=== PATIENT | female | born 1985 | race Caucasian/White ===

== ENCOUNTER 2019-05-21 15:32 | Inpatient (IN) | payer SELFPAY | END 2019-05-27 12:09 | disposition home or self-care (01) | DRG 896 | PROVIDERS: Admitting Provider Internal Medicine; Emergency Provider Family Medicine; Family Provider Family Medicine; Visit Provider Family Medicine | DX: F10.229 Alcohol dependence with intoxication, unspecified (principal); K65.2 Spontaneous bacterial peritonitis; A04.72 Enterocolitis due to Clostridium difficile, not specified as recurrent; I85.00 Esophageal varices without bleeding; R45.851 Suicidal ideations; F10.239 Alcohol dependence with withdrawal, unspecified; K74.60 Unspecified cirrhosis of liver; D69.6 Thrombocytopenia, unspecified; F41.8 Other specified anxiety disorders; F17.210 Nicotine dependence, cigarettes, uncomplicated; E03.9 Hypothyroidism, unspecified; Y90.5 Blood alcohol level of 100-119 mg/100 ml ==

== ENCOUNTER 2019-07-04 19:24 | Emergency (ER) | payer MEDICAID, SELFPAY ==
[2019-07-04 19:31] VITALS: BP 114/92; PULSE 100; RESP 16; TEMP 36.4; O2SAT 96; BMI 21.7
--- NOTE | 2019-07-04 19:35 | ED_ITS ---
Entered by Leslye Euceda, acting as scribe for Milton Piedra MD HPI - Alcohol General: Chief Complaint: Alcohol Stated Complaint: Intoxicated Time Seen by Provider: 07/04/19 19:34 Source: patient and EMS Mode of arrival: EMS History of Present Illness: HPI narrative: 34 y/o female presents to the ED with complaint of ETOH intoxication. Pt was brought in by EMS. Pt states she only had 4 shots of alcohol at home. She is currently in liver failure. 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 Chronic alcohol use: Yes Associated symptoms: Deny abdominal pain, depression, nausea or vomiting Review of Systems Const: Denies: fever, chills, body aches or change in appetite Eyes: Denies: blurry vision or eye discomfort ENMT: Denies: throat pain or dental pain Card: Denies: chest pain Resp: Denies: shortness of breath GI: Denies: abdominal pain, nausea, vomiting or diarrhea : Denies: painful urination Musc: Denies: neck pain or back pain Skin/Breast: Denies: rash Neuro: Denies: headache Psych: Denies: depression Noel/Lymph: Denies: easy bruising All/Imm: Denies: hives PFSH ED PFSH: Statuses (acute, chronic, etc) shown below reflect problem list status as previously entered and may not be historically accurate Social History Smoking and tobacco status: unknown if ever smoked Physical Exam Const: EXAM LIMITATIONS: altered mental status (intoxicated) GENERAL APPEARANCE: disheveled, lethargic and odor of alcohol detected ORIENTATION/CONSCIOUSNESS: Yes lethargic HENMT: COMMON NORMALS: normocephalic and head/scalp atraumatic HEAD & SCALP: normocephalic and atraumatic Eye: COMMON NORMALS: PERRL and EOMs intact bilaterally PUPIL: Yes PERRL Neck/C-Spine: COMMON NORMALS: full ROM and supple Chest: COMMONS NORMALS: inspection of chest normal and palpation of chest normal Resp: COMMON NORMALS: normal respiratory effort, no retractions, no use of accessory muscles and clear to auscultation bilaterally AUSCULTATION: clear to auscultation bilaterally Cardio: COMMON NORMALS: regular rate, regular rhythm and no murmurs RATE: regular rate RHYTHM: regular rhythm GI: COMMON NORMALS: normal to inspection, nondistended, normoactive bowel sounds, soft to palpation, non-tender and no masses PALPATION: Yes soft Extremity: COMMON NORMALS: normal to inspection and full ROM Neuro: COMMON NORMALS: moves all extremities and no focal motor deficits SENSORIUM/ORIENTATION: Yes lethargic GAIT: Yes unable to assess gait Psych: APPEARANCE: Yes unkempt and Yes disheveled SPEECH: Yes slurred Skin: COMMON NORMALS: no rashes or lesions noted and no wounds GENERAL SKIN EXAM: no rashes or lesions noted Course Vital Signs: Vital signs: Vital Signs Temperature 97.5 F L 07/04/19 19:31 Pulse Rate 106 H 07/04/19 19:38 Respiratory Rate 16 07/04/19 19:38 Blood Pressure 114/92 07/04/19 19:38 Pulse Oximetry 94 07/04/19 19:38 MDM - Alcohol MDM Narrative: Medical decision making narrative: Patient presents here with alcohol intoxication. Patient is well-appearing here and has now able to ambulate without any problems. Patient is stable for discharge home. Lab Data: Labs: Lab Results 07/04/19 Range/Units 20:22 Ethyl Alcohol 414 H* (0-10) mg/dL Discharge Plan Discharge Patient Disposition: Home, Self-Care Clinical Impression: Alcoholic intoxication Qualifiers: Complication of substance-induced condition: uncomplicated Qualified Code(s): F10.920 - Alcohol use, unspecified with intoxication, uncomplicated Condition: Stable Discharge Orders: Discharge Order (Routine); Ordered 07/04/19 Ordered By: Milton Piedra Referrals: Rosalba Ashby MD [Family Provider] - Sameer Ziegler MD [Primary Care Provider] - Discharge Diet: Advance as tolerated Discharge Activity: Resume usual activity Patient Instructions: Abuse of Alcohol (ED) Coding Level of Care Code ED Offset Printing Operator for Chg Fwd The documentation recorded by the Ok peterson Ashley, accurately reflects the service I personally performed and the decisions made by Tadeo holliday Korby, MD Jul 04, 2019 19:24
[2019-07-04 19:38] VITALS: BP 114/92; PULSE 106; RESP 16; O2SAT 94
[2019-07-04] MEDS: sodium chloride 0.9% 1,000 ML 999 ML IV (19:45)
[2019-07-04] MEDS: ondansetron 2 mg/ML SDV 2 mL 4 MG IVP (20:03)
[2019-07-04 20:56] LABS: Alcohol Level 414 mg/dL (0-10)
--- NOTE | 2019-07-04 23:08 | PC.NURSE ---
Patient Rounding Patient unable to identify or notify a responsible adult to come get her for discharge and patient is too intoxicated to be discharged on her own.
[2019-07-05] VITALS: BP 134/71; PULSE 82; RESP 16; TEMP 36.7; O2SAT 97
== END 2019-07-05 01:00 | disposition home or self-care (01) ==
PROVIDERS: Emergency Provider Emergency Medicine; Family Provider Family Medicine; PCP General Practice
DX: F10.129 Alcohol abuse with intoxication, unspecified (principal); K72.90 Hepatic failure, unspecified without coma; Y90.8 Blood alcohol level of 240 mg/100 ml or more
CPT/HCPCS: 36415; 80307; 96360; 96361; 96374; 96375; 99282; 99283; J2405; J7030

== ENCOUNTER 2019-07-09 01:32 | Emergency (ER) | payer MEDICAID, SELFPAY ==
[2019-07-09] VITALS (7 sets, daily range): BP systolic 91–117; BP diastolic 68–77; PULSE 107–140; RESP 16–24; TEMP 36.7–36.9; O2SAT 99–100
--- NOTE | 2019-07-09 01:36 | ED_ITS ---
Entered by Adri Sutton, acting as scribe for Jul 09, 2019 01:32 HPI - GI Bleed General: Chief complaint: GI Bleed Stated complaint: GI bleed Time Seen by Provider: 07/09/19 01:36 Source: EMS Mode of arrival: EMS Limitations: no limitations History of Present Illness: HPI Narrative: 34 yo f came to the er by [facility] for Upper GI bleed. Onset was tonight. Severity: severe Relieving factors: none Exacerbating factors: none Context: history of GI bleed and liver disease Associated symptoms: Reports chills and vomiting (BLOOD); Denies fever(s) or headache(s) Review of Systems Const: Reports: chills; Denies: fever Eyes: Reports: blurry vision and yellow eyes ENMT: Denies: oral sores/lesions or nasal discharge Card: Reports: shortness of breath when lying down; Denies: chest pain or palpitations Resp: Reports: shortness of breath; Denies: wheezing GI: Reports: vomiting (BLOOD), vomiting blood and black tarry stool : Reports: difficulty urinating Musc: Reports: back pain Neuro: Reports: numbness in extremities, dizziness and confusion; Denies: headache PFSH ED 2 PFSH: Statuses (acute, chronic, etc) shown below reflect problem list status as previously entered and may not be historically accurate Social History Smoking and tobacco status: current every day smoker Physical Exam Const: GENERAL APPEARANCE: well developed ORIENTATION/CONSCIOUSNESS: Yes oriented to person and Yes oriented to place; not oriented to time HENMT: COMMON NORMALS: normocephalic, external ears normal and external nose normal HEAD & SCALP: normocephalic; no scalp tenderness FACE & SINUS: normal facial exam NOSE: external nose normal and no nasal discharge EXTERNAL EAR: Yes external ears normal MOUTH: tongue normal Eye: COMMON NORMALS: PERRL and EOMs intact bilaterally EYELID: eyelids normal SCLERA: sclera abnormal (icterus) Laterality of scleral abnormality: positive bilateral PUPIL: Yes PERRL Chest: COMMONS NORMALS: inspection of chest normal CHEST: No tenderness Resp: COMMON NORMALS: clear to auscultation bilaterally EFFORT & INSPECTION: Yes tachypneic, Yes respiratory distress, No retractions, No uses accessory muscles and No tracheal deviation AUSCULTATION: clear to auscul tation bilaterally, no rhonchi, no wheezes and lung sounds not diminished Cardio: COMMON NORMALS: regular rhythm; negative for regular rate RATE: abnormal rate RHYTHM: regular rhythm HEART SOUNDS: no murmurs PERIPHERAL PULSES: radial pulses present GI: INSPECTION: No abdominal distension AUSCULTATION: No hyperactive bowel sounds and No hypoactive bowel sounds PALPATION: Yes tender, Yes guarding and No rigid PERCUSSION: no dullness to percussion and no tympanic to percussion Neuro: SENSORIUM/ORIENTATION: Yes oriented to person, Yes oriented to place and No oriented to time Skin: COMMON NORMALS: no rashes or lesions noted GENERAL SKIN EXAM: no rashes or lesions noted Course Vital Signs: Vital signs: Vital Signs Temperature 98.1 F 07/09/19 03:31 Pulse Rate 107 H 07/09/19 03:31 Respiratory Rate 16 07/09/19 03:31 Blood Pressure 108/68 07/09/19 03:31 Pulse Oximetry 99 07/09/19 03:31 MDM - GI Bleed MDM Narrative: Medical decision making narrative: 34-year-old female with a history of chronic liver disease comes in with mental status changes, and vomiting blood. According to EMS, there was a large amount of bloody emesis present with clots. She continues to vomit blood in the ER on arrival. Her heart rates 1 35-1 40. She was hypotensive in the 70s systolic at her lowest, but increased quickly with a fluid bolus. She is received a liter of fluid, 1 unit of O- packed red cells, and is receiving a second unit currently. She is also on Protonix and octreotide. Blood pressure is increased to 117/77. Lab Data: Labs: Lab Results 07/09/19 07/09/19 07/09/19 Range/Units 01:45 01:45 01:45 WBC 13.9 H (4.0-10.0) 10^3/ uL RBC 2.22 L (4.1-5.3) 10^6/u L Hgb 7.6 L (11.5-15.3) g/dL Hct 22.3 L (37.0-47.0) % MCV 100.5 H (81-99) fL MCH 34.2 H (28.0-34.0) pg MCHC 34.1 (30.0-36.0) g/dL RDW 24.0 H (12.1-15.1) % Plt Count 136 (130-400) 10^3/c mm MPV 12.1 H (7.4-10.4) fL Neut % (Auto) 76.3 % Lymph % (Auto) 15.6 % [place] % (Auto) 7.3 % Eos % (Auto) 0.1 % Baso % (Auto) 0.2 % Neut # (Auto) 10.6 H (1.8-7.7) 10^3/u L Lymph # (Auto) 2.2 (0.8-4.8) 10^3/u L [place] # (Auto) 1.0 H (0.2-0.9) 10^3/u L Eos # (Auto) 0.0 (0.0-0.8) 10^3/u L Baso # (Auto) 0.0 (0.0-0.1) 10^3/u L Nucleated RBC % (a uto) 0 % Nucleated RBCs # 0.0 /100WBC PT 33.70 H (10.5-13.3) SECO NDS INR 3.17 H (0.8-1.2) APTT 42.2 H (23.9-36.7) SECO NDS Sodium (136-145) mmol/L Potassium (3.5-5.1) mmol/L Chloride (98-107) mmol/L Carbon Dioxide (22-29) mmol/L Anion Gap (5-19) BUN (6-20) mg/dL Creatinine (0.5-0.9) mg/dL GFR Calculation (90-130) mL/min Glucose (65-115) mg/dL Lactate (0.5-2.2) mmol/L Calcium (8.5-10.5) mg/dL Total Bilirubin (0.15-1.2) mg/dL AST (0-32) U/L ALT (0-33) U/L Alkaline Phosphata se (35-105) IU/L Total Protein (6.6-8.7) g/dL Albumin (3.5-5.2) g/dL Globulin (1.3-4.6) g/dL HCG, Qual (Negative) Acetaminophen (10-30) ug/mL Ethyl Alcohol (0-10) mg/dL Blood Type O Positive Antibody Screen Negative Crossmatch See Detail 07/09/19 07/09/19 07/09/19 Range/Units 01:45 01:45 01:45 WBC (4.0-10.0) 10^3/ uL RBC (4.1-5.3) 10^6/u L Hgb (11.5-15.3) g/dL Hct (37.0-47.0) % MCV (81-99) fL MCH (28.0-34.0) pg MCHC (30.0-36.0) g/dL RDW (12.1-15.1) % Plt Count (130-400) 10^3/c mm MPV (7.4-10.4) fL Neut % (Auto) % Lymph % (Auto) % [place] % (Auto) % Eos % (Auto) % Baso % (Auto) % Neut # (Auto) (1.8-7.7) 10^3/u L Lymph # (Auto) (0.8-4.8) 10^3/u L [place] # (Auto) (0.2-0.9) 10^3/u L Eos # (Auto) (0.0-0.8) 10^3/u L Baso # (Auto) (0.0-0.1) 10^3/u L Nucleated RBC % (a uto) % Nucleated RBCs # /100WBC PT (10.5-13.3) SECO NDS INR (0.8-1.2) APTT (23.9-36.7) SECO NDS Sodium 135 L (136-145) mmol/L Potassium 3.3 L (3.5-5.1) mmol/L Chloride 89 L (98-107) mmol/L Carbon Dioxide 23 (22-29) mmol/L Anion Gap 26.3 H (5-19) BUN 18 (6-20) mg/dL Creatinine 0.6 (0.5-0.9) mg/dL GFR Calculation 113.1 (90-130) mL/min Glucose 123 H (65-115) mg/dL Lactate 8.6 H* (0.5-2.2) mmol/L Calcium 8.4 L (8.5-10.5) mg/dL Total Bilirubin 7.3 H* (0.15-1.2) mg/dL AST 101 H (0-32) U/L ALT 19 (0-33) U/L Alkaline Phosphata se 176 H (35-105) IU/L Total Protein 5.3 L (6.6-8.7) g/dL Albumin 3.1 L (3.5-5.2) g/dL Globulin 2.2 (1.3-4.6) g/dL HCG, Qual Negative (Negative) Acetaminophen < 5.0 L (10-30) ug/mL Ethyl Alcohol < 10 (0-10) mg/dL Blood Type Antibody Screen Crossmatch Critical Care Time Critical Care Time: Critical Care Time: Yes Total Critical Care Time: 40 Attestation: This case had a high probability of a clinically significant, sudden, or life threatening deterioration of this patient's condition which required my full and direct attention, intervention and personal management. Discharge Plan Discharge Referrals: Rosalba Ashby MD [Family Provider] - Sameer Ziegler MD [Primary Care Provider] - Discharge Date/Time: 07/09/19 03:34 Coding Level of Care Code ED Folder Machine Adjuster for Chg Fwd The documentation recorded by the Herman peterson Stephanie Lyn, accurately reflects the service I personally performed and the decisions made by Enoc holliday Jeremy John, DO Jul 09, 2019 01:32
--- NOTE | 2019-07-09 01:43 | XR_ITS ---
WS: [id number] ONE VIEW CHEST HISTORY: 34 years old Female with gi bleed AP upright chest comparison 05/10/2019 FINDINGS: No pneumothorax, pleural effusion, consolidation/atelectasis. Right upper lobe calcified pulmonary no dule. Heart size and pulmonary vascular markings unremarkable. No subdiaphragmatic free air. Slight r ight diaphragm elevation. No fracture seen. XR/XR chest 1V portable [id number] IMPRESSION: No acute cardiopulmonary findings.
--- NOTE | 2019-07-09 01:46 | ECG_ITS ---
Measurements Intervals [place] Rate: 130 P: 3 NJ: 123 QRS: 49 QRSD: 85 T: 48 QT: 363 QTc: 535 SINUS TACHYCARDIA NONSPECIFIC T-WAVE ABNORMALITY ABNORMAL RHYTHM ECG Compared to ECG 05/10/2019 10:24:54 T-wave abnormality now present Sinus rhythm no longer present Electronically Signed On 07-09-2019 22:22:31 SUPERVISOR TRAIN OPERATIONS by Willi Day M.D. [email or web address]
[2019-07-09] MEDS: ondansetron 2 mg/ML SDV 2 mL 4 MG IVP (01:53)
[2019-07-09] MEDS: pantoprazole 40 mg SDV 80 MG IVP (01:54)
[2019-07-09 02:02] LABS: Basophils % 0.2 %; Eosinophils % 0.1 %; Hematocrit 22.3 % (37.0-47.0); Hemoglobin 7.6 g/dL (11.5-15.3); Lymphocytes # 2.2 10^3/uL (0.8-4.8); Lymphocytes % 15.6 %; Mean Corpuscular HGB Conc 34.1 g/dL (30.0-36.0); Mean Corpuscular Hemoglobin 34.2 pg (28.0-34.0); Mean Corpuscular Volume 100.5 fL (81-99); Mean Platelet Volume 12.1 fL (7.4-10.4); Monocytes % 7.3 %; Neutrophils # 10.6 10^3/uL (1.8-7.7); Neutrophils % 76.3 %; Nucleated Red Blood Cells % 0 %; Platelet Count 136 10^3/cmm (130-400); Red Blood Count 2.22 10^6/uL (4.1-5.3); White Blood Count 13.9 10^3/uL (4.0-10.0)
[2019-07-09 02:10] LABS: INR 3.17 (0.8-1.2)
[2019-07-09 02:11] LABS: Partial Thromboplastin Time 42.2 SECONDS (23.9-36.7)
[2019-07-09 02:13] LABS: HCG, Serum Qual Negative (Negative)
[2019-07-09] MEDS: sodium chloride 0.9% 1,000 ML 999 ML IV (02:15)
[2019-07-09] MEDS: octreotide 100 mcg/mL SDV 50 MCG IVP (02:15)
[2019-07-09 02:16] LABS: Alanine Aminotransferase 19 U/L (0-33); Albumin Level 3.1 g/dL (3.5-5.2); Alkaline Phosphatase 176 IU/L (35-105); Anion Gap 26.3 (5-19); Aspartate Amino Transferase 101 U/L (0-32); Blood Urea Nitrogen 18 mg/dL (6-20); Calcium 8.4 mg/dL (8.5-10.5); Carbon Dioxide 23 mmol/L (22-29); Chloride 89 mmol/L (98-107); Creatinine Clr Calc Pharmacy 118.8448; Globulin 2.2 g/dL (1.3-4.6); Glomerular Filtration Rate 113.1 mL/min (90-130); Glucose 123 mg/dL (65-115); Potassium 3.3 mmol/L (3.5-5.1); Sodium 135 mmol/L (136-145); Total Protein 5.3 g/dL (6.6-8.7)
[2019-07-09 02:18] LABS: Acetaminophen < 5.0 ug/mL (10-30); Alcohol Level < 10 mg/dL (0-10); Lactate (Lactic Acid level) 8.6 mmol/L (0.5-2.2); Total Bilirubin 7.3 mg/dL (0.15-1.2)
[2019-07-09] MEDS: sodium chloride 0.9% 100 ML 999 ML (02:19)
== END 2019-07-09 03:34 ==
PROVIDERS: Emergency Provider Emergency Medicine; Family Provider Family Medicine; PCP General Practice
DX: K92.0 Hematemesis (principal); K76.9 Liver disease, unspecified; R41.82 Altered mental status, unspecified; F17.200 Nicotine dependence, unspecified, uncomplicated
CPT/HCPCS: 36415; 71045; 80053; 80307; 80500; 83605; 84703; 85025; 85610; 85730; 86850; 86900; 93005; 96360; 96361; 96374; 96375; 99282; 99283; C9113; J2354; J2405; J7030; P9016

== ENCOUNTER 2019-10-27 16:10 | Emergency (ER) | payer MEDICAID, SELFPAY ==
[2019-10-27 16:29] VITALS: BP 91/57; PULSE 88; RESP 18; TEMP 36.4; O2SAT 99
--- NOTE | 2019-10-27 16:42 | ED_ITS ---
HPI - Psych General: Chief Complaint: Psychiatric Symptoms Stated Complaint: suicide attempt today Time Seen by Provider: 10/27/19 16:38 Source: patient Mode of arrival: other (police) Limitations: no limitations History of Present Illness: HPI Narrative: 34-year-old female who states she has had multiple stressors lately and has a history of liver failure from cirrhosis. She states she had a fight with her this morning and decided to attempt to kill herself. She has 2 superficial lacerations to her left wrist. She states she immediately regretted it and is no longer suicidal. She does have a history depression and takes Lexapro. Denies any worsening or improving factors. complaint: suicidal ideation and feels depressed Onset (ago): hour(s) Duration: resolved prior to arrival Relieving factors: none Exacerbating factors: none Associated symptoms: Reports depression Review of Systems Const: Denies: fever(s), chills, body aches or change in appetite Eyes: Denies: blurry vision or eye discomfort ENMT: Denies: throat pain or dental pain Card: Denies: chest pain Resp: Denies: dyspnea GI: Denies: abdominal pain, nausea, vomiting or diarrhea : Denies: dysuria Musc: Denies: neck pain or back pain Skin/Breast: Denies: rash Neuro: Denies: headache(s) Psych: Reports: depression Noel/Lymph: Denies: easy bruising All/Imm: Denies: urticaria PFS ED PFSH: Social History Smoking and tobacco status: current every day smoker Physical Exam Const: COMMON NORMALS: no acute distress, patient oriented x3 and healthy appearing HENMT: COMMON NORMALS: normocephalic and atraumatic HEAD & SCALP: normocephalic and atraumatic Eye: COMMON NORMALS: Equal, round and reactive pupils present and EOMs intact bilaterally PUPIL: Yes Equal, round and reactive pupils present Neck/C-Spine: COMMON NORMALS: full ROM and supple Chest: COMMONS NORMALS: normal inspection of the chest and normal palpation of entire chest wall Resp: COMMON NORMALS: normal respiratory effort, No retractions, No use of accessory muscles and clear to auscultation bilaterally AUSCULTATION: clear to auscultation bilaterally Cardio: COMMON NORMALS: regular rate, regular rhythm and No murmurs present (Cardio) RATE: regular rate RHYTHM: regular rhythm GI: COMMON NORMALS: Normal to inspection, nondistended, normoactive bowel sounds present, Soft to palpation, non-tender and no masses PALPATION: Yes Soft to palpation Extremity: COMMON NORMALS: normal to inspection and full ROM Neuro: COMMON NORMALS: patient oriented x3, moves all extremities and no focal motor deficits Psych: COMMON NORMALS: mental status grossly normal, Normal thought process present and cooperative THOUGHT PROCESS: Normal thought process present Skin: COMMON NORMALS: no rashes or lesions noted NARRATIVE SKIN EXAM: 2 superficial lacerations to left wrist GENERAL SKIN EXAM: no rashes or lesions noted MDM - Psych MDM Narrative: Medical decision making narrative: Patient presents here with depression along with laceration to wrist. Lacerations very superficial nature. She adamantly denies suicidality. I had Dr. Beach come and see patient he agrees that she is stable for discharge and does not need to be admitted to the psychiatric unit. We will increase her Lexapro per him. Patient stable for discharge and is return if worsening. She understands and agrees to plan. Lab Data: Labs: Lab Results 10/27/19 10/27/19 10/27/19 Range/Units 16:55 16:55 17:10 WBC 7.8 (4.0-10.0) 10^3/ uL RBC 3.82 L (4.1-5.3) 10^6/u L Hgb 12.3 (11.5-15.3) g/dL Hct 36.9 L (37.0-47.0) % MCV 96.6 (81-99) fL MCH 32.2 (28.0-34.0) pg MCHC 33.3 (30.0-36.0) g/dL RDW 16.3 H (12.1-15.1) % Plt Count 165 (130-400) 10^3/c mm MPV 12.7 H (7.4-10.4) fL Neut % (Auto) 64.9 % Lymph % (Auto) 26.1 % [place] % (Auto) 6.7 % Eos % (Auto) 0.8 % Baso % (Auto) 1.2 % Neut # (Auto) 5.1 (1.8-7.7) 10^3/u L Lymph # (Auto) 2.0 (0.8-4.8) 10^3/u L [place] # (Auto) 0.5 (0.2-0.9) 10^3/u L Eos # (Auto) 0.1 (0.0-0.8) 10^3/u L Baso # (Auto) 0.1 (0.0-0.1) 10^3/u L Nucleated RBC % (a uto) 0 % Nucleated RBCs # 0.0 /100WBC Sodium 134 L (136-145) mmol/L Potassium 3.4 L (3.5-5.1) mmol/L Chloride 89 L (98-107) mmol/L Carbon Dioxide 28 (22-29) mmol/L Anion Gap 20.4 H (5-19) BUN 7 (6-20) mg/dL Creatinine 1.3 H (0.5-0.9) mg/dL GFR Calculation 46.3 L (90-130) mL/min Glucose 104 (65-115) mg/dL Calculated Osmolal ity 274 L (285-295) mOsm/k g Calcium 9.8 (8.5-10.5) mg/dL Total Bilirubin 3.0 H (0.15-1.2) mg/dL AST 72 H (0-32) U/L ALT 26 (0-33) U/L Alkaline Phosphata se 124 H (35-105) IU/L Total Protein 7.0 (6.6-8.7) g/dL Albumin 4.3 (3.5-5.2) g/dL Globulin 2.7 (1.3-4.6) g/dL Salicylates < 0.3 L (3-10) mg/dL Urine Opiates Scre en Negative (Negative) ng/mL Acetaminophen < 5.0 L (10-30) ug/mL Ur Barbiturates Sc reen Negative (Negative) ng/mL Ur Phencyclidine S crn Negative (Negative) ng/mL Ur Amphetamines Sc reen Negative (Negative) ng/mL U Benzodiazepines Scrn Negative (Negative) ng/mL Urine Cocaine Scre en Negative (Negative) ng/mL U Marijuana (THC) Screen Negative (Negative) ng/mL Ethyl Alcohol 147 H (0-10) mg/dL Discharge Plan Discharge Patient Disposition: Home, Self-Care Clinical Impression: Depression Qualifiers: Depression Type: unspecified Qualified Code(s): F32.9 - Major depressive disorder, single episode, unspecified Condition: Stable Prescriptions: New Lexapro 20 mg tablet 20 mg PO BID Qty: 60 RF: 0 Discharge Orders: Discharge Order (Routine); Ordered 10/27/19 Ordered By: Milton Piedra Referrals: Stanton Schumacher [Primary Care Provider] - 1-3 days Discharge Diet: Advance as tolerated Discharge Activity: Resume usual activity Patient Instructions: Depression (ED) Discharge Date/Time: 10/27/19 17:53 Coding Level of Care Code ED Senior Communications Specialist for [employer]ide[employer] Fwd Exam Comprehensive
[2019-10-27 17:04] LABS: Basophils # 0.1 10^3/uL (0.0-0.1); Basophils % 1.2 %; Eosinophils # 0.1 10^3/uL (0.0-0.8); Eosinophils % 0.8 %; Hematocrit 36.9 % (37.0-47.0); Hemoglobin 12.3 g/dL (11.5-15.3); Lymphocytes % 26.1 %; Mean Corpuscular HGB Conc 33.3 g/dL (30.0-36.0); Mean Corpuscular Hemoglobin 32.2 pg (28.0-34.0); Mean Corpuscular Volume 96.6 fL (81-99); Mean Platelet Volume 12.7 fL (7.4-10.4); Monocytes # 0.5 10^3/uL (0.2-0.9); Monocytes % 6.7 %; Neutrophils # 5.1 10^3/uL (1.8-7.7); Neutrophils % 64.9 %; Nucleated Red Blood Cells % 0 %; Platelet Count 165 10^3/cmm (130-400); Red Blood Count 3.82 10^6/uL (4.1-5.3); Red Cell Distribution Width 16.3 % (12.1-15.1); White Blood Count 7.8 10^3/uL (4.0-10.0)
[2019-10-27 17:18] LABS: Alanine Aminotransferase 26 U/L (0-33); Albumin Level 4.3 g/dL (3.5-5.2); Alcohol Level 147 mg/dL (0-10); Alkaline Phosphatase 124 IU/L (35-105); Anion Gap 20.4 (5-19); Aspartate Amino Transferase 72 U/L (0-32); Blood Urea Nitrogen 7 mg/dL (6-20); Calcium 9.8 mg/dL (8.5-10.5); Carbon Dioxide 28 mmol/L (22-29); Chloride 89 mmol/L (98-107); Creatinine Clr Calc Pharmacy 44.9811; Globulin 2.7 g/dL (1.3-4.6); Glomerular Filtration Rate 46.3 mL/min (90-130); Glucose 104 mg/dL (65-115); Osmolality Calculated 274 mOsm/kg (285-295); Potassium 3.4 mmol/L (3.5-5.1); Sodium 134 mmol/L (136-145)
[2019-10-27 17:26] LABS: Amphetamines Screen Urine Negative (Negative); Barbiturates Screen Urine Negative (Negative); Benzodiazepines Screen Urine Negative (Negative); Cocaine Screen Urine Negative (Negative); Opiate Screen Urine Negative (Negative); PCP Screen Urine Negative (Negative); THC Screen Urine Negative (Negative)
[2019-10-27 17:32] LABS: Acetaminophen < 5.0 ug/mL (10-30); Salicylate < 0.3 mg/dL (3-10)
[2019-10-27 17:54] VITALS: BP 88/53; PULSE 74; RESP 18; O2SAT 100
== END 2019-10-27 17:53 | disposition home or self-care (01) ==
PROVIDERS: Emergency Provider Emergency Medicine; PCP Family Medicine
DX: F32.9 Major depressive disorder, single episode, unspecified (principal); F17.210 Nicotine dependence, cigarettes, uncomplicated
CPT/HCPCS: 12345; 36415; 80053; 80306; 80307; 85025; 99284

== ENCOUNTER 2019-11-11 20:22 | Emergency (ER) | payer MEDICAID, SELFPAY ==
[2019-11-11 20:27] VITALS: BP 98/53; PULSE 100; RESP 16; TEMP 37.1; O2SAT 96; BMI 15.5
[2019-11-11 21:01] LABS: Basophils # 0.2 10^3/uL (0.0-0.1); Basophils % 2.1 %; Eosinophils # 0.2 10^3/uL (0.0-0.8); Eosinophils % 1.6 %; Hematocrit 31.5 % (37.0-47.0); Hemoglobin 10.7 g/dL (11.5-15.3); Lymphocytes # 3.7 10^3/uL (0.8-4.8); Lymphocytes % 34.8 %; Mean Corpuscular Hemoglobin 33.3 pg (28.0-34.0); Mean Corpuscular Volume 98.1 fL (81-99); Mean Platelet Volume 10.9 fL (7.4-10.4); Monocytes # 0.7 10^3/uL (0.2-0.9); Monocytes % 6.3 %; Neutrophils # 5.8 10^3/uL (1.8-7.7); Neutrophils % 54.9 %; Nucleated Red Blood Cells % 0 %; Platelet Count 206 10^3/cmm (130-400); Red Blood Count 3.21 10^6/uL (4.1-5.3); Red Cell Distribution Width 15.5 % (12.1-15.1); White Blood Count 10.5 10^3/uL (4.0-10.0)
[2019-11-11 21:16] LABS: Add Urine Microscopic? NO
[2019-11-11 21:21] LABS: Bilirubin Urine Neg (NEGATIVE); Blood Urine Neg (Negative); Glucose Urine UA Norm (Normal); HCG Qualitative Urine. Negative (Negative); Ketones Urine Negative (Negative); Leukocyte Esterase Urine Negative (Negative); Nitrate Urine Negative (Negative); Protein Urine Neg (Negative); Specific Gravity, Urine 1.005 (1.005-1.030); Urine Appearance Clear (CLEAR); Urine Color Straw (Yellow); Urobilinogen Urine Norm (Negative); pH Urine 7 (5-7)
[2019-11-11 21:22] LABS: Alanine Aminotransferase 23 U/L (0-33); Alcohol Level 272 mg/dL (0-10); Alkaline Phosphatase 127 IU/L (35-105); Anion Gap 18.1 (5-19); Aspartate Amino Transferase 51 U/L (0-32); Blood Urea Nitrogen 6 mg/dL (6-20); Calcium 9.4 mg/dL (8.5-10.5); Carbon Dioxide 28 mmol/L (22-29); Chloride 102 mmol/L (98-107); Globulin 2.8 g/dL (1.3-4.6); Glomerular Filtration Rate 62.7 mL/min (90-130); Glucose 80 mg/dL (65-115); Osmolality Calculated 295 mOsm/kg (285-295); Potassium 3.1 mmol/L (3.5-5.1); Sodium 145 mmol/L (136-145); Thyroid Stimulating Hormone 0.06 uIU/mL (0.27-4.20); Total Bilirubin 1.7 mg/dL (0.15-1.2); Total Protein 6.8 g/dL (6.6-8.7)
[2019-11-11 21:29] LABS: Amphetamines Screen Urine Negative (Negative); Barbiturates Screen Urine Negative (Negative); Benzodiazepines Screen Urine Negative (Negative); Cocaine Screen Urine Negative (Negative); Opiate Screen Urine Negative (Negative); PCP Screen Urine Negative (Negative); THC Screen Urine Negative (Negative)
[2019-11-11 21:31] LABS: Acetaminophen < 5.0 ug/mL (10-30); Salicylate < 0.3 mg/dL (3-10)
--- NOTE | 2019-11-11 23:05 | PC.NURSE ---
Pt observed removing saline lock. Area bandaaged by staff
--- NOTE | 2019-11-11 23:24 | ED_ITS ---
HPI - Anxiety General: Chief Complaint: Anxiety Stated Complaint: STRESS/AGITATED Time Seen by Provider: 11/11/19 20:23 Source: patient and EMS Mode of arrival: EMS Limitations: no limitations History of Present Illness: HPI narrative: 34-year-old female patient with a history of liver disease, thyroid disease, alcoholism, anxiety, depression was brought into the emergency department by EMS. Currently her parents are her temporary guardians. The patient is however alert and oriented. It was reported that the patient may have threatened somebody in her family. Her family did not come with her to the emergency department, and did not fill out an affidavit. I tried to call her mother to obtain the story from her but the mother did not return my call nor did she answer the phone when I called. The patient denies homicidal or suicidal ideation. The patient states that she is having domestic issues with her parents due to financial reasons. Patient also states that her parents do not want her to see her ex-. The patient does admit to anxiety. Patient states that she was in a verbal argument with her parents today after which they called the ambulance. MD complaint: anxiety Associated symptoms: Deny chills, fever(s), headache(s), nausea, palpitations or vomiting Review of Systems General: Reports: 10 or more systems reviewed and unremarkable except in HPI and below Const: Denies: fever(s), chills or body aches Card: Denies: palpitations, irregular heart rhythm, edema or swelling of feet/ankles Resp: Denies: dyspnea, productive cough or non-productive cough GI: Denies: abdominal pain, nausea or vomiting : Denies: flank pain, difficulty voiding, dysuria, urinary frequency, urinary urgency or urinary hesitancy Musc: Denies: neck pain, back pain or extremity swelling Skin/Breast: Denies: rash, pruritus or erythema Neuro: Denies: headache(s), numbness in extremities or weakness in extremities Psych: Reports: anxiety and depression Endo: Denies: polyuria, polydipsia or tired all the time [facility] ED PFSH: Social History Smoking and tobacco status: current every day smoker Physical Exam Const: COMMON NORMALS: no acute distress, average body habitus, patient oriented x3, no limitations, healthy appearing, alert and well nourished Neck/C-Spine: COMMON NORMALS: no meningeal signs and no JVD Resp: COMMON NORMALS: normal respiratory effort, No retractions, No use of accessory muscles, clear to auscultation bilaterally and percussion normal AUSCULTATION: clear to auscultation bilaterally PERCUSSION: percussion normal Cardio: COMMON NORMALS: no JVD, regular rate, regular rhythm, S1 normal heart sound present, S2 normal heart sound present, No gallops present (Cardio), No clicks present (Cardio), No murmurs present (Cardio), No rub (Cardio) and Peripheral pulses 2+ throughout RATE: regular rate RHYTHM: regular rhythm HEART SOUNDS: S1 normal heart sound present and S2 normal heart sound present PERIPHERAL PULSES: Peripheral pulses 2+ throughout GI: COMMON NORMALS: Normal to inspection, nondistended, normoactive bowel sounds present, Soft to palpation, non-tender, No hepatosplenomegaly present, no masses and no bruits PALPATION: Yes Soft to palpation and Yes No hepatosplenomegaly present : COMMON NORMALS: Yes no CVA tenderness BLADDER/KIDNEY EXAM: Yes no CVA tenderness Back/Pelvis: COMMON NORMALS: no CVA tenderness Extremity: COMMON NORMALS: normal to inspection, full ROM, capillary refill normal, no calf tenderness and no pedal edema Neuro: COMMON NORMALS: patient oriented x3 SENSORIUM/ORIENTATION: Yes alert MENINGEAL SIGNS: Yes no meningeal signs Skin: COMMON NORMALS: no rashes or lesions noted, no wounds, turgor normal, no jaundice, no petechiae and no mottling GENERAL SKIN EXAM: no rashes or lesions noted and turgor normal Course Consultations: Consultation #1: Dr. Beach, psychiatrist. He performed a tele-psych visits with this patient. After his evaluation he does not think the patient is an imminent risk to herself or other people. He is comfortable with discharging her home. Time: 23:05 Vital Signs: Vital signs: Vital Signs Temperature 98.8 F 11/11/19 20:27 Pulse Rate 76 11/11/19 23:38 Respiratory Rate 16 11/11/19 20:27 Blood Pressure 98/53 11/11/19 20:27 Pulse Oximetry 99 11/11/19 23:38 MDM - Anxiety MDM Narrative: Medical decision making narrative: 34-year-old female patient who was brought in by EMS with possible threats to her family. The patient has some psychiatric issues including anxiety and depression as well as some significant health issues including liver and thyroid disease. Her parents are her temporary legal guardians at this time. Patient however denies suicidal or homicidal ideation. By my evaluation and evaluation of the psychiatrist she does not appear to be an imminent risk to herself or others. I attempted to contact her mother to get a history and to discuss the management plan with her. However her mother did not picker and sorter load and unload and only called back after the patient had been discharged home. I informed the mother of the clinical course in the ER and the mother voiced understanding. Lab Data: Labs: Lab Results 11/11/19 11/11/19 11/11/19 Range/Units 19:43 19:43 21:10 WBC 10.5 H (4.0-10.0) 10^3/ uL RBC 3.21 L (4.1-5.3) 10^6/u L Hgb 10.7 L (11.5-15.3) g/dL Hct 31.5 L (37.0-47.0) % MCV 98.1 (81-99) fL MCH 33.3 (28.0-34.0) pg MCHC 34.0 (30.0-36.0) g/dL RDW 15.5 H (12.1-15.1) % Plt Count 206 (130-400) 10^3/c mm MPV 10.9 H (7.4-10.4) fL Neut % (Auto) 54.9 % Lymph % (Auto) 34.8 % [place] % (Auto) 6.3 % Eos % (Auto) 1.6 % Baso % (Auto) 2.1 % Neut # (Auto) 5.8 (1.8-7.7) 10^3/u L Lymph # (Auto) 3.7 (0.8-4.8) 10^3/u L [place] # (Auto) 0.7 (0.2-0.9) 10^3/u L Eos # (Auto) 0.2 (0.0-0.8) 10^3/u L Baso # (Auto) 0.2 H (0.0-0.1) 10^3/u L Nucleated RBC % (a uto) 0 % Nucleated RBCs # 0.0 /100WBC Sodium 145 (136-145) mmol/L Potassium 3.1 L (3.5-5.1) mmol/L Chloride 102 (98-107) mmol/L Carbon Dioxide 28 (22-29) mmol/L Anion Gap 18.1 (5-19) BUN 6 (6-20) mg/dL Creatinine 1.0 H (0.5-0.9) mg/dL GFR Calculation 62.7 L (90-130) mL/min Glucose 80 (65-115) mg/dL Calculated Osmolal ity 295 (285-295) mOsm/k g Calcium 9.4 (8.5-10.5) mg/dL Total Bilirubin 1.7 H (0.15-1.2) mg/dL AST 51 H (0-32) U/L ALT 23 (0-33) U/L Alkaline Phosphata se 127 H (35-105) IU/L Total Protein 6.8 (6.6-8.7) g/dL Albumin 4.0 (3.5-5.2) g/dL Globulin 2.8 (1.3-4.6) g/dL TSH 0.06 L (0.27-4.20) uIU/ mL HCG, Qual Negative (Negative) Urine Color (Yellow) Urine Appearance (CLEAR) Urine pH (5-7) Ur Specific Gravit y (1.005-1.030) Urine Protein (Negative) Urine Glucose (UA) (Normal) Urine Ketones (Negative) Urine Blood (Negative) Urine Nitrate (Negative) Urine Bilirubin (NEGATIVE) Urine Urobilinogen (Negative) mg/dL Ur Leukocyte Mera ase (Negative) Salicylates < 0.3 L (3-10) mg/dL Urine Opiates Scre en (Negative) ng/mL Acetaminophen < 5.0 L (10-30) ug/mL Ur Barbiturates Sc reen (Negative) ng/mL Ur Phencyclidine S crn (Negative) ng/mL Ur Amphetamines Sc reen (Negative) ng/mL U Benzodiazepines Scrn (Negative) ng/mL Urine Cocaine Scre en (Negative) ng/mL U Marijuana (THC) Screen (Negative) ng/mL Ethyl Alcohol 272 H (0-10) mg/dL 11/11/19 11/11/19 Range/Units 21:10 21:10 WBC (4.0-10.0) 10^3/ uL RBC (4.1-5.3) 10^6/u L Hgb (11.5-15.3) g/dL Hct (37.0-47.0) % MCV (81-99) fL MCH (28.0-34.0) pg MCHC (30.0-36.0) g/dL RDW (12.1-15.1) % Plt Count (130-400) 10^3/c mm MPV (7.4-10.4) fL Neut % (Auto) % Lymph % (Auto) % [place] % (Auto) % Eos % (Auto) % Baso % (Auto) % Neut # (Auto) (1.8-7.7) 10^3/u L Lymph # (Auto) (0.8-4.8) 10^3/u L [place] # (Auto) (0.2-0.9) 10^3/u L Eos # (Auto) (0.0-0.8) 10^3/u L Baso # (Auto) (0.0-0.1) 10^3/u L Nucleated RBC % (a uto) % Nucleated RBCs # /100WBC Sodium (136-145) mmol/L Potassium (3.5-5.1) mmol/L Chloride (98-107) mmol/L Carbon Dioxide (22-29) mmol/L Anion Gap (5-19) BUN (6-20) mg/dL Creatinine (0.5-0.9) mg/dL GFR Calculation (90-130) mL/min Glucose (65-115) mg/dL Calculated Osmolal ity (285-295) mOsm/k g Calcium (8.5-10.5) mg/dL Total Bilirubin (0.15-1.2) mg/dL AST (0-32) U/L ALT (0-33) U/L Alkaline Phosphata se (35-105) IU/L Total Protein (6.6-8.7) g/dL Albumin (3.5-5.2) g/dL Globulin (1.3-4.6) g/dL TSH (0.27-4.20) uIU/ mL HCG, Qual (Negative) Urine Color Straw (Yellow) Urine Appearance Clear (CLEAR) Urine pH 7 (5-7) Ur Specific Gravit y 1.005 (1.005-1.030) Urine Protein Neg (Negative) Urine Glucose (UA) Norm (Normal) Urine Ketones Negative (Negative) Urine Blood Neg (Negative) Urine Nitrate Negative (Negative) Urine Bilirubin Neg (NEGATIVE) Urine Urobilinogen Norm (Negative) mg/dL Ur Leukocyte Mera ase Negative (Negative) Salicylates (3-10) mg/dL Urine Opiates Scre en Negative (Negative) ng/mL Acetaminophen (10-30) ug/mL Ur Barbiturates Sc reen Negative (Negative) ng/mL Ur Phencyclidine S crn Negative (Negative) ng/mL Ur Amphetamines Sc reen Negative (Negative) ng/mL U Benzodiazepines Scrn Negative (Negative) ng/mL Urine Cocaine Scre en Negative (Negative) ng/mL U Marijuana (THC) Screen Negative (Negative) ng/mL Ethyl Alcohol (0-10) mg/dL Discharge Plan Discharge Patient Disposition: Home, Self-Care Clinical Impression: Anxiety Condition: Stable Prescriptions: Continued Lexapro 20 mg tablet 20 mg PO BID Qty: 60 RF: 0 Discharge Orders: Discharge Order (Routine); Ordered 11/11/19 Ordered By: Pacheco Rodriguez Referrals: Stanton Schumacher [Primary Care Provider] - 4-7 days Patient Instructions: Anxiety (ED) Activity Restrictions/Additional Instructions: Return for any new or worsening symptoms. Follow-up with your primary care provider within 1 week. If you have thoughts of suicidal thoughts of harming anyone else please call the crisis helpline call 911 to seek immediate care. Discharge Date/Time: 11/11/19 23:55 Coding Level of Care Code ED Sheet Cutter for Margarita Mireles
--- NOTE | 2019-11-11 23:31 | PC.NURSE ---
i agree with this assessment
[2019-11-11 23:38] VITALS: PULSE 76; O2SAT 99
== END 2019-11-11 23:55 | disposition home or self-care (01) ==
PROVIDERS: Emergency Provider Family Medicine; PCP Family Medicine
DX: F41.9 Anxiety disorder, unspecified (principal); F17.210 Nicotine dependence, cigarettes, uncomplicated
CPT/HCPCS: 12345; 80053; 80306; 80307; 81003; 81025; 84443; 85025; 99282

== ENCOUNTER 2019-11-12 23:59 | Emergency (ER) | payer MEDICAID, SELFPAY ==
[2019-11-13 00:01] VITALS: BP 111/78; PULSE 94; RESP 16; TEMP 36.6; O2SAT 100; BMI 15.5
--- NOTE | 2019-11-13 00:13 | PC.NURSE ---
Patient wishes to leave AMA, form signed
--- NOTE | 2019-11-13 00:24 | PC.NURSE ---
Patient asked to stay and be treated several time but refused and will return if needed. Patient is calling for a ride home.
== END 2019-11-13 00:22 | disposition left against medical advice (07) ==
LOC: ER 11-13 00:12
PROVIDERS: Emergency Provider Nurse Practitioner Family; PCP Family Medicine
DX: Z53.21 Procedure and treatment not carried out due to patient leaving prior to being seen by health care provider (principal)
CPT/HCPCS: 99281; 99282

== ENCOUNTER 2020-04-01 10:38 | Inpatient (IN) | payer MEDICAID, SELFPAY ==
[2020-04-01 10:38] VITALS: BP 115/71; PULSE 99; RESP 18; TEMP 36.4; O2SAT 96; BMI 19.2
[2020-04-01 10:54] VITALS: BP 115/71; PULSE 90; RESP 18; O2SAT 99
[2020-04-01 11:26] LABS: Basophils # 0.1 10^3/uL (0.0-0.1); Basophils % 1.8 %; Eosinophils # 0.1 10^3/uL (0.0-0.8); Eosinophils % 1.5 %; Hematocrit 31.2 % (37.0-47.0); Hemoglobin 9.7 g/dL (11.5-15.3); Lymphocytes # 2.9 10^3/uL (0.8-4.8); Lymphocytes % 40.1 %; Mean Corpuscular HGB Conc 31.1 g/dL (30.0-36.0); Mean Corpuscular Hemoglobin 25.8 pg (28.0-34.0); Mean Platelet Volume 9.9 fL (7.4-10.4); Monocytes # 0.4 10^3/uL (0.2-0.9); Monocytes % 5.9 %; Neutrophils # 3.58 10^3/uL (1.8-7.7); Neutrophils % 50.1 %; Nucleated Red Blood Cells % 0 %; Platelet Count 209 10^3/cmm (130-400); Red Blood Count 3.76 10^6/uL (4.1-5.3); Red Cell Distribution Width 16.3 % (12.1-15.1); White Blood Count 7.1 10^3/uL (4.0-10.0)
[2020-04-01 11:44] LABS: Alanine Aminotransferase 25 U/L (0-33); Albumin Level 3.7 g/dL (3.5-5.2); Alkaline Phosphatase 95 IU/L (35-105); Anion Gap 13.6 (5-19); Aspartate Amino Transferase 65 U/L (0-32); Blood Urea Nitrogen 8 mg/dL (6-20); Calcium 8.4 mg/dL (8.5-10.5); Carbon Dioxide 26 mmol/L (22-29); Chloride 111 mmol/L (98-107); Globulin 2.6 g/dL (1.3-4.6); Glomerular Filtration Rate 94.7 mL/min (90-130); Glucose 158 mg/dL (65-115); Osmolality Calculated 306 mOsm/kg (285-295); Potassium 3.6 mmol/L (3.5-5.1); Sodium 147 mmol/L (136-145); Total Bilirubin 0.8 mg/dL (0.15-1.2); Total Protein 6.3 g/dL (6.6-8.7)
[2020-04-01 11:47] LABS: Acetaminophen < 5.0 ug/mL (10-30); Salicylate < 0.3 mg/dL (3-10)
[2020-04-01 11:48] LABS: Alcohol Level 430 mg/dL (0-10)
[2020-04-01 11:52] LABS: HCG Qualitative Urine. Negative (Negative)
[2020-04-01 12:00] LABS: Add Urine Microscopic? NO
[2020-04-01 12:05] LABS: Bilirubin Urine Neg (Negative); Blood Urine Neg (Negative); Glucose Urine UA Norm (Normal); Ketones Urine Negative (Negative); Leukocyte Esterase Urine Negative (Negative); Nitrate Urine Negative (Negative); Protein Urine Neg (Negative); Specific Gravity, Urine 1.025 (1.005-1.030); Urine Appearance Clear (CLEAR); Urine Color Yellow (Yellow); Urobilinogen Urine Norm (Negative); pH Urine 6 (5-7)
[2020-04-01 12:12] LABS: Amphetamines Screen Urine Negative (Negative); Barbiturates Screen Urine Negative (Negative); Benzodiazepines Screen Urine Positive (Negative); Cocaine Screen Urine Negative (Negative); Opiate Screen Urine Negative (Negative); PCP Screen Urine Negative (Negative); THC Screen Urine Negative (Negative)
--- NOTE | 2020-04-01 12:58 | ED_ITS ---
HPI - Psych General: Chief Complaint: Psychiatric Symptoms Stated Complaint: PSYCH/ OVERDOSE Time Seen by Provider: 04/01/20 10:44 History of Present Illness: HPI Narrative: 34-year-old female presents emergency room custody was Prachi REIS. She was picked up after being found stumbling around a hotel. She admits to taking large amounts of an unknown dose of Xanax that she got from someone else he also admits to drinking heavily. 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 There is an affidavit on the chart. complaint: suicidal ideation Onset (ago): hour(s) Duration: constant History of same: Yes Relieving factors: none Exacerbating factors: none Context: recent alcohol abuse and recent drug abuse Associated psychiatric symptoms: depression and suicidal ideation Associated symptoms: Reports depression and suicidal ideation; Deny homicidal ideation Treatments prior to arrival: placed on mental health hold If self harm: admits thoughts of self harm (Minutes to intent of self-harm to please officer affidavit on the chart), has plan, has acted on plan and intentional overdose Review of Systems Const: Denies: fever(s), chills, body aches, change in appetite, fatigue or malaise ENMT: Denies: throat pain, ear or mastoid pain, nasal discharge or nasal congestion Card: Denies: chest pain, edema, dyspnea on exertion or orthopnea Resp: Denies: dyspnea, productive cough or non-productive cough GI: Denies: abdominal pain, nausea, vomiting, hematemesis, coffee ground emesis, diarrhea, constipation, bloating, hematochezia or melena : Denies: flank pain, difficulty voiding, dysuria, urinary frequency or urinary urgency Skin/Breast: Denies: rash or pruritus Psych: Reports: depression and suicidal ideation; Denies: homicidal ideation [facility] ED PFSH: Medical History (Updated 04/04/20 @ 14:29 by Angie Osman MD) Benzodiazepine abuse History of alcohol abuse Social History Smoking and tobacco status: current every day smoker Physical Exam Const: COMMON NORMALS: no acute distress GENERAL APPEARANCE: cooperative and comfortable ORIENTATION/CONSCIOUSNESS: Yes awake, Yes oriented to person, Yes oriented to place and Yes oriented to time HENMT: COMMON NORMALS: normocephalic, atraumatic and hearing grossly normal bilaterally HEAD & SCALP: normocephalic and atraumatic Eye: COMMON NORMALS: Equal, round and reactive pupils present, EOMs intact bilaterally, conjunctivae normal and no scleral icterus CONJUNCTIVA: Yes co njunctivae normal PUPIL: Yes Equal, round and reactive pupils present Neck/C-Spine: COMMON NORMALS: full ROM, no lymphadenopathy, supple and no JVD Lymph: LYMPHATIC: no lymphadenopathy noted and no lymphedema noted Resp: COMMON NORMALS: normal respiratory effort, No retractions, No use of accessory muscles and clear to auscultation bilaterally AUSCULTATION: clear to auscultation bilaterally Cardio: COMMON NORMALS: no JVD, regular rate, regular rhythm and No murmurs present (Cardio) RATE: regular rate RHYTHM: regular rhythm GI: COMMON NORMALS: Soft to palpation and No hepatosplenomegaly present AUSCULTATION: Yes normoactive bowel sounds PALPATION: Yes Soft to palpation, No Tenderness to palpation present (GI), No Guarding due to palpation present (GI) and Yes No hepatosplenomegaly present Extremity: COMMON NORMALS: normal to inspection, capillary refill normal, no clubbing, cyanosis or edema, no calf tenderness and no pedal edema Neuro: SENSORIUM/ORIENTATION: Yes oriented to person, Yes oriented to place and Yes oriented to time Skin: COMMON NORMALS: no rashes or lesions noted GENERAL SKIN EXAM: no rashes or lesions noted MDM - Psych MDM Narrative: Medical decision making narrative: Discussed with Dr. Beach. We will go ahead and admit the patient orders are written. Patient given Ativan in the emergency room at the request of Dr. Beach. Dr. Beach is familiar with the patient. He agrees to take her she is still somewhat sedate she is rather slow to clear her alcohol and recheck her blood alcohol level still elevated. Orders written and he will see the patient on the floor. Lab Data: Labs: Lab Results 04/01/20 04/01/20 04/01/20 Range/Units 11:17 11:17 11:17 WBC 7.1 (4.0-10.0) 10^3/ uL RBC 3.76 L (4.1-5.3) 10^6/u L Hgb 9.7 L (11.5-15.3) g/dL Hct 31.2 L (37.0-47.0) % MCV 83.0 (81-99) fL MCH 25.8 L (28.0-34.0) pg MCHC 31.1 (30.0-36.0) g/dL RDW 16.3 H (12.1-15.1) % Plt Count 209 (130-400) 10^3/c mm MPV 9.9 (7.4-10.4) fL Neut % (Auto) 50.1 % Lymph % (Auto) 40.1 % [place] % (Auto) 5.9 % Eos % (Auto) 1.5 % Baso % (Auto) 1.8 % Neut # (Auto) 3.58 (1.8-7.7) 10^3/u L Lymph # (Auto) 2.9 (0.8-4.8) 10^3/u L [place] # (Auto) 0.4 (0.2-0.9) 10^3/u L Eos # (Auto) 0.1 (0.0-0.8) 10^3/u L Baso # (Auto) 0.1 (0.0-0.1) 10^3/u L Nucleated RBC % (a uto) 0 % Nucleated RBCs # 0.0 /100WBC PT 17.70 H (12.1-14.9) SECO NDS INR 1.41 H (0.8-1.2) Sodium 147 H (136-145) mmol/L Potassium 3.6 (3.5-5.1) mmol/L Chloride 111 H (98-107) mmol/L Carbon Dioxide 26 (22-29) mmol/L Anion Gap 13.6 (5-19) BUN 8 (6-20) mg/dL Creatinine 0.7 (0.5-0.9) mg/dL GFR Calculation 94.7 (90-130) mL/min Glucose 158 H (65-115) mg/dL Calculated Osmolal ity 306 H (285-295) mOsm/k g Calcium 8.4 L (8.5-10.5) mg/dL Total Bilirubin 0.8 (0.15-1.2) mg/dL AST 65 H (0-32) U/L ALT 25 (0-33) U/L Alkaline Phosphata se 95 (35-105) IU/L Total Protein 6.3 L (6.6-8.7) g/dL Albumin 3.7 (3.5-5.2) g/dL Globulin 2.6 (1.3-4.6) g/dL HCG, Qual (Negative) Urine Color (Yellow) Urine Appearance (CLEAR) Urine pH (5-7) Ur Specific Gravit y (1.005-1.030) Urine Protein (Negative) Urine Glucose (UA) (Normal) Urine Ketones (Negative) Urine Blood (Negative) Urine Nitrate (Negative) Urine Bilirubin (Negative) Urine Urobilinogen (Negative) mg/dL Ur Leukocyte Mera ase (Negative) Salicylates < 0.3 L (3-10) mg/dL Urine Opiates Scre en (Negative) ng/mL Acetaminophen < 5.0 L (10-30) ug/mL Ur Barbiturates Sc reen (Negative) ng/mL Ur Phencyclidine S crn (Negative) ng/mL Ur Amphetamines Sc reen (Negative) ng/mL U Benzodiazepines Scrn (Negative) ng/mL Urine Cocaine Scre en (Negative) ng/mL U Marijuana (THC) Screen (Negative) ng/mL Ethyl Alcohol 430 H* (0-10) mg/dL 04/01/20 04/01/20 04/01/20 Range/Units 11:47 11:47 11:47 WBC (4.0-10.0) 10^3/ uL RBC (4.1-5.3) 10^6/u L Hgb (11.5-15.3) g/dL Hct (37.0-47.0) % MCV (81-99) fL MCH (28.0-34.0) pg MCHC (30.0-36.0) g/dL RDW (12.1-15.1) % Plt Count (130-400) 10^3/c mm MPV (7.4-10.4) fL Neut % (Auto) % Lymph % (Auto) % [place] % (Auto) % Eos % (Auto) % Baso % (Auto) % Neut # (Auto) (1.8-7.7) 10^3/u L Lymph # (Auto) (0.8-4.8) 10^3/u L [place] # (Auto) (0.2-0.9) 10^3/u L Eos # (Auto) (0.0-0.8) 10^3/u L Baso # (Auto) (0.0-0.1) 10^3/u L Nucleated RBC % (a uto) % Nucleated RBCs # /100WBC PT (12.1-14.9) SECO NDS INR (0.8-1.2) Sodium (136-145) mmol/L Potassium (3.5-5.1) mmol/L Chloride (98-107) mmol/L Carbon Dioxide (22-29) mmol/L Anion Gap (5-19) BUN (6-20) mg/dL Creatinine (0.5-0.9) mg/dL GFR Calculation (90-130) mL/min Glucose (65-115) mg/dL Calculated Osmolal ity (285-295) mOsm/k g Calcium (8.5-10.5) mg/dL Total Bilirubin (0.15-1.2) mg/dL AST (0-32) U/L ALT (0-33) U/L Alkaline Phosphata se (35-105) IU/L Total Protein (6.6-8.7) g/dL Albumin (3.5-5.2) g/dL Globulin (1.3-4.6) g/dL HCG, Qual Negative (Negative) Urine Color Yellow (Yellow) Urine Appearance Clear (CLEAR) Urine pH 6 (5-7) Ur Specific Gravit y 1.025 (1.005-1.030) Urine Protein Neg (Negative) Urine Glucose (UA) Norm (Normal) Urine Ketones Negative (Negative) Urine Blood Neg (Negative) Urine Nitrate Negative (Negative) Urine Bilirubin Neg (Negative) Urine Urobilinogen Norm (Negative) mg/dL Ur Leukocyte Mera ase Negative (Negative) Salicylates (3-10) mg/dL Urine Opiates Scre en Negative (Negative) ng/mL Acetaminophen (10-30) ug/mL Ur Barbiturates Sc reen Negative (Negative) ng/mL Ur Phencyclidine S crn Negative (Negative) ng/mL Ur Amphetamines Sc reen Negative (Negative) ng/mL U Benzodiazepines Scrn Positive H (Negative) ng/mL Urine Cocaine Scre en Negative (Negative) ng/mL U Marijuana (THC) Screen Negative (Negative) ng/mL Ethyl Alcohol (0-10) mg/dL Discharge Plan Discharge Patient Disposition: Admitted As Inpatient Admit Provider: Michele Beach Clinical Impression: Suicidal ideation, Depression, Overdose Condition: Stable Referrals: Stanton Schumacher [Primary Care Provider] - Discharge Date/Time: 04/01/20 18:50 Coding Level 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
[2020-04-01 14:28] LABS: INR 1.41 (0.8-1.2)
[2020-04-01 14:50] VITALS: BP 108/65; PULSE 93; RESP 16; O2SAT 93
[2020-04-01 15:30] VITALS: BP 105/59; PULSE 91; RESP 16; O2SAT 93
[2020-04-01 15:30] LABS: Alcohol Level 371 mg/dL (0-10)
[2020-04-01 18:28] VITALS: BP 100/66; PULSE 95; RESP 18; TEMP 36.8; O2SAT 93
[2020-04-01 22:00] VITALS: BP 78/52; PULSE 99; RESP 12; TEMP 36.8; O2SAT 100
[2020-04-01] MEDS: LORazepam 2 mg/mL INJ 1 mL IM (23:49)
[2020-04-01] MEDS: ondansetron 4 MG Tablet PO (23:49)
[2020-04-02] VITALS (95 sets, daily range): BP systolic 74–121; BP diastolic 41–75; PULSE 67–107; RESP 10–26; TEMP 36.6–36.7; O2SAT 96–100
[2020-04-02] MEDS: LORazepam 2 mg/mL INJ 1 mL 1 MG IVP ×4 (00:05→00:21)
[2020-04-02] MEDS: dextrose 50% syringe 50 mL IVP (00:05)
[2020-04-02 00:06] LABS: Glucose Point of Care 85 mg/dL (70-110)
[2020-04-02] MEDS: sodium chloride 0.9% 1,000 ML 999 ML IV ×3 (00:15→03:08)
[2020-04-02] MEDS: LORazepam 2 mg/mL INJ 1 mL IVP ×5 (00:19→18:13)
--- NOTE | 2020-04-02 00:26 | P.HP_ITS ---
Providers/Chief Complaint Admitting Physician: Michele Beach MD Primary Care Provider: Stanton Schumacher Chief Complaint: PSYCH/ OVERDOSE History of Present Illness Pily Choe is a 34 year old female with a past medical history of alcohol abuse, acute on chronic anemia, admitted [facility] due to alcohol intoxication, taking unknown amounts of Xanax, there is concerns for suicidal ideation. On admission her blood alcohol level was 430, urine positive for benzodiazepines she was admitted to the [facility], for suicidal ideation. I was unable to get a full history from the patient, patient was actively seizing on presentation. She was able to at least tell me that she has had alcohol withdrawal seizures in the past, I am not sure if she said yes or no to delirium tremens, not sure if she said yes or no to history of intubation. Rapid response was called at 2356, she got 2 mg of Ativan before arrival while, on arrival milligrams of Ativan, D50, blood sugar 96, upon arrival she was actively seizing, generalized seizure, after getting the Ativan, she would be a bit postictal, will be able to answer few questions, go back into seizures, she got a total of 10 mg Ativan, she got a liter of fluid, running wide open, transferred to the ICU, started on Keppra, started on Levophed due to hypotensive episodes, I spoke to Dr. Murrieta, as patient has had recurrent seizure for over 25 minutes, we need to intubate her, protect her airway, she has delirium tremens, Dr. Murrieta arrived in the ICU, she was intubated with etomidate, succinylcholine, 24 CO2, ET tube 8, started propofol and fentanyl. Review of Systems General: Reports: ROS unobtainable due to medical condition Medications/Allergies Home Medications Medication Instructions Recorded Confirmed Last Taken Type No Known Home Medications 04/01/20 04/01/20 Unknown History Allergies Allergy/AdvReac Type Severity Reaction Status Date / Time doxycycline Allergy ADR-Vomitin Verified 10/27/19 16:36 g ketorolac [From Toradol] Allergy ADR-Halluci Verified 10/27/19 16:36 nating paroxetine [From Paxil] Allergy ADR-Depress Verified 10/27/19 16:36 ion PFSH Acute PFSH: Medical History (Updated 04/02/20 @ 00:55 by Kirit Lowe MD) Benzodiazepine abuse History of alcohol abuse Social History Smoking and tobacco status: current every day smoker Vitals/I&O/Wt Last Vital Signs Temp 98.3 F 04/01/20 22:00 Pulse 99 04/01/20 22:00 Resp 12 04/01/20 22:00 BP 78/52 04/01/20 22:00 Pulse Ox 100 04/01/20 22:00 Weight last 48 hrs Weight 58.967 kg Physical Exam Narrative: EXAM NARRATIVE: Actively seizing, generalized grand mal seizure Const: GENERAL APPEARANCE: in distress OTHER: Actively seizing Eye: OTHER: Pupils dilated Chest: COMMONS NORMALS: normal inspection of the chest Resp: COMMON NORMALS: normal respiratory effort, No retractions, No use of accessory muscles and clear to auscultation bilaterally Cardio: COMMON NORMALS: S1 normal heart sound present and S2 normal heart sound present RATE: tachycardic RHYTHM: regular rhythm GI: COMMON NORMALS: Normal to inspection, nondistended, normoactive bowel sounds present, Soft to palpation and non-tender Extremity: COMMON NORMALS: normal to inspection, capillary refill normal and no calf tenderness Data : 04/01/20 11:17 04/01/20 11:17 A&P Assessment and plan (1) Alcohol withdrawal: -Alcohol withdrawal seizures, blood alcohol level 430, 371 today -Not responsive to 10 mg of Ativan, Keppra -Blood work so far is pending -Seizure refractory to Ativan Gary anna, total time was roughly 45 minutes from onset of seizure, to intubation -Patient is a high risk of delirium tremens -High risk of cerebral edema -She possibly will require transfer to higher level of care for continuous EEG monitoring PLAN: -Admit to ICU -Intubated, sedated, on the vent, sputum cultures, blood cultures -Continue propofol, fentanyl -Aspiration Precautions -Neurochecks -EEG ordered -Blood work is pending, sodium potassium pending -Covering for Zosyn for aspiration pneumonia -Full code -Protonix for GI prophylaxis -Lovenox for DVT prophylaxis -EEG ordered, CT of the head ordered -We will have to monitor closely for cerebral edema, keep head of bed elevated, she might benefit from continuous EEG monitoring- Status: Acute (2) Delirium tremens: -Alcohol withdrawal seizures comfortable Status: Acute (3) Aspiration pneumonia: Status: Acute (4) Acute on chronic anemia: -Hemoglobin is 9.6, I cannot see any history of esophageal varices, started on Lovenox 40 mg daily, monitor hemoglobin closely Status: Acute (5) Grand mal seizure: Status: Acute Attestations Medical Necessity Statement*: Patient requires hospitalization, ICU, greater than 2 midnights, for alcohol withdrawal seizures Coding Level of Care Code Acute Linux Systems Analyst for [facility] Fwd Diagnoses Alcohol withdrawal F10.239 Delirium tremens F10.231 Aspiration pneumonia J69.0 Acute on chronic anemia D64.9 Grand mal seizure G40.409
--- NOTE | 2020-04-02 00:30 | CTR_ITS ---
PROCEDURE INFORMATION: Exam: CT Head Without Contrast Exam date and time: 04/02/2020 3:50 AM Age: 34 years old Clinical indication: Condition or disease; Other: S/P prolonged seizure, cerebral edema TECHNIQUE: Imaging protocol: Computed tomography of the head without contrast. Radiation optimization: All CT scans at this facility use at least one of these dose optimization techniques: automated exposure control; mA and/or kV adjustment per patient size (includes targeted exams where dose is matched to clinical indication); or iterative reconstruction. COMPARISON: No relevant prior studies available. RADIATION DOSE METRICS: Total DLP (mGy-cm): 766.21 FINDINGS: Brain: There is no acute hemorrhage or mass effect. The normal christianson/white matter delineation is preserved. There is a prominent perivascular space within the right inferior basal ganglia. Cerebral ventricles: No ventriculomegaly. Bones/joints: Unremarkable. No acute fracture. Paranasal sinuses: There is mild ethmoid and left maxillary sinus mucosal thickening. Mastoid air cells: Visualized mastoid air cells are well aerated. Soft tissues: Unremarkable. CT/CT head wo con* [id number] IMPRESSION: No acute hemorrhage or edema. Radiation Dose CTDIVOL = (mGy): DLP = 766.21 (mGy-cm)
--- NOTE | 2020-04-02 00:35 | PC.NURSE ---
at approximately 2345, SUBSTATION SUPERVISOR noted pt having increased hand tremors and difficulty catching her breath. pt also noted having cry heaves. zofran 4mg PO and ativan 2mg IM given. at approximately 2354, pt noted to start having a seizure. at 2355 a rapid response was called. supervisor agricultural education Jeaan Odonnell RN, Sahara Whittington RN, Rober Fuller RN and several other nurses responded. as per order of Dr Lowe, a total of 3mg ativan IV was given and Keppra 1500mg ivpb ordered. Accu check resulted of 85. Dr Lowe called report to ICU to have 5 additional vials of ativan waiting for arrival of pt, and pt was transferred to ICU3. Dr Lowe, Sahara RN, Jeana REYESsupervisor real estate office, 1:1 sitter, and other staff at bedside. pt transferred on gurney with 3L of o2 per nasal canula in place
[2020-04-02] MEDS: succinylcholine 20 mg/mL SDV 10mL 100 MG IVP (00:39)
--- NOTE | 2020-04-02 00:39 | ECG_ITS ---
[facility] Test Date: 2020-04-02 Pat Name: Pily Choe Department: Room: ICU03 Gender: Female Temper Mill Operator: : 1985 Requested By: Kirit Lowe Order Number: [id number] Kalee MD: Joanna Vital M.D. Measurements Intervals [place] Rate: 77 P: 24 AR: 152 QRS: 76 QRSD: 94 T: 40 QT: 438 QTc: 497 Interpretive Statements SINUS RHYTHM MODERATE T-WAVE ABNORMALITY, CONSIDER ANTERIOR ISCHEMIA [-0.1+ mV T WAVE IN V3/V4] Compared to ECG 07/09/2019 01:53:23 Possible ischemia now present Sinus tachycardia no longer present T-wave abnormality still present Electronically Signed On 04-02-2020 20:12:33 LIVESTOCK SLAUGHTERER by oJanna Vital M.D. [email or web address]/[id number]
[2020-04-02] MEDS: propofol 1,000 MG/100 ML INJ 3.5 MG IV (00:45)
--- NOTE | 2020-04-02 01:01 | XR_ITS ---
WS: [id number] Portable AP supine chest, 04/02/2020 Clinical Data: Post Intubation Comparison: Portable chest, 07/09/2019. Findings: The endotracheal tube is above the prudence. The enteric tube appears to end in the stomach. No pneumothorax is seen. The heart size is normal. The lungs show no abnormalities. XR/XR chest 1V [id number] Impression: Satisfactory placement of endotracheal tube and gastroenteric tube.
[2020-04-02 01:02] LABS: Basophils # 0.2 10^3/uL (0.0-0.1); Basophils % 1.8 %; Eosinophils # 0.2 10^3/uL (0.0-0.8); Eosinophils % 1.9 %; Hematocrit 28.9 % (37.0-47.0); Hemoglobin 8.9 g/dL (11.5-15.3); Lymphocytes % 44.2 %; Mean Corpuscular HGB Conc 30.8 g/dL (30.0-36.0); Mean Corpuscular Hemoglobin 25.7 pg (28.0-34.0); Mean Corpuscular Volume 83.5 fL (81-99); Monocytes # 0.6 10^3/uL (0.2-0.9); Monocytes % 6.7 %; Neutrophils # 4.06 10^3/uL (1.8-7.7); Neutrophils % 45.1 %; Nucleated Red Blood Cells % 0 %; Platelet Count 219 10^3/cmm (130-400); Red Blood Count 3.46 10^6/uL (4.1-5.3); Red Cell Distribution Width 16.4 % (12.1-15.1)
[2020-04-02 01:19] LABS: Alanine Aminotransferase 26 U/L (0-33); Albumin Level 3.5 g/dL (3.5-5.2); Alkaline Phosphatase 77 IU/L (35-105); Blood Urea Nitrogen 7 mg/dL (6-20); Calcium 8.2 mg/dL (8.5-10.5); Carbon Dioxide 24 mmol/L (22-29); Chloride 107 mmol/L (98-107); Globulin 2.3 g/dL (1.3-4.6); Glomerular Filtration Rate 94.7 mL/min (90-130); Glucose 89 mg/dL (65-115); Magnesium 1.7 mg/dL (1.7-2.3); Osmolality Calculated 293 mOsm/kg (285-295); Phosphorus 4.2 mg/dL (2.5-4.5); Sodium 143 mmol/L (136-145); Total Bilirubin 1.1 mg/dL (0.15-1.2); Total Protein 5.8 g/dL (6.6-8.7)
[2020-04-02 01:21] LABS: Troponin(5th) Baseline 10 ng/L (0-10)
[2020-04-02 01:30] LABS: Anion Gap 15.6 (5-19); Potassium 3.6 mmol/L (3.5-5.1)
--- NOTE | 2020-04-02 01:30 | ED_ITS ---
HPI - General Adult General: Chief complaint: Psychiatric Symptoms Stated complaint: PSYCH/ OVERDOSE Time Seen by Provider: 04/01/20 10:44 History of Present Illness: HPI narrative: I was called by Dr. Monte intubate the patient in ICU secondary to delirium and recurrent seizures. [facility] ED PFSH: Medical History (Updated 04/02/20 @ 00:55 by Kirit Lowe MD) Benzodiazepine abuse History of alcohol abuse Social History Smoking and tobacco status: current every day smoker Procedures Intubation Time out performed: Yes sedative: Etomidate Mg Given: 20 paralytic: Succinylcholine Mg Given: 100 Laryngoscope: Codie ET Tube Size: 8 ET Tube Uncuffed: Yes Tube Secured Depth (cm): 24 Tube Secured Location: teeth Tube Placement Confirmation: visualized tube passing through cords Patient Tolerated Procedure: well and no complications Intubation Complications: none Additional Comments: Chest x-ray revealed good placement. Course Vital Signs: Vital signs: Vital Signs Temperature 98.3 F 04/01/20 22:00 Pulse Rate 99 04/01/20 22:00 Respiratory Rate 14 04/02/20 01:11 Blood Pressure 78/52 04/01/20 22:00 Pulse Oximetry 100 04/01/20 22:00 MDM - General Adult Lab Data: Labs: Lab Results 04/01/20 04/01/20 04/01/20 Range/Units 11:17 11:17 11:17 WBC 7.1 (4.0-10.0) 10^3/ uL RBC 3.76 L (4.1-5.3) 10^6/u L Hgb 9.7 L (11.5-15.3) g/dL Hct 31.2 L (37.0-47.0) % MCV 83.0 (81-99) fL MCH 25.8 L (28.0-34.0) pg MCHC 31.1 (30.0-36.0) g/dL RDW 16.3 H (12.1-15.1) % Plt Count 209 (130-400) 10^3/c mm MPV 9.9 (7.4-10.4) fL Neut % (Auto) 50.1 % Lymph % (Auto) 40.1 % Williamson % (Auto) 5.9 % Eos % (Auto) 1.5 % Baso % (Auto) 1.8 % Neut # (Auto) 3.58 (1.8-7.7) 10^3/u L Lymph # (Auto) 2.9 (0.8-4.8) 10^3/u L Williamson # (Auto) 0.4 (0.2-0.9) 10^3/u L Eos # (Auto) 0.1 (0.0-0.8) 10^3/u L Baso # (Auto) 0.1 (0.0-0.1) 10^3/u L Nucleated RBC % (a uto) 0 % Nucleated RBCs # 0.0 /100WBC PT 17.70 H (12.1-14.9) SECO NDS INR 1.41 H (0.8-1.2) Sodium 147 H (136-145) mmol/L Potassium 3.6 (3.5-5.1) mmol/L Chloride 111 H (98-107) mmol/L Carbon Dioxide 26 (22-29) mmol/L Anion Gap 13.6 (5-19) BUN 8 (6-20) mg/dL Creatinine 0.7 (0.5-0.9) mg/dL GFR Calculation 94.7 (90-130) mL/min Glucose 158 H (65-115) mg/dL Calculated Osmolal ity 306 H (285-295) mOsm/k g Calcium 8.4 L (8.5-10.5) mg/dL Total Bilirubin 0.8 (0.15-1.2) mg/dL AST 65 H (0-32) U/L ALT 25 (0-33) U/L Alkaline Phosphata se 95 (35-105) IU/L Total Protein 6.3 L (6.6-8.7) g/dL Albumin 3.7 (3.5-5.2) g/dL Globulin 2.6 (1.3-4.6) g/dL HCG, Qual (Negative) Urine Color (Yellow) Urine Appearance (CLEAR) Urine pH (5-7) Ur Specific Gravit y (1.005-1.030) Urine Protein (Negative) Urine Glucose (UA) (Normal) Urine Ketones (Negative) Urine Blood (Negative) Urine Nitrate (Negative) Urine Bilirubin (Negative) Urine Urobilinogen (Negative) mg/dL Ur Leukocyte Mera ase (Negative) Salicylates < 0.3 L (3-10) mg/dL Urine Opiates Scre en (Negative) ng/mL Acetaminophen < 5.0 L (10-30) ug/mL Ur Barbiturates Sc reen (Negative) ng/mL Ur Phencyclidine S crn (Negative) ng/mL Ur Amphetamines Sc reen (Negative) ng/mL U Benzodiazepines Scrn (Negative) ng/mL Urine Cocaine Scre en (Negative) ng/mL U Marijuana (THC) Screen (Negative) ng/mL Ethyl Alcohol 430 H* (0-10) mg/dL 04/01/20 04/01/20 04/01/20 Range/Units 11:47 11:47 11:47 WBC (4.0-10.0) 10^3/ uL RBC (4.1-5.3) 10^6/u L Hgb (11.5-15.3) g/dL Hct (37.0-47.0) % MCV (81-99) fL MCH (28.0-34.0) pg MCHC (30.0-36.0) g/dL RDW (12.1-15.1) % Plt Count (130-400) 10^3/c mm MPV (7.4-10.4) fL Neut % (Auto) % Lymph % (Auto) % Williamson % (Auto) % Eos % (Auto) % Baso % (Auto) % Neut # (Auto) (1.8-7.7) 10^3/u L Lymph # (Auto) (0.8-4.8) 10^3/u L Williamson # (Auto) (0.2-0.9) 10^3/u L Eos # (Auto) (0.0-0.8) 10^3/u L Baso # (Auto) (0.0-0.1) 10^3/u L Nucleated RBC % (a uto) % Nucleated RBCs # /100WBC PT (12.1-14.9) SECO NDS INR (0.8-1.2) Sodium (136-145) mmol/L Potassium (3.5-5.1) mmol/L Chloride (98-107) mmol/L Carbon Dioxide (22-29) mmol/L Anion Gap (5-19) BUN (6-20) mg/dL Creatinine (0.5-0.9) mg/dL GFR Calculation (90-130) mL/min Glucose (65-115) mg/dL Calculated Osmolal ity (285-295) mOsm/k g Calcium (8.5-10.5) mg/dL Total Bilirubin (0.15-1.2) mg/dL AST (0-32) U/L ALT (0-33) U/L Alkaline Phosphata se (35-105) IU/L Total Protein (6.6-8.7) g/dL Albumin (3.5-5.2) g/dL Globulin (1.3-4.6) g/dL HCG, Qual Negative (Negative) Urine Color Yellow (Yellow) Urine Appearance Clear (CLEAR) Urine pH 6 (5-7) Ur Specific Gravit y 1.025 (1.005-1.030) Urine Protein Neg (Negative) Urine Glucose (UA) Norm (Normal) Urine Ketones Negative (Negative) Urine Blood Neg (Negative) Urine Nitrate Negative (Negative) Urine Bilirubin Neg (Negative) Urine Urobilinogen Norm (Negative) mg/dL Ur Leukocyte Mera ase Negative (Negative) Salicylates (3-10) mg/dL Urine Opiates Scre en Negative (Negative) ng/mL Acetaminophen (10-30) ug/mL Ur Barbiturates Sc reen Negative (Negative) ng/mL Ur Phencyclidine S crn Negative (Negative) ng/mL Ur Amphetamines Sc reen Negative (Negative) ng/mL U Benzodiazepines Scrn Positive H (Negative) ng/mL Urine Cocaine Scre en Negative (Negative) ng/mL U Marijuana (THC) Screen Negative (Negative) ng/mL Ethyl Alcohol (0-10) mg/dL Discharge Plan Discharge Patient Disposition: Admitted As Inpatient Admit Provider: Michele Beach Clinical Impression: Suicidal ideation, Depression, Overdose Condition: Stable Referrals: Stanton Schumacher [Primary Care Provider] - Discharge Date/Time: 04/01/20 18:50 Coding Level of Care Code ED Interventional Neuroradiologist for Margarita Mireles
[2020-04-02 01:33] LABS: Aspartate Amino Transferase 69 U/L (0-32)
[2020-04-02 01:34] LABS: Lactic Sepsis W/Reflex 4.2 mmol/L (0.5-2.2)
[2020-04-02 01:36] LABS: Add Urine Microscopic? NO
[2020-04-02] MEDS: folic acid 1 MG, multivitamin inj 10 ML, thiamine 100 MG in sodium chloride 0.9% 1,000 ML 252.8 MG IV (01:38)
--- NOTE | 2020-04-02 01:43 | PC.NURSE ---
DR VALLEJO NOTIFIED AT 0035 OF PATIENTS TRANSFER O ICU3.
[2020-04-02 01:51] LABS: Urine Appearance Clear (CLEAR); Urine Color Yellow (Yellow)
[2020-04-02 01:52] LABS: Bilirubin Urine Neg (Negative); Blood Urine Neg (Negative); Glucose Urine UA Norm (Normal); Ketones Urine Negative (Negative); Leukocyte Esterase Urine Negative (Negative); Nitrate Urine Negative (Negative); Protein Urine Neg (Negative); Specific Gravity, Urine 1.025 (1.005-1.030); Urobilinogen Urine Norm (Negative)
[2020-04-02 01:55] LABS: Erythrocyte Sedimentation Rate 8 mm/hr (0-15)
[2020-04-02] MEDS: enoxaparin 40 mg/0.4 mL Syringe SUBCUT (01:58)
[2020-04-02] MEDS: piperacillin-tazobactam 3.375 GM in sodium chloride 0.9% (plus) 50 ML IV ×3 (01:58→17:33)
[2020-04-02 02:00] LABS: Alcohol Level 239 mg/dL (0-10); Prolactin 35.38 ng/mL (4.8-23.3)
[2020-04-02 02:04] LABS: NT Pro B Type Natriuretic Pept 77 pg/mL (0-125); Procalcitonin 0.06 ng/mL (0-0.5); Prolactin 35.79 ng/mL (4.8-23.3)
[2020-04-02 02:22] LABS: C Reactive Protein 2.5 mg/L (0.0-4.9)
[2020-04-02 02:27] LABS: HCG Qualitative Urine. Negative (Negative)
--- NOTE | 2020-04-02 02:39 | ECG_ITS ---
[facility] Test Date: 2020-04-02 Pat Name: Pily Choe Department: Room: ICU03 Gender: Female Air Support Operations Operator: : 1985 Requested By: Kirit Lowe Order Number: [id number] Kalee MD: Joanna Vital M.D. Measurements Intervals [place] Rate: 86 P: 36 ME: 146 QRS: 76 QRSD: 90 T: 14 QT: 421 QTc: 506 Interpretive Statements SINUS RHYTHM WITH OCCASIONAL VENTRICULAR PREMATURE COMPLEXES QT prolongation consider drug effect/coronary ischemia/electrolyte abnormalities Compared to ECG 04/02/2020 01:47:53 Ventricular premature complex(es) now present, the QT appears to be more prolonged T-wave abnormality no longer present Possible ischemia no longer present Electronically Signed On 04-02-2020 20:22:56 CAMERA OPERATOR by Joanna Vital M.D. [email or web address] [email or web address].[email or web address]/store/[id number]
[2020-04-02 03:00] LABS: Troponin 5 2HR 8.96 ng/L (0-10)
[2020-04-02 03:04] LABS: Troponin 5 2HR Delta -1.04 ABS# (0-10)
--- NOTE | 2020-04-02 04:09 | PC.NURSE ---
RAPID RESPONSE -0000- Dr. Lowe at bedside. Patient currently seizing. Dr. Lowe ordered total of 9 mg of Ativan IVP to be given as dosed on the JUL to manage seizure and 1500 mg of Keppra IV. Patient transported via stretcher by this nurse, powerhouse operator Jeana Mckoy RN. 0030 Dr. Lowe at bedside. ER doctor called to intubate once arriving to ICU. Order given to start Levophed at 15 mcg/min by Dr. Lowe. Patient was given 20 mg of Etomidate and 100 mg of Succinylcholine per verbal order from Dr. Millard. 8.0 ET tube/ 23 at the teeth. Patient tolerated well and confirmed by x-ray. OG tube placed and placement confirmed by x-ray. Bello catheter placed. Patient placed in soft bilateral wrist restraints. Patient resting comfortably, no signs of seizure.
[2020-04-02 04:10] LABS: ABG PCO2 37.5 mmHg (35-45); ABG PH Result 7.37 (7.35-7.45); Arterial Blood Gas Hematocrit 25.9 % (37-47); Base Excess ABG -3.3 mmol/L (-2.0-2.0); Blood Gas Operator Identificat JB; Blood Gas Sample Site Brachial, right; Blood Gas Sample Type Arterial; HCO3 ABG 21.7 mmol/L (22-26); Oxygen Device VENT
[2020-04-02] MEDS: propofol 1,000 MG/100 ML INJ 14.2 MG IV (05:27)
[2020-04-02] MEDS: sodium chloride 0.9% 1,000 ML 125 ML IV ×3 (06:37→19:29)
--- NOTE | 2020-04-02 06:39 | ECG_ITS ---
[facility] Test Date: 2020-04-02 Pat Name: Pily Choe Department: Room: ICU03 Gender: Female Merchandising Execution Associate: : 1985 Requested By: Kirit Lowe Order Number: [id number] Kalee MD: Joanna Vital M.D. Measurements Intervals [place] Rate: 80 P: 12 GA: 159 QRS: 52 QRSD: 88 T: 15 QT: 453 QTc: 524 Interpretive Statements SINUS RHYTHM PROLONGED QT INTERVAL Nonspecific T wave change Compared to ECG 04/02/2020 03:56:02 Prolonged QT interval now present Ventricular premature complex(es) no longer present Electronically Signed On 04-02-2020 20:23:15 COURTESY BOOTH CASHIER by Joanna Vital M.D. [email or web address]/[id number]
[2020-04-02 07:01] LABS: Troponin 5 6HR 10.75 ng/L (0-10); Troponin 5 6HR Delta 0.75 ng/L (0-12)
[2020-04-02] MEDS: pantoprazole 40 mg SDV IVP (09:43)
[2020-04-02] MEDS: folic acid 1 mg Tablet PO (09:44)
[2020-04-02] MEDS: thiamine 100 mg Tablet PO (09:44)
[2020-04-02] MEDS: multivitamin therapeutic Tablet 1 TAB PO (09:44)
--- NOTE | 2020-04-02 10:36 | PC.NURSE ---
dr. kosta coronado. will wean propofol in attempt to wake pt. and get levophed off
--- NOTE | 2020-04-02 11:11 | PC.NURSE ---
weaning propofol in attempt to awaken pt.
[2020-04-02 11:59] LABS: Lactate (Lactic Acid level) 2.4 mmol/L (0.5-2.2)
--- NOTE | 2020-04-02 12:27 | PC.NURSE ---
made aware of pt. l.o.c. and levophed gtt.
[2020-04-02] MEDS: chlordiazePOXIDE 10 mg Capsule 20 MG PO (13:17)
--- NOTE | 2020-04-02 13:25 | PC.NURSE ---
weaned propofol off. as well as fentanyl and started precedex, in attempt to extubate. tremors when trying to write, then 30 sec. seizure noted with clonic/tonic type activity, more in lower extrem. would not respond to verbal stimuli during this time. had been responding to questions prior to this. nodded head yes that we can give info to shyanne hammond.
[2020-04-02] MEDS: dexmedetomidine 400 MCG in sodium chloride 0.9% (100 ml) 100 ML 10.7 MCG IV ×2 (13:59→20:54)
--- NOTE | 2020-04-02 14:21 | PC.NURSE ---
will open eyes.
[2020-04-02] MEDS: norepinephrine 8 MG in dextrose 5 % 500 ML 15.2 MG IV (14:27)
--- NOTE | 2020-04-02 16:46 | PM.PN ---
Subjective Subjective: Interval history: Currently intubated and sedated.Off sedation her GCS is 10 T. Currently has Alcohol withdrawal seizures. Vitals and labs have been reviewed Medications: Reviewed: Yes Vitals/I&O/Wt Last Vital Signs Temp 97.8 F 04/02/20 14:00 Pulse 69 04/02/20 14:00 Resp 14 04/02/20 15:19 BP 81/51 04/02/20 14:00 Pulse Ox 98 04/02/20 14:00 04/02/20 04/02/20 04/02/20 06:59 14:59 22:59 Intake Total 333.544 / 262.993 0374.131 / 1173.131 15.158 / 1188.289 Output Total 650 / 650 Balance -316.456 / -983.331 8765.131 / 1173.131 15.158 / 1188.289 Weight last 48 hrs Weight 58.967 kg Physical Exam HENMT: COMMON NORMALS: normocephalic, atraumatic, hearing grossly normal bilaterally and external ears normal HEAD & SCALP: normocephalic and atraumatic EXTERNAL EAR: Yes external ears normal Eye: COMMON NORMALS: no scleral icterus GENERAL EYE: appearance normal, both eyes and all related structures Chest: COMMONS NORMALS: normal inspection of the chest and normal palpation of entire chest wall CHEST: Yes Symmetrical chest wall rise Resp: COMMON NORMALS: normal respiratory effort, No retractions, No use of accessory muscles and clear to auscultation bilaterally EFFORT & INSPECTION: Yes symmetric chest movement AUSCULTATION: clear to auscultation bilaterally Cardio: COMMON NORMALS: regular rate, regular rhythm, S1 normal heart sound present, S2 normal heart sound present, No gallops present (Cardio), No murmurs present (Cardio), No rub (Cardio) and Peripheral pulses 2+ throughout RATE: regular rate RHYTHM: regular rhythm HEART SOUNDS: S1 normal heart sound present and S2 normal heart sound present PERIPHERAL PULSES: Peripheral pulses 2+ throughout GI: COMMON NORMALS: Normal to inspection, nondistended, normoactive bowel sounds present, Soft to palpation, non-tender, No hepatosplenomegaly present and no masses AUSCULTATION: Yes normoactive bowel sounds PALPATION: Yes Soft to palpation and Yes No hepatosplenomegaly present RECTAL EXAM: deferred Extremity: COMMON NORMALS: no clubbing, cyanosis or edema and no pedal edema Urinary Catheter Management^: Bello: Cath Placed During This Visit: yes Reason for Continuing Indwelling Catheter: Accurate Measurement of Urinary Output in Critically Ill Patients Urinary Catheter Date of Insertion: 04/02/20 Urinary Catheter Time of Insertion: 01:00 Data : 04/02/20 00:01 04/02/20 00:01 Micro: Microbiology 04/02/20 06:05 Gram Stain - Final Sputum - Endotracheal Tube Aspirate 04/02/20 01:30 Blood Culture - Preliminary Blood SPECIMEN COLLECTED 04/02/20 01:27 Blood Culture - Preliminary Blood SPECIMEN COLLECTED A&P Assessment and plan (1) Delirium tremens: hand tremor nausea or vomiting psychomotor agitation generalized tonic-clonic seizures Currently she is Prcedex and Librium 20 mg q6h She has been on levophed for low blood pressure.Given her h/o End stage liver disease and with the known fact that cirrhotic patient tend to do well even with low MAP.We will lower our MAP Goal to 55-60 and Try to wean off levophed. -Aspiration Precautions -Neurochecks -EEG Status: Acute (2) Seizure: Alcohol withdrawal seizures Currently she is Prcedex and Librium 20 mg q6h She is on levophed for low MAP. -Aspiration Precautions -Neurochecks -EEG Status: Acute (3) Aspiration pneumonia: Currently on Vancomycin and Zosyn Status: Acute (4) End stage liver disease: Patient has h/o End stage liver disease 2/2 to alcohol abuse.Currently on transplant list. Status: Acute (5) SBP (spontaneous bacterial peritonitis): H/O SBP in past. Status: Acute (6) Esophageal varices: H/O variceal bleed with banding. Status: Acute Additional A&P Information #Possible Hepatic Encephalopathy : Will start her on lactulose.Currently she is on Broad spectrum ABX.Will consider rifaximin DVT PPX: Lovenox 40 mg sc daily G.I PPX: Protonix 40 mg i.v daily COde status : Full code. Attestations Medical Necessity Statement*: She needs to be in hospital for management of Severe alcohol withdrawal Coding Level of Care Code Acute Scheduler for [facility] Fwd Exam Detailed Diagnoses Delirium tremens F10.231 Seizure R56.9 Aspiration pneumonia J69.0 End stage liver disease K72.90 SBP (spontaneous bacterial peritonitis) K65.2 Esophageal varices I85.00
--- NOTE | 2020-04-02 17:44 | PC.RESP ---
Smoking Cessation information sent to patient.
[2020-04-02 18:26] LABS: Ammonia 63 umol/L (11-51)
[2020-04-02] MEDS: lactulose oral liq 20 gm/30 mL UDC PO (18:28)
[2020-04-02] MEDS: vancomycin 1,000 MG in sodium chloride 0.9% 250 ML 250 MG IV (18:28)
--- NOTE | 2020-04-02 20:57 | PC.NURSE ---
1900 Precedex at 0.7 mcg/kg/hr Levophed 2 mcg/min Ativan at 0.5 mg/hr
[2020-04-02] MEDS: escitalopram 10 mg Tablet PO (21:31)
[2020-04-03] VITALS (38 sets, daily range): BP systolic 79–108; BP diastolic 42–68; PULSE 61–95; RESP 2–22; TEMP 36.3–36.6; O2SAT 90–100
[2020-04-03] MEDS: piperacillin-tazobactam 3.375 GM in sodium chloride 0.9% (plus) 50 ML IV ×3 (01:04→17:26)
[2020-04-03] MEDS: enoxaparin 40 mg/0.4 mL Syringe SUBCUT (01:04)
[2020-04-03] MEDS: vancomycin 1,000 MG in sodium chloride 0.9% 250 ML 250 MG IV ×3 (01:49→19:21)
[2020-04-03] MEDS: sodium chloride 0.9% 1,000 ML 125 ML IV (03:47)
[2020-04-03 04:38] LABS: ABG PCO2 37.4 mmHg (35-45); ABG PH Result 7.37 (7.35-7.45); Arterial Blood Gas Hematocrit 23.6 % (37-47); Base Excess ABG -3.2 mmol/L (-2.0-2.0); Blood Gas Allen Test Pos; Blood Gas Operator Identificat JB; Blood Gas Sample Site Brachial, right; Blood Gas Sample Type Arterial; HCO3 ABG 21.8 mmol/L (22-26); Oxygen Device VENT; PO2 ABG 88.1 mmHg (80.0-100.0)
[2020-04-03 04:44] LABS: Basophils % 1.6 %; Eosinophils # 0.1 10^3/uL (0.0-0.8); Eosinophils % 4.3 %; Hematocrit 25.1 % (37.0-47.0); Hemoglobin 7.6 g/dL (11.5-15.3); Lymphocytes % 37.8 %; Mean Corpuscular HGB Conc 30.3 g/dL (30.0-36.0); Mean Corpuscular Hemoglobin 25.6 pg (28.0-34.0); Mean Corpuscular Volume 84.5 fL (81-99); Mean Platelet Volume 9.8 fL (7.4-10.4); Monocytes # 0.3 10^3/uL (0.2-0.9); Monocytes % 10.2 %; Neutrophils # 1.17 10^3/uL (1.8-7.7); Neutrophils % 46.1 %; Nucleated Red Blood Cells % 0 %; Platelet Count 88 10^3/cmm (130-400); Red Blood Count 2.97 10^6/uL (4.1-5.3); White Blood Count 2.5 10^3/uL (4.0-10.0)
[2020-04-03 05:12] LABS: Lactic Sepsis W/Reflex 1.3 mmol/L (0.5-2.2)
[2020-04-03 05:17] LABS: Alanine Aminotransferase 19 U/L (0-33); Albumin Level 2.8 g/dL (3.5-5.2); Alkaline Phosphatase 67 IU/L (35-105); Anion Gap 10.4 (5-19); Aspartate Amino Transferase 51 U/L (0-32); Blood Urea Nitrogen 7 mg/dL (6-20); Calcium 7.7 mg/dL (8.5-10.5); Carbon Dioxide 21 mmol/L (22-29); Chloride 115 mmol/L (98-107); Globulin 1.9 g/dL (1.3-4.6); Glomerular Filtration Rate 139.6 mL/min (90-130); Glucose 100 mg/dL (65-115); Magnesium 1.5 mg/dL (1.7-2.3); Osmolality Calculated 294 mOsm/kg (285-295); Phosphorus 3.1 mg/dL (2.5-4.5); Potassium 3.4 mmol/L (3.5-5.1); Sodium 143 mmol/L (136-145); Thyroid Stimulating Hormone 1.56 uIU/mL (0.27-4.20); Total Bilirubin 2.2 mg/dL (0.15-1.2); Total Protein 4.7 g/dL (6.6-8.7)
[2020-04-03 05:32] LABS: Chol HDL Ratio 1.98 mg/dL (0.0-4.40); Cholesterol 119 mg/dL (0-200); HDL Cholesterol 60 mg/dL (60-100); LDL Cholesterol Calculated 38 mg/dL (50-129); LDL HDL Ratio 0.63 RATIO (0.00-3.22); Triglycerides 103 mg/dL (0-150)
[2020-04-03] MEDS: lactulose oral liq 20 gm/30 mL UDC PO ×3 (06:05→17:27)
[2020-04-03] MEDS: dexmedetomidine 400 MCG in sodium chloride 0.9% (100 ml) 100 ML 10.7 MCG IV (06:11)
--- NOTE | 2020-04-03 06:18 | PC.NURSE ---
Addendum entered by Derrick Schaefer RN 04/03/20 06:42: witnessed waste of fentanyl with Danika as noted. Original Note: Wasted 75 mL of Fentanyl. Witnessed by Derrick Schaefer RN.
[2020-04-03 06:30] LABS: Basophils % 1.3 %; Eosinophils # 0.1 10^3/uL (0.0-0.8); Eosinophils % 3.5 %; Hematocrit 25.6 % (37.0-47.0); Hemoglobin 7.6 g/dL (11.5-15.3); Lymphocytes # 0.9 10^3/uL (0.8-4.8); Lymphocytes % 40.4 %; Mean Corpuscular HGB Conc 29.7 g/dL (30.0-36.0); Mean Corpuscular Hemoglobin 25.9 pg (28.0-34.0); Mean Corpuscular Volume 87.4 fL (81-99); Mean Platelet Volume 10.3 fL (7.4-10.4); Monocytes # 0.2 10^3/uL (0.2-0.9); Monocytes % 10.1 %; Neutrophils # 1.02 10^3/uL (1.8-7.7); Neutrophils % 44.7 %; Nucleated Red Blood Cells % 0 %; Platelet Count 92 10^3/cmm (130-400); Red Blood Count 2.93 10^6/uL (4.1-5.3); Red Cell Distribution Width 16.3 % (12.1-15.1); White Blood Count 2.3 10^3/uL (4.0-10.0)
--- NOTE | 2020-04-03 07:03 | PC.NURSE ---
Per Dr. Fajardo MAP to maintain 55-60.
--- NOTE | 2020-04-03 08:30 | PC.NURSE ---
conversation with dr brambila hold lasix at this time to monitor bp effect after giving the albumin. will reevaluate the need for lasix throughout the day
[2020-04-03] MEDS: pantoprazole 40 mg SDV IVP (08:34)
[2020-04-03] MEDS: levothyroxine 50 mcg Tablet PO (08:35)
[2020-04-03] MEDS: chlordiazePOXIDE 10 mg Capsule 20 MG PO ×2 (08:35→14:52)
[2020-04-03] MEDS: potassium chloride oral liq 20 mEq/15 mL UDC PO (08:35)
[2020-04-03] MEDS: magnesium sulfate premix 2 GM/50 ML PIGGYBACK IV (08:35)
[2020-04-03] MEDS: multivitamin therapeutic Tablet 1 TAB PO (08:35)
[2020-04-03] MEDS: escitalopram 10 mg Tablet PO (08:36)
[2020-04-03] MEDS: thiamine 100 mg Tablet PO (08:36)
[2020-04-03] MEDS: folic acid 1 mg Tablet PO (08:36)
[2020-04-03] MEDS: FUROsemide 10 mg/mL SDV 2mL 20 MG IVP (08:37)
[2020-04-03 08:50] LABS: Estmated Average Glucose 123; Hemoglobin A1C 5.9 % (4.0-6.0)
--- NOTE | 2020-04-03 10:37 | P.PN_ITS ---
Subjective Subjective: Interval history: is doing fine.We were able to extubate her today.Currently she is AO*3. Vitals and lab have been reviewed. Medications: Reviewed: Yes Vitals/I&O/Wt Last Vital Signs Temp 98.1 F 04/02/20 20:00 Pulse 62 04/03/20 09:00 Resp 17 04/03/20 09:00 BP 90/64 04/03/20 09:00 Pulse Ox 98 04/03/20 09:00 04/02/20 04/03/20 04/03/20 22:59 06:59 14:59 Intake Total 1070.268 / 2243.399 1159.332 / 3402.731 48.1 / 48.1 Output Total 200 / 200 400 / 600 Balance 870.268 / 2043.399 759.332 / 2802.731 48.1 / 48.1 Weight last 48 hrs Weight 58.967 kg Physical Exam Const: COMMON NORMALS: patient oriented x3 HENMT: COMMON NORMALS: normocephalic, atraumatic, hearing grossly normal bilaterally and external ears normal HEAD & SCALP: normocephalic and atraumatic EXTERNAL EAR: Yes external ears normal Eye: COMMON NORMALS: no scleral icterus GENERAL EYE: appearance normal, both eyes and all related structures Chest: COMMONS NORMALS: normal inspection of the chest and normal palpation of entire chest wall CHEST: Yes Symmetrical chest wall rise Resp: COMMON NORMALS: normal respiratory effort, No retractions, No use of accessory muscles and clear to auscultation bilaterally EFFORT & INSPECTION: Yes symmetric chest movement AUSCULTATION: clear to auscultation bilaterally Cardio: COMMON NORMALS: regular rate, regular rhythm, S1 normal heart sound present, S2 normal heart sound present, No gallops present (Cardio), No murmurs present (Cardio), No rub (Cardio) and Peripheral pulses 2+ throughout RATE: regular rate RHYTHM: regular rhythm HEART SOUNDS: S1 normal heart sound present and S2 normal heart sound present PERIPHERAL PULSES: Peripheral pulses 2+ throughout GI: COMMON NORMALS: Normal to inspection, nondistended, normoactive bowel sounds present, Soft to palpation, non-tender, No hepatosplenomegaly present and no masses AUSCULTATION: Yes normoactive bowel sounds PALPATION: Yes Soft to palpation and Yes No hepatosplenomegaly present RECTAL EXAM: deferred Extremity: COMMON NORMALS: no clubbing, cyanosis or edema and no pedal edema Neuro: COMMON NORMALS: patient oriented x3 Urinary Catheter Management^: Bello: Cath Placed During This Visit: yes Reason for Continuing Indwelling Catheter: Accurate Measurement of Urinary Output in Critically Ill Patients Urinary Catheter Date of Insertion: 04/02/20 Urinary Catheter Time of Insertion: 01:00 Data : 04/03/20 06:18 04/03/20 04:25 Micro: Microbiology 04/02/20 01:30 Blood Culture - Preliminary Blood NEGATIVE TO DATE 04/02/20 01:27 Blood Culture - Preliminary Blood NEGATIVE TO DATE 04/02/20 06:05 Gram Stain - Final Sputum - Endotracheal Tube Aspirate A&P Assessment and plan (1) Delirium tremens: Resolved. Off Lorazepam drip as well as Precedex. Currently she is on Librium 20 mg q6h She has been on levophed for low blood pressure.Given her h/o End stage liver disease and with the known fact that cirrhotic patient tend to do well even with low MAP.We will lower our MAP Goal to 55-60 and Try to wean off levophed. -Aspiration Precautions -Neurochecks -EEG Status: Acute (2) Seizure: Alcohol withdrawal seizures Ativan PRN as needed for breakthrough seizure. Currently on Librium 20 mg q6h -Aspiration Precautions -Neurochecks -EEG Status: Acute (3) Aspiration pneumonia: Currently on Vancomycin and Zosyn Status: Acute (4) End stage liver disease: Patient has h/o End stage liver disease 2/2 to alcohol abuse.Currently on transplant list. Status: Acute (5) SBP (spontaneous bacterial peritonitis): H/O SBP in past. Status: Acute (6) Esophageal varices: H/O variceal bleed with banding. No evidence of UGI bleeding now Status: Acute Additional A&P Information #Possible Hepatic Encephalopathy :Likely precipitant PNA . Improving Will continue lactulose.Currently she is on Broad spectrum ABX.Will consider rifaximin DVT PPX: Lovenox 40 mg sc daily #Cirrhotic Ascites : She is on 40 OF LASIX PO as well as 100 mg of spironlactone at home.Will plan to resume once blood pressure is more stable. Have given 25 gm albumin today 1 dose #G.I PPX: Protonix 40 mg i.v daily NPO for now COde status : Full code. Attestations Medical Necessity Statement*: Patient needs to be in hospital for the ma nagement of above mentioned conditions. Coding Level of Care Code Acute Amusement Machine Mechanic for Chg Fwd Diagnoses Delirium tremens F10.231 Seizure R56.9 Aspiration pneumonia J69.0 End stage liver disease K72.90 SBP (spontaneous bacterial peritonitis) K65.2 Esophageal varices I85.00
--- NOTE | 2020-04-03 14:00 | PC.NURSE ---
pt extubated to Room Air per RT. Dr Fajardo at bedside.
[2020-04-03] MEDS: sodium chloride 0.9% 1,000 ML 50 ML IV (14:53)
[2020-04-03] MEDS: LORazepam 2 mg/mL INJ 1 mL IM ×2 (14:54→21:27)
[2020-04-03] MEDS: ondansetron 4 MG Tablet PO (17:56)
[2020-04-03 18:26] LABS: Vancomycin Trough 16.6 ug/mL (10-15)
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
[2020-04-03] MEDS: loperamide 2 mg Capsule PO (21:44)
--- NOTE | 2020-04-03 22:05 | PC.NURSE ---
New Orders: V/O for PSA given by MD Willi documentation engineer.
[2020-04-03] MEDS: OLANZapine 5 mg ODT PO (22:07)
--- NOTE | 2020-04-03 23:18 | PC.NURSE ---
Precedex resumed after PRN Ativan IVP, and Zyprexa PO given. Patient continued to show some pretty severe tremor like symptoms, even after administration of PRN meds. Recommendation relayed at shift change report, was that the dayshift MD had cautioned there may be a need to resume Precedex and/or Ativan drips. Resumed at 0.2mcg/kg/hr. Sitter at bedside. Patient room visible from nurses station.
[2020-04-04] VITALS (63 sets, daily range): BP systolic 75–112; BP diastolic 46–73; PULSE 72–99; RESP 14–31; TEMP 36.8–37.6; O2SAT 87–100
[2020-04-04] MEDS: enoxaparin 40 mg/0.4 mL Syringe SUBCUT (00:17)
[2020-04-04] MEDS: piperacillin-tazobactam 3.375 GM in sodium chloride 0.9% (plus) 50 ML IV ×3 (00:17→16:59)
[2020-04-04] MEDS: vancomycin 1,000 MG in sodium chloride 0.9% 250 ML 250 MG IV ×2 (01:45→09:43)
[2020-04-04 03:41] LABS: Basophils # 0.1 10^3/uL (0.0-0.1); Basophils % 1.2 %; Eosinophils # 0.2 10^3/uL (0.0-0.8); Eosinophils % 4.8 %; Hematocrit 25.3 % (37.0-47.0); Hemoglobin 7.6 g/dL (11.5-15.3); Lymphocytes # 1.6 10^3/uL (0.8-4.8); Lymphocytes % 32.8 %; Mean Corpuscular Hemoglobin 25.5 pg (28.0-34.0); Mean Corpuscular Volume 84.9 fL (81-99); Mean Platelet Volume 10.8 fL (7.4-10.4); Monocytes # 0.4 10^3/uL (0.2-0.9); Monocytes % 8.5 %; Neutrophils # 2.62 10^3/uL (1.8-7.7); Neutrophils % 52.7 %; Nucleated Red Blood Cells % 0 %; Platelet Count 125 10^3/cmm (130-400); Red Blood Count 2.98 10^6/uL (4.1-5.3); Red Cell Distribution Width 16.1 % (12.1-15.1)
[2020-04-04 04:09] LABS: Alanine Aminotransferase 18 U/L (0-33); Albumin Level 3.1 g/dL (3.5-5.2); Alkaline Phosphatase 77 IU/L (35-105); Anion Gap 9.9 (5-19); Aspartate Amino Transferase 46 U/L (0-32); Blood Urea Nitrogen 6 mg/dL (6-20); Calcium 8.3 mg/dL (8.5-10.5); Carbon Dioxide 22 mmol/L (22-29); Chloride 114 mmol/L (98-107); Globulin 1.7 g/dL (1.3-4.6); Glomerular Filtration Rate 113.1 mL/min (90-130); Glucose 96 mg/dL (65-115); Magnesium 1.8 mg/dL (1.7-2.3); Osmolality Calculated 293 mOsm/kg (285-295); Phosphorus 3.5 mg/dL (2.5-4.5); Sodium 143 mmol/L (136-145); Total Protein 4.8 g/dL (6.6-8.7)
[2020-04-04 04:13] LABS: Potassium 2.9 mmol/L (3.5-5.1)
[2020-04-04] MEDS: potassium chloride premix 100 ML 25 MEQ IV (04:35)
--- NOTE | 2020-04-04 05:37 | PC.NURSE ---
New Order: Notified by Lab of 2.9 k+ level. MD Mynor head of loss prevention phoned and notified of results v/o for 40meq KCL ordered IVPB to be given @ 25mL/hr.
[2020-04-04] MEDS: dexmedetomidine 400 MCG in sodium chloride 0.9% (100 ml) 100 ML IV (06:07)
--- NOTE | 2020-04-04 06:45 | PC.NURSE ---
Shift Summary: Patient continues to exhibit severe hallucinations (both auditory and visual)/occasional tremors when awake, and tries to remove her lines/get up out of bed. PSA remains at bedside as of now. PO lactulose held based on continued episodes of loose/watery stools that patient said was uncontrolled on her part. And c/o abdominal pain based on constant bowel movements. Soft blood pressures noted throughout night. Levophed titrated based on needs. See MAR flowsheet. 475 u/o Precedex 0.3mcg/kg (see mar flowsheet) NS 50mL/hr Levo 4mcg/kg/min KCL 25mL/hr P Report given to harvinder lozano RN.
[2020-04-04] MEDS: levothyroxine 50 mcg Tablet PO (08:52)
[2020-04-04] MEDS: folic acid 1 mg Tablet PO (08:52)
[2020-04-04] MEDS: escitalopram 10 mg Tablet PO (08:52)
[2020-04-04] MEDS: thiamine 100 mg Tablet PO (08:52)
[2020-04-04] MEDS: multivitamin therapeutic Tablet 1 TAB PO (08:52)
[2020-04-04] MEDS: pantoprazole 40 mg SDV IVP (08:52)
--- NOTE | 2020-04-04 09:15 | P.PN_ITS ---
Subjective Subjective: Interval history: No acute overnight events, blood pressure 96/52, on Levophed of 4, being titrated down to 2 mics at this present time. She is alert and awake, oriented x3. No seizures since extubation Medications: Reviewed: Yes Vitals/I&O/Wt Last Vital Signs Temp 98.3 F 04/04/20 11:00 Pulse 77 04/04/20 13:15 Resp 19 H 04/04/20 13:15 BP 96/52 04/04/20 13:15 Pulse Ox 91 04/04/20 13:15 04/03/20 04/04/20 04/04/20 22:59 06:59 14:59 Intake Total 712.354 / 1976.311 481.034 / 2457.345 1032.560 / 1032.560 Output Total 375 / 375 475 / 850 350 / 350 Balance 337.354 / 1601.311 6.034 / 1607.345 682.560 / 682.560 Physical Exam Narrative: EXAM NARRATIVE: GEN: Awake, alert and oriented x3, able to correctly tell me her name age date of and the fact that she is in the ICU at [facility]. No acute distress . 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: no focal neuro deficits at this present time Urinary Catheter Management^: Bello: Cath Placed During This Visit: yes Reason for Continuing Indwelling Catheter: Accurate Measurement of Urinary Output in Critically Ill Patients Urinary Catheter Date of Insertion: 04/02/20 Urinary Catheter Time of Insertion: 01:00 Data : 04/04/20 03:26 04/04/20 03:26 Micro: Microbiology 04/02/20 06:05 Gram Stain - Final Sputum - Endotracheal Tube Aspirate Sputum Culture - Final A&P Assessment and plan (1) Delirium tremens: Associated with seizures for which patient needed to be intubated, now extubated as of 04/03/2020 afternoon. Continues on Precedex for alcohol withdrawal at 0.3, will attempt to wean down Currently she is on Librium 20 mg q6h , continue the same She has been on levophed for low blood pressure.we will attempt to titrate off today. Okay for a map to be around 60. 500 cc fluid bolus given today. Albumin added additionally to help with blood pressure. -Aspiration Precautions -Neurochecks Status: Acute (2) Seizure: Alcohol withdrawal seizures Ativan PRN as needed for breakthrough seizure. Currently on Librium 20 mg q6h Continue monitoring CIWA score Status: Acute (3) Aspiration pneumonia: Currently on Vancomycin and Zosyn day 3. D/c Vancomycin Complete 5 days total duration of abx Status: Acute (4) End stage liver disease: Patient has h/o End stage liver disease 2/2 to alcohol abuse.Currently on transplant list. Status: Acute (5) SBP (spontaneous bacterial peritonitis): H/O SBP in past. No current issues Status: Acute (6) Esophageal varices: H/O variceal bleed with banding. No evidence of UGI bleeding now , however HB noted to be drifting down to 7.6 Check FOBT Status: Acute (7) Hypokalemia: repleted iv Status: Acute Additional A&P Information #Cirrhotic Ascites : She is on 40 OF LASIX PO as well as 100 mg of spironlactone at home.Will plan to resume once blood pressure is more stable. #G.I PPX: Protonix 40 mg i.v daily COde status : Full code DVT ppx: lovenox Attestations Medical Necessity Statement*: close monitoring for delirium tremens, alcohol withdrawal , attempt to wean down precedex and levophed today Coding Level of Care Code Acute Restaurant Line Server for Margarita Fwhéctor Diagnoses Delirium tremens F10.231 Seizure R56.9 Aspiration pneumonia J69.0 End stage liver disease K72.90 SBP (spontaneous bacterial peritonitis) K65.2 Esophageal varices I85.00 Hypokalemia E87.6
[2020-04-04] MEDS: sodium chloride 0.9% 500 ML IV (09:43)
[2020-04-04] MEDS: sodium chloride 0.9% 1,000 ML 50 ML IV (09:44)
[2020-04-04] MEDS: acetaminophen 325 mg Tablet 650 MG PO (10:56)
[2020-04-04] MEDS: albumin 12.5 GM/250 ML VIAL IV (14:49)
[2020-04-04] MEDS: LORazepam 2 mg Tablet PO (14:54)
--- NOTE | 2020-04-04 16:49 | P.PN_ITS ---
Subjective NPU Subjective: Interval history: Pily presented today fairly out of it and hard to arouse. He received medication to assist with the symptoms that likely has rendered her fairly somnolent and difficult to arouse. So she was allowed to continue resting. Mental Status Exam MSE Comments: This is an underweight white female with hospital gown with adequate eye contact unkempt/poor grooming. No abnormal movements. She was sleeping and difficult to arouse and so I allowed her to continue sleeping. Speech was limited. Mood not described, affect subdued. Thought process not observed. Thought content: She was basically sleep during the evaluation. Attention and concentration were impaired and memory was not evaluated and none were formally tested. She is not alert or oriented at this time. Insight and judgment are impaired, impulse control is impaired. Vitals/I&O/Wt Last Vital Signs Temp 98.6 F 04/05/20 04:00 Pulse 75 04/05/20 04:00 Resp 22 H 04/05/20 04:00 BP 106/71 04/05/20 04:00 Pulse Ox 90 04/05/20 04:00 04/04/20 04/04/20 04/05/20 14:59 22:59 06:59 Intake Total 1082.560 / 1082.560 366.88 / 1449.440 387.093 / 1836.533 Output Total 350 / 350 250 / 600 500 / 1100 Balance 732.560 / 732.560 116.88 / 849.440 -112.907 / 736.533 Physical Exam Urinary Catheter Management^: Bello: Cath Placed During This Visit: yes Reason for Continuing Indwelling Catheter: Accurate Measurement of Urinary Out put in Critically Ill Patients Urinary Catheter Date of Insertion: 04/02/20 Urinary Catheter Time of Insertion: 01:00 Data NPU : 04/05/20 04:01 04/05/20 04:01 Micro: Microbiology 04/02/20 06:05 Gram Stain - Final Sputum - Endotracheal Tube Aspirate Sputum Culture - Final Microbiology 04/02/20 06:05 Sputum - Endotracheal Tube Aspirate Gram Stain - Final 04/02/20 06:05 Sputum - Endotracheal Tube Aspirate Sputum Culture - Final A&P Additional A&P Information (1) Seizure: (2) Grand mal seizure: (3) Alcohol withdrawal: (4) Delirium tremens: (5) Suicidal ideation: (6) Depression: (7) Psychosis: (8) Confabulation: Additional A&P Information This is a 34-year-old white female with a long history of depression and alcohol use disorder with significant liver damage mostly secondary to her use who presented few days ago to the emergency department, was transferred to the MPU without evaluation as she had a seizure shortly after arrival and was transferred to the ICU who presents with significant sequela from her alcohol use with possible Warnicke's. 1. Continue current medication. 2. Agree with a plan to return her to the neuropsychiatric unit when she is medically cleared for such a transfer. 3. Continued psychosis versus confabulations which do not seem to represent active alcohol withdrawal but likely the effects of thiamine deficiency and poor nutrition. 4. We will continue to follow. 5. Would use Serax and Ativan/benzodiazepines without active metabolites in her treatment given her liver functioning. Will reevaluate tomorrow but wonder if her mental status abnormalities represent withdrawal phenomenon versus Warnicke's confabulation. Involuntary Hold Information 96 Hour Hold: 96 Hour Involuntary Admission: No Attestations NPU Medical Necessity Statement*: After medical clearance, inpatient hospitalization is medically necessary and the clinically appropriate clinically appropriate intervention for ongoing treatment of depression and alcohol use d isorder. Is unclear the length that will be needed for hospitalization, however it will be at least 2 midnights. Coding Level of Care Code Acute Medical Officer Psychiatry for Margarita Mireles
--- NOTE | 2020-04-04 21:16 | PC.NURSE ---
Patient resting in room on backside at this time. Patient is still mumbling some incoherent words. Patient is alert to self. Patient has 1:1 sitter due to continuously pulling lines, leads, and attempting to get self out of bed. Precedex and Levo running per orders. Continue care.
[2020-04-05] VITALS (65 sets, daily range): BP systolic 70–111; BP diastolic 33–73; PULSE 66–115; RESP 5–26; TEMP 36.7–37.2; O2SAT 88–100
[2020-04-05] MEDS: piperacillin-tazobactam 3.375 GM in sodium chloride 0.9% (plus) 50 ML IV ×3 (00:02→16:30)
[2020-04-05] MEDS: enoxaparin 40 mg/0.4 mL Syringe SUBCUT (00:02)
[2020-04-05] MEDS: dexmedetomidine 400 MCG in sodium chloride 0.9% (100 ml) 100 ML IV (01:03)
[2020-04-05] MEDS: albumin 12.5 GM/250 ML VIAL IV ×2 (02:01→14:32)
[2020-04-05] MEDS: lactulose oral liq 20 gm/30 mL UDC PO (05:09)
[2020-04-05 05:11] LABS: Eosinophils # 0.2 10^3/uL (0.0-0.8); Eosinophils % 4.4 %; Hematocrit 24.6 % (37.0-47.0); Hemoglobin 7.5 g/dL (11.5-15.3); Lymphocytes # 1.2 10^3/uL (0.8-4.8); Lymphocytes % 30.6 %; Mean Corpuscular HGB Conc 30.5 g/dL (30.0-36.0); Mean Corpuscular Hemoglobin 25.5 pg (28.0-34.0); Mean Corpuscular Volume 83.7 fL (81-99); Mean Platelet Volume 10.8 fL (7.4-10.4); Monocytes # 0.3 10^3/uL (0.2-0.9); Monocytes % 6.4 %; Neutrophils # 2.23 10^3/uL (1.8-7.7); Neutrophils % 57.3 %; Nucleated Red Blood Cells % 0 %; Platelet Count 106 10^3/cmm (130-400); Red Blood Count 2.94 10^6/uL (4.1-5.3); Red Cell Distribution Width 16.3 % (12.1-15.1); White Blood Count 3.9 10^3/uL (4.0-10.0)
--- NOTE | 2020-04-05 05:28 | PC.NURSE ---
Patient rested well this shift. Uneventful shift. Patient is more alert and orientated so far thus shift. Was able to read a card given from a family/friend. Patient still has a sitter at bedside. Precedex and levo still running per orders. No pain, call light within reach. Continue care.
[2020-04-05 05:38] LABS: Magnesium 1.6 mg/dL (1.7-2.3); Phosphorus 4.4 mg/dL (2.5-4.5)
--- NOTE | 2020-04-05 05:38 | PC.NURSE ---
Uneventful shift. Sitter at bedside. Denies pain at this time. Continue care.
[2020-04-05] MEDS: LORazepam 2 mg/mL INJ 1 mL IM (05:55)
[2020-04-05 06:31] LABS: Alanine Aminotransferase 16 U/L (0-33); Albumin Level 3.2 g/dL (3.5-5.2); Alkaline Phosphatase 71 IU/L (35-105); Anion Gap 15.3 (5-19); Aspartate Amino Transferase 39 U/L (0-32); Blood Urea Nitrogen 6 mg/dL (6-20); Calcium 8.4 mg/dL (8.5-10.5); Carbon Dioxide 19 mmol/L (22-29); Chloride 112 mmol/L (98-107); Globulin 1.5 g/dL (1.3-4.6); Glomerular Filtration Rate 139.6 mL/min (90-130); Glucose 61 mg/dL (65-115); Osmolality Calculated 292 mOsm/kg (285-295); Potassium 3.3 mmol/L (3.5-5.1); Sodium 143 mmol/L (136-145); Total Bilirubin 1.6 mg/dL (0.15-1.2); Total Protein 4.7 g/dL (6.6-8.7)
[2020-04-05 07:30] LABS: Glucose Point of Care 70 mg/dL (70-110)
--- NOTE | 2020-04-05 08:39 | P.PN_ITS ---
Subjective Subjective: Interval history: Grecia was placed back on Levophed overnight for MAP around 50. Set 0.4. Much more alert and awake today. Complaining of pain in the epigastric region. No further seizures noted. Noted to be hypoglycemic this morning given dextrose push and started on D5 half-normal saline with additional potassium. Hemoglobin at 7.5. Medications: Reviewed: Yes Vitals/I&O/Wt Last Vital Signs Temp 98.6 F 04/05/20 04:00 Pulse 78 04/05/20 06:00 Resp 24 H 04/05/20 06:00 BP 107/68 04/05/20 06:00 Pulse Ox 92 04/05/20 06:00 04/04/20 04/05/20 04/05/20 22:59 06:59 14:59 Intake Total 366.88 / 1449.440 409.786 / 1859.226 85.12 / 85.12 Output Total 250 / 600 500 / 1100 Balance 116.88 / 849.440 -90.214 / 759.226 85.12 / 85.12 Physical Exam Narrative: EXAM NARRATIVE: GEN: Awake, alert and oriented x2, does not recall recent events, thinks she was drinking yesterday, surprised at the fact that she has been in the ICU the last 2 to 3 days. Reports pain CVS: S1S2 N RS: CTA B/L Abd: Soft, mildly distended, points to epigastric region as site of pain. ASSISTANT PROFESSOR SURGICAL TECHNOLOGY: no focal neuro deficits Urinary Catheter Management^: Bello: Cath Placed During This Visit: yes Reason for Continuing Indwelling Catheter: Accurate Measurement of Urinary Output in Critically Ill Patients Urinary Catheter Date of Insertion: 04/02/20 Urinary Catheter Time of Insertion: 01:00 Data : 04/05/20 04:01 04/05/20 04:01 Micro: Microbiology 04/02/20 06:05 Gram Stain - Final Sputum - Endotracheal Tube Aspirate Sputum Culture - Final A&P Assessment and plan (1) Delirium tremens: Associated with seizures for which patient needed to be intubated, now extubated as of 04/03/2020 afternoon. Continues on Precedex for alcohol withdrawal at 0.3, stopped this morning. Additionally will stop Librium as it may have been contributing to her somnolence. The last 2 doses have been on hold and she does appear to be much more alert and awake this morning. Will use as needed Ativan and Zyprexa alternating as needed. -She has been on levophed for low blood pressure.1 L IV fluid bolus today. Start midodrine 5 mg p.o. twice daily. Goal map of 60. No overt signs of sepsis at this present time. Likely low blood pressure is due to third spacing. -Aspiration Precautions -Neurochecks Status: Acute (2) Seizure: Alcohol withdrawal seizures Ativan PRN as needed for breakthrough seizure. Seizures have now stopped. CIWA scores are improving. Status: Acute (3) Aspiration pneumonia: Currently on piperacillin tazobactam day 4. Complete a 5-day course tomorrow. For aspiration pneumonia. Status: Acute (4) End stage liver disease: Patient has h/o End stage liver disease 2/2 to alcohol abuse. Status: Acute (5) SBP (spontaneous bacterial peritonitis): H/O SBP in past. She does report increased epigastric pain this morning. Reports that previously she has needed paracentesis every 6 months, last time this was performed was in November. Will order for an ultrasound-guided paracentesis today. If performed will send for ascites fluid analysis. Low suspicion for SBP. Patient is already on appropriate antimicrobial coverage with Zosyn for the same. Status: Acute (6) Esophageal varices: H/O variceal bleed with banding. No evidence of UGI bleeding now , however HB noted to be drifting down to 7.6, remained stable today at 7.5. Check FOBT Patient is having multiple episodes of loose bowel movements, 7-8 episodes since overnight, this is likely related to lactulose. Will change lactulose from standing to as needed. Status: Acute (7) Hypokalemia: repleted iv Status: Acute Additional A&P Information #Cirrhotic Ascites : She is on 40 OF LASIX PO as well as 100 mg of spironlactone at home. These are currently on hold given hypotension. #G.I PPX: Protonix 40 mg i.v daily COde status : Full code DVT ppx: lovenox Attestations Medical Necessity Statement*: Paracentesis today, stop vasopressors, stop Precedex, stop Librium, closely monitor for any signs of seizures or alcohol withdrawal. Add midodrine. Coding Level of Care Code Acute Middle School Spanish Teacher for Chg Fwd Diagnoses Delirium tremens F10.231 Seizure R56.9 Aspiration pneumonia J69.0 End stage liver disease K72.90 SBP (spontaneous bacterial peritonitis) K65.2 Esophageal varices I85.00 Hypokalemia E87.6
[2020-04-05] MEDS: levothyroxine 50 mcg Tablet PO (08:58)
[2020-04-05] MEDS: ondansetron 4 MG Tablet PO (08:58)
[2020-04-05] MEDS: folic acid 1 mg Tablet PO (08:58)
[2020-04-05] MEDS: multivitamin therapeutic Tablet 1 TAB PO (08:58)
[2020-04-05] MEDS: pantoprazole 40 mg SDV IVP (08:58)
[2020-04-05] MEDS: thiamine 100 mg Tablet PO (08:58)
[2020-04-05] MEDS: escitalopram 10 mg Tablet PO (08:58)
--- NOTE | 2020-04-05 09:01 | US_ITS ---
WS: [id number] ABDOMINAL ULTRASOUND LIMITED REASON FOR VISIT: ascites,cirrhosis,abdominal distension TECHNIQUE: Grayscale and Doppler ultrasound examination of the abdomen. FINDINGS: Limited ultrasound evaluation of the abdomen demonstrated significant ascites. The largest collection of free fluid is in the left lower quadrant. US/US abdomen limited 33923 IMPRESSION: Significant ascites.
[2020-04-05] MEDS: D5-NS 0.45% + KCL 20 mEq 20 MEQ/1,000 ML BAG 50 MEQ IV (09:14)
[2020-04-05] MEDS: OLANZapine 5 mg ODT PO ×2 (09:14→14:32)
[2020-04-05 09:22] LABS: Lipase 14 U/L (13-60)
[2020-04-05] MEDS: sodium chloride 0.9% 1,000 ML 999 ML IV (09:47)
[2020-04-05] MEDS: HYDROmorphone 1 mg/mL INJ 1 mL 0.5 MG IVP ×2 (10:57→22:17)
[2020-04-05 10:59] LABS: INR 1.56 (0.8-1.2)
[2020-04-05] MEDS: midodrine 5 mg TABLET PO ×3 (12:41→20:02)
[2020-04-05] MEDS: LORazepam 2 mg Tablet PO (12:41)
[2020-04-05] MEDS: lactated ringers 1,000 ML 999 ML IV (22:50)
[2020-04-05] MEDS: acetaminophen 325 mg Tablet 650 MG PO (22:57)
--- NOTE | 2020-04-05 23:31 | PC.NURSE ---
New Orders: Patient MAP has been fluctuating between 45-60 throughout shift. BP checked manually to clarify accuracy. MD Mynor international account manager phoned to update on pt condition and to receive new orders. Patient temp has increased within last hour as well with most recent reading of 102.2 axillary. Bilateral periorbital edema noted, and findings relayed over to physician during call. V/O from MD to give 1L bolus of LR for Tx of BP, but to first complete a Cheetah to find if patient is fluid volume responsive. also gave v/o order for RN to give 650mg PO Tylenol in efforts of combating fever. Baseline Cheetah PLR results yielded SVI 30, HR 102, CI 3.2, Map 60, TPRI 1587, with final fluid responsive results of 13.3. Bolus then initiated. Patient continues to fluctuate on MAP after initiation of fluid bolus. Results relayed to Physician international account manager. Continuing to monitor closely. PSA at bedside.
[2020-04-06] VITALS (39 sets, daily range): BP systolic 80–115; BP diastolic 50–82; PULSE 84–111; RESP 12–25; TEMP 36.8–37.4; O2SAT 81–100
[2020-04-06] MEDS: LORazepam 2 mg Tablet PO ×4 (00:15→13:58)
[2020-04-06] MEDS: piperacillin-tazobactam 3.375 GM in sodium chloride 0.9% (plus) 50 ML IV ×2 (00:17→08:19)
[2020-04-06] MEDS: enoxaparin 40 mg/0.4 mL Syringe SUBCUT (00:18)
[2020-04-06] MEDS: albumin 12.5 GM/250 ML VIAL IV ×2 (02:55→15:00)
--- NOTE | 2020-04-06 03:41 | PC.NURSE ---
New Orders: Patient c/o severe pain. Hypotension noted, and increased Edema to hands/face/eyes/and feet. RN phoned MD distribution system operator to give update on patient condition. v/o from MD Mynor distribution system operator for PO [place] to be given ONCE, and to increase currently ordered Midodrine from 5mg to 10mg TID. Give first dose of Midodrine now.
[2020-04-06] MEDS: midodrine 5 mg TABLET 10 MG PO ×4 (03:49→20:17)
[2020-04-06] MEDS: HYDROcodone-acetaminophen 5-325 mg Tablet 1 TAB PO (03:49)
--- NOTE | 2020-04-06 06:11 | PM.NPN ---
Vitals/I&O/Wt Last Vital Signs Temp 99.3 F 04/06/20 00:00 Pulse 95 04/06/20 04:30 Resp 16 04/06/20 04:30 BP 99/54 04/06/20 04:30 Pulse Ox 100 04/06/20 04:30 04/05/20 04/05/20 04/06/20 14:59 22:59 06:59 Intake Total 352.708 / 352.708 750 / 8127.228 6834 / 2552.708 Output Total 500 / 500 700 / 1200 550 / 1750 Balance -147.292 / -147.292 50 / -97.292 900 / 802.708 Physical Exam Urinary Catheter Management^: Bello: Cath Placed During This Visit: yes, but has since been removed by the nurse Reason for Continuing Indwelling Catheter: Not indwelling catheter Urinary Catheter Date of Insertion: 04/02/20 Urinary Catheter Time of Insertion: 01:00 Date Urinary Catheter Removed: 04/05/20 Time Urinary Catheter Discontinued: 11:20 Data NPU : 04/05/20 04:01 04/05/20 04:01 Micro: Microbiology 04/04/20 13:05 Occult Blood (FIT) - Final Stool Routine Collection Microbiology 04/04/20 13:05 Stool Routine Collection Occult Blood (FIT) - Final Involuntary Hold Information 96 Hour Hold: 96 Hour Involuntary Admission: No Coding Level of Care Code Acute Tooth Cutter Pinion for Margarita Mireles
[2020-04-06] MEDS: HYDROmorphone 1 mg/mL INJ 1 mL 0.5 MG IVP ×2 (07:23→11:14)
[2020-04-06] MEDS: D5-NS 0.45% + KCL 20 mEq 20 MEQ/1,000 ML BAG 50 MEQ IV (07:24)
[2020-04-06] MEDS: pantoprazole 40 mg SDV IVP (08:19)
[2020-04-06] MEDS: ondansetron 4 MG Tablet PO ×2 (08:19→15:05)
[2020-04-06] MEDS: multivitamin therapeutic Tablet 1 TAB PO (09:35)
[2020-04-06] MEDS: levothyroxine 50 mcg Tablet PO (09:35)
[2020-04-06] MEDS: folic acid 1 mg Tablet PO (09:35)
[2020-04-06] MEDS: thiamine 100 mg Tablet PO (09:36)
[2020-04-06] MEDS: escitalopram 10 mg Tablet PO (09:36)
--- NOTE | 2020-04-06 09:40 | PM.PN ---
Subjective Subjective: Interval history: Underwent ultrasound yesterday which did show ascites, however paracentesis was not able to be performed as no nonsignificant fluid noted at that time. Patient's blood pressure is improved today after initiation of midodrine. Overnight it appears her map did drop to 40, following which midodrine was increased to 10 mg p.o. 3 times daily. If her blood pressure continues to do well, will resume some of her home doses of spironolactone and Lasix. Currently patient is euvolemic. Overnight her O2 sats dropped to 84% on room air with attempts to wean off of oxygen, will attempt again. At a minimum patient can move out of the ICU. No further seizure episodes have been noted. Remains off of Levophed and Precedex for the last 24 hours. Medications: Reviewed: Yes Vitals/I&O/Wt Last Vital Signs Temp 99.3 F 04/06/20 00:00 Pulse 96 04/06/20 06:00 Resp 20 H 04/06/20 07:23 BP 97/64 04/06/20 05:30 Pulse Ox 81 L 04/06/20 06:00 04/05/20 04/06/20 04/06/20 22:59 06:59 14:59 Intake Total 750 / 6810.828 0013 / 3802.708 Output Total 700 / 1200 550 / 1750 Balance 50 / -97.292 2150 / 2052.708 Physical Exam Narrative: EXAM NARRATIVE: GEN: Awake, alert and oriented, no acute distress , appears much more awake today CVS: S1S2 N RS: CTA B/L Abd: Soft, mildly distended, fluid thrill present. GRADUATE RECRUITER: no focal neuro deficits Urinary Catheter Management^: Bello: Cath Placed During This Visit: yes, but has since been removed by the nurse Reason for Continuing Indwelling Catheter: Not indwelling catheter Urinary Catheter Date of Insertion: 04/02/20 Urinary Catheter Time of Insertion: 01:00 Date Urinary Catheter Removed: 04/05/20 Time Urinary Catheter Discontinued: : Data : 04/06/20 11:58 04/06/20 11:58 Micro: Microbiology 04/04/20 13:05 Occult Blood (FIT) - Final Stool Routine Collection A&P Assessment and plan (1) Delirium tremens: Associated with seizures for which patient needed to be intubated, now extubated as of 04/03/2020 afternoon. She has now been able to be titrated off of Precedex over the last 24 hours. Librium was additionally discontinued due to excessive somnolence and history of CAD. She is doing well currently with as needed Ativan and Zyprexa alternating as needed. -Midodrine increased to 10 mg 3 times daily with improvement in blood pressure. No overt signs of sepsis at this present time. Likely low blood pressure is due to third spacing. Status: Acute (2) Seizure: Alcohol withdrawal seizures Ativan PRN as needed for breakthrough seizure. Seizures have now stopped. CIWA scores are improving. Status: Acute (3) Aspiration pneumonia: Currently on Zosyn day 5. Stop antibiotics today as she has completed an appropriate empiric course. Overnight patient's O2 sats are noted to be dipping down to 84% without any other clear explanation. This may be related to poor peripheral perfusion. Repeat chest x-ray today. Check Covid antigen Patient reports to me that even at home she often feels short of breath and uses oxygen as needed. States that these episodes do not necessarily correlate with desaturation. Requesting oxygen at discharge. I have reassured her that we will perform a home O2 eval prior to discharge. Status: Acute (4) End stage liver disease: Patient has h/o End stage liver disease 2/2 to alcohol abuse. Status: Acute (5) SBP (spontaneous bacterial peritonitis): H/O SBP in past. She does report continued epigastric pain this morning. States taking Dilaudid and morphine for this chronic pain at home. Paracentesis unable to be performed as above. Increase dose of hydrocodone to 1 mg every 4 hours as needed today. Low suspicion for SBP given absence of fevers. Also appropriately treated with Zosyn for 5 days. Status: Acute (6) Esophageal varices: H/O variceal bleed with banding. No evidence of UGI bleeding now , however HB noted to be drifting down to 7.6, remained stable today at 7.5. FOBT negative. Loose bowel movement resolved with reduce frequency of lactulose. Status: Acute (7) Hypokalemia: repleted iv Status: Acute Additional A&P Information #Cirrhotic Ascites : She is on 40 OF LASIX PO as well as 100 mg of spironlactone at home. These are currently on hold given hypotension. If blood pressure continues to respond well to midodrine, will resume these at home dosing. #G.I PPX: Protonix 40 mg po daily # suicidal ideation: Appreciate psychiatry recommendations. COde status : Full code DVT ppx: lovenox Attestations Medical Necessity Statement*: Moved out of ICU to [facility] today. Monitor blood pressure closely with increased dose of midodrine, will need reinitiation of diuretics optimization of volume status, psych assessment, possible n.p.o. transfer once ready from a medical perspective, attempt to wean down oxygen for the same. Coding Level of Care Code Acute Heavy Duty Press Operator for Chg Fwd Diagnoses Delirium tremens F10.231 Seizure R56.9 Aspiration pneumonia J69.0 End stage liver disease K72.90 SBP (spontaneous bacterial peritonitis) K65.2 Esophageal varices I85.00 Hypokalemia E87.6
[2020-04-06 10:38] LABS: SARS Covid-2 Antigen Negative (Negative)
--- NOTE | 2020-04-06 12:10 | P.PN_ITS ---
Subjective NPU Subjective: Interval history: Pily presents today reporting that she is doing okay but clearly still feeling out of it. She has been transferred to the MedSurg unit from the ICU as she is becoming more medically stable. We discussed the risk benefits and alternatives of her being transferred to the neuropsychiatric unit tomorrow and she understood and agreed to proceed as is documented in this note. She continued to have no comment on the circumstances that brought her to the hospital. Mental Status Exam MSE Comments: This is an underweight white female with hospital gown with l imited eye contact unkempt/poor grooming. No abnormal movements. She was sleeping but able to be aroused. Speech was limited and decreased rate and volume. Mood described as okay, affect subdued. Thought process limited but more organized. Thought content: She denied any suicidal or homicidal ideation, there were no delusions reported or noted, she did not respond to questions about perceptual disturbances but did not appear to be attending to internal stimuli. Attention and concentration were impaired and memory was unreliable, but none were formally tested. She was more alert and oriented to person and place. Insight and judgment are impaired, impulse control is impaired. Vitals/I&O/Wt Last Vital Signs Temp 99.3 F 04/06/20 00:00 Pulse 95 04/06/20 04:30 Resp 16 04/06/20 04:30 BP 99/54 04/06/20 04:30 Pulse Ox 100 04/06/20 04:30 04/05/20 04/05/20 04/06/20 14:59 22:59 06:59 Intake Total 352.708 / 352.708 750 / 6993.406 9854 / 2552.708 Output Total 500 / 500 700 / 1200 550 / 1750 Balance -147.292 / -147.292 50 / -97.292 900 / 802.708 Physical Exam Urinary Catheter Management^: Bello: Cath Placed During This Visit: yes, but has since been removed by the nurse Reason for Continuing Indwelling Catheter: Not indwelling catheter Urinary Catheter Date of Insertion: 04/02/20 Urinary Catheter Time of Insertion: 01:00 Date Urinary Catheter Removed: 04/05/20 Time Urinary Catheter Discontinued: :20 Data NPU : 04/07/20 03:05 04/07/20 04:37 Micro: Microbiology 04/04/20 13:05 Occult Blood (FIT) - Final Stool Routine Collection Microbiology 04/04/20 13:05 Stool Routine Collection Occult Blood (FIT) - Final A&P Additional A&P Information (1) Seizure: (2) Grand mal seizure: (3) Alcohol withdrawal: (4) Delirium tremens: (5) Suicidal ideation: (6) Depression: (7) Psychosis: (8) Confabulation: Additional A&P Information This is a 34-year-old white female with a long history of depression and alcohol use disorder with significant liver damage mostly secondary to her use who presented few days ago to the emergency department, was transferred to the MPU without evaluation as she had a seizure shortly after arrival and was transferred to the ICU who presents with significant sequela from her alcohol use with possible Warnicke's. 1. Continue current medication. 2. Agree with a plan to return her to the neuropsychiatric unit when she is medically cleared for such a transfer. 3. Continued psychosis versus confabulations which do not seem to represent active alcohol withdrawal but likely the effects of thiamine deficiency and poor nutrition. 4. We will continue to follow. 5. Would use Serax and Ativan/benzodiazepines without active metabolites in her treatment given her liver functioning. Will reevaluate tomorrow but wonder if her mental status abnormalities represent withdrawal phenomenon versus War nicke's confabulation. Involuntary Hold Information 96 Hour Hold: 96 Hour Involuntary Admission: No Attestations NPU Medical Necessity Statement*: After medical clearance, inpatient hospitalization is medically necessary and the clinically appropriate clinically appropriate intervention for ongoing treatment of depression and alcohol use disorder. Is unclear the length that will be needed for hospitalization, however it will be at least 2 midnights. Coding Level of Care Code Acute Fishing Instructor for Margarita Mireles
--- NOTE | 2020-04-06 12:26 | PC.NURSE ---
wasted 10 ml Ativan with AMY Luna.
[2020-04-06 12:45] LABS: Basophils % 0.5 %; Eosinophils # 0.2 10^3/uL (0.0-0.8); Eosinophils % 5.5 %; Hemoglobin 7.8 g/dL (11.5-15.3); Lymphocytes # 1.1 10^3/uL (0.8-4.8); Lymphocytes % 29.4 %; Mean Corpuscular Hemoglobin 26.1 pg (28.0-34.0); Mean Platelet Volume 10.4 fL (7.4-10.4); Monocytes # 0.3 10^3/uL (0.2-0.9); Monocytes % 8.4 %; Neutrophils # 2.13 10^3/uL (1.8-7.7); Neutrophils % 55.9 %; Nucleated Red Blood Cells % 0 %; Platelet Count 106 10^3/cmm (130-400); Red Blood Count 2.99 10^6/uL (4.1-5.3); Red Cell Distribution Width 17.1 % (12.1-15.1); White Blood Count 3.8 10^3/uL (4.0-10.0)
[2020-04-06 13:06] LABS: D Dimer 10.36 ug/mIFEU (0-0.59)
[2020-04-06 13:29] LABS: Alanine Aminotransferase 16 U/L (0-33); Albumin Level 3.4 g/dL (3.5-5.2); Alkaline Phosphatase 79 IU/L (35-105); Anion Gap 13.4 (5-19); Aspartate Amino Transferase 36 U/L (0-32); Blood Urea Nitrogen 4 mg/dL (6-20); Calcium 8.5 mg/dL (8.5-10.5); Carbon Dioxide 21 mmol/L (22-29); Chloride 111 mmol/L (98-107); Globulin 1.8 g/dL (1.3-4.6); Glomerular Filtration Rate 113.1 mL/min (90-130); Glucose 134 mg/dL (65-115); Osmolality Calculated 293 mOsm/kg (285-295); Potassium 3.4 mmol/L (3.5-5.1); Sodium 142 mmol/L (136-145); Total Protein 5.2 g/dL (6.6-8.7)
--- NOTE | 2020-04-06 14:57 | XRR_ITS ---
PROCEDURE INFORMATION: Exam: XR Chest, 1 View Exam date and time: 04/06/2020 2:58 PM Age: 34 years old Clinical indication: Shortness of breath; Additional info: F/up pneumonia TECHNIQUE: Imaging protocol: XR of the chest Views: 1 view. COMPARISON: CR XR chest 1V [id number] 04/02/2020 12:40 AM FINDINGS: Tubes, catheters and devices: Previously noted endotracheal tube and nasogastric tube have been removed. Lungs: Mild airspace disease noted at the lung bases, left worse than right. This may represent atelectasis versus pneumonia. The upper lungs are free of infiltrates. Pleural space: No pleural effusion. No pneumothorax. Heart/Mediastinum: No cardiomegaly. Bones/joints: Unremarkable. XR/XR chest 1V portable [id number] IMPRESSION: Mild airspace disease noted at the lung bases, left worse than right. This may represent atelectasis versus pneumonia. Bibasilar airspace disease appears slightly worsened compared to 04/02/2020.
[2020-04-06] MEDS: HYDROmorphone 1 mg/mL INJ 1 mL IVP ×2 (15:11→19:34)
--- NOTE | 2020-04-06 18:51 | PC.NURSE ---
Patient gave this fiction and nonfiction writer prose verbal permission to speak to Grayson Patel who is her uncle.
--- NOTE | 2020-04-06 19:04 | PC.NURSE ---
Addendum entered by Jacki Kirk RN 04/06/20 19:06: Patient arrived from ICU at around noon. Original Note: End of shift report. Patient is A&Ox2. Patient is able to walk to the bathroom. Patient has been a 8 or below on her CWIA today.
[2020-04-07] VITALS (24 sets, daily range): BP systolic 95–121; BP diastolic 57–77; PULSE 82–126; RESP 14–22; TEMP 36.6–37.4; O2SAT 66–100
[2020-04-07] MEDS: enoxaparin 40 mg/0.4 mL Syringe SUBCUT (00:28)
[2020-04-07] MEDS: D5-NS 0.45% + KCL 20 mEq 20 MEQ/1,000 ML BAG 50 MEQ IV ×2 (00:29→02:50)
[2020-04-07 00:56] LABS: ABG PCO2 40.9 mmHg (35-45); ABG PH Result 7.32 (7.35-7.45); Alveolar-Arterial Oxygen Gradi 3.7 mmHg (5-10); Arterial Blood Gas Hematocrit 23.3 % (37-47); Base Excess ABG -4.9 mmol/L (-2.0-2.0); Blood Gas Allen Test Pos; Blood Gas Sample Site Radial, right; Blood Gas Sample Type Arterial; Carboxyhemoglobin 1.9 %THgb (0.4-20.1); HCO3 ABG 20.8 mmol/L (22-26); Ionized Calcium Level - ABG 1.2 mmol/L (1.1-1.4); Methemoglobin 0.9 % (0.4-1.5); Oxygen Device NC; Oxygen Saturation ABG 94.6; PO2 ABG 70.8 mmHg (80.0-100.0); Potassium Level - ABG 3.5 mmol/L (3.5-5.0); Total Hemoglobin 7.6 g/dL (12-16)
[2020-04-07] MEDS: LORazepam 2 mg/mL INJ 1 mL IM ×2 (00:57→20:20)
--- NOTE | 2020-04-07 01:02 | PC.NURSE ---
Pt scored 12 on CIWA and per protocol is to receive [address] Lowe ordered to just give her 1 mg d/t pt current resp status.
[2020-04-07] MEDS: albumin 12.5 GM/250 ML VIAL IV ×2 (02:41→15:46)
[2020-04-07 03:50] LABS: Basophils % 0.8 %; Eosinophils # 0.2 10^3/uL (0.0-0.8); Eosinophils % 5.5 %; Lymphocytes # 1.1 10^3/uL (0.8-4.8); Lymphocytes % 28.3 %; Mean Corpuscular HGB Conc 31.3 g/dL (30.0-36.0); Mean Corpuscular Hemoglobin 26.2 pg (28.0-34.0); Mean Corpuscular Volume 83.9 fL (81-99); Monocytes # 0.4 10^3/uL (0.2-0.9); Monocytes % 9.2 %; Neutrophils # 2.13 10^3/uL (1.8-7.7); Neutrophils % 55.9 %; Nucleated Red Blood Cells % 0 %; Platelet Count 106 10^3/cmm (130-400); Red Blood Count 2.48 10^6/uL (4.1-5.3); Red Cell Distribution Width 17.3 % (12.1-15.1); White Blood Count 3.8 10^3/uL (4.0-10.0)
[2020-04-07 03:51] LABS: Hematocrit 20.8 % (37.0-47.0); Hemoglobin 6.5 g/dL (11.5-15.3)
[2020-04-07 05:18] LABS: INR 1.54 (0.8-1.2)
[2020-04-07 05:26] LABS: Alanine Aminotransferase 13 U/L (0-33); Albumin Level 3.4 g/dL (3.5-5.2); Alkaline Phosphatase 65 IU/L (35-105); Anion Gap 11.4 (5-19); Aspartate Amino Transferase 32 U/L (0-32); Blood Urea Nitrogen 2 mg/dL (6-20); Calcium 8.3 mg/dL (8.5-10.5); Carbon Dioxide 22 mmol/L (22-29); Chloride 108 mmol/L (98-107); Globulin 1.5 g/dL (1.3-4.6); Glomerular Filtration Rate 94.2 mL/min (90-130); Glucose 133 mg/dL (65-115); Osmolality Calculated 284 mOsm/kg (285-295); Potassium 3.4 mmol/L (3.5-5.1); Sodium 138 mmol/L (136-145); Total Bilirubin 0.9 mg/dL (0.15-1.2); Total Protein 4.9 g/dL (6.6-8.7)
[2020-04-07] MEDS: HYDROmorphone 1 mg/mL INJ 1 mL IVP ×2 (05:44→09:35)
[2020-04-07] MEDS: ondansetron 4 MG Tablet PO (05:45)
[2020-04-07] MEDS: sodium chloride 0.9% (100 ml) 100 ML (06:39)
--- NOTE | 2020-04-07 06:40 | PC.NURSE ---
Pt O2 saturation dropped to the high sixties last night. O2 Sat immediatly came back up when 4L NC applied. Pt was experiencing some confusion at that time but not is A&O and in good spigots. Pt c/o pain throughout the night requesting pain medication. Pt is also c/o os burning and itching when urinating now. Pt is currently resting in bed with eyes opened, denies any pain at this time.
[2020-04-07] MEDS: levothyroxine 50 mcg Tablet PO (08:13)
[2020-04-07] MEDS: escitalopram 10 mg Tablet PO (08:13)
[2020-04-07] MEDS: thiamine 100 mg Tablet PO (08:13)
[2020-04-07] MEDS: multivitamin therapeutic Tablet 1 TAB PO (08:13)
[2020-04-07] MEDS: pantoprazole DR 40 mg Tablet PO (08:13)
[2020-04-07] MEDS: folic acid 1 mg Tablet PO (08:13)
[2020-04-07] MEDS: midodrine 5 mg TABLET 10 MG PO ×3 (08:14→20:19)
--- NOTE | 2020-04-07 08:49 | PC.NURSE ---
Blood Transfusion This nurse was notified by pt's primary nurse, Jeana Recio, that blood transfusion had not been documented as started in T[facility] by previous shift. This nurse called assistant shift supervisor charge nurse, Adrian, to find out more information. Adrian stated he began the transfusion with STACIE Bowman, and that it must not have been saved appropriately in the computer, he will resolve the issue when he is here tonight. This nurse then called lab to find out if there was anything we could do to fix the issue. Lab and blood bank referred this nurse to [facility]. Blood verified on paper T[facility] at beginning of administration and verified in computer by Ashley Kennedy RN, at this time to document transfusion vitals.
--- NOTE | 2020-04-07 09:01 | PC.NURSE ---
Coming onto shift patient had first unit of 2 blood running. It was found that unit of blood had not been verified or documented time it was started. Unit verified by this nurse for correct unit number and blood type. Patient stable with no findings of distress. Blood completed at 0855.
--- NOTE | 2020-04-07 14:26 | PM.NPN ---
Subjective NPU Subjective: Interval history: Pily presents today continuing to downplay psychiatric symptoms and her presentation to the hospital. She clearly is showing some improvement and is more grounded in reality. However she did need a transfusion therefore she will not be able to go to the NPU today. She is looking clarity as to what her next step is and really has no current insight she is providing and what led to the decompensation upon admission. Which obviously I assisted her in saying was probably the drinking that led to the blood alcohol of 430 upon admission. We began to discuss the need for sober living follow-up at a level that she is currently not doing and she says she will think about it. Mental Status Exam MSE Comments: This is an underweight white female with hospital gown with limited eye contact unkempt/poor grooming. No abnormal movements except for shivering during the interview. Cooperative with exam in no acute distress. Speech was more spontaneous and decreased rate and volume. Mood described as I feel okay, affect less subdued. Thought process more organized. Thought content: She denied any suicidal or homicidal ideation, there were no delusions reported or noted, he denied other hallucinations. Attention and concentration were intact and memory was unreliable, but none were formally tested. She was more alert and oriented to person and place. Insight and judgment are impaired, impulse control is impaired. Vitals/I&O/Wt Last Vital Signs Temp 98.9 F 04/07/20 04:00 Pulse 100 H 04/07/20 04:00 Resp 20 H 04/07/20 04:00 BP 106/68 04/07/20 04:00 Pulse Ox 97 04/07/20 04:00 04/07/20 04/07/20 04/08/20 14:59 22:59 06:59 Intake Total 600 / 600 240 / 840 Output Total 300 / 300 500 / 800 Balance 300 / 300 -260 / 40 Weight last 48 hrs Weight 78.727 kg Physical Exam Urinary Catheter Management^: Bello: Cath Placed During This Visit: yes, but has since been removed by the nurse Reason for Continuing Indwelling Catheter: Not indwelling catheter Urinary Catheter Date of Insertion: 04/02/20 Urinary Catheter Time of Insertion: 01:00 Date Urinary Catheter Removed: 04/05/20 Time Urinary Catheter Discontinued: : Data NPU : 04/07/20 14:28 04/07/20 04:37 Micro: Microbiology 04/02/20 01:30 Blood Culture - Final Blood NO GROWTH AFTER 5 DAYS 04/02/20 01:27 Blood Culture - Final Blood NO GROWTH AFTER 5 DAYS Microbiology 04/02/20 01:30 Blood Blood Culture - Final NO GROWTH AFTER 5 DAYS 04/02/20 01:27 Blood Blood Culture - Final NO GROWTH AFTER 5 DAYS A&P Additional A&P Information (1) Seizure: (2) Grand mal seizure: (3) Alcohol withdrawal: (4) Delirium tremens: (5) Suicidal ideation: (6) Depression: (7) Psychosis: (8) Confabulation: Additional A&P Information This is a 34-year-old white female with a long history of depression and alcohol use disorder with significant liver damage mostly secondary to her use who presented few days ago to the emergency department, was transferred to the MPU without evaluation as she had a seizure shortly after arrival and was transferred to the ICU who presents with significant sequela from her alcohol use with possible Warnicke's. 1. Continue current medication. 2. Agree with a plan to return her to the neuropsychiatric unit when she is medically cleared for such a transfer. 3. Significant need for sober living follow-up exists we will continue to work with her on her willingness for treatment. Involuntary Hold Information 96 Hour Hold: 96 Hour Involuntary Admission: No Attestations NPU Medical Necessity Statement*: After medical clearance, inpatient hospitalization is medically necessary and the clinically appropriate clinically appropriate intervention for ongoing treatment of depression and alcohol use disorder. Is unclear the length that will be needed for hospitalization, however it will be at least 2 midnights. Coding Level of Care Code Acute Harvest Crew Supervisor for Margarita Mireles
--- NOTE | 2020-04-07 14:27 | CTR_ITS ---
PROCEDURE INFORMATION: Exam: CT Angiography Chest With Contrast Exam date and time: 04/07/2020 3:20 PM Age: 35 years old Clinical indication: Abdominal pain; Other: Elevated d dimer; Additional info: Elevated d dimer, hypoxia, concern for pe TECHNIQUE: Imaging protocol: Computed tomographic angiography of the chest with intravenous contrast. 3D rendering (Not supervised by radiologist): MIP and/or 3D reconstructed images were created by the technologist. Radiation optimization: All CT scans at this facility use at least one of these dose optimization techniques: automated exposure control; mA and/or kV adjustment per patient size (includes targeted exams where dose is matched to clinical indication); or iterative reconstruction. Contrast material: OMNI 350; Contrast volume: 95 ml; Contrast route: INTRAVENOUS (IV); COMPARISON: CR (CHEST, ) 04/06/2020 4:19 PM RADIATION DOSE METRICS: Total DLP (mGy-cm): 1396.68 FINDINGS: Pulmonary arteries: Pulmonary arteries are well opacified. Pulmonary arteries are normal in caliber. No filling defects are demonstrated. No evidence of pulmonary embolism. Aorta: The aorta is unremarkable as demonstrated. Lungs: Mild prominence of the pulmonary interstitium. Airspace disease demonstrated in the dependent portions of the lower lobes, right worse than left. Findings are consistent pulmonary edema versus nonspecific viral pneumonia. Pleural space: Small bilateral pleural effusions. Heart: Mild cardiomegaly is noted. Lymph nodes: Unremarkable. No enlarged lymph nodes. Bones/joints: No fracture or other acute osseous abnormality. Soft tissues: The soft tissues appear unremarkable. IMPRESSION: 1. No evidence of pulmonary embolism. 2. No evidence of aortic dissection. 3. Mild cardiomegaly is noted. 4. Mild prominence of the pulmonary interstitium. Airspace disease demonstrated in the dependent portions of the lower lobes, right worse than left. Findings are consistent pulmonary edema versus nonspecific viral pneumonia. 5. Small bilateral pleural effusions. PROCEDURE INFORMATION: Exam: CT Abdomen And Pelvis With Contrast Exam date and time: 04/07/2020 3:20 PM Age: 35 years old Clinical indication: Abdominal pain; Other: Elevated d dimer; Additional info: Elevated d dimer, hypoxia, concern for pe TECHNIQUE: Imaging protocol: Computed tomography of the abdomen and pelvis with intravenous contrast. Radiation optimization: All CT scans at this facility use at least one of these dose optimization techniques: automated exposure control; mA and/or kV adjustment per patient size (includes targeted exams where dose is matched to clinical indication); or iterative reconstruction. Contrast material: OMNI 350; Contrast volume: 95 ml; Contrast route: INTRAVENOUS (IV); COMPARISON: CT abdomen and pelvis with contrast dated 06/27/2018. RADIATION DOSE METRICS: Total DLP (mGy-cm): 1396.68 FINDINGS: Lungs: Please see accompanying CT chest report from same date. Liver: Liver demonstrates heterogeneous enhancement and an irregular margin. The findings are suspicious for hepatic cirrhosis. This is new when compared to 06/27/2018. Gallbladder and bile ducts: The gallbladder is surgically absent. No biliary dilatation. Pancreas: The pancreas is normal in appearance. Spleen: Splenomegaly noted. Spleen measures 15 cm in length. No focal splenic lesion. Adrenal glands: The adrenal glands appear within normal limits. Kidneys and ureters: The kidneys are normal in morphology. No hydronephrosis. No solid mass. Stomach and bowel: Unremarkable. No obstruction. No mucosal thickening. Appendix: No evidence of appendicitis. Intraperitoneal space: There is mild ascites in the abdomen and pelvis. Vasculature: The aorta is unremarkable as demonstrated. The inferior vena cava is unremarkable. Lymph nodes: No pathologically enlarged lymph nodes are demonstrated. Urinary bladder: The urinary bladder is unremarkable in appearance. Reproductive: Uterus and adnexa are unremarkable. Bones/joints: Unremarkable. No acute fracture. Soft tissues: Diffuse subcutaneous edema throughout the abdomen and pelvis. CT/CT angio chest w abd pel w con IMPRESSION: 1. Liver demonstrates heterogeneous enhancement and has an irregular margin. The findings are suspicious for hepatic cirrhosis. These findings are new when compared to 06/27/2018. The heterogeneous density in the anterior liver is nonspecific, and neoplastic disease is not excluded. Suggest MRI of the liver to further assess. 2. Changes of portal hypertension are noted, including splenomegaly and ascites. 3. Diffuse subcutaneous edema throughout the abdomen and pelvis. Radiation Dose CTDIVOL = (mGy): DLP = 1396.68~1396.68 (mGy-cm)
[2020-04-07 14:42] LABS: Hematocrit 28.1 % (37.0-47.0); Hemoglobin 8.8 g/dL (11.5-15.3)
[2020-04-07] MEDS: iohexol 350 mg/mL 100 mL Btl IV (15:22)
[2020-04-07] MEDS: HYDROmorphone 1 mg/mL INJ 1 mL 2 MG IVP ×2 (15:48→20:19)
--- NOTE | 2020-04-07 15:53 | PM.PN ---
Subjective Subjective: Interval history: Hemoglobin dropped to 6.5 this morning, ordered for 2 units of packed red blood cell transfusion following which hemoglobin is up to 8.8. Continues to complain of abdominal pain today. Dilaudid has been increased to 2 mg IV every 4 hours as needed at this time. She is starting to get frustrated by being in the hospital. FOBT tested yesterday was negative. He denies any more melena or hematemesis episodes. Given ongoing worsening abdominal pain and drop in hemoglobin, would like to exclude intra-abdominal bleeding. Additionally D-dimer was added to her labs yesterday and returned at 10. Given intermittent need for supplemental O2 and elevated D-dimer, will evaluate with CTA of the chest to rule out PE. Medications: Reviewed: Yes Vitals/I&O/Wt Last Vital Signs Temp 98.1 F 04/07/20 15:52 Pulse 97 04/07/20 15:52 Resp 17 04/07/20 15:52 BP 115/77 04/07/20 15:52 Pulse Ox 97 04/07/20 15:52 04/07/20 04/07/20 04/07/20 06:59 14:59 22:59 Intake Total 1854.167 / 2804.167 600 / 600 Output Total 1600 / 3050 300 / 300 Balance 254.167 / -245.833 300 / 300 Weight last 48 hrs Weight 78.727 kg Physical Exam Narrative: EXAM NARRATIVE: GEN: Awake, alert and oriented, in mild distress due to pain CVS: S1S2 N RS: CTA B/L Abd: Soft, nt/nd , bs+ ASIAN ART CURATOR: no focal neuro deficits Urinary Catheter Management^: Bello: Cath Placed During This Visit: yes, but has since been removed by the nurse Reason for Continuing Indwelling Catheter: Not indwelling catheter Urinary Catheter Date of Insertion: 04/02/20 Urinary Catheter Time of Insertion: 01:00 Date Urinary Catheter Removed: 04/05/20 Time Urinary Catheter Discontinued: : Data : 04/07/20 14:28 04/07/20 04:37 Micro: Microbiology 04/02/20 01:30 Blood Culture - Final Blood NO GROWTH AFTER 5 DAYS 04/02/20 01:27 Blood Culture - Final Blood NO GROWTH AFTER 5 DAYS A&P Assessment and plan (1) Delirium tremens: Now resolved. Associated with seizures for which patient needed to be intubated, now extubated as of 04/03/2020 afternoon. She is doing well currently with as needed Ativan and Zyprexa alternating as needed. Midodrine increased to 10 mg 3 times daily with improvement in blood pressure. No overt signs of sepsis at this present time. Likely low blood pressure is due to third spacing. Status: Acute (2) Seizure: Alcohol withdrawal seizures Ativan PRN as needed for breakthrough seizure. Seizures have now stopped. CIWA scores are improving. Status: Acute (3) Aspiration pneumonia: completed treatment with Zosyn x 5 days Intermittently on supplemntal 02 at 2lpm Covid ag negative, no fever Bi basilar airspace disease on CXR, check CTA chest today Status: Acute (4) End stage liver disease: Patient has h/o End stage liver disease 2/2 to alcohol abuse. Status: Acute (5) SBP (spontaneous bacterial peritonitis): H/O SBP in past. Not enough fluid to obtain Paracentesis Increase dose of hydrocodone to 2 mg every 4 hours as needed today. Low suspicion for SBP given absence of fevers. Also appropriately treated with Zosyn for 5 days. Status: Acute (6) Esophageal varices: H/O variceal bleed with banding. No evidence of UGI bleeding now , however HB noted to be drifting down to 6.5 today FOBT negative. Check Ct abd /pelvis to r/o intraabdominal bleed, recheck FOBT Status: Acute (7) Hypokalemia: repleted iv Status: Acute Additional A&P Information #Cirrhotic Ascites : She is on 40 OF LASIX PO as well as 100 mg of spironlactone at home. These are currently on hold given hypotension. #G.I PPX: Protonix 40 mg po daily # suicidal ideation: Appreciate psychiatry recommendations. COde status : Full code DVT ppx: lovenox Attestations Medical Necessity Statement*: hb drop to 6.5 today, worsened infiltrates on CXR, for CTA chest and C abd/pelvis today, blood transfusion Coding Level of Care Code Acute Oral And Maxillofacial Surgery for Chg Fwd Diagnoses Delirium tremens F10.231 Seizure R56.9 Aspiration pneumonia J69.0 End stage liver disease K72.90 SBP (spontaneous bacterial peritonitis) K65.2 Esophageal varices I85.00 Hypokalemia E87.6
[2020-04-07] MEDS: sodium chloride 0.9% (100 ml) 100 ML 125 ML (16:00)
[2020-04-07] MEDS: FUROsemide 10 mg/mL SDV 2mL 20 MG IVP (17:35)
[2020-04-07] MEDS: potassium chloride ER 10 mEq Tablet 40 MEQ PO (17:35)
[2020-04-07] MEDS: naloxone 0.4 mg/ml SDV IVP (23:27)
[2020-04-08] VITALS (10 sets, daily range): BP systolic 96–152; BP diastolic 62–86; PULSE 72–121; RESP 14–23; TEMP 36.6–37.3; O2SAT 92–100
[2020-04-08 07:09] LABS: Basophils % 0.9 %; Eosinophils # 0.2 10^3/uL (0.0-0.8); Eosinophils % 4.3 %; Hematocrit 27.5 % (37.0-47.0); Hemoglobin 8.6 g/dL (11.5-15.3); Lymphocytes # 0.9 10^3/uL (0.8-4.8); Lymphocytes % 20.8 %; Mean Corpuscular HGB Conc 31.3 g/dL (30.0-36.0); Mean Corpuscular Hemoglobin 27.3 pg (28.0-34.0); Mean Corpuscular Volume 87.3 fL (81-99); Mean Platelet Volume 10.6 fL (7.4-10.4); Monocytes # 0.5 10^3/uL (0.2-0.9); Monocytes % 10.6 %; Neutrophils # 2.79 10^3/uL (1.8-7.7); Neutrophils % 63.2 %; Nucleated Red Blood Cells % 0 %; Platelet Count 104 10^3/cmm (130-400); Red Blood Count 3.15 10^6/uL (4.1-5.3); Red Cell Distribution Width 17.3 % (12.1-15.1); White Blood Count 4.4 10^3/uL (4.0-10.0)
[2020-04-08 07:46] LABS: Alanine Aminotransferase 13 U/L (0-33); Albumin Level 3.8 g/dL (3.5-5.2); Alkaline Phosphatase 67 IU/L (35-105); Aspartate Amino Transferase 45 U/L (0-32); Blood Urea Nitrogen 2 mg/dL (6-20); Calcium 8.9 mg/dL (8.5-10.5); Carbon Dioxide 25 mmol/L (22-29); Chloride 106 mmol/L (98-107); Globulin 1.5 g/dL (1.3-4.6); Glomerular Filtration Rate 94.2 mL/min (90-130); Glucose 99 mg/dL (65-115); Osmolality Calculated 284 mOsm/kg (285-295); Sodium 139 mmol/L (136-145); Total Bilirubin 1.5 mg/dL (0.15-1.2); Total Protein 5.3 g/dL (6.6-8.7)
[2020-04-08] MEDS: LORazepam 2 mg Tablet PO ×2 (08:15→16:24)
[2020-04-08] MEDS: escitalopram 10 mg Tablet PO (08:15)
[2020-04-08] MEDS: midodrine 5 mg TABLET 10 MG PO ×3 (08:15→20:35)
[2020-04-08] MEDS: pantoprazole DR 40 mg Tablet PO (08:15)
[2020-04-08] MEDS: folic acid 1 mg Tablet PO (08:15)
[2020-04-08] MEDS: levothyroxine 50 mcg Tablet PO (08:16)
[2020-04-08] MEDS: thiamine 100 mg Tablet PO (08:16)
[2020-04-08] MEDS: multivitamin therapeutic Tablet 1 TAB PO (08:16)
[2020-04-08] MEDS: HYDROmorphone 1 mg/mL INJ 1 mL 2 MG IVP (10:10)
--- NOTE | 2020-04-08 11:09 | P.PN_ITS ---
Subjective Subjective: Interval history: Hemoglobin stable this morning at 8.6. Blood pressure continues to be ranging between 100-1 10 systolic. Overnight patient was noted to have an episode of shallow breathing after being given Ativan and hydromorphone together. CTA chest negative for PE, CT abdomen and pelvis without any intra-abdominal sources of bleeding. Diffuse subcutaneous edema n oted consistent with anasarca. Medications: Reviewed: Yes Vitals/I&O/Wt Last Vital Signs Temp 98.3 F 04/08/20 07:40 Pulse 113 H 04/08/20 07:40 Resp 18 04/08/20 10:10 BP 112/68 04/08/20 07:40 Pulse Ox 98 04/08/20 10:10 04/07/20 04/08/20 04/08/20 22:59 06:59 14:59 Intake Total 240 / 840 Output Total 500 / 800 350 / 350 Balance -260 / 40 -350 / -350 Weight last 48 hrs Weight 78.727 kg Physical Exam Narrative: EXAM NARRATIVE: GEN: Awake, alert and oriented, no acute distress CVS: S1S2 N RS: CTA B/L Abd: Soft, nt/nd , bs+ EMPLOYER RELATIONS REPRESENTATIVE: no focal neuro deficits Urinary Catheter Management^: Bello: Cath Placed During This Visit: yes, but has since been removed by the nurse Reason for Continuing Indwelling Catheter: Not indwelling catheter Urinary Catheter Date of Insertion: 04/02/20 Urinary Catheter Time of Insertion: 01:00 Date Urinary Catheter Removed: 04/05/20 Time Urinary Catheter Discontinued: 11:20 Data : 04/08/20 04:28 04/08/20 04:28 A&P Assessment and plan (1) Delirium tremens: Now resolved. Associated with seizures for which patient needed to be intubated, now extubated as of 04/03/2020 afternoon. Continue Ativan and Zyprexa alternating as needed for signs of alcohol withdrawal. Midodrine increased to 10 mg 3 times daily with improvement in blood pressure. Status: Acute (2) Seizure: Alcohol withdrawal seizures Ativan PRN as needed for breakthrough seizure. Seizures have now stopped. Status: Acute (3) Aspiration pneumonia: completed treatment with Zosyn x 5 days Intermittently on supplemntal 02 at 2lpm Covid ag negative, no fever Bi basilar airspace disease on CXR CTA chest without evidence of PE. Bilateral lower lobe nonspecific opacities more likely to be related to fluid and aspiration given overall clinical picture rather than viral pneumonitis. Status: Acute (4) End stage liver disease: Patient has h/o End stage liver disease 2/2 to alcohol abuse. Status: Acute (5) SBP (spontaneous bacterial peritonitis): H/O SBP in past. Not enough fluid to obtain Paracentesis Increase dose of hydrocodone to 2 mg every 4 hours as needed today. Low suspicion for SBP given absence of fevers. Also appropriately treated with Zosyn for 5 days. Status: Acute (6) Esophageal varices: H/O variceal bleed with banding. No evidence of UGI bleeding now , hemoglobin noted to drift down to 6.5 on April 07, received 2 units of blood transfusion. Hemoglobin today stable at 8.6. No evidence of intra-abdominal bleeding on CT FOBT negative.T Status: Acute (7) Hypokalemia: repleted iv Status: Acute Additional A&P Information #Cirrhotic Ascites : Patient has had a gradually increasing anasarca during admission course, likely as a result of her diuretics being on hold and fluid resuscitation. Start Lasix 20 mg IV every 12 while closely monitoring her blood pressure. If blood pressure tolerates, will likely increase dose of diuretics and resume Aldactone as well.. #G.I PPX: Protonix 40 mg po daily #Suboptimal pain control: Patient is requesting alternating morphine hydromorphone and hydrocodone, however she has been counseled that overnight she had an episode of respiratory depression because of hydromorphone following which her dose has been reduced back from 2 mg to 1 mg every 4 hours as needed today. Also instructions given not to use Ativan and hydrocodone at the same time. Toradol as needed additionally added for pain control today. # suicidal ideation: Appreciate psychiatry recommendations. COde status : Full code DVT ppx: lovenox on hold due to drop in hemoglobin Attestations Medical Necessity Statement*: resuming diuresis today, closely monitor blood pressure, needs close monitoring of H&H status post 2 unit blood transfusion yes terday Coding Level of Care Code Acute Ballistics Teacher for Chg Fwd Diagnoses Delirium tremens F10.231 Seizure R56.9 Aspiration pneumonia J69.0 End stage liver disease K72.90 SBP (spontaneous bacterial peritonitis) K65.2 Esophageal varices I85.00 Hypokalemia E87.6
[2020-04-08] MEDS: FUROsemide 10 mg/mL SDV 2mL 20 MG IVP (12:38)
[2020-04-08] MEDS: ketorolac 30 mg/mL INJ 15 MG IVP ×2 (12:38→20:09)
[2020-04-08] MEDS: HYDROmorphone 1 mg/mL INJ 1 mL IVP ×2 (14:39→20:29)
--- NOTE | 2020-04-08 19:42 | PC.NURSE ---
INTRODUCTION OF STAFF AND AIDET. LINENS REPLACED ON BED. PT DENIES PAIN OR NEEDS AT THIS TIME.
--- NOTE | 2020-04-08 19:59 | P.PN_ITS ---
Subjective NPU Subjective: Interval history: Pily presents today continuing to report that things are unchanged. She reports that her alcohol intoxication on admission was related to her discovering her /ex- in the bed with another woman. She reports that it was a bed she picked out and so it really struck her in a way that she was not prepared for even though she knew that they had gone in a different direction. She denied having regular use otherwise other than that day. She reports that she is feeling better. She reports that she lives with her uncle and that we could reach out to him in relation to how she had been doing fairly well other than this episode. Mental Status Exam MSE Comments: This is an underweight white female with hospital gown with limited eye contact unkempt/poor grooming. No abnormal movements except for shivering during the interview. Cooperative with exam in no acute distress. Speech was more spontaneous and decreased rate and volume. Mood described as feeling better, affect less subdued. Thought process more organized. Thought content: She denied any suicidal or homicidal ideation, there were no delusions reported or noted, he denied other hallucinations. Attention and concentration were intact and memory was unreliable, but none were formally tested. She was more alert and oriented to person and place. Insight and judgment are limited, impulse control is impaired. Vitals/I&O/Wt Last Vital Signs Temp 97.9 F 04/08/20 20:00 Pulse 102 H 04/08/20 20:00 Resp 23 H 04/08/20 20:00 BP 96/62 04/08/20 20:00 Pulse Ox 93 04/08/20 20:00 04/08/20 22:59 Intake Total 240 / 720 Output Total Balance 240 / 370 Weight last 48 hrs Weight 60.237 kg Weight 71.384 kg Weight 71.384 kg Physical Exam Urinary Catheter Management^: Bello: Cath Placed During This Visit: yes, but has since been removed by the nurse Reason for Continuing Indwelling Catheter: Not indwelling catheter Urinary Catheter Date of Insertion: 04/02/20 Urinary Catheter Time of Insertion: 01:00 Date Urinary Catheter Removed: 04/05/20 Time Urinary Catheter Discontinued: 11:20 Data NPU : 04/09/20 04:49 04/09/20 04:49 A&P Additional A&P Information (1) Seizure: (2) Grand mal seizure: (3) Alcohol withdrawal: (4) Delirium tremens: (5) Suicidal ideation: (6) Depression: (7) Psychosis: (8) Confabulation: Additional A&P Information This is a 34-year-old white female with a long history of depression and alcohol use disorder with significant liver damage mostly secondary to her use who presented few days ago to the emergency department, was transferred to the MPU without evaluation as she had a seizure shortly after arrival and was transferred to the ICU who presents with significant sequela from her alcohol use with possible Warnicke's. 1. Continue current medication. 2. Agree with a plan to return her to the neuropsychiatric unit when she is medically cleared for such a transfer. 3. Significant need for sober living follow-up exists we will continue to work with her on her willingness for treatment. Involuntary Hold Information 96 Hour Hold: 96 Hour Involuntary Admission: No Attestations NPU Medical Necessity Statement*: After medical clearance, inpatient hospitalization is medically necessary and the clinically appropriate clinically appropriate intervention for ongoing treatment of depression and alcohol use disorder. Is unclear the length that will be needed for hospitalization, however it will be at least 2 midnights. Coding Level of Care Code Acute Metal Washing Machine Operator for Margarita Mireles
[2020-04-08] MEDS: trazodone 50 mg Tablet PO (20:35)
[2020-04-09] VITALS (10 sets, daily range): BP systolic 90–106; BP diastolic 52–75; PULSE 67–122; RESP 14–21; TEMP 36.6–36.8; O2SAT 94–100; BMI 23.2
[2020-04-09] MEDS: FUROsemide 10 mg/mL SDV 2mL 20 MG IVP ×2 (00:05→12:57)
[2020-04-09] MEDS: HYDROmorphone 1 mg/mL INJ 1 mL IVP ×2 (01:32→18:05)
[2020-04-09] MEDS: ketorolac 30 mg/mL INJ 15 MG IVP ×3 (05:40→21:38)
[2020-04-09 05:45] LABS: Basophils % 0.9 %; Eosinophils # 0.2 10^3/uL (0.0-0.8); Eosinophils % 5.5 %; Hematocrit 30.5 % (37.0-47.0); Hemoglobin 9.2 g/dL (11.5-15.3); Lymphocytes # 0.9 10^3/uL (0.8-4.8); Lymphocytes % 19.8 %; Mean Corpuscular HGB Conc 30.2 g/dL (30.0-36.0); Mean Corpuscular Hemoglobin 26.3 pg (28.0-34.0); Mean Corpuscular Volume 87.1 fL (81-99); Mean Platelet Volume 10.5 fL (7.4-10.4); Monocytes # 0.4 10^3/uL (0.2-0.9); Neutrophils % 64.6 %; Nucleated Red Blood Cells % 0 %; Platelet Count 97 10^3/cmm (130-400); Red Cell Distribution Width 17.9 % (12.1-15.1); White Blood Count 4.3 10^3/uL (4.0-10.0)
[2020-04-09 06:40] LABS: Alanine Aminotransferase 21 U/L (0-33); Albumin Level 4.1 g/dL (3.5-5.2); Alkaline Phosphatase 84 IU/L (35-105); Anion Gap 15.8 (5-19); Aspartate Amino Transferase 64 U/L (0-32); Blood Urea Nitrogen 2 mg/dL (6-20); Calcium 8.9 mg/dL (8.5-10.5); Carbon Dioxide 25 mmol/L (22-29); Chloride 103 mmol/L (98-107); Globulin 1.8 g/dL (1.3-4.6); Glomerular Filtration Rate 94.2 mL/min (90-130); Glucose 115 mg/dL (65-115); Osmolality Calculated 287 mOsm/kg (285-295); Potassium 3.8 mmol/L (3.5-5.1); Sodium 140 mmol/L (136-145); Total Bilirubin 1.4 mg/dL (0.15-1.2); Total Protein 5.9 g/dL (6.6-8.7)
[2020-04-09] MEDS: thiamine 100 mg Tablet PO (09:05)
[2020-04-09] MEDS: midodrine 5 mg TABLET 10 MG PO ×3 (09:05→21:40)
[2020-04-09] MEDS: escitalopram 10 mg Tablet PO (09:05)
[2020-04-09] MEDS: multivitamin therapeutic Tablet 1 TAB PO (09:06)
[2020-04-09] MEDS: folic acid 1 mg Tablet PO (09:06)
[2020-04-09] MEDS: pantoprazole DR 40 mg Tablet PO (09:06)
[2020-04-09] MEDS: levothyroxine 50 mcg Tablet PO (09:06)
[2020-04-09 13:43] LABS: Ammonia 135 umol/L (11-51)
--- NOTE | 2020-04-09 15:04 | PM.PN ---
Subjective Subjective: Interval history: Patient was noted to be more lethargic today, ammonia level was checked and was noted to be elvated at 135, lactulose was resumed as q8h scheduled. Medications: Reviewed: Yes Vitals/I&O/Wt Last Vital Signs Temp 98.3 F 04/09/20 11:49 Pulse 86 04/09/20 11:50 Resp 18 04/09/20 11:49 BP 102/67 04/09/20 11:49 Pulse Ox 94 04/09/20 11:50 04/09/20 04/09/20 04/09/20 06:59 14:59 22:59 Intake Total 480 / 1200 140 / 140 Output Total 700 / 1050 Balance -220 / 150 140 / 140 Weight last 48 hrs Weight 60.237 kg Weight 60.237 kg Weight 71.384 kg Weight 71.384 kg Physical Exam Narrative: EXAM NARRATIVE: GEN: Awake, alert and oriented, no acute distress CVS: S1S2 N RS: CTA B/L Abd: Soft, nt/nd , bs+ CAR INSTALLATIONS SUPERVISOR: no focal neuro deficits Urinary Catheter Management^: Bello: Cath Placed During This Visit: yes, but has since been removed by the nurse Reason for Continuing Indwelling Catheter: Not indwelling catheter Urinary Catheter Date of Insertion: 04/02/20 Urinary Catheter Time of Insertion: 01:00 Date Urinary Catheter Removed: 04/05/20 Time Urinary Catheter Discontinued: : Data : 04/09/20 04:49 04/09/20 04:49 A&P Assessment and plan (1) Delirium tremens: Now resolved. Associated with seizures for which patient needed to be intubated, now extubated as of 04/03/2020 afternoon. Continue Ativan and Zyprexa alternating as needed for signs of alcohol withdrawal. Midodrine increased to 10 mg 3 times daily with improvement in blood pressure. Status: Acute (2) Seizure: Alcohol withdrawal seizures Ativan PRN as needed for breakthrough seizure. Seizures have now stopped. Status: Acute (3) Aspiration pneumonia: completed treatment with Zosyn x 5 days 94% on RA Covid ag negative, no fever Bi basilar airspace disease on CXR CTA chest without evidence of PE. Bilateral lower lobe nonspecific opacities more likely to be related to fluid and aspiration given overall clinical picture rather than viral pneumonitis. Status: Acute (4) End stage liver disease: Patient has h/o End stage liver disease 2/2 to alcohol abuse. Noted to be more sleepy today for which ammonia repeated and found to be elevated at 135. Lactulose resumed at q8h scheduled dosing Status: Acute (5) SBP (spontaneous bacterial peritonitis): H/O SBP in past. Not enough fluid to obtain Paracentesis Increase dose of hydrocodone to 2 mg every 4 hours as needed today. Low suspicion for SBP given absence of fevers. Also appropriately treated with Zosyn for 5 days. Status: Acute (6) Esophageal varices: H/O variceal bleed with banding. No evidence of UGI bleeding now , hemoglobin noted to drift down to 6.5 on April 07, received 2 units of blood transfusion. Hemoglobin today stable at 8.6. No evidence of intra-abdominal bleeding on CT FOBT negative.T Status: Acute (7) Hypokalemia: repleted iv Status: Acute Additional A&P Information #Cirrhotic Ascites : Patient has had a gradually increasing anasarca during admission course, likely as a result of her diuretics being on hold and fluid resuscitation. Started Lasix 20 mg IV every 12 while closely monitoring her blood pressure. Resume aldactone today and closely monitor BP. #G.I PPX: Protonix 40 mg po daily #Suboptimal pain control: Patient is requesting alternating morphine hydromorphone and hydrocodone, however she has been counseled that overnight she had an episode of respiratory depression because of hydromorphone following which her dose has been reduced back from 2 mg to 1 mg every 4 hours as needed today. Also instructions given not to use Ativan and hydrocodone at the same time. Toradol as needed additionally added for pain control today. # suicidal ideation: Appreciate psychiatry recommendations. COde status : Full code DVT ppx: lovenox on hold due to drop in hemoglobin Attestations Medical Necessity Statement*: resumed aldactone today, closely monitor BP, lactulose resumed as scheduled due to rising ammonia Coding Level of Care Code Acute Weighing Station Operator for Chg Fwd Diagnoses Delirium tremens F10.231 Seizure R56.9 Aspiration pneumonia J69.0 End stage liver disease K72.90 SBP (spontaneous bacterial peritonitis) K65.2 Esophageal varices I85.00 Hypokalemia E87.6
--- NOTE | 2020-04-09 17:28 | P.PN_ITS ---
Subjective NPU Subjective: Interval history: Pily presents today reporting that as she understands that her doctors are feeling that she is doing better and she might build to leave tomorrow. She continues to endorse the position that this was a isolated incident after doing well for some time. She denies any issues of suicidal thoughts or self-harm. She reports that she is trying to make the best of a difficult situation, and make it functional. She identifies that her choices leading up to the hospitalization were poor but she reports she had been doing better. Mental Status Exam MSE Comments: This is an underweight white female with hospital gown with limited eye contact unkempt/poor grooming. No abnormal movements. Cooperative with exam in no acute distress. Speech was more spontaneous and decreased rate and volume. Mood described as pretty good, affect less subdued. Thought process more organized. Thought content: She denied any suicidal or homicidal ideation, there were no delusions reported or noted, he denied other hallucinations. Attention and concentration were intact and memory was more reliable, but none were formally tested. She was more alert and oriented x3. Insight and judgment are limited, but improving, impulse control is impaired, but improving. Vitals/I&O/Wt Last Vital Signs Temp 98.1 F 04/09/20 15:23 Pulse 100 04/09/20 15:23 Resp 18 04/09/20 15:23 BP 98/61 04/09/20 15:23 Pulse Ox 96 04/09/20 15:23 04/09/20 04/09/20 04/09/20 06:59 14:59 22:59 Intake Total 480 / 1200 140 / 140 Output Total 700 / 1050 Balance -220 / 150 140 / 140 Weight last 48 hrs Weight 60.237 kg Weight 60.237 kg Weight 71.384 kg Weight 71.384 kg Physical Exam Urinary Catheter Management^: Bello: Cath Placed During This Visit: yes, but has since been removed by the nurse Reason for Continuing Indwelling Catheter: Not indwelling catheter Urinary Catheter Date of Insertion: 04/02/20 Urinary Catheter Time of Insertion: 01:00 Date Urinary Catheter Removed: 04/05/20 Time Urinary Catheter Discontinued: : Data NPU : 04/09/20 04:49 04/09/20 04:49 A&P Additional A&P Information (1) Seizure: (2) Grand mal seizure: (3) Alcohol withdrawal: (4) Delirium tremens: (5) Suicidal ideation: (6) Depression: (7) Psychosis: (8) Confabulation: Additional A&P Information This is a 34-year-old white female with a long history of depression and alcohol use disorder with significant liver damage mostly secondary to her use who presented few days ago to the emergency department, was transferred to the MPU without evaluation as she had a seizure shortly after arrival and was transferred to the ICU who presents with significant sequela from her alcohol use with possible Warnicke's. 1. Continue current medication. 2. With the current length of stay and follow-up on the medical unit at this point hospitalization in the NPU is likely unnecessary. 3. She is not committed to an inpatient sober living follow-up however having alcohol and other drug treatment on an outpatient basis would be recommended still. Involuntary Hold Information 96 Hour Hold: 96 Hour Involuntary Admission: No Attestations NPU Medical Necessity Statement*: N/A. At this point the patient has convalesced on the medical floor and is not demonstrating any signs of altered mental status or difficulties. At this point sober living treatment would be recommended and she is currently not committed to inpatient services so outpatient follow-up would be appropriate. With no longer recommend inpatient psychiatric services. Coding Level of Care Code Acute Aircraft Powerplant Repairer for Margarita Mireles
[2020-04-09] MEDS: lactulose oral liq 20 gm/30 mL UDC PO (18:04)
[2020-04-09] MEDS: spironolactone 25 mg Tablet 12.5 MG PO (18:05)
[2020-04-10] VITALS (12 sets, daily range): BP systolic 101–121; BP diastolic 48–69; PULSE 67–107; RESP 16–19; TEMP 36.4–36.7; O2SAT 94–99
[2020-04-10] MEDS: FUROsemide 10 mg/mL SDV 2mL 20 MG IVP ×2 (01:12→12:07)
[2020-04-10] MEDS: lactulose oral liq 20 gm/30 mL UDC PO ×3 (01:12→17:41)
[2020-04-10] MEDS: HYDROmorphone 1 mg/mL INJ 1 mL IVP ×5 (01:14→22:45)
[2020-04-10] MEDS: ketorolac 30 mg/mL INJ 15 MG IVP ×3 (05:40→20:34)
[2020-04-10] MEDS: levothyroxine 50 mcg Tablet PO (08:56)
[2020-04-10] MEDS: pantoprazole DR 40 mg Tablet PO (08:56)
[2020-04-10] MEDS: escitalopram 10 mg Tablet PO (08:56)
[2020-04-10] MEDS: multivitamin therapeutic Tablet 1 TAB PO (08:57)
[2020-04-10] MEDS: folic acid 1 mg Tablet PO (08:57)
[2020-04-10] MEDS: thiamine 100 mg Tablet PO (08:58)
[2020-04-10] MEDS: spironolactone 25 mg Tablet 12.5 MG PO ×2 (09:06→17:41)
[2020-04-10] MEDS: midodrine 5 mg TABLET 10 MG PO ×3 (09:07→22:45)
[2020-04-10] MEDS: ondansetron 4 MG Tablet PO ×2 (12:10→18:41)
--- NOTE | 2020-04-10 15:01 | PC.NURSE ---
Update Grayson Patel at this time.
--- NOTE | 2020-04-10 17:55 | PM.NPN ---
Subjective NPU Subjective: Interval history: Pily presents today reporting that she is continuing to feel well and better overall. They continue with her medical comorbidities. She continues to be less inclined towards psychiatric treatment or needs. She continues to report that she was not struggling overall with her use of alcohol but that this represented 1 night of very poor choices but in general she is not a stable job of avoiding use with full understanding of the medical implications when she does not drink. She denies any lethality, anxiety or depression. Mental Status Exam MSE Comments: This is an underweight white female with hospital gown with improving eye contact, but limited grooming. No abnormal movements except for occasional tremulousness. Cooperative with exam in no acute distress. Speech was more spontaneous and decreased rate and volume. Mood described as I am good, affect less subdued. Thought process more organized. Thought content: She denied any suicidal or homicidal ideation, there were no delusions reported or noted, she denied any auditory or visual hallucinations. Attention and concentration were intact and memory was more reliable, but none were formally tested. She was more alert and oriented x3. Insight and judgment are fair, and improving, impulse control is improving. Vitals/I&O/Wt Last Vital Signs Temp 97.6 F 04/10/20 20:00 Pulse 107 H 04/10/20 20:00 Resp 17 04/10/20 20:00 BP 109/69 04/10/20 20:00 Pulse Ox 94 04/10/20 20:00 04/10/20 14:59 Intake Total 240 / 240 Balance 240 / 240 Weight last 48 hrs Weight 60.237 kg Weight 60.237 kg Physical Exam Urinary Catheter Management^: Bello: Cath Placed During This Visit: yes, but has since been removed by the nurse Reason for Continuing Indwelling Catheter: Not indwelling catheter Urinary Catheter Date of Insertion: 04/02/20 Urinary Catheter Time of Insertion: 01:00 Date Urinary Catheter Removed: 04/05/20 Time Urinary Catheter Discontinued: : Data NPU : 04/11/20 04:17 04/11/20 04:17 A&P Additional A&P Information (1) Seizure: (2) Grand mal seizure: (3) Alcohol withdrawal: (4) Delirium tremens: (5) Suicidal ideation: (6) Depression: (7) Psychosis: (8) Confabulation: Additional A&P Information This is a 34-year-old white female with a long history of depression and alcohol use disorder with significant liver damage mostly secondary to her use who presented few days ago to the emergency department, was transferred to the MPU without evaluation as she had a seizure shortly after arrival and was transferred to the ICU who presents with significant sequela from her alcohol use with possible Warnicke's. 1. Continue current medication. 2. With the current length of stay and follow-up on the medical unit at this point, further hospitalization in the NPU is likely unnecessary. 3. She is not committed to an inpatient sober living follow-up however having alcohol and other drug treatment on an outpatient basis would be recommended still. Involuntary Hold Information 96 Hour Hold: 96 Hour Involuntary Admission: No Attestations NPU Medical Necessity Statement*: N/A. At this point the patient has convalesced on the medical floor and is not demonstrating any signs of altered mental status or difficulties. At this point sober living treatment would be recommended and she is currently not committed to inpatient services so outpatient follow-up would be appropriate. With no longer recommend inpatient psychiatric services. Coding Level of Care Code Acute Utility Bag Assembler for Margarita Mireles
--- NOTE | 2020-04-10 19:11 | PC.NURSE ---
Report to Seth QUINONES at this time. END of shift report Patient has had no new changes in her condition today.
--- NOTE | 2020-04-10 21:04 | PM.PN ---
Subjective Subjective: Interval history: Having generalized pain. 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 Appears to have good insight into her condition. Vitals/I&O/Wt Last Vital Signs Temp 97.5 F L 04/10/20 15:11 Pulse 98 04/10/20 20:37 Resp 16 04/10/20 15:30 BP 101/68 04/10/20 15:11 Pulse Ox 95 04/10/20 20:37 04/10/20 04/10/20 04/10/20 06:59 14:59 22:59 Intake Total 140 / 420 240 / 240 140 / 380 Balance 140 / 420 240 / 240 140 / 380 Weight last 48 hrs Weight 60.237 kg Weight 60.237 kg Weight 71.384 kg Weight 71.384 kg Physical Exam Const: COMMON NORMALS: patient oriented x3 OTHER: Tearful. Says she is in severe generalized pain. HENMT: COMMON NORMALS: oropharynx normal Neck/C-Spine: COMMON NORMALS: no JVD Resp: COMMON NORMALS: normal respiratory effort and clear to auscultation bilaterally AUSCULTATION: clear to auscultation bilaterally Cardio: COMMON NORMALS: no JVD, regular rhythm, S1 normal heart sound present, S2 normal heart sound present and No murmurs present (Cardio) RHYTHM: regular rhythm HEART SOUNDS: S1 normal heart sound present and S2 normal heart sound present GI: COMMON NORMALS: Normal to inspection, nondistended, normoactive bowel sounds present, Soft to palpation and non-tender PALPATION: Yes Soft to palpation Extremity: COMMON NORMALS: no joint enlargement and no pedal edema Neuro: COMMON NORMALS: patient oriented x3 and moves all extremities Skin: COMMON NORMALS: no rashes or lesions noted GENERAL SKIN EXAM: no rashes or lesions noted Urinary Catheter Management^: Bello: Cath Placed During This Visit: yes, but has since been removed by the nurse Reason for Continuing Indwelling Catheter: Not indwelling catheter Urinary Catheter Date of Insertion: 04/02/20 Urinary Catheter Time of Insertion: 01:00 Date Urinary Catheter Removed: 04/05/20 Time Urinary Catheter Discontinued: 11:20 Data : 04/09/20 04:49 04/09/20 04:49 A&P Assessment and plan (1) Pain: She is crying and shaking requesting for more pain medication. States that she metabolizes them quicker than other people due to a genetic difference. I see that she has had an episode of apnea. At this time we will continue to do control with the current regimen with hydromorphone 1 mg every 4 hours. Additionally Toradol as needed. Ativan is not to be overlapped. Conservative measures with menthol-camphor oil. Counseled on concern escalating further pain medications. Reassured. Status: Acute (2) End stage liver disease: Patient has h/o End stage liver disease 2/2 to alcohol abuse. She is currently awake and alert. Continue lactulose. Recheck ammonia. Status: Acute (3) SBP (spontaneous bacterial peritonitis): H/O SBP in past. Not enough fluid to obtain Paracentesis Increase dose of hydrocodone to 2 mg every 4 hours as needed today. Low suspicion for SBP given absence of fevers. Also appropriately treated with Zosyn for 5 days. Status: Acute (4) Delirium tremens: Now resolved. Associated with seizures for which patient needed to be intubated, now extubated as of 04/03/2020 afternoon. Continue Ativan and Zyprexa alternating as needed for signs of alcohol withdrawal. Midodrine increased to 10 mg 3 times daily with improvement in blood pressure. Status: Acute (5) Seizure: Alcohol withdrawal seizures Ativan PRN as needed for breakthrough seizure. Seizures have now stopped. Status: Acute (6) Aspiration pneumonia: Continue to optimize pain control avoiding apnea, risk of aspiration. completed treatment with Zosyn x 5 days 94% on RA Covid ag negative, no fever Bi basilar airspace disease on CXR CTA chest without evidence of PE. Bilateral lower lobe nonspecific opacities more likely to be related to fluid and aspiration given overall clinical picture rather than viral pneumonitis. Status: Acute (7) Esophageal varices: H/O variceal bleed with banding. No evidence of UGI bleeding now , hemoglobin noted to drift down to 6.5 on April 07, received 2 units of blood transfusion. Hemoglobin today stable at 8.6. No evidence of intra-abdominal bleeding on CT FOBT negative.T Status: Acute (8) Hypokalemia: repleted iv Status: Acute Additional A&P Information #Cirrhotic Ascites : Continue diuretics #G.I PPX: Protonix 40 mg po daily # suicidal ideation: Evaluated by psychiatry. COde status : Full code DVT ppx: lovenox on hold due to drop in hemoglobin Attestations Medical Necessity Statement*: Continue for treatment of hepatic encephalopathy, with end-stage liver disease, optimization of pain control with risk of apnea, diuresis due to cirrhotic ascites. Coding Level of Care Code Acute Solar Sales Manager for Chg Fwd Diagnoses Pain R52 End stage liver disease K72.90 SBP (spontaneous bacterial peritonitis) K65.2 Delirium tremens F10.231 Seizure R56.9 Aspiration pneumonia J69.0 Esophageal varices I85.00 Hypokalemia E87.6
[2020-04-10 22:06] LABS: Ammonia 80 umol/L (11-51)
[2020-04-11] VITALS (10 sets, daily range): BP systolic 97–109; BP diastolic 64–74; PULSE 89–111; RESP 16–18; TEMP 36.6–37.2; O2SAT 91–97
[2020-04-11] MEDS: FUROsemide 10 mg/mL SDV 2mL 20 MG IVP ×2 (01:41→13:12)
[2020-04-11] MEDS: lactulose oral liq 20 gm/30 mL UDC PO ×2 (01:41→08:22)
[2020-04-11 04:57] LABS: Basophils % 1.2 %; Eosinophils # 0.2 10^3/uL (0.0-0.8); Hemoglobin 8.9 g/dL (11.5-15.3); Lymphocytes # 0.9 10^3/uL (0.8-4.8); Lymphocytes % 26.5 %; Mean Corpuscular HGB Conc 30.7 g/dL (30.0-36.0); Mean Corpuscular Hemoglobin 26.5 pg (28.0-34.0); Mean Corpuscular Volume 86.3 fL (81-99); Mean Platelet Volume 10.9 fL (7.4-10.4); Monocytes # 0.6 10^3/uL (0.2-0.9); Neutrophils # 1.69 10^3/uL (1.8-7.7); Neutrophils % 49.3 %; Nucleated Red Blood Cells % 0 %; Platelet Count 90 10^3/cmm (130-400); Red Blood Count 3.36 10^6/uL (4.1-5.3); Red Cell Distribution Width 18.3 % (12.1-15.1); White Blood Count 3.4 10^3/uL (4.0-10.0)
[2020-04-11] MEDS: ketorolac 30 mg/mL INJ 15 MG IVP ×2 (05:12→13:12)
[2020-04-11 05:20] LABS: Alanine Aminotransferase 19 U/L (0-33); Albumin Level 3.7 g/dL (3.5-5.2); Alkaline Phosphatase 81 IU/L (35-105); Anion Gap 9.3 (5-19); Aspartate Amino Transferase 57 U/L (0-32); Blood Urea Nitrogen 3 mg/dL (6-20); Calcium 8.6 mg/dL (8.5-10.5); Carbon Dioxide 31 mmol/L (22-29); Chloride 102 mmol/L (98-107); Globulin 1.4 g/dL (1.3-4.6); Glomerular Filtration Rate 112.5 mL/min (90-130); Glucose 98 mg/dL (65-115); Osmolality Calculated 285 mOsm/kg (285-295); Potassium 3.3 mmol/L (3.5-5.1); Sodium 139 mmol/L (136-145); Total Protein 5.1 g/dL (6.6-8.7)
[2020-04-11] MEDS: escitalopram 10 mg Tablet PO (08:20)
[2020-04-11] MEDS: pantoprazole DR 40 mg Tablet PO (08:20)
[2020-04-11] MEDS: levothyroxine 50 mcg Tablet PO (08:20)
[2020-04-11] MEDS: folic acid 1 mg Tablet PO (08:20)
[2020-04-11] MEDS: multivitamin therapeutic Tablet 1 TAB PO (08:20)
[2020-04-11] MEDS: thiamine 100 mg Tablet PO (08:20)
[2020-04-11] MEDS: spironolactone 25 mg Tablet 12.5 MG PO ×2 (08:20→17:38)
[2020-04-11] MEDS: midodrine 5 mg TABLET 10 MG PO ×3 (08:24→21:54)
[2020-04-11] MEDS: HYDROmorphone 1 mg/mL INJ 1 mL IVP ×4 (08:24→22:00)
[2020-04-11] MEDS: LORazepam 2 mg Tablet PO (11:17)
--- NOTE | 2020-04-11 13:36 | PM.PN ---
Subjective Subjective: Interval history: Last documented BM was on 04/08 though patient is on lactulose. Afebrile, hemodynamically stable. No urine output documented. Not overtly tremulous and states that this is due to increased pain. She reports history of chronic pain primarily related to her pancreas and her back. Endorses that she does well with a regimen of alternating between Dilaudid and morphine. Per discussion with psychiatry plan will be for discharge home once she is medically stable. Medications: Reviewed: Yes Medication Review Details: Active Medications Generic Name Dose Route Start Last Admin Trade Name Freq PRN Reason Stop Dose Admin Acetaminophen 650 mg 04/01/20 18:11 04/05/20 22:57 Tylenol PO 650 mg Q4H PRN Administration MILD PAIN Camphor/Menthol/Ph enol 1 applic 04/01/20 18:11 Blistex TOPICAL Q1H PRN DRYNESS Escitalopram Oxala te 10 mg 04/02/20 21:00 04/11/20 08:20 Lexapro PO 10 mg DAILY RACHELE Administration Folic Acid 1 mg 04/02/20 09:00 04/11/20 08:20 Folic Acid PO 1 mg DAILY RACHELE Administration Furosemide 20 mg 04/08/20 12:30 04/11/20 13:12 Furosemide 10 Mg /Ml Sdv 2ml IVP 20 mg Q12H RACHELE Administration Hydromorphone HCl 1 mg 04/10/20 21:30 04/11/20 13:28 Hydromorphone 1 Mg/Ml Inj 1 Ml IVP 1 mg Q4H PRN Administration PAIN Ketorolac Trometha mine 15 mg 04/08/20 12:45 04/11/20 13:12 Ketorolac 30 Mg/ Ml Inj IVP 04/13/20 12:44 15 mg Q8H RACHELE Administration Lactulose 20 gm 04/09/20 17:30 04/11/20 08:22 Lactulose Oral L iq 20 Gm/30 Ml Udc PO 20 gm Q8H RACHELE Administration Levothyroxine Sodi um 50 mcg 04/03/20 09:00 04/11/20 08:20 Synthroid PO 50 mcg DAILY RACHELE Administration Lorazepam 2 mg 04/08/20 12:29 04/11/20 11:17 Lorazepam 2 Mg T ablet PO 2 mg Q4H PRN Administration ANXIETY Midodrine 10 mg 04/06/20 03:40 04/11/20 08:24 Proamatine PO 10 mg TID RACHELE Administration Multivitamins Ther apeutic 1 tab 04/02/20 09:00 04/11/20 08:20 Multivitamin Tab PO 1 tab DAILY RACHELE Administration Naloxone HCl 0.1 mg 04/02/20 00:32 Narcan IVP Q2M PRN OPIATERV Nicotine 1 patch 04/01/20 18:11 Nicoderm 21 Mg P atch TRANSDERMA DAILY PRN NICOTINE WITHDRAW AL Non-Formulary Medi cation 50 mcg 04/10/20 09:00 Levothyroxine PO DAILY RACHELE Olanzapine 5 mg 04/01/20 18:11 04/05/20 14:32 Zyprexa Zydis PO 5 mg Q4H PRN Administration Agitation/Psychos is Ondansetron HCl 4 mg 04/01/20 18:11 04/10/20 18:41 Zofran PO 4 mg Q6H PRN Administration NAUSEA AND VOMITI NG Pantoprazole Sodiu m 40 mg 04/07/20 09:00 04/11/20 08:20 Protonix PO 40 mg DAILY RACHELE Administration Spironolactone 12.5 mg 04/09/20 18:00 04/11/20 08:20 Spironolactone 2 5 Mg Tablet PO 12.5 mg BID RACHELE Administration Thiamine Mononitra te 100 mg 04/02/20 09:00 04/11/20 08:20 Vitamin B-1 PO 100 mg DAILY RACHELE Administration Trazodone HCl 50 mg 04/01/20 18:11 04/08/20 20:35 Desyrel PO 50 mg BEDTIME PRN Administration SLEEP doxycycline Allergy (Verified 10/27/19 16:36) ADR-Vomiting Vitals/I&O/Wt Last Vital Signs Temp 98.0 F 04/11/20 11:09 Pulse 101 H 04/11/20 11:09 Resp 16 04/11/20 13:28 BP 102/65 04/11/20 11:09 Pulse Ox 96 04/11/20 11:09 04/10/20 04/11/20 04/11/20 22:59 06:59 14:59 Intake Total 620 / 860 240 / 240 Balance 620 / 860 240 / 240 Physical Exam Const: COMMON NORMALS: no acute distress, patient oriented x3 and alert GENERAL APPEARANCE: cooperative and comfortable NUTRITIONAL APPEARANCE: thin ORIENTATION/CONSCIOUSNESS: Yes awake OTHER: -Overtly tremulous HENMT: COMMON NORMALS: normocephalic, atraumatic, hearing grossly normal bilaterally and moist oral mucous membranes HEAD & SCALP: normocephalic and atraumatic Eye: COMMON NORMALS: Equal, round and reactive pupils present, EOMs intact bilaterally and conjunctivae normal CONJUNCTIVA: Yes conjunctivae normal PUPIL: Yes Equal, round and reactive pupils present Neck/C-Spine: COMMON NORMALS: full ROM GENERAL: Yes normal visual inspection and Yes trachea midline Resp: COMMON NORMALS: normal respiratory effort, No retractions, No use of accessory muscles and clear to auscultation bilaterally EFFORT & INSPECTION: Yes able to speak in complete sentences, Yes symmetric chest movement and No tachypneic AUSCULTATION: clear to auscultation bilaterally Cardio: COMMON NORMALS: regular rate, regular rhythm, S1 normal heart sound present, S2 normal heart sound present and No murmurs present (Cardio) RATE: regular rate RHYTHM: regular rhythm HEART SOUNDS: S1 normal heart sound present and S2 normal heart sound present GI: COMMON NORMALS: Normal to inspection, nondistended, normoactive bowel sounds present, Soft to palpation and non-tender PALPATION: Yes Soft to palpation Extremity: COMMON NORMALS: normal to inspection, full ROM and no clubbing, cyanosis or edema; negative for no pedal edema Neuro: COMMON NORMALS: patient oriented x3, moves all extremities, no focal motor deficits, no sensory deficits noted and gait normal SENSORIUM/ORIENTATION: Yes alert OTHER: -Overtly tremulous Psych: COMMON NORMALS: mental status grossly normal, Normal thought process present, cooperative and speech normal SPEECH: Yes normal speech MOOD & AFFECT: Yes Flat affect present THOUGHT PROCESS: Normal thought process present Skin: COMMON NORMALS: no rashes or lesions noted, no jaundice, no petechiae and no mottling GENERAL SKIN EXAM: no rashes or lesions noted Urinary Catheter Management^: Bello: Cath Placed During This Visit: yes, but has since been removed by the nurse Reason for Continuing Indwelling Catheter: Not indwelling catheter Urinary Catheter Date of Insertion: 04/02/20 Urinary Catheter Time of Insertion: 01:00 Date Urinary Catheter Removed: 04/05/20 Time Urinary Catheter Discontinued: : Data : 04/11/20 04:17 04/11/20 04:17 A&P Assessment and plan (1) Aspiration pneumonia: -noted CT with noted airspace disease in the dependent portions of the lower lobes, R > L -afebrile, no leukocytosis -s/p 5 days of Zosyn -wean supplemental oxygen as tolerated -continue to monitor respiratory status -aspiration precautions Status: Acute Qualifiers: Aspiration pneumonia type: unspecified Laterality: bilateral Lung location: lower lobe of lung Qualified Code(s): J69.0 - Pneumonitis due to inhalation of food and vomit (2) Hypokalemia: -replace as needed Status: Acute (3) Esophageal varices: -hx of banding -s/p 2 units PRBCs on 04/07 with stability in Hg thereafter; continue to monitor H/H -on PPI Status: Acute Qualifiers: Esophageal varices bleeding: without bleeding Esophageal varices type: unspecified type Qualified Code(s): I85.00 - Esophageal varices without bleeding (4) End stage liver disease: -noted hepatic cirrhosis on CT -secondary to EtOH abuse -continue to trend ammonia, on lactulose -prior hx of SBP, not enough fluid to drain, off abx -pain control as needed Status: Chronic (5) Acute on chronic anemia: -s/p 2 units PRBCs -continue to monitor H/H Status: Acute (6) Suicidal ideation: -appreciate Psychiatry evaluation by Dr. Beach -no need for inpatient care Status: Acute Additional A&P Information -Delirium tremens, alcohol withdrawal seizures; resolved, Ativan PRN -Pain seems to be an ongoing challenge, will discontinue Toradol and start on oxycodone to alternate with Dilaudid -GI ppx with PPI -DVT ppx with SCDs; no AC due to bleeding risk -Dispo: home -Code status: FULL code Attestations Medical Necessity Statement*: Patient requires hospitalization for continued management of aspiration pneumonia, hepatic encephalopathy, pain control. Time Spent in Patient Care: 16 - 35 minutes (>than 50% of time spent in counselling and/or direct pt care on unit). Coding Level of Care Code Acute Cash Applications Associate for [facility] Fwd Exam Comprehensive Diagnoses Aspiration pneumonia J69.0 Aspiration pneumonia type: unspecified Laterality: bilateral Lung location: lower lobe of lung Hypokalemia E87.6 Esophageal varices I85.00 Esophageal varices bleeding: without bleeding Esophageal varices type: unspecified type End stage liver disease K72.90 Acute on chronic anemia D64.9 Suicidal ideation R45.852
[2020-04-11] MEDS: potassium chloride ER 20 mEq Tablet 40 MEQ PO (14:35)
[2020-04-11] MEDS: lactulose oral liq 20 gm/30 mL UDC 30 GM PO (17:38)
--- NOTE | 2020-04-11 19:26 | PC.NURSE ---
Report to Seth REYES
[2020-04-12] VITALS (11 sets, daily range): BP systolic 92–111; BP diastolic 51–75; PULSE 99–118; RESP 16–20; TEMP 37.3–37.7; O2SAT 90–98
[2020-04-12] MEDS: lactulose oral liq 20 gm/30 mL UDC 30 GM PO ×2 (01:20→09:05)
[2020-04-12] MEDS: oxyCODONE-APAP 5-325 mg Tablet 1 TAB PO ×3 (01:20→15:29)
[2020-04-12 05:56] LABS: Hematocrit 26.7 % (37.0-47.0); Hemoglobin 8.2 g/dL (11.5-15.3)
[2020-04-12 06:14] LABS: Ammonia 79 umol/L (11-51)
[2020-04-12 06:38] LABS: Potassium 3.8 mmol/L (3.5-5.1)
[2020-04-12] MEDS: HYDROmorphone 1 mg/mL INJ 1 mL IVP ×2 (09:01→13:10)
[2020-04-12] MEDS: thiamine 100 mg Tablet PO (09:06)
[2020-04-12] MEDS: folic acid 1 mg Tablet PO (09:10)
[2020-04-12] MEDS: escitalopram 10 mg Tablet PO (09:10)
[2020-04-12] MEDS: midodrine 5 mg TABLET 10 MG PO (09:10)
[2020-04-12] MEDS: potassium chloride ER 20 mEq Tablet 40 MEQ PO (09:10)
[2020-04-12] MEDS: FUROsemide 20 mg Tablet PO (09:11)
[2020-04-12] MEDS: pantoprazole DR 40 mg Tablet PO (09:12)
[2020-04-12] MEDS: levothyroxine 50 mcg Tablet PO (09:12)
[2020-04-12] MEDS: multivitamin therapeutic Tablet 1 TAB PO (09:12)
[2020-04-12] MEDS: spironolactone 25 mg Tablet 12.5 MG PO (09:12)
--- NOTE | 2020-04-12 14:27 | PM.DCS ---
Discharge Providers Date of Admission: 04/01/20 13:14 Date of Discharge: April 12, 2020 Attending Provider at Admission: Michele Beach MD Attending Provider at Discharge: Damaris Archuleta MD Consults: Psychiatry Primary Care Provider: Stanton Schumacher Diagnoses at Discharge Discharge Diagnosis (1) Aspiration pneumonia: Status: Acute Permanent problem details: -noted CT with noted airspace disease in the dependent portions of the lower lobes, R > L -afebrile, no leukocytosis -s/p 5 days of Zosyn -wean supplemental oxygen as tolerated -continue to monitor respiratory status -aspiration precautions Qualifiers: Aspiration pneumonia type: unspecified Laterality: bilateral Lung location: lower lobe of lung Qualified Code(s): J69.0 - Pneumonitis due to inhalation of food and vomit (2) Hypokalemia: Status: Resolved (3) Esophageal varices: Status: Acute Permanent problem details: -hx of banding -s/p 2 units PRBCs on 04/07 with stability in Hg thereafter; continue to monitor H/H -on PPI Qualifiers: Esophageal varices bleeding: without bleeding Esophageal varices type: unspecified type Qualified Code(s): I85.00 - Esophageal varices without bleeding (4) End stage liver disease: Status: Chronic Permanent problem details: -noted hepatic cirrhosis on CT -secondary to EtOH abuse -continue to trend ammonia, on lactulose -prior hx of SBP, not enough fluid to drain, off abx -pain control as needed -f/u with ginning operator in [place] and is on transplant list (5) Acute on chronic anemia: Status: Acute Permanent problem details: -s/p 2 units PRBCs with stable Hg thereafter (6) Suicidal ideation: Status: Resolved Permanent problem details: -appreciate Psychiatry evaluation by Dr. Beach -no need for inpatient care Other Information Additional DC diagnoses/information: -Delirium tremens, alcohol withdrawal seizures; resolved, Ativan PRN -Pain seems to be an ongoing challenge, will discontinue Toradol and start on oxycodone to alternate with Dilaudid Reason for Visit Reason for Visit: PSYCH/ OVERDOSE Hospital Course Hospital Course Patient has had a somewhat prolonged hospital course that began when she was initially admitted to ICU after having been found to have overdosed on unknown quantities of Xanax and intoxicated with alcohol. She was initially supposed to be admitted directly to the NPU secondary to suicidal ideation but due to concern for benzodiazepine and alcohol withdrawal she was admitted to ICU under the hospitalist service. She subsequently developed delirium tremens with witnessed seizure episodes requiring intubation to protect her airway, pressor support due to subsequent hypotension with initiation of sedation and further monitoring in an ICU setting. She was successfully extubated on 04/03 though remained on pressor support due to continued hypotension as well as benzodiazepines due to continued concern for alcohol withdrawal and further seizures. Due to concern for aspiration pneumonia she was covered with IV antibiotic therapy. She has a known history of advanced liver cirrhosis and follows up with ginning operator in [place] and is reportedly on the liver transplant list. She did require treatment for hepatic encephalopathy with noted ammonia elevation and need for lactulose therapy. She was diuresed with Lasix and spironolactone and there was some concern for spontaneous bacterial peritonitis though did not have enough fluid accumulation for paracentesis. She was eventually weaned off Levophed support and midodrine was added to keep her blood pressure within appropriate range. She received a total of 5 days of antibiotics after which they were discontinued. Hemoglobin has been stable and she did require transfusion of 2 units of PRBCs with subsequent stability in her hemoglobin levels no further acute bleeding noted. This was particularly important due to her hx of esophageal varices. Electrolytes were monitored and replaced as needed. Psychiatry was kind enough to consult and did not think patient would benefit from further inpatient psychiatric care at this time. Patient is not actually from the [facility] and will be returning home which is about 5 hours away. She has established care with a primary care provider, ginning operator, pilot can router, is in the process of getting established with a paint striping machine operator. She will be provided some prescriptions to allow her to make her return home and have appropriate follow-up. She is advised to seek medical attention immediately should she have recurrent symptoms. Pain has been a little bit of a challenge as she states that she requires high doses of narcotics given her hospital course and events above including risk of further aspiration was not an appropriate option in the short-term and is unlikely to be a good option for the long-term either. She is strongly advised to seek care with a pain specialist as this continues to be a concern for her. She requests to be discharged home today. Physical Exam Const: COMMON NORMALS: no acute distress, patient oriented x3 and alert GENERAL APPEARANCE: cooperative and comfortable NUTRITIONAL APPEARANCE: thin ORIENTATION/CONSCIOUSNESS: Yes awake OTHER: -Overtly tremulous HENMT: COMMON NORMALS: normocephalic, atraumatic, hearing grossly normal bilaterally and moist oral mucous membranes HEAD & SCALP: normocephalic and atraumatic Eye: COMMON NORMALS: Equal, round and reactive pupils present, EOMs intact bilaterally and conjunctivae normal CONJUNCTIVA: Yes conjunctivae normal PUPIL: Yes Equal, round and reactive pupils present Neck/C-Spine: COMMON NORMALS: full ROM GENERAL: Yes normal visual inspection and Yes trachea midline Resp: COMMON NORMALS: normal respiratory effort, No retractions, No use of accessory muscles and clear to auscultation bilaterally EFFORT & INSPECTION: Yes able to speak in complete sentences, Yes symmetric chest movement and No tachypneic AUSCULTATION: clear to auscultation bilaterally Cardio: COMMON NORMALS: regular rate, regular rhythm, S1 normal heart sound present, S2 normal heart sound present and No murmurs present (Cardio) RATE: regular rate RHYTHM: regular rhythm HEART SOUNDS: S1 normal heart sound present and S2 normal heart sound present GI: COMMON NORMALS: Normal to inspection, nondistended, normoactive bowel sounds present, Soft to palpation and non-tender PALPATION: Yes Soft to palpation Extremity: COMMON NORMALS: normal to inspection, full ROM and no clubbing, cyanosis or edema; negative for no pedal edema Neuro: COMMON NORMALS: patient oriented x3, moves all extremities, no focal motor deficits, no sensory deficits noted and gait normal SENSORIUM/ORIENTATION: Yes alert OTHER: -Overtly tremulous Psych: COMMON NORMALS: mental status grossly normal, Normal thought process present, cooperative and speech normal SPEECH: Yes normal speech MOOD & AFFECT: Yes Flat affect present THOUGHT PROCESS: Normal thought process present Skin: COMMON NORMALS: no rashes or lesions noted, no jaundice, no petechiae and no mottling GENERAL SKIN EXAM: no rashes or lesions noted Urinary Catheter Management^: Bello: Cath Placed During This Visit: yes, but has since been removed by the nurse Reason for Continuing Indwelling Catheter: Not indwelling catheter Urinary Catheter Date of Insertion: 04/02/20 Urinary Catheter Time of Insertion: 01:00 Date Urinary Catheter Removed: 04/05/20 Time Urinary Catheter Discontinued: 11:20 Discharge Data Data Completed and Pending: Completed Studies During Hospitalization Category Date Time Status CT angio chest w abd pel w con Rout ine Cat Scan 04/07/20 14:[address] head wo con* 7 0450 Routine Cat Scan 04/02/20 00:30 Completed XR chest 1V 45606 Routine Exams 04/02/20 01:01 Completed XR chest 1V charlene ble [id number] Routine Exams 04/06/20 14:57 Completed US abdomen limite d [id number] Routine Ultrasound 04/05/20 09:01 Completed Pending at discharge Category Date Time Status Occult Blood Stoo l [Immunochemical Fecal OCB] Routine Lab 04/12/20 09:24 Received Labs from last 24 hours 04/12/20 04/12/20 04/12/20 05:48 05:48 05:48 Hgb 8.2 L Hct 26.7 L Potassium 3.8 Ammonia 79 H Vitals: Last Vital Signs Temp 99.2 F 04/12/20 11:45 Pulse 103 H 04/12/20 11:45 Resp 18 04/12/20 13:10 BP 111/75 04/12/20 11:45 Pulse Ox 97 04/12/20 11:45 Discharge Plan Discharge Patient Disposition: Home Condition: Stable Prescriptions: New midodrine 5 mg Tablet 10 mg PO TID 30 Days Qty: 180 RF: 0 oxycodone-acetaminophen 5-325 mg Tablet 1 tab PO Q4H PRN (Reason: Moderate Pain) Qty: 30 RF: 0 olanzapine 5 mg Tablet,Disintegrating 5 mg PO Q4H PRN (Reason: Agitation/Psychosis) Qty: 30 RF: 0 Thera 400 mcg Tablet 1 tab PO DAILY Qty: 30 RF: 0 Continued levothyroxine 50 mcg Capsule 50 mcg PO DAILY RF: 0 potassium chloride 10 mEq Capsule, Extended Release 5 meq PO BID RF: 0 spironolactone 25 mg Tablet 12.5 mg PO BID RF: 0 trazodone 100 mg Tablet 100 mg PO BEDTIME RF: 0 Protonix 40 mg Tablet,Delayed Release (Dr/Ec) 40 mg PO BID RF: 0 folic acid 1 mg Tablet 1 mg PO DAILY RF: 0 Lasix 20 mg Tablet 20 mg PO BID RF: 0 Lexapro 10 mg Tablet 10 mg PO TID RF: 0 lactulose 10 gram/15 mL (15 mL) Solution 20 ml PO TID RF: 0 magnesium oxide 400 mg magnesium Tablet 400 mg PO DAILY RF: 0 Vitamin B-1 100 mg tablet 100 mg PO DAILY RF: 0 Zofran 4 mg Tablet 4 mg PO Q8H PRN (Reason: Anxiety) Qty: 30 RF: 0 Discontinued lorazepam [Ativan] 0.5 mg Tablet 0.5 mg PO BID PRN (Reason: Anxiety) RF: 0 Discharge Orders: Discharge Order (Routine); Ordered 04/12/20 Ordered By: Damaris Archuleta Referrals: Stanton Schumacher [Primary Care Provider] - 04/18/20 2:40 pm Discharge Diet: Advance as tolerated Discharge Activity: Increase activity as tolerated Discharge Attestations Time Spent in Discharge Care*: greater than 30 min Specific Discharge Activities: educating patient, discussing with disease case manager/social workers/dc planners, documenting/other paperwork and evaluating patient/reviewing data Status at Discharge: Cognitive status at discharge: cognitively intact, Behavioral status at discharge: cooperative, Functional status at discharge: independent ambulation Overall status at discharge: patient is progressing back to baseline Quality Metrics Clinical Quality Measures During this hospital stay, did patient experience: None Coding Level of Care Code Acute Self Propelled Dredge Operator for [facility] Fwd Exam Comprehensive Diagnoses Aspiration pneumonia J69.0 Aspiration pneumonia type: unspecified Laterality: bilateral Lung location: lower lobe of lung Hypokalemia E87.6 Esophageal varices I85.00 Esophageal varices bleeding: without bleeding Esophageal varices type: unspecified type End stage liver disease K72.90 Acute on chronic anemia D64.9 Suicidal ideation R45.851
--- NOTE | 2020-04-12 18:06 | PC.NURSE ---
Discharge paperwork provided and education was given. All questions answered. Pt had home meds delivered to bedside [place] [facility], and one paper prescription (Percocet) was given to patient. IV removed. No s/s distress; pt denied any needs or concerns at time of discharge. She was escorted to hospital entrance by GROUP ART SUPERVISOR via wheelchair to private vehicle where a family member was waiting. All personal belongings sent with patient.
== END 2020-04-12 18:05 | disposition home or self-care (01) | DRG 917 ==
LOC: ER 13:07 → NP 13:43 → ICU 04-02 08:14 → NP 04-03 08:10 → ICU 04-04 08:02 → MEDSURG 04-06 12:18
PROVIDERS: Family Medicine; Internal Medicine; Radiology Neuroradiology; Student in an Organized Health Care Education/Training Program; Admitting Provider Psychiatry & Neurology Psychiatry; Emergency Provider Family Medicine; PCP Family Medicine; Visit Provider Family Medicine
DX: T51.0X2A Toxic effect of ethanol, intentional self-harm, initial encounter (principal); J69.0 Pneumonitis due to inhalation of food and vomit; K65.2 Spontaneous bacterial peritonitis; F10.221 Alcohol dependence with intoxication delirium; I85.00 Esophageal varices without bleeding; R45.851 Suicidal ideations; F10.231 Alcohol dependence with withdrawal delirium; T42.4X2A Poisoning by benzodiazepines, intentional self-harm, initial encounter; K70.31 Alcoholic cirrhosis of liver with ascites; Y90.8 Blood alcohol level of 240 mg/100 ml or more; K72.90 Hepatic failure, unspecified without coma; Z76.82 Awaiting organ transplant status; D64.9 Anemia, unspecified; E03.9 Hypothyroidism, unspecified; F17.210 Nicotine dependence, cigarettes, uncomplicated; F32.9 Major depressive disorder, single episode, unspecified; E87.6 Hypokalemia; I25.10 Atherosclerotic heart disease of native coronary artery without angina pectoris
CPT/HCPCS: 12345; 31500; 36415; 36416; 36430; 36600; 49083; 51701; 51702; 70450; 71045; 71275; 74177; 76705; 80051; 80053; 80061; 80202; 80306; 80307; 81003; 81025; 82140; 82274; 82330; 82803; 82805; 82962; 83036; 83605; 83690; 83735; 83880; 84100; 84132; 84145; 84146; 84443; 84484; 85014; 85018; 85025; 85378; 85610; 85651; 86140; 86850; 86900; 86920; 87040; 87070; 87205; 87426; 93005; 94002; 94003; 94664; 94762; 94799; 96372; 96375; 99284; A4570; C9113; J0330; J1170; J1650; J1885; J1940; J1953; J2060; J2310; J2543; J2704; J3010; J3370; J3411; J3475; J3480; J3490; J7030; J7040; J7050; J7799; P9016; P9041; P9047; Q0162; Q9967

== ENCOUNTER 2020-06-15 11:17 | Emergency (ER) | payer MEDICAID, SELFPAY ==
[2020-06-15 11:28] VITALS: BP 122/77; PULSE 108; RESP 18; TEMP 37.5; O2SAT 98; BMI 22.1
--- NOTE | 2020-06-15 11:56 | ECG_ITS ---
[facility] Test Date: 2020-06-15 Pat Name: Pily Choe Department: Room: Gender: Female Linux Server Administrator: : [id number] Requested By: Juancarlos Nj Order Number: [id number] Kalee MD: Joanna Vital M.D. Measurements Intervals [place] Rate: 101 P: 45 MO: 144 QRS: 90 QRSD: 90 T: 39 QT: 406 QTc: 527 Interpretive Statements SINUS TACHYCARDIA NONSPECIFIC ST & T-WAVE ABNORMALITY ABNORMAL RHYTHM ECG Compared to ECG 04/02/2020 06:30:43 Sinus rhythm no longer present Prolonged QT interval no longer present T-wave abnormality still present Electronically Signed On 06-16-2020 9:17:52 TRUST VAULT CUSTODIAN by Joanna Vital M.D. [id number]
[2020-06-15 12:06] LABS: Basophils % 0.6 %; Eosinophils % 0.6 %; Hematocrit 37.9 % (37.0-47.0); Lymphocytes # 1.3 10^3/uL (0.8-4.8); Lymphocytes % 27.2 %; Mean Corpuscular HGB Conc 31.7 g/dL (30.0-36.0); Mean Corpuscular Hemoglobin 26.7 pg (28.0-34.0); Mean Corpuscular Volume 84.2 fL (81-99); Monocytes # 0.6 10^3/uL (0.2-0.9); Monocytes % 12.4 %; Neutrophils # 2.86 10^3/uL (1.8-7.7); Nucleated Red Blood Cells % 0 %; Platelet Count 109 10^3/cmm (130-400); Red Cell Distribution Width 18.7 % (12.1-15.1); White Blood Count 4.9 10^3/uL (4.0-10.0)
--- NOTE | 2020-06-15 12:17 | W.ED.ALCOHOL ---
HPI - Alcohol General: Chief Complaint: Alcohol Stated Complaint: N/V, poss dehydration after ETOH intoxication Time Seen by Provider: 06/15/20 11:52 History of Present Illness: HPI narrative: 35-year-old female presents emergency room with nausea vomiting complaining of history of alcoholic liver cirrhosis and esophageal varices. She drank heavily last night last drink states around 10 or 11:00 last night. She has been vomiting but denies vomiting any blood. MD complaint: alcohol intoxication Last drink: Hours (ago) Chronic alcohol use: Yes Previous visits for alcohol intoxication: Yes Recent trauma: No Associated symptoms: Reports abdominal pain, depression, nausea and vomiting; Deny diaphoresis, hematemesis, involuntary movements, melena, seizure-like activity, suicidal ideation or syncope Treatments prior to arrival: none Review of Systems Const: Denies: diaphoresis ENMT: Denies: throat pain, ear or mastoid pain, nasal discharge or nasal congestion Card: Denies: syncope Resp: Denies: dyspnea, productive cough or non-productive cough GI: Reports: abdominal pain, nausea and vomiting; Denies: hematemesis or melena : Denies: flank pain, difficulty voiding, dysuria, urinary frequency or urinary urgency Skin/Breast: Denies: rash or pruritus Neuro: Denies: seizure-like activity or involuntary movements Psych: Reports: depression; Denies: suicidal ideation PFSH ED PFSH: Medical History Acute on chronic anemia -s/p 2 units PRBCs with stable Hg thereafter Aspiration pneumonia -noted CT with noted airspace disease in the dependent portions of the lower lobes, R > L -afebrile, no leukocytosis -s/p 5 days of Zosyn -wean supplemental oxygen as tolerated -continue to monitor respiratory status -aspiration precautions Benzodiazepine abuse Depression End stage liver disease -noted hepatic cirrhosis on CT -secondary to EtOH abuse -continue to trend ammonia, on lactulose -prior hx of SBP, not enough fluid to drain, off abx -pain control as needed -f/u with certified prosthetist/orthotist in [place] and is on transplant list Esophageal varices -hx of banding -s/p 2 units PRBCs on 04/07 with stability in Hg thereafter; continue to monitor H/H -on PPI History of alcohol abuse Overdose SBP (spontaneous bacterial peritonitis) Social History Smoking and tobacco status: current some day smoker Alcohol intake: current Alcohol intake frequency: 3 or more drinks per day Alcohol type: hard liquor Substance/Drug Use: never Physical Exam Const: COMMON NORMALS: no acute distress GENERAL APPEARANCE: cooperative and comfortable ORIENTATION/CONSCIOUSNESS: Yes awake, Yes oriented to person, Yes oriented to place and Yes oriented to time HENMT: COMMON NORMALS: normocephalic, atraumatic and hearing grossly normal bilaterally HEAD & SCALP: normocephalic and atraumatic Neck/C-Spine: COMMON NORMALS: no JVD Resp: COMMON NORMALS: normal respiratory effort, No retractions, No use of accessory muscles and clear to auscultation bilaterally AUSCULTATION: clear to auscultation bilaterally Cardio: COMMON NORMALS: no JVD, regular rate, regular rhythm and No murmurs present (Cardio) RATE: regular rate RHYTHM: regular rhythm GI: COMMON NORMALS: Soft to palpation and No hepatosplenomegaly present AUSCULTATION: Yes normoactive bowel sounds PALPATION: Yes Soft to palpation, Yes Tenderness to palpation present (GI) (Moderate epigastric tenderness), No Guarding due to palpation present (GI) and Yes No hepatosplenomegaly present Extremity: COMMON NORMALS: normal to inspection, capillary refill normal, no clubbing, cyanosis or edema, no calf tenderness and no pedal edema Neuro: SENSORIUM/ORIENTATION: Yes oriented to person, Yes oriented to place and Yes oriented to time Skin: COMMON NORMALS: no rashes or lesions noted GENERAL SKIN EXAM: no rashes or lesions noted Course Vital Signs: Vital signs: Vital Signs Temperature 99.5 F 06/15/20 11:28 Pulse Rate 120 H 06/15/20 15:09 Respiratory Rate 18 06/15/20 15:09 Blood Pressure 112/72 06/15/20 15:09 Pulse Oximetry 97 06/15/20 15:09 MDM - Alcohol MDM Narrative: Medical decision making narrative: Blood alcohol was little over 100. Her white count and hemoglobin are normal platelet count is low but actually higher than what her usual baseline appears to be she does have some some mild elevation of her liver enzymes but are fairly minimal. Her ammonia levels in the low normal range she has no evidence of an upper GI bleed at this time. I think all of her vomiting nausea and epigastric pain is due to alcoholic gastritis. Encourage patient to abstain from alcohol will discharge home with Carafate to use as needed gave her some more Zofran she does previously been prescribed Zofran as well as promethazine. If she has any evidence of bleeding with vomiting she should return. Lab Data: Labs: Lab Results 06/15/20 06/15/20 06/15/20 Range/Units 11:47 11:47 11:47 WBC 4.9 (4.0-10.0) 10^3/ uL RBC 4.50 (4.1-5.3) 10^6/u L Hgb 12.0 (11.5-15.3) g/dL Hct 37.9 (37.0-47.0) % MCV 84.2 (81-99) fL MCH 26.7 L (28.0-34.0) pg MCHC 31.7 (30.0-36.0) g/dL RDW 18.7 H (12.1-15.1) % Plt Count 109 L (130-400) 10^3/c mm MPV 10.0 (7.4-10.4) fL Neut % (Auto) 59.0 % Lymph % (Auto) 27.2 % [place] % (Auto) 12.4 % Eos % (Auto) 0.6 % Baso % (Auto) 0.6 % Neut # (Auto) 2.86 (1.8-7.7) 10^3/u L Lymph # (Auto) 1.3 (0.8-4.8) 10^3/u L [place] # (Auto) 0.6 (0.2-0.9) 10^3/u L Eos # (Auto) 0.0 (0.0-0.8) 10^3/u L Baso # (Auto) 0.0 (0.0-0.1) 10^3/u L Nucleated RBC % (a uto) 0 % Nucleated RBCs # 0.0 /100WBC Sodium 141 (136-145) mmol/L Potassium 3.1 L (3.5-5.1) mmol/L Chloride 103 (98-107) mmol/L Carbon Dioxide 28 (22-29) mmol/L Anion Gap 13.1 (5-19) BUN 6 (6-20) mg/dL Creatinine 0.8 (0.5-0.9) mg/dL GFR Calculation 80.7 L (90-130) mL/min Glucose 146 H (65-115) mg/dL Calculated Osmolal ity 292 (285-295) mOsm/k g Calcium 8.8 (8.5-10.5) mg/dL Total Bilirubin 0.8 (0.15-1.2) mg/dL AST 48 H (0-32) U/L ALT 20 (0-33) U/L Alkaline Phosphata se 145 H (35-105) IU/L Ammonia (11-51) umol/L Total Protein 6.9 (6.6-8.7) g/dL Albumin 4.2 (3.5-5.2) g/dL Globulin 2.7 (1.3-4.6) g/dL Lipase 25 (13-60) U/L Urine Color (Yellow) Urine Appearance (CLEAR) Urine pH (5-7) Ur Specific Gravit y (1.005-1.030) Urine Protein (Negative) Urine Glucose (UA) (Normal) Urine Ketones (Negative) Urine Blood (Negative) Urine Nitrate (Negative) Urine Bilirubin (Negative) Urine Urobilinogen (Negative) mg/dL Ur Leukocyte Mera ase (Negative) Ethyl Alcohol 106 H (0-10) mg/dL 06/15/20 06/15/20 Range/Units 13:24 13:54 WBC (4.0-10.0) 10^3/ uL RBC (4.1-5.3) 10^6/u L Hgb (11.5-15.3) g/dL Hct (37.0-47.0) % MCV (81-99) fL MCH (28.0-34.0) pg MCHC (30.0-36.0) g/dL RDW (12.1-15.1) % Plt Count (130-400) 10^3/c mm MPV (7.4-10.4) fL Neut % (Auto) % Lymph % (Auto) % [place] % (Auto) % Eos % (Auto) % Baso % (Auto) % Neut # (Auto) (1.8-7.7) 10^3/u L Lymph # (Auto) (0.8-4.8) 10^3/u L [place] # (Auto) (0.2-0.9) 10^3/u L Eos # (Auto) (0.0-0.8) 10^3/u L Baso # (Auto) (0.0-0.1) 10^3/u L Nucleated RBC % (a uto) % Nucleated RBCs # /100WBC Sodium (136-145) mmol/L Potassium (3.5-5.1) mmol/L Chloride (98-107) mmol/L Carbon Dioxide (22-29) mmol/L Anion Gap (5-19) BUN (6-20) mg/dL Creatinine (0.5-0.9) mg/dL GFR Calculation (90-130) mL/min Glucose (65-115) mg/dL Calculated Osmolal ity (285-295) mOsm/k g Calcium (8.5-10.5) mg/dL Total Bilirubin (0.15-1.2) mg/dL AST (0-32) U/L ALT (0-33) U/L Alkaline Phosphata se (35-105) IU/L Ammonia 23 (11-51) umol/L Total Protein (6.6-8.7) g/dL Albumin (3.5-5.2) g/dL Globulin (1.3-4.6) g/dL Lipase (13-60) U/L Urine Color Straw (Yellow) Urine Appearance Clear (CLEAR) Urine pH 7 (5-7) Ur Specific Gravit y 1.005 (1.005-1.030) Urine Protein Neg (Negative) Urine Glucose (UA) Norm (Normal) Urine Ketones Negative (Negative) Urine Blood Neg (Negative) Urine Nitrate Negative (Negative) Urine Bilirubin Neg (Negative) Urine Urobilinogen Norm (Negative) mg/dL Ur Leukocyte Mera ase Negative (Negative) Ethyl Alcohol (0-10) mg/dL Discharge Plan Discharge Patient Disposition: Home Clinical Impression: Acute alcoholic gastritis, Chronic alcohol abuse, Alcoholic intoxication Condition: Stable Prescriptions: New Carafate 1 gram tablet 1 g PO Q6H 7 Days Qty: 28 RF: 0 Zofran 4 mg tablet 4 mg PO Q6H PRN (Reason: nausea and vomiting) Qty: 15 RF: 0 No Action levothyroxine 50 mcg Capsule 50 mcg PO DAILY@0530 RF: 0 potassium chloride 10 mEq Capsule, Extended Release 5 meq PO BID@629,1799 RF: 0 spironolactone 25 mg Tablet 12.5 mg PO BID@629,1799 RF: 0 trazodone 100 mg Tablet 100 mg PO BEDTIME@2199 RF: 0 pantoprazole [Protonix] 40 mg Tablet,Delayed Release (Dr/Ec) 40 mg PO BID@599,1799 RF: 0 folic acid 1 mg Tablet 1 mg PO DAILY@629 RF: 0 furosemide [Lasix] 20 mg Tablet 20 mg PO BID@599,1799 RF: 0 escitalopram oxalate [Lexapro] 10 mg Tablet 10 mg PO TID@629,1229,2199 RF: 0 lactulose 10 gram/15 mL (15 mL) Solution 20 ml PO TID@629,1229,2199 RF: 0 magnesium oxide 400 mg magnesium Tablet 400 mg PO DAILY@629 RF: 0 Vitamin B-1 100 mg tablet 100 mg PO DAILY@1799 RF: 0 olanzapine 5 mg Tablet,Disintegrating 5 mg PO Q4H PRN (Reason: Agitation/Psychosis) Qty: 30 RF: 0 ondansetron HCl [Zofran] 4 mg Tablet 4 mg PO Q8H PRN (Reason: Anxiety) Qty: 30 RF: 0 Vitamin C 1 tab PO DAILY@30 RF: 0 Vitamin D3 1 tab PO DAILY@629 RF: 0 baclofen See Rx Instructions .ROUTE .COMPLEX RF: 0 hydroxyzine HCl See Rx Instructions .ROUTE .COMPLEX RF: 0 midodrine See Rx Instructions .ROUTE .COMPLEX RF: 0 promethazine 1 tab PO Q4H PRN (Reason: nausea/vomiting) RF: 0 tizanidine See Rx Instructions .ROUTE .COMPLEX PRN (Reason: muscle spasms) RF: 0 zinc 1 tab PO DAILY@629 RF: 0 Thera 400 mcg tablet 1 tab PO DAILY@0 RF: 0 amoxicillin See Rx Instructions .ROUTE .COMPLEX RF: 0 Discharge Orders: Discharge ED (Routine); Ordered 06/15/20 Ordered By: Juancarlos Meng Referrals: Stanton Schumacher [Primary Care Provider] - Patient Instructions: Alcohol Intoxication (ED), Abuse of Alcohol (ED) Activity Restrictions/Additional Instructions: Recommend alcohol abstinence. Also recommend pursuing inpatient treatment. Use Carafate 4 times daily for the next 5 to 7 days. Avoid NSAIDs and Tylenol. Increase fluid intake eat small frequent amounts. Coding Level of Care Code ED Oyster Opener for Margarita Fwd Exam Comprehensive
[2020-06-15 12:23] LABS: Alanine Aminotransferase 20 U/L (0-33); Albumin Level 4.2 g/dL (3.5-5.2); Alkaline Phosphatase 145 IU/L (35-105); Anion Gap 13.1 (5-19); Aspartate Amino Transferase 48 U/L (0-32); Blood Urea Nitrogen 6 mg/dL (6-20); Calcium 8.8 mg/dL (8.5-10.5); Carbon Dioxide 28 mmol/L (22-29); Chloride 103 mmol/L (98-107); Globulin 2.7 g/dL (1.3-4.6); Glomerular Filtration Rate 80.7 mL/min (90-130); Glucose 146 mg/dL (65-115); Lipase 25 U/L (13-60); Osmolality Calculated 292 mOsm/kg (285-295); Potassium 3.1 mmol/L (3.5-5.1); Sodium 141 mmol/L (136-145); Total Bilirubin 0.8 mg/dL (0.15-1.2); Total Protein 6.9 g/dL (6.6-8.7)
[2020-06-15] MEDS: ondansetron 2 mg/ML SDV 2 mL 4 MG IVP (12:35)
[2020-06-15] MEDS: sodium chloride 0.9% 1,000 ML 999 ML IV ×2 (12:36→14:40)
[2020-06-15 13:42] LABS: Alcohol Level 106 mg/dL (0-10)
[2020-06-15 13:42] LABS: Add Urine Microscopic? NO
[2020-06-15 13:59] LABS: Bilirubin Urine Neg (Negative); Blood Urine Neg (Negative); Glucose Urine UA Norm (Normal); Ketones Urine Negative (Negative); Leukocyte Esterase Urine Negative (Negative); Nitrate Urine Negative (Negative); Protein Urine Neg (Negative); Specific Gravity, Urine 1.005 (1.005-1.030); Urine Appearance Clear (CLEAR); Urine Color Straw (Yellow); Urobilinogen Urine Norm (Negative); pH Urine 7 (5-7)
[2020-06-15 14:22] LABS: Ammonia 23 umol/L (11-51)
[2020-06-15] MEDS: famotidine 20 mg/2 mL INJ 40 MG IVP (14:38)
[2020-06-15] MEDS: promethazine 25 mg/mL SDV 1 mL IM (14:39)
[2020-06-15] MEDS: sucralfate 1 gm/10 mL Oral Liq UDC PO (14:39)
[2020-06-15] MEDS: LORazepam 2 mg/mL INJ 1 mL IVP (15:06)
[2020-06-15 15:07] VITALS: BP 112/72; PULSE 126; O2SAT 97
[2020-06-15 15:09] VITALS: BP 112/72; PULSE 120; RESP 18; O2SAT 97
== END 2020-06-15 15:13 | disposition home or self-care (01) ==
PROVIDERS: Emergency Provider Family Medicine; PCP Family Medicine
DX: K29.20 Alcoholic gastritis without bleeding (principal); F10.129 Alcohol abuse with intoxication, unspecified; F17.210 Nicotine dependence, cigarettes, uncomplicated; Y90.5 Blood alcohol level of 100-119 mg/100 ml
CPT/HCPCS: 12345; 80053; 80307; 81003; 82140; 83690; 85025; 93005; 96361; 96372; 96374; 96375; 99282; 99284; J2060; J2405; J2550; J3490; J7030

== ENCOUNTER 2021-04-01 09:18 | Emergency (ER) | payer MEDICAID, SELFPAY ==
--- NOTE | 2021-04-01 09:35 | PC.NURSE ---
pt placed on continuous spo2 nibp and cm.
[2021-04-01 09:36] VITALS: BP 107/55; PULSE 99; RESP 12; TEMP 36.8; O2SAT 94; BMI 22.1
--- NOTE | 2021-04-01 09:36 | XRR_ITS ---
PROCEDURE INFORMATION: Exam: XR Chest Exam date and time: 04/01/2021 9:36 AM Age: 35 years old Clinical indication: Cough and dyspnea; Prior surgery; Surgery type: Gb; Patient HX: PT states she is an alcoholic and fell off the wagon last night. Chest pain because of anxiety and headaches; Additional info: Dyspnea/cough TECHNIQUE: Imaging protocol: XR of the chest. Views: 1 view. COMPARISON: CR XR chest 1V portable [id number] 04/06/2020 4:19 PM FINDINGS: Lungs: Unremarkable. No consolidation. Pleural spaces: Unremarkable. No pleural effusion. No pneumothorax. Heart/Mediastinum: Unremarkable. No cardiomegaly. Bones/joints: Unremarkable. XR/XR chest 1V portable [id number] IMPRESSION: No acute findings. Radiation Dose CTDIVOL = (mGy): DLP = (mGy-cm)
--- NOTE | 2021-04-01 10:02 | ED_ITS ---
HPI - Chest Pain General: Chief Complaint: Chest Pain Stated Complaint: N/V/ CHEST PAIN Time Seen by Provider: 04/01/21 09:22 History of Present Illness: HPI narrative: 35-year-old female presents to the emergency room with persistent nausea and vomiting. Patient states she drank a half a gallon of rum yesterday. She has had chest pain with nausea and vomiting overnight her last drink was just 3 hours prior to arrival. She is not had any hematemesis or coffee-ground emesis. She does have a history of alcoholic liver cirrhosis with esophageal varices several of which have been banded in the past. She had been doing well with sobriety up until yesterday and drank a half a gallon rum. She denies any other injuries or problems at this time. MD complaint: chest pain Pertinent past history: other (Alcoholic liver cirrhosis with esophageal varices) Onset (ago): hour(s) Timing of current episode: episodic Prior episodes: Yes Onset: associated with drug use (Alcohol use) Pain location: substernal Pain radiation: none Severity: moderate Quality: sharp Relieving factors: nothing Exacerbating factors: nothing Associated symptoms: Reports abdominal pain, nausea and vomiting; Deny diaphoresis, dyspnea, fever(s), leg edema, palpitations, sense of impending doom or syncope Treatment prior to arrival: none Review of Systems Const: Denies: fever(s) or diaphoresis ENMT: Denies: throat pain, ear or mastoid pain, nasal discharge or nasal congestion Card: Denies: palpitations or syncope Resp: Denies: dyspnea GI: Reports: abdominal pain, nausea and vomiting : Denies: flank pain, difficulty voiding, dysuria, urinary frequency or urinary urgency Skin/Breast: Denies: rash or pruritus [facility] ED PFSH: Medical History Acute on chronic anemia -s/p 2 units PRBCs with stable Hg thereafter Aspiration pneumonia -noted CT with noted airspace disease in the dependent portions of the lower lobes, R > L -afebrile, no leukocytosis -s/p 5 days of Zosyn -wean supplemental oxygen as tolerated -continue to monitor respiratory status -aspiration precautions Benzodiazepine abuse Depression End stage liver disease -noted hepatic cirrhosis on CT -secondary to EtOH abuse -continue to trend ammonia, on lactulose -prior hx of SBP, not enough fluid to drain, off abx -pain control as needed -f/u with fur finisher tailor in [place] and is on transplant list Esophageal varices -hx of banding -s/p 2 units PRBCs on 04/07 with stability in Hg thereafter; continue to monitor H/H -on PPI History of alcohol abuse Overdose SBP (spontaneous bacterial peritonitis) Social History Smoking and tobacco status: current some day smoker Alcohol intake: current Alcohol intake frequency: 3 or more drinks per day Alcohol type: hard liquor Female Reproductive History: Date of last menstrual period: 04/01/14 Physical Exam Const: COMMON NORMALS: no acute distress GENERAL APPEARANCE: cooperative and comfortable ORIENTATION/CONSCIOUSNESS: Yes awake, Yes oriented to person, Yes oriented to place and Yes oriented to time HENMT: COMMON NORMALS: normocephalic, atraumatic and hearing grossly normal bilaterally HEAD & SCALP: normocephalic and atraumatic Neck/C-Spine: COMMON NORMALS: no JVD Resp: COMMON NORMALS: normal respiratory effort, No retractions, No use of accessory muscles and clear to auscultation bilaterally AUSCULTATION: clear to auscultation bilaterally Cardio: COMMON NORMALS: no JVD, regular rate, regular rhythm and No murmurs present (Cardio) RATE: regular rate RHYTHM: regular rhythm GI: COMMON NORMALS: Soft to palpation and No hepatosplenomegaly present AUSCULTATION: Yes normoactive bowel sounds PALPATION: Yes Soft to palpation, No Tenderness to palpation present (GI), No Guarding due to palpation present (GI) and Yes No hepatosplenomegaly present Extremity: COMMON NORMALS: normal to inspection, capillary refill normal, no clubbing, cyanosis or edema, no calf tenderness and no pedal edema Neuro: SENSORIUM/ORIENTATION: Yes oriented to person, Yes oriented to place and Yes oriented to time Skin: COMMON NORMALS: no rashes or lesions noted GENERAL SKIN EXAM: no rashes or lesions noted Course Vital Signs: Vital signs: Vital Signs Temperature 98.3 F 04/01/21 09:36 Pulse Rate 97 04/01/21 12:00 Respiratory Rate 15 04/01/21 12:00 Blood Pressure 98/52 04/01/21 12:00 Pulse Oximetry 94 04/01/21 12:00 MDM - Chest Pain MDM Narrative: Medical decision making narrative: Patient repeatedly denies suicidal or homicidal ideation she does admit to being very intoxicated. At this point she is awake and alert we will go ahead and discharge her home. Encouraged her to seek assistance with abstinence from alcohol. If she has any worsening problems can return. I think her chest discomfort is secondary to alcoholic gastritis she did get improvement with a GI cocktail. Lab Data: Labs: Lab Results 04/01/21 04/01/21 04/01/21 10:05 10:05 10:05 WBC 9.7 10^3/uL 10^3/ uL (4.0-10.0) RBC 4.29 10^6/uL 10^6 /uL (4.1-5.3) Hgb 10.8 g/dL L g/dL (11.5-15.3) Hct 34.3 % L % (37.0-47.0) MCV 80.0 fl L fl (81-99) MCH 25.2 pg L pg (28.0-34.0) MCHC 31.5 g/dL g/dL (30.0-36.0) RDW 20.5 % H % (12.1-15.1) Plt Count 259 10^3/cmm 10^3 /cmm (130-400) MPV 9.6 fL fL (7.4-10.4) Neut % (Auto) 77.6 % % Lymph % (Auto) 13.7 % % [place] % (Auto) 7.2 % % Eos % (Auto) 0.1 % % Baso % (Auto) 0.9 % % Neut # (Auto) 7.49 10^3/uL 10^3 /uL (1.8-7.7) Lymph # (Auto) 1.3 10^3/uL 10^3/ uL (0.8-4.8) [place] # (Auto) 0.7 10^3/uL 10^3/ uL (0.2-0.9) Eos # (Auto) 0.0 10^3/uL 10^3/ uL (0.0-0.8) Baso # (Auto) 0.1 10^3/uL 10^3/ uL (0.0-0.1) Nucleated RBC % (a uto) 0 % % Nucleated RBCs # 0.0 /100WBC /100W BC PT INR APTT Sodium 141 mmol/L mmol/L (136-145) Potassium 3.4 mmol/L L mmol /L (3.5-5.1) Chloride 99 mmol/L mmol/L (98-107) Carbon Dioxide 25 mmol/L mmol/L (22-29) Anion Gap 20.4 H (5-19) BUN 6 mg/dL mg/dL (6-20) Creatinine 0.7 mg/dL mg/dL (0.5-0.9) GFR Calculation 94.2 mL/min mL/mi n (90-130) Glucose 153 mg/dL H mg/dL (65-115) Calculated Osmolal ity 293 mOsm/kg mOsm/ kg (285-295) Calcium 8.4 mg/dL L mg/dL (8.5-10.5) Magnesium 1.3 mg/dL L mg/dL (1.7-2.3) Total Bilirubin 0.6 mg/dL mg/dL (0.15-1.2) AST 32 U/L U/L (0-32) ALT 13 U/L U/L (0-33) Alkaline Phosphata se 164 IU/L H IU/L (35-105) Ammonia Total Protein 6.0 g/dL L g/dL (6.6-8.7) Albumin 3.8 g/dL g/dL (3.5-5.2) Globulin 2.2 g/dL g/dL (1.3-4.6) Lipase 16 U/L U/L (13-60) HCG, Qual Negative (Negative) Urine Color Urine Appearance Urine pH Ur Specific Gravit y Urine Protein Urine Glucose (UA) Urine Ketones Urine Blood Urine Nitrate Urine Bilirubin Prot Sulfosalicyli c Acd Urine Urobilinogen Ur Leukocyte Mera ase 04/01/21 04/01/21 04/01/21 10:05 10:05 11:11 WBC RBC Hgb Hct MCV MCH MCHC RDW Plt Count MPV Neut % (Auto) Lymph % (Auto) [place] % (Auto) Eos % (Auto) Baso % (Auto) Neut # (Auto) Lymph # (Auto) [place] # (Auto) Eos # (Auto) Baso # (Auto) Nucleated RBC % (a uto) Nucleated RBCs # PT 17.10 SECONDS H S ECONDS (12.1-14.9) INR 1.35 H (0.8-1.2) APTT 29.9 SECONDS SECO NDS (23.9-36.7) Sodium Potassium Chloride Carbon Dioxide Anion Gap BUN Creatinine GFR Calculation Glucose Calculated Osmolal ity Calcium Magnesium Total Bilirubin AST ALT Alkaline Phosphata se Ammonia 65 umol/L H umol/ L (11-51) Total Protein Albumin Globulin Lipase HCG, Qual Urine Color Yellow (Yellow) Urine Appearance Clear (CLEAR) Urine pH 8 H (5-7) Ur Specific Gravit y 1.010 (1.005-1.030) Urine Protein Neg (Negative) Urine Glucose (UA) Norm (Normal) Urine Ketones 1+ H (Negative) Urine Blood Neg (Negative) Urine Nitrate Negative (Negative) Urine Bilirubin Neg (Negative) Prot Sulfosalicyli c Acd Negative (Negative) Urine Urobilinogen Norm mg/dL mg/dL (Negative) Ur Leukocyte Mera ase Negative (Negative) Discharge Plan Discharge Patient Disposition: Home Clinical Impression: Alcoholic gastritis, Alcoholic Condition: Stable Prescriptions: No Action No Known Home Medications RF: 0 Discharge Orders: Discharge ED (Routine); Ordered 04/01/21 Ordered By: Juancarlos Meng Referrals: Stanton Schumacher [Primary Care Provider] - Discharge Diet: Usual diet Discharge Activity: Increase activity as tolerated Patient Instructions: Opioid Safety Activity Restrictions/Additional Instructions: Do not drink alcohol. Follow up with your primary care physician within the week. Coding Level of Care Code ED Wooden Furniture Polisher for Margarita Fwd Exam Comprehensive
--- NOTE | 2021-04-01 10:10 | PC.NURSE ---
upon entering pt is up in room drinking water out of the sink after verbal commands from myself and dr. bang to not drink water.
[2021-04-01 10:14] VITALS: BP 118/72; PULSE 101; RESP 14; O2SAT 98
--- NOTE | 2021-04-01 10:18 | PC.NURSE ---
pt denies being able to provide urine sample at this time. will attempt later.
[2021-04-01] MEDS: pantoprazole 40 mg SDV 80 MG IVP (10:19)
[2021-04-01] MEDS: sodium chloride 0.9% 1,000 ML 999 ML IV ×2 (10:19)
[2021-04-01] MEDS: ondansetron 2 mg/ML SDV 2 mL 4 MG IVP ×2 (10:20→12:26)
[2021-04-01 10:25] LABS: Basophils # 0.1 10^3/uL (0.0-0.1); Basophils % 0.9 %; Eosinophils % 0.1 %; Hematocrit 34.3 % (37.0-47.0); Hemoglobin 10.8 g/dL (11.5-15.3); Lymphocytes # 1.3 10^3/uL (0.8-4.8); Lymphocytes % 13.7 %; Mean Corpuscular HGB Conc 31.5 g/dL (30.0-36.0); Mean Corpuscular Hemoglobin 25.2 pg (28.0-34.0); Mean Platelet Volume 9.6 fL (7.4-10.4); Monocytes # 0.7 10^3/uL (0.2-0.9); Monocytes % 7.2 %; Neutrophils # 7.49 10^3/uL (1.8-7.7); Neutrophils % 77.6 %; Nucleated Red Blood Cells % 0 %; Platelet Count 259 10^3/cmm (130-400); Red Blood Count 4.29 10^6/uL (4.1-5.3); Red Cell Distribution Width 20.5 % (12.1-15.1); White Blood Count 9.7 10^3/uL (4.0-10.0)
[2021-04-01 10:30] VITALS: BP 121/71; PULSE 102; RESP 16; O2SAT 91
[2021-04-01 10:42] LABS: HCG, Serum Qual Negative (Negative)
[2021-04-01 10:49] LABS: Alanine Aminotransferase 13 U/L (0-33); Albumin Level 3.8 g/dL (3.5-5.2); Alkaline Phosphatase 164 IU/L (35-105); Anion Gap 20.4 (5-19); Aspartate Amino Transferase 32 U/L (0-32); Blood Urea Nitrogen 6 mg/dL (6-20); Calcium 8.4 mg/dL (8.5-10.5); Carbon Dioxide 25 mmol/L (22-29); Chloride 99 mmol/L (98-107); Globulin 2.2 g/dL (1.3-4.6); Glomerular Filtration Rate 94.2 mL/min (90-130); Glucose 153 mg/dL (65-115); INR 1.35 (0.8-1.2); Lipase 16 U/L (13-60); Magnesium 1.3 mg/dL (1.7-2.3); Osmolality Calculated 293 mOsm/kg (285-295); Potassium 3.4 mmol/L (3.5-5.1); Sodium 141 mmol/L (136-145); Total Bilirubin 0.6 mg/dL (0.15-1.2)
[2021-04-01 10:50] LABS: Ammonia 65 umol/L (11-51); Partial Thromboplastin Time 29.9 SECONDS (23.9-36.7)
[2021-04-01 11:00] VITALS: BP 105/55; PULSE 100; RESP 17; O2SAT 100
--- NOTE | 2021-04-01 11:08 | PC.NURSE ---
PT ATTEMPTING TO PROVIDE URINE SPECIMEN PT IS AMB WITH A STEADY GAIT UNASSISTED. PT IS IN NAD.
--- NOTE | 2021-04-01 11:11 | PC.NURSE ---
INFORMED DR. DURHAM THAT PT WAS REQUESTING PAIN MEDICATION.
[2021-04-01 11:25] LABS: Add Urine Microscopic? NO; Charge for UA Resulting for Rev
[2021-04-01 11:30] VITALS: BP 105/56; PULSE 102; RESP 19; O2SAT 94
[2021-04-01 11:40] LABS: Bilirubin Urine Neg (Negative); Blood Urine Neg (Negative); Glucose Urine UA Norm (Normal); Ketones Urine 1+ (Negative); Leukocyte Esterase Urine Negative (Negative); Nitrate Urine Negative (Negative); Protein Urine Neg (Negative); Sulfosalicylic Acid Urine Negative (Negative); Urine Appearance Clear (CLEAR); Urine Color Yellow (Yellow); Urobilinogen Urine Norm (Negative); pH Urine 8 (5-7)
[2021-04-01 12:00] VITALS: BP 98/52; PULSE 97; RESP 15; O2SAT 94
[2021-04-01] MEDS: lidocaine 2% viscous 15 ML, aluminum-mag hydrox-simethicon 30 ML, sucralfate oral liq 1 GM PO (12:20)
== END 2021-04-01 12:33 | disposition home or self-care (01) ==
PROVIDERS: Emergency Provider Family Medicine; PCP Family Medicine
DX: K29.20 Alcoholic gastritis without bleeding (principal); F10.20 Alcohol dependence, uncomplicated; F17.210 Nicotine dependence, cigarettes, uncomplicated; K70.30 Alcoholic cirrhosis of liver without ascites
CPT/HCPCS: 71045; 80053; 81003; 82140; 83690; 83735; 84703; 85025; 85610; 85730; 96361; 96374; 96375; 99284; C9113; J2405; J7030

== ENCOUNTER 2021-04-01 17:00 | Emergency (ER) | payer MEDICAID, SELFPAY ==
--- NOTE | 2021-04-01 17:27 | XRR_ITS ---
PROCEDURE INFORMATION: Exam: XR Thoracic Spine Exam date and time: 04/01/2021 5:27 PM Age: 35 years old Clinical indication: Injury or trauma; Fall; Blunt trauma (contusions or hematomas); Injury details: ETOH; Prior surgery; Surgery type: Gb; Additional info: Pain, after fall TECHNIQUE: Imaging protocol: XR of the thoracic spine. Views: 3 views. COMPARISON: CR XR chest 1V portable [id number] 04/01/2021 10:26 AM FINDINGS: Bones/joints: Mild age-indeterminate deformity along the T11 and T12 superior endplates. No dislocation or subluxation. Mild multilevel spondylosis. Soft tissues: Grossly unremarkable. Intraperitoneal space: Surgical clips overlying the right upper quadrant. XR/XR thoracic spine 3V* [id number] IMPRESSION: Mild age-indeterminate deformity along the T11 and T12 superior endplates. Radiation Dose CTDIVOL = (mGy): DLP = (mGy-cm)
--- NOTE | 2021-04-01 17:27 | XRR_ITS ---
PROCEDURE INFORMATION: Exam: XR Lumbosacral Spine Exam date and time: 04/01/2021 5:27 PM Age: 35 years old Clinical indication: Injury or trauma; Fall; Blunt trauma (contusions or hematomas); Prior surgery; Patient HX: PT ETOH; Additional info: Pain after fall TECHNIQUE: Imaging protocol: XR of the lumbosacral spine. Views: 2 or 3 views. COMPARISON: CT angio chest w abd pel w con 04/07/2020 3:19 PM FINDINGS: Bones/joints: Mild multilevel spondylosis. No acute fracture. Normal alignment. Soft tissues: Grossly unremarkable. XR/XR lumbar spine 2-3V* [id number] IMPRESSION: No acute radiographic findings. Radiation Dose CTDIVOL = (mGy): DLP = (mGy-cm)
--- NOTE | 2021-04-01 17:28 | CTR_ITS ---
PROCEDURE INFORMATION: Exam: CT Head Without Contrast Exam date and time: 04/01/2021 5:28 PM Age: 35 years old Clinical indication: Injury or trauma; Fall; Blunt trauma (contusions or hematomas); Patient HX: ETOH; Additional info: Fall, closed head injury TECHNIQUE: Imaging protocol: Computed tomography of the head without contrast. Axial, coronal and sagittal reformatted images were created and reviewed. Radiation optimization: All CT scans at this facility use at least one of these dose optimization techniques: automated exposure control; mA and/or kV adjustment per patient size (includes targeted exams where dose is matched to clinical indication); or iterative reconstruction. COMPARISON: CT head wo con* [id number] 04/02/2020 5:49 AM RADIATION DOSE METRICS: Total DLP (mGy-cm): 857.05 FINDINGS: Brain: No CT evidence of acute intracranial hemorrhage or acute territorial infarction. No significant mass effect or midline shift. Basal cisterns patent. Cerebral ventricles: Normal in size and configuration. Paranasal sinuses: Minimal ethmoid mucosal thickening. Mastoid air cells: Grossly unremarkable. Bones/joints: No acute osseous abnormality. Soft tissues: Grossly unremarkable. CT/CT head wo con* [id number]: 1[address] No CT evidence of acute intracranial pathology. 2. Additional findings, as above. Radiation Dose CTDIVOL = (mGy): DLP = 857.05 (mGy-cm)
--- NOTE | 2021-04-01 17:39 | ED_ITS ---
Documented by User: Juancarlos Meng DO 04/04/21 17:50 HPI - General Adult General: Chief complaint: Chest Pain Stated complaint: ETOH ON BOARD/ DEPRESSION Time Seen by Provider: 04/01/21 17:05 History of Present Illness: HPI narrative: 35-year-old female returns to the emergency room. She was here earlier today and alcoholic gastritis she had been drinking heavily overnight states she drank half a gallon of rum. She was wor ked up on discharged home with PPI and Carafate advised not to drink. Shortly after leaving she began drinking again. She has been drinking since she left. As a result of her drinking she fell down some stairs. She denies having lost consciousness. She denies striking her head but she does have some back pain. She is tearful stating she wants to stop drinking. She denies any suicidal or homicidal ideation. Onset (ago): minute(s) Location: back Radiation: back Severity: moderate Quality: aching Pain Consistency: constant Relieving factors: none Exacerbating factors: none Associated symptoms: Deny chest pain, confusion, cough, diaphoresis, decreased appetite, dyspnea, fevers/chills, headache(s), malaise, nausea, rash, palpitations, seizures, short of breath, syncope, vomiting or weakness Treatments prior to arrival: none Review of Systems Const: Denies: malaise or diaphoresis ENMT: Denies: throat pain, ear or mastoid pain, nasal discharge or nasal congestion Card: Denies: chest pain, palpitations or syncope Resp: Denies: dyspnea GI: Denies: nausea or vomiting : Denies: flank pain, difficulty voiding, dysuria, urinary frequency or urinary urgency Skin/Breast: Denies: rash Neuro: Denies: headache(s) or confusion [facility] ED PFSH: Medical History Acute on chronic anemia -s/p 2 units PRBCs with stable Hg thereafter Aspiration pneumonia -noted CT with noted airspace disease in the dependent portions of the lower lobes, R > L -afebrile, no leukocytosis -s/p 5 days of Zosyn -wean supplemental oxygen as tolerated -continue to monitor respiratory status -aspiration precautions Benzodiazepine abuse Depression End stage liver disease -noted hepatic cirrhosis on CT -secondary to EtOH abuse -continue to trend ammonia, on lactulose -prior hx of SBP, not enough fluid to drain, off abx -pain control as needed -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 Esophageal varices -hx of banding -s/p 2 units PRBCs on 04/07 with stability in Hg thereafter; continue to monitor H/H -on PPI History of alcohol abuse Overdose SBP (spontaneous bacterial peritonitis) Social History Smoking and tobacco status: current some day smoker Alcohol intake: current Alcohol intake frequency: 3 or more drinks per day Alcohol type: hard liquor Female Reproductive History: Date of last menstrual period: 04/01/14 Physical Exam Const: COMMON NORMALS: no acute distress GENERAL APPEARANCE: cooperative and comfortable ORIENTATION/CONSCIOUSNESS: Yes awake HENMT: COMMON NORMALS: normocephalic, atraumatic and hearing grossly normal bilaterally HEAD & SCALP: normocephalic and atraumatic Neck/C-Spine: COMMON NORMALS: no JVD Resp: COMMON NORMALS: normal respiratory effort, No retractions, No use of accessory muscles and clear to auscultation bilaterally AUSCULTATION: clear to auscultation bilaterally Cardio: COMMON NORMALS: no JVD, regular rate, regular rhythm and No murmurs present (Cardio) RATE: regular rate RHYTHM: regular rhythm GI: COMMON NORMALS: Soft to palpation and No hepatosplenomegaly present AUSCULTATION: Yes normoactive bowel sounds PALPATION: Yes Soft to palpation, No Tenderness to palpation present (GI), No Guarding due to palpation present (GI) and Yes No hepatosplenomegaly present Extremity: COMMON NORMALS: normal to inspection, capillary refill normal, no clubbing, cyanosis or edema, no calf tenderness and no pedal edema Skin: COMMON NORMALS: no rashes or lesions noted GENERAL SKIN EXAM: no rashes or lesions noted Course Vital Signs: Vital signs: Vital Signs Temperature 98.8 F 04/01/21 18:09 Pulse Rate 97 04/01/21 18:22 Respiratory Rate 12 04/01/21 18:09 Blood Pressure 106/64 04/01/21 18:22 Pulse Oximetry 98 04/01/21 18:22 MDM - General Adult MDM Narrative: Medical decision making narrative: PatientPatient tearful. She is extremely intoxicated. She denies suicidal or homicidal ideation she states she simply wants to stop drinking. We do not really have anything to get her to stop drinking. She will have to simply decide for herself that she is going to stop. I would recommend the most effective ways for her to participate in a program such as alcohol[facility] or through [facility]. She expresses little interest in those options. Care turned over to Dr. Piedra at change of shift awaiting on final labs and imaging. Discharge Plan Discharge Patient Disposition: Home Clinical Impression: Back pain, Alcoholic gastritis, Alcoholic Condition: Stable Prescriptions: No Action No Known Home Medications RF: 0 Discharge Orders: Discharge ED (Routine); Ordered 04/01/21 Ordered By: Milton Piedra Referrals: Stanton Schumacher [Primary Care Provider] - 1-3 days Discharge Diet: Advance as tolerated Discharge Activity: Resume usual activity Patient Instructions: Abuse of Alcohol (ED) Coding Level of Care Code ED Pot Room Tapper for Chg Fwd Exam Comprehensive Documented by User: Milton Piedra MD 04/01/21 18:18 HPI - General Adult General: Chief complaint: Chest Pain Stated complaint: ETOH ON BOARD/ DEPRESSION Time Seen by Provider: 04/01/21 17:05 [facility] ED PFSH: Medical History Acute on chronic anemia -s/p 2 units PRBCs with stable Hg thereafter Aspiration pneumonia -noted CT with noted airspace disease in the dependent portions of the lower lobes, R > L -afebrile, no leukocytosis -s/p 5 days of Zosyn -wean supplemental oxygen as tolerated -continue to monitor respiratory status -aspiration precautions Benzodiazepine abuse Depression End stage liver disease -noted hepatic cirrhosis on CT -secondary to EtOH abuse -continue to trend ammonia, on lactulose -prior hx of SBP, not enough fluid to drain, off abx -pain control as needed -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 Esophageal varices -hx of banding -s/p 2 units PRBCs on 04/07 with stability in Hg thereafter; continue to monitor H/H -on PPI History of alcohol abuse Overdose SBP (spontaneous bacterial peritonitis) Social History Smoking and tobacco status: current some day smoker Alcohol intake: current Alcohol intake frequency: 3 or more drinks per day Alcohol type: hard liquor Course Vital Signs: Vital signs: Vital Signs Temperature 98.8 F 04/01/21 18:09 Pulse Rate 97 04/01/21 18:22 Respiratory Rate 12 04/01/21 18:09 Blood Pressure 106/64 04/01/21 18:22 Pulse Oximetry 98 04/01/21 18:22 MDM - General Adult MDM Narrative: Medical decision making narrative: Patient presents here with alcoholism had a possible seizures having some back pain x-rays of the neck normal head CT is normal she is well-appearing here she is stable for discharge she is to follow-up with PCP and return if worsening. Imaging Data^: CT Head: Attestation: I personally reviewed and interpreted this imaging study as follows: Radiologist's impression: [address] [address] [address] Scan Report Signed Patient: Pily Choe Unit #: [id number] : 1985 Age/Sex: 35 / F ADM Date: 04/01/21 Loc: ER Room/Bed: Attending Dr: Ordering Provider/Ordering MD: Juancarlos Meng DO Date of Service: 04/01/21 Procedure(s): CT head wo con* [id number] Accession Number(s): [id number] Report Number: [id number] PROCEDURE INFORMATION: Exam: CT Head Without Contrast Exam date and time: 04/01/2021 5:28 PM Age: 35 years old Clinical indication: Injury or trauma; Fall; Blunt trauma (contusions or hematomas); Patient HX: ETOH; Additional info: Fall, closed head injury TECHNIQUE: Imaging protocol: Computed tomography of the head without contrast. Axial, coronal and sagittal reformatted images were created and reviewed. Radiation optimization: All CT scans at this facility use at least one of these dose optimization techniques: automated exposure control; mA and/or kV adjustment per patient size (includes targeted exams where dose is matched to clinical indication); or iterative reconstruction. COMPARISON: CT head wo con* [id number] 04/02/2020 5:49 AM RADIATION DOSE METRICS: Total DLP (mGy-cm): 857.05 FINDINGS: Brain: No CT evidence of acute intracranial hemorrhage or acute territorial infarction. No significant mass effect or midline shift. Basal cisterns patent. Cerebral ventricles: Normal in size and configuration. Paranasal sinuses: Minimal ethmoid mucosal thickening. Mastoid air cells: Grossly unremarkable. Bones/joints: No acute osseous abnormality. Soft tissues: Grossly unremarkable. CT/CT head wo con* [id number]: 1. No CT evidence of acute intracranial pathology. 2. Additional findings, as above. Radiation Dose CTDIVOL = (mGy): DLP = 857.05 (mGy-cm) Dictated By: Grayson Toribio MD Signed By: Grayson Toribio MD Signed Date/Time: 04/01/211804 DD/ 1728 xr lumbar: My impression: no acute abnormality xr t spine: Attestation: I personally reviewed and interpreted this imaging study as follows: My impression: no acute abnormality Discharge Plan Discharge Patient Disposition: Home Clinical Impression: Back pain, Alcoholic gastritis, Alcoholic Condition: Stable Prescriptions: No Action No Known Home Medications RF: 0 Discharge Orders: Discharge ED (Routine); Ordered 04/01/21 Ordered By: Milton Piedra Referrals: Stanton Schumacher [Primary Care Provider] - 1-3 days Discharge Diet: Advance as tolerated Discharge Activity: Resume usual activity Patient Instructions: Abuse of Alcohol (ED) Coding Level of Care Code ED Pot Room Tapper for Chg Fwd Exam Comprehensive
--- NOTE | 2021-04-01 17:49 | PC.NURSE ---
PT NOT IN ROOM MONITORING FOR RETURN.
[2021-04-01 18:09] VITALS: BP 120/65; PULSE 88; RESP 12; TEMP 37.1; O2SAT 94; BMI 22.1
[2021-04-01 18:22] VITALS: BP 106/64; PULSE 97; O2SAT 98
--- NOTE | 2021-04-01 18:22 | PC.NURSE ---
WHILE AT BEDSIDE PT REPORTED THAT SHE WANTED TO GO TO SLEEP AND NOT WAKE UP BUT STATED, I DON'T WANT TO HURT MYSELF AND I DON'T WANT TO STAY . INFORMED DR. NINO. DR NINO AT BEDSIDE SPEAKING WITH PT. HE VERBALIZED AFTERWARD TO CONTINUE WITH DC AFTER MEDICATION ADM. INFORMED PT THAT SHE WAS ON SHOT TIME AND COULD LEAVE IN 15 MINS.
[2021-04-01] MEDS: ketorolac 30 mg/mL INJ IM (18:28)
[2021-04-01] MEDS: orphenadrine 30 mg/mL Inj 2 mL 60 MG IM (18:29)
--- NOTE | 2021-04-01 18:32 | PC.NURSE ---
INFORMED BY CHARGE THAT PT WAS SEEN LEAVING INFORMED DR. NINO NO FURTHER ORDERS.
== END 2021-04-01 18:46 | disposition home or self-care (01) ==
PROVIDERS: Emergency Provider Emergency Medicine; PCP Family Medicine
DX: M54.9 Dorsalgia, unspecified (principal); K29.20 Alcoholic gastritis without bleeding; F10.229 Alcohol dependence with intoxication, unspecified; K70.30 Alcoholic cirrhosis of liver without ascites; F17.200 Nicotine dependence, unspecified, uncomplicated
CPT/HCPCS: 70450; 72072; 72100; 96372; 96374; 96375; 99283; J1885; J2360

== ENCOUNTER 2021-04-02 01:45 | Emergency (ER) | payer MEDICAID, SELFPAY ==
[2021-04-02 01:47] VITALS: BP 114/75; PULSE 103; RESP 18; TEMP 36.6; O2SAT 94; BMI 23.6
--- NOTE | 2021-04-02 01:51 | W.ED.NAVMDI ---
HPI - Nausea/Vomiting/Diarrhea General: Chief complaint: Alcohol Stated complaint: PANIC ATTACK/ETOH Time Seen by Provider: 04/02/21 01:46 Source: patient and EMS Mode of arrival: EMS Limitations: no limitations History of Present Illness: HPI Narrative: 35-year-old female has a history of chronic alcoholism. Patient has been seen here twice for intoxication and vomiting she states that since she went home she drank another pint and was vomiting again. She denies any pain anywhere denies any diarrhea or blood in her stool that she had a slight amount of blood in her vomit. None noted here EMS states that she had no vomit there. She denies any suicidality or homicidality. Associated nausea: Yes Associated symtoms: Reports nausea; Denies chest pain, dysuria or headache(s) Review of Systems Const: Denies: fever(s), chills, body aches or change in appetite Eyes: Denies: blurry vision or eye discomfort ENMT: Denies: throat pain or dental pain Card: Denies: chest pain Resp: Denies: dyspnea GI: Reports: nausea and vomiting : Denies: dysuria Musc: Denies: neck pain or back pain Skin/Breast: Denies: rash Neuro: Denies: headache(s) Psych: Denies: depression Noel/Lymph: Denies: easy bruising All/Imm: Denies: urticaria PFSH ED PFSH: Medical History Acute on chronic anemia -s/p 2 units PRBCs with stable Hg thereafter Aspiration pneumonia -noted CT with noted airspace disease in the dependent portions of the lower lobes, R > L -afebrile, no leukocytosis -s/p 5 days of Zosyn -wean supplemental oxygen as tolerated -continue to monitor respiratory status -aspiration precautions Benzodiazepine abuse Depression End stage liver disease -noted hepatic cirrhosis on CT -secondary to EtOH abuse -continue to trend ammonia, on lactulose -prior hx of SBP, not enough fluid to drain, off abx -pain control as needed -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 Esophageal varices -hx of banding -s/p 2 units PRBCs on 04/07 with stability in Hg thereafter; continue to monitor H/H -on PPI History of alcohol abuse Overdose SBP (spontaneous bacterial peritonitis) Social History Smoking and tobacco status: current some day smoker Alcohol intake: current Alcohol intake frequency: 3 or more drinks per day Alcohol type: hard liquor Female Reproductive History: Date of last menstrual period: 04/01/14 Physical Exam Const: COMMON NORMALS: patient oriented x3 and healthy appearing GENERAL APPEARANCE: odor of alcohol detected HENMT: COMMON NORMALS: normocephalic and atraumatic HEAD & SCALP: normocephalic and atraumatic Eye: COMMON NORMALS: Equal, round and reactive pupils present and EOMs intact bilaterally PUPIL: Yes Equal, round and reactive pupils present Neck/C-Spine: COMMON NORMALS: full ROM and supple Chest: COMMONS NORMALS: normal inspection of the chest and normal palpation of entire chest wall Resp: COMMON NORMALS: normal respiratory effort, No retractions, No use of accessory muscles and clear to auscultation bilaterally AUSCULTATION: clear to auscultation bilaterally Cardio: COMMON NORMALS: regular rate, regular rhythm and No murmurs present (Cardio) RATE: regular rate RHYTHM: regular rhythm GI: COMMON NORMALS: Normal to inspection, nondistended, normoactive bowel sounds present, Soft to palpation, non-tender and no masses PALPATION: Yes Soft to palpation Extremity: COMMON NORMALS: normal to inspection and full ROM Neuro: COMMON NORMALS: patient oriented x3, moves all extremities and no focal motor deficits Psych: COMMON NORMALS: mental status grossly normal, Normal thought process present and cooperative THOUGHT PROCESS: Normal thought process present Skin: COMMON NORMALS: no rashes or lesions noted and no wounds GENERAL SKIN EXAM: no rashes or lesions noted Course Vital Signs: Vital signs: Vital Signs Temperature 97.9 F 04/02/21 04:06 Pulse Rate 84 04/02/21 04:06 Respiratory Rate 18 04/02/21 04:06 Blood Pressure 134/73 04/02/21 04:06 Pulse Oximetry 94 04/02/21 04:06 MDM - Nausea/Vomiting/Diarrhea MDM Narrative: Medical decision making narrative: Patient presents with alcohol intoxication on vomiting she is well-appearing here blood work here is normal she is not homicidal or suicidal she feels improved patient stable for discharge she is to follow-up PCP and return if worsening. Lab Data: Labs: Lab Results 04/02/21 04/02/21 04/02/21 02:03 02:03 02:03 WBC 9.5 10^3/uL 10^3/ uL (4.0-10.0) RBC 4.27 10^6/uL 10^6 /uL (4.1-5.3) Hgb 10.8 g/dL L g/dL (11.5-15.3) Hct 34.8 % L % (37.0-47.0) MCV 81.5 fl fl (81-99) MCH 25.3 pg L pg (28.0-34.0) MCHC 31.0 g/dL g/dL (30.0-36.0) RDW 20.3 % H % (12.1-15.1) Plt Count 251 10^3/cmm 10^3 /cmm (130-400) MPV 9.2 fL fL (7.4-10.4) Neut % (Auto) 44.9 % % Lymph % (Auto) 47.1 % % Clinton % (Auto) 5.3 % % Eos % (Auto) 1.1 % % Baso % (Auto) 1.4 % % Neut # (Auto) 4.25 10^3/uL 10^3 /uL (1.8-7.7) Lymph # (Auto) 4.5 10^3/uL 10^3/ uL (0.8-4.8) Clinton # (Auto) 0.5 10^3/uL 10^3/ uL (0.2-0.9) Eos # (Auto) 0.1 10^3/uL 10^3/ uL (0.0-0.8) Baso # (Auto) 0.1 10^3/uL 10^3/ uL (0.0-0.1) Nucleated RBC % (a uto) 0 % % Nucleated RBCs # 0.0 /100WBC /100W BC Sodium 141 mmol/L mmol/L (136-145) Potassium 3.3 mmol/L L mmol /L (3.5-5.1) Chloride 102 mmol/L mmol/L (98-107) Carbon Dioxide 23 mmol/L mmol/L (22-29) Anion Gap 19.3 H (5-19) BUN 3 mg/dL L mg/dL (6-20) Creatinine 0.7 mg/dL mg/dL (0.5-0.9) GFR Calculation 94.2 mL/min mL/mi n (90-130) Glucose 105 mg/dL mg/dL (65-115) Calculated Osmolal ity 289 mOsm/kg mOsm/ kg (285-295) Calcium 8.2 mg/dL L mg/dL (8.5-10.5) Total Bilirubin 0.6 mg/dL mg/dL (0.15-1.2) AST 36 U/L H U/L (0-32) ALT 13 U/L U/L (0-33) Alkaline Phosphata se 154 IU/L H IU/L (35-105) Total Protein 5.8 g/dL L g/dL (6.6-8.7) Albumin 3.7 g/dL g/dL (3.5-5.2) Globulin 2.1 g/dL g/dL (1.3-4.6) Lipase 22 U/L U/L (13-60) HCG, Qual Negative (Negative) Salicylates < 0.3 mg/dL L mg/ dL (3-10) Urine Opiates Scre en Acetaminophen < 5.0 ug/mL L ug/ mL (10-30) Ur Barbiturates Sc reen Ur Phencyclidine S crn Ur Amphetamines Sc reen U Benzodiazepines Scrn Urine Cocaine Scre en U Marijuana (THC) Screen Ethyl Alcohol 359 mg/dL H* mg/d L (0-10) 04/02/21 03:14 WBC RBC Hgb Hct MCV MCH MCHC RDW Plt Count MPV Neut % (Auto) Lymph % (Auto) Clinton % (Auto) Eos % (Auto) Baso % (Auto) Neut # (Auto) Lymph # (Auto) Clinton # (Auto) Eos # (Auto) Baso # (Auto) Nucleated RBC % (a uto) Nucleated RBCs # Sodium Potassium Chloride Carbon Dioxide Anion Gap BUN Creatinine GFR Calculation Glucose Calculated Osmolal ity Calcium Total Bilirubin AST ALT Alkaline Phosphata se Total Protein Albumin Globulin Lipase HCG, Qual Salicylates Urine Opiates Scre en Negative ng/mL ng /mL (Negative) Acetaminophen Ur Barbiturates Sc reen Negative ng/mL ng /mL (Negative) Ur Phencyclidine S crn Negative ng/mL ng /mL (Negative) Ur Amphetamines Sc reen Negative ng/mL ng /mL (Negative) U Benzodiazepines Scrn Positive ng/mL H ng/mL (Negative) Urine Cocaine Scre en Negative ng/mL ng /mL (Negative) U Marijuana (THC) Screen Negative ng/mL ng /mL (Negative) Ethyl Alcohol Discharge Plan Discharge Patient Disposition: Home Clinical Impression: Alcoholic intoxication Qualifiers: Complication of substance-induced condition: uncomplicated Qualified Code(s): F10.920 - Alcohol use, unspecified with intoxication, uncomplicated Condition: Stable Prescriptions: No Action Carafate 1 gram tablet 1 g PO Q6H PRN (Reason: dyspepsia) 28 Days Qty: 112 RF: 0 levothyroxine 50 mcg Capsule 50 mcg PO DAILY@0530 RF: 0 potassium chloride 10 mEq Capsule, Extended Release 5 meq PO BID@0630,1800 RF: 0 spironolactone 25 mg Tablet 12.5 mg PO BID@0630,1800 RF: 0 trazodone 100 mg Tablet 100 mg PO BEDTIME@2200 RF: 0 pantoprazole [Protonix] 40 mg Tablet,Delayed Release (Dr/Ec) 40 mg PO BID@0600,1800 RF: 0 folic acid 1 mg Tablet 1 mg PO DAILY@0630 RF: 0 furosemide [Lasix] 20 mg Tablet 20 mg PO BID@0600,1800 RF: 0 escitalopram oxalate [Lexapro] 10 mg Tablet 10 mg PO TID@0630,1230,2200 RF: 0 lactulose 10 gram/15 mL (15 mL) Solution 20 ml PO TID@0630,1230,2200 RF: 0 magnesium oxide 400 mg magnesium Tablet 400 mg PO DAILY@0630 RF: 0 Vitamin B-1 100 mg tablet 100 mg PO DAILY@1800 RF: 0 olanzapine 5 mg Tablet,Disintegrating 5 mg PO Q4H PRN (Reason: Agitation/Psychosis) Qty: 30 RF: 0 ondansetron HCl [Zofran] 4 mg Tablet 4 mg PO Q8H PRN (Reason: Anxiety) Qty: 30 RF: 0 Vitamin C 1 tab PO DAILY@0630 RF: 0 Vitamin D3 1 tab PO DAILY@0630 RF: 0 baclofen See Rx Instructions .ROUTE .COMPLEX RF: 0 hydroxyzine HCl See Rx Instructions .ROUTE .COMPLEX RF: 0 midodrine See Rx Instructions .ROUTE .COMPLEX RF: 0 promethazine 1 tab PO Q4H PRN (Reason: nausea/vomiting) RF: 0 tizanidine See Rx Instructions .ROUTE .COMPLEX PRN (Reason: muscle spasms) RF: 0 zinc 1 tab PO DAILY@0630 RF: 0 Thera 400 mcg tablet 1 tab PO DAILY@2200 RF: 0 amoxicillin See Rx Instructions .ROUTE .COMPLEX RF: 0 Zofran 4 mg tablet 4 mg PO Q6H PRN (Reason: nausea and vomiting) Qty: 15 RF: 0 Discharge Orders: Discharge ED (Routine); Ordered 04/02/21 Ordered By: Milton Piedra Referrals: Stanton Schumacher [Primary Care Provider] - Discharge Diet: Advance as tolerated Discharge Activity: Resume usual activity Patient Instructions: Abuse of Alcohol (ED) Coding Level of Care Code ED Motor Driver for Margarita Fwd Exam Comprehensive
[2021-04-02 02:14] LABS: Basophils # 0.1 10^3/uL (0.0-0.1); Basophils % 1.4 %; Eosinophils # 0.1 10^3/uL (0.0-0.8); Eosinophils % 1.1 %; Hematocrit 34.8 % (37.0-47.0); Hemoglobin 10.8 g/dL (11.5-15.3); Lymphocytes # 4.5 10^3/uL (0.8-4.8); Lymphocytes % 47.1 %; Mean Corpuscular Hemoglobin 25.3 pg (28.0-34.0); Mean Corpuscular Volume 81.5 fl (81-99); Mean Platelet Volume 9.2 fL (7.4-10.4); Monocytes # 0.5 10^3/uL (0.2-0.9); Monocytes % 5.3 %; Neutrophils # 4.25 10^3/uL (1.8-7.7); Neutrophils % 44.9 %; Nucleated Red Blood Cells % 0 %; Platelet Count 251 10^3/cmm (130-400); Red Blood Count 4.27 10^6/uL (4.1-5.3); Red Cell Distribution Width 20.3 % (12.1-15.1); White Blood Count 9.5 10^3/uL (4.0-10.0)
[2021-04-02] MEDS: diphenhydrAMINE 50 mg/mL SDV 1mL IVP (02:14)
[2021-04-02] MEDS: metoclopramide 5 mg/mL SDV 2 mL 10 MG IVP (02:14)
[2021-04-02] MEDS: multivitamin therapeutic Tablet 1 TAB PO (02:15)
[2021-04-02 02:26] LABS: HCG, Serum Qual Negative (Negative)
[2021-04-02 02:29] LABS: Alanine Aminotransferase 13 U/L (0-33); Albumin Level 3.7 g/dL (3.5-5.2); Alkaline Phosphatase 154 IU/L (35-105); Anion Gap 19.3 (5-19); Aspartate Amino Transferase 36 U/L (0-32); Blood Urea Nitrogen 3 mg/dL (6-20); Calcium 8.2 mg/dL (8.5-10.5); Carbon Dioxide 23 mmol/L (22-29); Chloride 102 mmol/L (98-107); Globulin 2.1 g/dL (1.3-4.6); Glomerular Filtration Rate 94.2 mL/min (90-130); Glucose 105 mg/dL (65-115); Lipase 22 U/L (13-60); Osmolality Calculated 289 mOsm/kg (285-295); Potassium 3.3 mmol/L (3.5-5.1); Sodium 141 mmol/L (136-145); Total Bilirubin 0.6 mg/dL (0.15-1.2); Total Protein 5.8 g/dL (6.6-8.7)
[2021-04-02 02:36] LABS: Acetaminophen < 5.0 ug/mL (10-30); Salicylate < 0.3 mg/dL (3-10)
[2021-04-02 02:37] LABS: Alcohol Level 359 mg/dL (0-10)
[2021-04-02 03:28] LABS: Amphetamines Screen Urine Negative (Negative); Barbiturates Screen Urine Negative (Negative); Benzodiazepines Screen Urine Positive (Negative); Cocaine Screen Urine Negative (Negative); Opiate Screen Urine Negative (Negative); PCP Screen Urine Negative (Negative); THC Screen Urine Negative (Negative)
[2021-04-02 04:06] VITALS: BP 134/73; PULSE 84; RESP 18; TEMP 36.6; O2SAT 94
== END 2021-04-02 04:07 | disposition home or self-care (01) ==
PROVIDERS: Emergency Provider Emergency Medicine; PCP Family Medicine
DX: F10.229 Alcohol dependence with intoxication, unspecified (principal); Y90.8 Blood alcohol level of 240 mg/100 ml or more; Z79.899 Other long term (current) drug therapy; F17.200 Nicotine dependence, unspecified, uncomplicated
CPT/HCPCS: 80053; 80306; 80307; 83690; 84703; 85025; 96374; 96375; 99284; J1200; J2765; J3411

== ENCOUNTER 2021-04-03 01:43 | Inpatient (IN) | payer MEDICAID, SELFPAY ==
[2021-04-03] VITALS (10 sets, daily range): BP systolic 89–136; BP diastolic 55–86; PULSE 86–122; RESP 12–20; TEMP 36.2–36.7; O2SAT 91–97; BMI 34.0
--- NOTE | 2021-04-03 02:00 | ED_ITS ---
HPI - Alcohol General: Chief Complaint: Alcohol Stated Complaint: ETOH Time Seen by Provider: 04/03/21 01:49 Source: patient and EMS Mode of arrival: EMS Limitations: no limitations History of Present Illness: HPI narrative: 35-year-old female who is an alcoholic has been seen here multiple times states she started drinking again today and had vomiting states that she is felt like she needs IV fluids now. She denies any abdominal pain denies any diarrhea. Denies any suicidal homicidal ideations. Denies any worsening improving factors. Associated symptoms: Reports vomiting; Deny depression Review of Systems Const: Denies: fever(s), chills, body aches or change in appetite Eyes: Denies: blurry vision or eye discomfort ENMT: Denies: throat pain or dental pain Card: Denies: chest pain Resp: Denies: dyspnea GI: Reports: vomiting : Denies: dysuria Musc: Denies: neck pain or back pain Skin/Breast: Denies: rash Neuro: Denies: headache(s) Psych: Denies: depression Noel/Lymph: Denies: easy bruising All/Imm: Denies: urticaria PFSH ED PFSH: Medical History Acute on chronic anemia -s/p 2 units PRBCs with stable Hg thereafter Aspiration pneumonia -noted CT with noted airspace disease in the dependent portions of the lower lobes, R > L -afebrile, no leukocytosis -s/p 5 days of Zosyn -wean supplemental oxygen as tolerated -continue to monitor respiratory status -aspiration precautions Benzodiazepine abuse Depression End stage liver disease -noted hepatic cirrhosis on CT -secondary to EtOH abuse -continue to trend ammonia, on lactulose -prior hx of SBP, not enough fluid to drain, off abx -pain control as needed -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 [place] and is on transplant list Esophageal varices -hx of banding -s/p 2 units PRBCs on 04/07 with stability in Hg thereafter; continue to monitor H/H -on PPI History of alcohol abuse Overdose SBP (spontaneous bacterial peritonitis) Social History Smoking and tobacco status: current some day smoker Alcohol intake: current Alcohol intake frequency: 3 or more drinks per day Alcohol type: hard liquor Female Reproductive History: Date of last menstrual period: 04/01/14 Physical Exam Const: COMMON NORMALS: no acute distress and patient oriented x3 GENERAL APPEARANCE: disheveled and odor of alcohol detected HENMT: COMMON NORMALS: normocephalic and atraumatic HEAD & SCALP: normocephalic and atraumatic Eye: COMMON NORMALS: Equal, round and reactive pupils present and EOMs intact bilaterally PUPIL: Yes Equal, round and reactive pupils present Neck/C-Spine: COMMON NORMALS: full ROM and supple Chest: COMMONS NORMALS: normal inspection of the chest and normal palpation of entire chest wall Resp: COMMON NORMALS: normal respiratory effort, No retractions, No use of accessory muscles and clear to auscultation bilaterally AUSCULTATION: clear t o auscultation bilaterally Cardio: COMMON NORMALS: regular rate, regular rhythm and No murmurs present (Cardio) RATE: regular rate RHYTHM: regular rhythm GI: COMMON NORMALS: Normal to inspection, nondistended, normoactive bowel sounds present, Soft to palpation, non-tender and no masses PALPATION: Yes Soft to palpation Extremity: COMMON NORMALS: normal to inspection and full ROM Neuro: COMMON NORMALS: patient oriented x3, moves all extremities and no focal motor deficits Psych: COMMON NORMALS: mental status grossly normal, Normal thought process present and cooperative THOUGHT PROCESS: Normal thought process present Skin: COMMON NORMALS: no rashes or lesions noted and no wounds GENERAL SKIN EXAM: no rashes or lesions noted Course Vital Signs: Vital signs: Vital Signs Temperature 98.0 F 04/03/21 01:45 Pulse Rate 96 04/03/21 04:00 Respiratory Rate 18 04/03/21 04:00 Blood Pressure 120/68 04/03/21 04:00 Pulse Oximetry 97 04/03/21 04:00 MDM - Alcohol MDM Narrative: Medical decision making narrative: 78 presents with alcohol intoxication she is made multiple suicidal statements when she is here and states she is no longer wants to live patient placed under 96-hour hold I spoke to Dr. Beach and will admit to the psychiatric unit. Patient placed on alcohol withdrawal protocol. Lab Data: Labs: Lab Results 04/03/21 04/03/21 02:39 02:39 WBC 7.7 10^3/uL 10^3/ uL (4.0-10.0) RBC 4.40 10^6/uL 10^6 /uL (4.1-5.3) Hgb 11.1 g/dL L g/dL (11.5-15.3) Hct 35.9 % L % (37.0-47.0) MCV 81.6 fl fl (81-99) MCH 25.2 pg L pg (28.0-34.0) MCHC 30.9 g/dL g/dL (30.0-36.0) RDW 20.6 % H % (12.1-15.1) Plt Count 250 10^3/cmm 10^3 /cmm (130-400) MPV 9.1 fL fL (7.4-10.4) Neut % (Auto) 48.0 % % Lymph % (Auto) 44.3 % % [place] % (Auto) 5.2 % % Eos % (Auto) 1.0 % % Baso % (Auto) 1.2 % % Neut # (Auto) 3.71 10^3/uL 10^3 /uL (1.8-7.7) Lymph # (Auto) 3.4 10^3/uL 10^3/ uL (0.8-4.8) [place] # (Auto) 0.4 10^3/uL 10^3/ uL (0.2-0.9) Eos # (Auto) 0.1 10^3/uL 10^3/ uL (0.0-0.8) Baso # (Auto) 0.1 10^3/uL 10^3/ uL (0.0-0.1) Nucleated RBC % (a uto) 0 % % Nucleated RBCs # 0.0 /100WBC /100W BC Sodium 146 mmol/L H mmol /L (136-145) Potassium 3.9 mmol/L mmol/L (3.5-5.1) Chloride 107 mmol/L mmol/L (98-107) Carbon Dioxide 26 mmol/L mmol/L (22-29) Anion Gap 16.9 (5-19) BUN 4 mg/dL L mg/dL (6-20) Creatinine 0.6 mg/dL mg/dL (0.5-0.9) GFR Calculation 112.5 mL/min mL/m in (90-130) Glucose 115 mg/dL mg/dL (65-115) Calculated Osmolal ity 300 mOsm/kg H mOs m/kg (285-295) Calcium 8.0 mg/dL L mg/dL (8.5-10.5) Total Bilirubin 0.6 mg/dL mg/dL (0.15-1.2) AST 52 U/L H U/L (0-32) ALT 18 U/L U/L (0-33) Alkaline Phosphata se 172 IU/L H IU/L (35-105) Total Protein 6.0 g/dL L g/dL (6.6-8.7) Albumin 3.8 g/dL g/dL (3.5-5.2) Globulin 2.2 g/dL g/dL (1.3-4.6) Salicylates < 0.3 mg/dL L mg/ dL (3-10) Acetaminophen < 5.0 ug/mL L ug/ mL (10-30) Ethyl Alcohol 407 mg/dL H* mg/d L (0-10) Discharge Plan Discharge Patient Disposition: Admitted As Inpatient Clinical Impression: Suicidal ideations Alcoholic intoxication Qualifiers: Complication of substance-induced condition: uncomplicated Qualified Code(s): F10.920 - Alcohol use, unspecified with intoxication, uncomplicated Condition: Stable Coding Level of Care Code ED Printer Floor Covering Assistant for Margarita Fwd Exam Comprehensive
[2021-04-03 02:55] LABS: Basophils # 0.1 10^3/uL (0.0-0.1); Basophils % 1.2 %; Eosinophils # 0.1 10^3/uL (0.0-0.8); Hematocrit 35.9 % (37.0-47.0); Hemoglobin 11.1 g/dL (11.5-15.3); Lymphocytes # 3.4 10^3/uL (0.8-4.8); Lymphocytes % 44.3 %; Mean Corpuscular HGB Conc 30.9 g/dL (30.0-36.0); Mean Corpuscular Hemoglobin 25.2 pg (28.0-34.0); Mean Corpuscular Volume 81.6 fl (81-99); Mean Platelet Volume 9.1 fL (7.4-10.4); Monocytes # 0.4 10^3/uL (0.2-0.9); Monocytes % 5.2 %; Neutrophils # 3.71 10^3/uL (1.8-7.7); Nucleated Red Blood Cells % 0 %; Platelet Count 250 10^3/cmm (130-400); Red Cell Distribution Width 20.6 % (12.1-15.1); White Blood Count 7.7 10^3/uL (4.0-10.0)
[2021-04-03] MEDS: sodium chloride 0.9% 1,000 ML 999 ML IV ×2 (03:14→10:59)
[2021-04-03] MEDS: ondansetron 2 mg/ML SDV 2 mL 4 MG IVP ×2 (03:14→11:24)
[2021-04-03 03:35] LABS: Alanine Aminotransferase 18 U/L (0-33); Albumin Level 3.8 g/dL (3.5-5.2); Alkaline Phosphatase 172 IU/L (35-105); Aspartate Amino Transferase 52 U/L (0-32); Blood Urea Nitrogen 4 mg/dL (6-20); Carbon Dioxide 26 mmol/L (22-29); Chloride 107 mmol/L (98-107); Globulin 2.2 g/dL (1.3-4.6); Glomerular Filtration Rate 112.5 mL/min (90-130); Glucose 115 mg/dL (65-115); Osmolality Calculated 300 mOsm/kg (285-295); Sodium 146 mmol/L (136-145); Total Bilirubin 0.6 mg/dL (0.15-1.2)
[2021-04-03 03:37] LABS: Acetaminophen < 5.0 ug/mL (10-30); Salicylate < 0.3 mg/dL (3-10)
[2021-04-03 03:38] LABS: Alcohol Level 407 mg/dL (0-10)
[2021-04-03 03:39] LABS: Anion Gap 16.9 (5-19); Potassium 3.9 mmol/L (3.5-5.1)
--- NOTE | 2021-04-03 04:27 | PC.NURSE ---
pt requesting to check in the stress unit . When asked foe her reason, pt states she wishes to detox because I am a bad person . notified. Pt then changed her mind, requesting to go home after being informed she would not be transferred to [facility]. Medical 96h hold placed by physician. Sitter assigned, pt placed in paper scrubs, belonging locked in ED cabinet
--- NOTE | 2021-04-03 05:04 | PC.NURSE ---
pt pulled IV out. Dr notified
--- NOTE | 2021-04-03 05:13 | W.ED.ALCOHOL ---
HPI - Alcohol General: Chief Complaint: Alcohol Stated Complaint: ETOH Time Seen by Provider: 04/03/21 01:49 Source: patient and EMS Mode of arrival: EMS Limitations: no limitations PFSH ED PFSH: Medical History Acute on chronic anemia -s/p 2 units PRBCs with stable Hg thereafter Aspiration pneumonia -noted CT with noted airspace disease in the dependent portions of the lower lobes, R > L -afebrile, no leukocytosis -s/p 5 days of Zosyn -wean supplemental oxygen as tolerated -continue to monitor respiratory status -aspiration precautions Benzodiazepine abuse Depression End stage liver disease -noted hepatic cirrhosis on CT -secondary to EtOH abuse -continue to trend ammonia, on lactulose -prior hx of SBP, not enough fluid to drain, off abx -pain control as needed -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 Esophageal varices -hx of banding -s/p 2 units PRBCs on 04/07 with stability in Hg thereafter; continue to monitor H/H -on PPI History of alcohol abuse Overdose SBP (spontaneous bacterial peritonitis) Social History Smoking and tobacco status: current some day smoker Alcohol intake: current Alcohol intake frequency: 3 or more drinks per day Alcohol type: hard liquor Female Reproductive History: Date of last menstrual period: 04/01/14 Course Reevaluation(s): Reevaluation #1: Patient had initially calm down but then became combative with staff was trying to leave again patient had to be chemically restrained with ketamine. Patient's placed on monitors and is stable currently. Time: 05:29 Vital Signs: Vital signs: Vital Signs Temperature 98.0 F 04/03/21 01:45 Pulse Rate 96 04/03/21 04:00 Respiratory Rate 18 04/03/21 04:00 Blood Pressure 120/68 04/03/21 04:00 Pulse Oximetry 97 04/03/21 04:00 MDM - Alcohol Lab Data: Labs: Lab Results 04/03/21 04/03/21 02:39 02:39 WBC 7.7 10^3/uL 10^3/ uL (4.0-10.0) RBC 4.40 10^6/uL 10^6 /uL (4.1-5.3) Hgb 11.1 g/dL L g/dL (11.5-15.3) Hct 35.9 % L % (37.0-47.0) MCV 81.6 fl fl (81-99) MCH 25.2 pg L pg (28.0-34.0) MCHC 30.9 g/dL g/dL (30.0-36.0) RDW 20.6 % H % (12.1-15.1) Plt Count 250 10^3/cmm 10^3 /cmm (130-400) MPV 9.1 fL fL (7.4-10.4) Neut % (Auto) 48.0 % % Lymph % (Auto) 44.3 % % [place] % (Auto) 5.2 % % Eos % (Auto) 1.0 % % Baso % (Auto) 1.2 % % Neut # (Auto) 3.71 10^3/uL 10^3 /uL (1.8-7.7) Lymph # (Auto) 3.4 10^3/uL 10^3/ uL (0.8-4.8) [place] # (Auto) 0.4 10^3/uL 10^3/ uL (0.2-0.9) Eos # (Auto) 0.1 10^3/uL 10^3/ uL (0.0-0.8) Baso # (Auto) 0.1 10^3/uL 10^3/ uL (0.0-0.1) Nucleated RBC % (a uto) 0 % % Nucleated RBCs # 0.0 /100WBC /100W BC Sodium 146 mmol/L H mmol /L (136-145) Potassium 3.9 mmol/L mmol/L (3.5-5.1) Chloride 107 mmol/L mmol/L (98-107) Carbon Dioxide 26 mmol/L mmol/L (22-29) Anion Gap 16.9 (5-19) BUN 4 mg/dL L mg/dL (6-20) Creatinine 0.6 mg/dL mg/dL (0.5-0.9) GFR Calculation 112.5 mL/min mL/m in (90-130) Glucose 115 mg/dL mg/dL (65-115) Calculated Osmolal ity 300 mOsm/kg H mOs m/kg (285-295) Calcium 8.0 mg/dL L mg/dL (8.5-10.5) Total Bilirubin 0.6 mg/dL mg/dL (0.15-1.2) AST 52 U/L H U/L (0-32) ALT 18 U/L U/L (0-33) Alkaline Phosphata se 172 IU/L H IU/L (35-105) Total Protein 6.0 g/dL L g/dL (6.6-8.7) Albumin 3.8 g/dL g/dL (3.5-5.2) Globulin 2.2 g/dL g/dL (1.3-4.6) Salicylates < 0.3 mg/dL L mg/ dL (3-10) Acetaminophen < 5.0 ug/mL L ug/ mL (10-30) Ethyl Alcohol 407 mg/dL H* mg/d L (0-10) Discharge Plan Discharge Patient Disposition: Admitted As Inpatient Clinical Impression: Suicidal ideations Alcoholic intoxication Qualifiers: Complication of substance-induced condition: uncomplicated Qualified Code(s): F10.920 - Alcohol use, unspecified with intoxication, uncomplicated Condition: Stable Coding Level of Care Code ED Special Event Assistant for Margarita Fwd Face to Face: Restrn/Seclusion Events leading up to initiation: Verbalizing threat to self or others, Demonstrating self-destructive behavior (cutting, hitting lowe etc.) and Combative/Striking out at staff or others Evaluation of patient's immediate situation: Alert and oriented and Signs of psychological distress Patient reaction since intervention applied: Continued attempts/displays harmful behavior Recent labs reviewed: Yes Review of medications: Yes Patient's current medical/behavioral condition: No new concerns since last ROS
[2021-04-03] MEDS: haloperidol inj 5 mg/mL INJ 1 mL IM (05:30)
[2021-04-03] MEDS: LORazepam 2 mg/mL INJ 1 mL IM (05:30)
[2021-04-03 06:30] LABS: HCG Qualitative Urine. Negative (Negative)
--- NOTE | 2021-04-03 06:32 | PC.NURSE ---
after pt removed IV from arm, pt began to make threats that she will leave the ED. Pt informed she has a 96 hour hold by both staff and physician. Pt began to walk towards staff covered in own blood, refusing to listen to commands. 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 Security called, Dr notified as pt was leaving dept. Pt found outside with physician and brought in to dept. 250mg of ketamine adm IM. Pt room changed to trauma 10. Pt placed on cardiac monitoring. Bilateral IV 20g IV started. Nasal trumpet placed by Vitals : 118/63 bp, 99hr, 91% on 4lpm [id number]
[2021-04-03 06:53] LABS: Amphetamines Screen Urine Negative (Negative); Barbiturates Screen Urine Negative (Negative); Benzodiazepines Screen Urine Negative (Negative); Cocaine Screen Urine Negative (Negative); Opiate Screen Urine Negative (Negative); PCP Screen Urine Negative (Negative); THC Screen Urine Positive (Negative)
--- NOTE | 2021-04-03 10:25 | PC.NURSE ---
pt alert and oriented, up to bedside commode.
[2021-04-03] MEDS: thiamine 100 mg Tablet PO (10:58)
[2021-04-03] MEDS: multivitamin therapeutic Tablet 1 TAB PO (10:58)
[2021-04-03] MEDS: LORazepam 2 mg Tablet PO (11:24)
[2021-04-04] MEDS: LORazepam 2 mg Tablet PO ×2 (01:11→08:26)
[2021-04-04] MEDS: ondansetron 4 MG Tablet PO (03:08)
[2021-04-04 06:00] VITALS: BP 104/61; PULSE 96; RESP 16; TEMP 36.9; O2SAT 99
[2021-04-04] MEDS: thiamine 100 mg Tablet PO (08:22)
[2021-04-04] MEDS: multivitamin therapeutic Tablet 1 TAB PO (08:22)
[2021-04-04] MEDS: folic acid 1 mg Tablet PO (08:22)
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
--- NOTE | 2021-04-04 13:32 | NPU.GN ---
[facility] Unit Group Topic:Alen Parks Psych Education General Mood of Group:Pily did not attend group this morning she wanted to sleep.
[2021-04-04 14:00] VITALS: BP 94/57; PULSE 100; RESP 17; TEMP 36.9; O2SAT 98
[2021-04-04] MEDS: hyDROXYzine 25 mg Capsule 50 MG PO ×2 (16:02→20:45)
[2021-04-04] MEDS: acetaminophen 325 mg Tablet 650 MG PO (20:45)
[2021-04-04] MEDS: trazodone 50 mg Tablet PO (20:45)
[2021-04-04 21:50] VITALS: BP 114/65; PULSE 104; RESP 17; TEMP 36.6; O2SAT 97
--- NOTE | 2021-04-05 00:28 | PC.NURSE ---
Patient noted in the bathroom with nausea a vomiting. Clear fluid visualized in toilet by nurse. Patient states I can't take anything by mouth when I get like this. MD notifed. Orders transcribed electronically and medication administered. MD consult ordered in addition to intramuscular medication for nausea and vomiting. MD notified of consult. Continue to monitor patient.
[2021-04-05] MEDS: ondansetron 2 mg/ML SDV 2 mL 4 MG IM (00:50)
[2021-04-05] MEDS: LORazepam 2 mg Tablet PO (01:10)
[2021-04-05 06:00] VITALS: BP 110/71; PULSE 115; RESP 18; TEMP 36.6; O2SAT 96
--- NOTE | 2021-04-05 07:32 | P.NPUPN_ITS ---
Subjective NPU Subjective: Interval history: Patient presents today reporting that she feels much more stable and does not feel a pressure to to drink and feels steady again. She reports that she feels ready to go and deal with some of the issues with moving. She discussed a desire to leave and we reviewed the fact that she is on a 96-hour hold. We discussed the possibility for discharge in the morning. Mental Status Exam MSE Comments: This is an underweight white female in hospital scrubs with limited grooming and adequate eye contact. No abnormal movements except for limited tremulousness. Cooperative with exam in no acute distress. Speech was more normal rate and volume. Mood described as good, affect less subdued. Thought process organized. Thought content: She denied any suicidal or homicidal ideation, there were no delusions reported or noted, she denied any auditory or visual hallucinations. Attention and concentration were intact and memory was more reliable, but none were formally tested. She was more alert and oriented x3. Insight and judgment are fair, impulse control is impaired. Vitals/I&O/Wt Last Vital Signs Temp 97.9 F 04/05/21 06:00 Pulse 115 H 04/05/21 06:00 Resp 18 04/05/21 06:00 BP 110/71 04/05/21 06:00 Pulse Ox 96 04/05/21 06:00 Data NPU : 04/03/21 02:39 04/03/21 02:39 A&P Additional A&P Information (1) Alcoholic gastritis: (2) Back pain: (3) Alcoholic intoxication: (4) Suicidal ideations: (5) Depression: (6) Anxiety: (7) Alcohol use disorder, severe, dependence: Additional A&P Information This is a white female with a long history of alcohol use disorder severe with recent relapse, anxiety, depression and history of liver failure/cirrhosis who presents with recent use looking to stabilize. 1. Continue current medication. 2. Continue every 15 minute checks for safety. 3. Encourage individual, group and milieu therapies. 4. Encourage sober living treatment after discharge at the highest level of care to which he is willing to commit. Reports that in her recent moved [place] she has connected with [facility]. Involuntary Hold Information 96 Hour Hold: 96 Hour Involuntary Admission: No Attestations NPU Medical Necessity Statement*: Inpatient hospitalization is medically necessary and the clinically appropriate intervention at this time. We will monitor medi cation to make changes as indicated. Likely length of stay 1-3 days. Coding Level of Care Code Acute Traffic Rate Clerk for Margarita Mireles
[2021-04-05] MEDS: thiamine 100 mg Tablet PO (09:27)
[2021-04-05] MEDS: folic acid 1 mg Tablet PO (09:27)
[2021-04-05] MEDS: multivitamin therapeutic Tablet 1 TAB PO (09:27)
[2021-04-05 14:00] VITALS: BP 110/71; PULSE 100; RESP 18; TEMP 36.6; O2SAT 96
[2021-04-05] MEDS: ondansetron 4 MG Tablet PO (20:26)
[2021-04-05] MEDS: trazodone 50 mg Tablet PO ×2 (20:26→21:38)
[2021-04-05] MEDS: hyDROXYzine 25 mg Capsule 50 MG PO (20:26)
[2021-04-05 21:59] VITALS: BP 115/81; PULSE 104; RESP 17; TEMP 36.7; O2SAT 98
[2021-04-06] MEDS: hyDROXYzine 25 mg Capsule 50 MG PO (02:21)
[2021-04-06 06:00] VITALS: BP 119/81; PULSE 66; RESP 17; TEMP 36.7; O2SAT 98; BMI 34.0
[2021-04-06] MEDS: folic acid 1 mg Tablet PO (08:40)
[2021-04-06] MEDS: multivitamin therapeutic Tablet 1 TAB PO (08:40)
[2021-04-06] MEDS: thiamine 100 mg Tablet PO (08:41)
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
[2021-04-06 10:27] VITALS: BP 124/86; PULSE 91; RESP 17; TEMP 37.1; O2SAT 97
[2021-04-06 10:28] VITALS: BP 124/86; PULSE 91; RESP 17; TEMP 37.1; O2SAT 97
== END 2021-04-06 11:04 | disposition home or self-care (01) | DRG 881 ==
LOC: ER 08:06 → NP 04-04 07:31
PROVIDERS: Admitting Provider Psychiatry & Neurology Psychiatry; Emergency Provider Emergency Medicine; PCP Family Medicine; Visit Provider Psychiatry & Neurology Psychiatry
DX: F32.A Depression, unspecified (principal); R45.851 Suicidal ideations; K72.10 Chronic hepatic failure without coma; F10.229 Alcohol dependence with intoxication, unspecified; K29.20 Alcoholic gastritis without bleeding; Y90.8 Blood alcohol level of 240 mg/100 ml or more; K70.30 Alcoholic cirrhosis of liver without ascites; F17.210 Nicotine dependence, cigarettes, uncomplicated; F41.9 Anxiety disorder, unspecified; E03.9 Hypothyroidism, unspecified
CPT/HCPCS: 80053; 80306; 80307; 81025; 85025; 96361; 96372; 96374; 97165; 99285; J1630; J2060; J2405; J3411; J3490; J7030; Q0162

== ENCOUNTER 2021-04-13 23:04 | Emergency (ER) | payer MEDICAID, SELFPAY ==
[2021-04-13 23:07] VITALS: BP 108/66; PULSE 105; RESP 24; TEMP 36.1; O2SAT 94; BMI 22.1
--- NOTE | 2021-04-13 23:26 | ED_ITS ---
HPI - Extremity Problem General: Chief complaint: Extremity Injury, Lower Stated complaint: Right Foot Pain Time Seen by Provider: 04/13/21 23:26 History of Present Illness: HPI Narrative: 36-year-old female was walking down the stairs last night and fell twisting her right foot. Patient states she felt a pop. Patient reports that she has had a previous fracture to the foot. Patient appears well. Patient appears no acute distress. Patient has alcohol u se disorder and chronic liver issues. Review of Systems General: Reports: 10 or more systems reviewed and unremarkable except in HPI and below Musc: Reports: other (Right foot fracture) [facility] ED PFSH: Medical History Acute on chronic anemia -s/p 2 units PRBCs with stable Hg thereafter Aspiration pneumonia -noted CT with noted airspace disease in the dependent portions of the lower lobes, R > L -afebrile, no leukocytosis -s/p 5 days of Zosyn -wean supplemental oxygen as tolerated -continue to monitor respiratory status -aspiration precautions Benzodiazepine abuse Depression End stage liver disease -noted hepatic cirrhosis on CT -secondary to EtOH abuse -continue to trend ammonia, on lactulose -prior hx of SBP, not enough fluid to drain, off abx -pain control as needed -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 in [place] and is on transplant list Esophageal varices -hx of banding -s/p 2 units PRBCs on 04/07 with stability in Hg thereafter; continue to monitor H/H -on PPI History of alcohol abuse Overdose SBP (spontaneous bacterial peritonitis) Social History Smoking and tobacco status: current some day smoker Alcohol intake: current Alcohol intake frequency: 3 or more drinks per day Alcohol type: hard liquor Female Reproductive History: Date of last menstrual period: 04/01/14 Physical Exam Const: COMMON NORMALS: no acute distress and patient oriented x3 GENERAL APPEARANCE: cooperative HENMT: COMMON NORMALS: normocephalic HEAD & SCALP: normal to inspection and normocephalic Neck/C-Spine: COMMON NORMALS: full ROM Lymph: LYMPHATIC: no lymphadenopathy noted Chest: COMMONS NORMALS: normal inspection of the chest Resp: COMMON NORMALS: normal respiratory effort EFFORT & INSPECTION: Yes able to speak in complete sentences Cardio: COMMON NORMALS: regular rate and regular rhythm RATE: regular rate RHYTHM: regular rhythm GI: COMMON NORMALS: non-tender Back/Pelvis: COMMON NORMALS: thoracic and lumbar spine normal to inspection Extremity: NARRATIVE EXTREMITY EXAM: Ecchymosis and swelling to the dorsal foot around the second and third digit. Neuro: COMMON NORMALS: patient oriented x3 and moves all extremities Psych: COMMON NORMALS: mental status grossly normal and cooperative Skin: COMMON NORMALS: no rashes or lesions noted GENERAL SKIN EXAM: no rashes or lesions noted Course Vital Signs: Vital signs: Vital Signs Temperature 96.9 F L 04/13/21 23:07 Pulse Rate 105 H 04/13/21 23:07 Respiratory Rate 24 H 04/13/21 23:07 Blood Pressure 108/66 04/13/21 23:07 Pulse Oximetry 94 04/13/21 23:07 MDM - Extremity (Nontraumatic) MDM Narrative: Medical decision making narrative: Patient comes in for injury to the right foot. On exam we note some swelling and some ecchymosis to the mid right foot at the second and third digits. Differential diagnosis includes contusion, fracture, sprain. X-ray noted a proximal phalanx fracture of the second digit. Patient was Benjamin wrap and put in a walking shoe. Patient was recommended to use crutches until she could bear weight comfortably. Patient was recommended to follow-up with podiatric surgeon for further evaluation and treatment. Case management request for assistance with follow-up was placed. Discharge Plan Discharge Patient Disposition: Home Clinical Impression: Foot fracture, right Qualifiers: Encounter type: initial encounter Fracture type: closed Qualified Code(s): S92.901A - Unspecified fracture of right foot, initial encounter for closed fracture Condition: Stable Prescriptions: No Action levothyroxine 50 mcg PO QAM RF: 0 cyclobenzaprine 5 mg PO TID PRN (Reason: back spasm ) RF: 0 Vitamin B-1 (mononitrate) 100 mg Tablet 100 mg PO DAILY 30 Days Qty: 30 RF: 1 Discharge Orders: Discharge ED (Routine); Ordered 04/13/21 Ordered By: Tang Garza Referrals: Stanton Schumacher [Primary Care Provider] - Discharge Diet: Usual diet Discharge Activity: Increase activity as tolerated Patient Instructions: Foot Fracture in Adults (ED), Opioid Safety Activity Restrictions/Additional Instructions: Activity as tolerated. Wear supportive shoe or cast shoe with elastic bandage until you can bear weight comfortably on the foot. Case management will contact you about follow-up with podiatry for further treatment of foot fracture. Return to ER for new concerns. Coding Level of Care Code ED Physical Therapy Supervisor for Margarita Mireles
--- NOTE | 2021-04-13 23:29 | XRR_ITS ---
PROCEDURE INFORMATION: Exam: XR Right Foot Exam date and time: 04/13/2021 11:29 PM Age: 36 years old Clinical indication: Injury or trauma; Blunt trauma; Right; Patient HX: C/O R foot pain after fall on some steps 2 days ago TECHNIQUE: Imaging protocol: XR Right foot. Views: 3 or more views. COMPARISON: No relevant prior studies available. FINDINGS: Bones/joints: There is are avulsion fragment at the medial base of the 2nd proximal phalanx with approximately 1.8 mm distraction. Soft tissues: There is mild soft tissue swelling in the forefoot. XR/XR foot RT min 3V* [id number] IMPRESSION: Small avulsion fragment at the base of the 2nd proximal phalanx. Radiation Dose CTDIVOL = (mGy): DLP = (mGy-cm)
[2021-04-14] MEDS: TRAMadol 50 mg Tablet PO (00:10)
[2021-04-14 00:37] VITALS: BP 130/70; PULSE 89; RESP 18; O2SAT 98
--- NOTE | 2021-04-14 09:39 | DCPLANNER ---
manager basketball had message to schedule a follow up appointment for patient with ortho. manager basketball called the ortho clinic, spoke with Erinn, gave clinic patients information. manager basketball was told that patients information would be printed and reviewed. Clinic will call patient with appointment information.
--- NOTE | 2021-04-16 12:21 | DCPLANNER ---
Addendum entered by Gala Jo 06/21/21 12:20: Patient had a follow up appointment scheduled with ortho - patient did not attend appointment. Original Note: Patient has a follow up appointment scheduled for Wednesday, April 21, 2021 at 8:[address] Issa at ortho. Clinic will call patient with appointment information.
== END 2021-04-14 00:41 | disposition home or self-care (01) ==
PROVIDERS: Emergency Provider Nurse Practitioner Family; PCP Family Medicine
DX: S92.511A Displaced fracture of proximal phalanx of right lesser toe(s), initial encounter for closed fracture (principal); F17.210 Nicotine dependence, cigarettes, uncomplicated; X50.1XXA Overexertion from prolonged static or awkward postures, initial encounter
CPT/HCPCS: 73630; 99283; E0114

== ENCOUNTER 2021-04-17 19:46 | Emergency (ER) | payer MEDICAID, SELFPAY ==
[2021-04-17 19:49] VITALS: BP 108/68; PULSE 135; RESP 20; O2SAT 98; BMI 22.1
--- NOTE | 2021-04-17 20:00 | PC.NURSE ---
Pt placed with 1:1 sitter at this time due to nature of previous ER visit. Pt stated to this nurse that she has not current SI/HI but did make statements to EMS I cant live this way, just let me .
[2021-04-17 20:14] VITALS: BP 108/68; PULSE 135; RESP 20; TEMP 37.2; O2SAT 98
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
[2021-04-17 20:27] LABS: Basophils # 0.1 10^3/uL (0.0-0.1); Basophils % 1.5 %; Hematocrit 38.6 % (37.0-47.0); Hemoglobin 12.8 g/dL (11.5-15.3); Lymphocytes # 1.7 10^3/uL (0.8-4.8); Lymphocytes % 24.7 %; Mean Corpuscular HGB Conc 33.2 g/dL (30.0-36.0); Mean Corpuscular Hemoglobin 25.1 pg (28.0-34.0); Mean Corpuscular Volume 75.7 fl (81-99); Mean Platelet Volume 8.7 fL (7.4-10.4); Monocytes # 0.3 10^3/uL (0.2-0.9); Monocytes % 4.3 %; Neutrophils # 4.65 10^3/uL (1.8-7.7); Neutrophils % 69.2 %; Nucleated Red Blood Cells % 0 %; Platelet Count 224 10^3/cmm (130-400); Red Cell Distribution Width 18.9 % (12.1-15.1); White Blood Count 6.7 10^3/uL (4.0-10.0)
[2021-04-17 21:30] LABS: Alanine Aminotransferase 27 U/L (0-33); Albumin Level 4.5 g/dL (3.5-5.2); Alkaline Phosphatase 271 IU/L (35-105); Anion Gap 36.1 (5-19); Aspartate Amino Transferase 80 U/L (0-32); Blood Urea Nitrogen 7 mg/dL (6-20); Calcium 8.4 mg/dL (8.5-10.5); Carbon Dioxide 11 mmol/L (22-29); Chloride 97 mmol/L (98-107); Globulin 3.1 g/dL (1.3-4.6); Glomerular Filtration Rate 111.9 mL/min (90-130); Glucose 118 mg/dL (65-115); Lipase 24 U/L (13-60); Osmolality Calculated 289 mOsm/kg (285-295); Potassium 4.1 mmol/L (3.5-5.1); Sodium 140 mmol/L (136-145); Total Bilirubin 1.5 mg/dL (0.15-1.2); Total Protein 7.6 g/dL (6.6-8.7)
[2021-04-17 21:31] LABS: Acetaminophen < 5.0 ug/mL (10-30); Salicylate < 0.3 mg/dL (3-10)
[2021-04-17 21:32] LABS: Alcohol Level 384 mg/dL (0-10)
[2021-04-17] MEDS: famotidine 20 mg Tablet 40 MG PO (21:32)
[2021-04-17] MEDS: lidocaine 2% viscous 15 ML, aluminum-mag hydrox-simethicon 30 ML, sucralfate oral liq 1 GM PO (21:32)
[2021-04-17] MEDS: promethazine 25 mg/mL SDV 1 mL IM (21:32)
[2021-04-17 21:33] LABS: HCG Qualitative Urine. Negative (Negative)
[2021-04-17 22:00] VITALS: BP 110/70; PULSE 124; RESP 16; TEMP 37.2; O2SAT 98
[2021-04-17 22:13] LABS: Alcohol Level 370 mg/dL (0-10)
[2021-04-17 22:32] LABS: Charge for UA Resulting for Rev
[2021-04-17 22:38] LABS: Bilirubin Urine 1+ (Negative); Blood Urine Trace (Negative); Glucose Urine UA Norm (Normal); Ketones Urine 3+ (Negative); Leukocyte Esterase Urine Trace (Negative); Nitrate Urine Negative (Negative); Protein Urine 1+ (Negative); Specific Gravity, Urine 1.025 (1.005-1.030); Urine Appearance Clear (CLEAR); Urine Color Yellow (Yellow); Urobilinogen Urine 1 mg/dL (Negative); pH Urine 5 (5-7)
[2021-04-17 22:39] LABS: Add Urine Microscopic? NO
[2021-04-17] MEDS: azithromycin 250 mg Tablet 1000 MG PO (22:59)
[2021-04-17] MEDS: ondansetron 4 MG Tablet PO (22:59)
[2021-04-17 23:00] VITALS: BP 116/76; PULSE 98; RESP 16; TEMP 37.2; O2SAT 99
[2021-04-17 23:04] LABS: Amphetamines Screen Urine Negative (Negative); Barbiturates Screen Urine Negative (Negative); Benzodiazepines Screen Urine Negative (Negative); Cocaine Screen Urine Negative (Negative); Opiate Screen Urine Negative (Negative); PCP Screen Urine Negative (Negative); THC Screen Urine Negative (Negative)
[2021-04-17] MEDS: prochlorperazine 25 mg Supp PR (23:31)
[2021-04-18 00:22] LABS: INR 1.29 (0.8-1.2)
[2021-04-18 00:23] LABS: Partial Thromboplastin Time 30.7 SECONDS (23.9-36.7)
[2021-04-18] MEDS: ondansetron 2 mg/ML SDV 2 mL 4 MG IVP ×2 (01:03→06:15)
[2021-04-18 01:20] LABS: Rapid Plasma Reagin Syphilis Nonreactive (Nonreactive)
[2021-04-18 01:21] LABS: HIV 1 & 2 Antibody Non-Reactive (Non-Reactiv); HIV 1 & 2 Antigen Non-Reactive (Non-Reactiv)
[2021-04-18] MEDS: LORazepam 2 mg/mL INJ 1 mL 1 MG IVP (01:54)
[2021-04-18 04:00] VITALS: BP 137/85; PULSE 121; RESP 16; O2SAT 99
--- NOTE | 2021-04-18 04:10 | ECG_ITS ---
[facility] Test Date: 2021-04-18 Pat Name: Pily Choe Department: Room: Gender: Female Work Study Student: : 1985 Requested By: Jose Mims Order Number: [id number] Kalee MD: Jalyn Healy M.D. Measurements Intervals [place] Rate: 119 P: 41 MA: 147 QRS: 56 QRSD: 89 T: 25 QT: 333 QTc: 469 Interpretive Statements SINUS TACHYCARDIA ABNORMAL RHYTHM ECG Compared to ECG 06/15/2020 13:02:33 T-wave abnormality no longer present Electronically Signed On 04-18-2021 16:07:46 [facility] [employer] by Jalyn Healy M.D. [id number]
--- NOTE | 2021-04-18 04:23 | PC.NURSE ---
this nurse has had multiple coversations with pt concerning nausea. eating and drinking. and her 'seepage from her butt' this nurse got an order for ativan for agitation since pt was attempting to leave room; this nurse intructed pt not to eat or drink anything including water out of the sink since everytime she put something in her mouth she vomits it back up.
--- NOTE | 2021-04-18 05:49 | PC.NURSE ---
Report was called to [facility]. Pt was notified and agrees to the transfer.
[2021-04-18] MEDS: LORazepam 2 mg/mL INJ 1 mL IVP (07:50)
[2021-04-18 07:52] VITALS: BP 143/96; PULSE 115; RESP 16; O2SAT 98
[2021-04-18 11:26] VITALS: RESP 17; O2SAT 98
== END 2021-04-18 11:27 ==
PROVIDERS: Family Medicine; Emergency Provider Emergency Medicine; PCP Family Medicine
DX: R10.9 Unspecified abdominal pain (principal); F17.210 Nicotine dependence, cigarettes, uncomplicated
CPT/HCPCS: 80053; 80306; 80307; 81003; 81025; 83690; 85025; 85610; 85730; 86592; 87491; 87591; 87806; 93005; 96372; 96374; 96375; 96376; 99285; J0696; J2060; J2405; J2550; J8498; Q0144; Q0162

== ENCOUNTER 2021-04-26 16:32 | Inpatient (IN) | payer MEDICAID, SELFPAY ==
[2021-04-26] VITALS (10 sets, daily range): BP systolic 107–138; BP diastolic 81–91; PULSE 101–127; RESP 11–24; TEMP 36.6–36.9; O2SAT 94–100; BMI 22.1
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
[2021-04-26 18:09] LABS: Basophils # 0.1 10^3/uL (0.0-0.1); Basophils % 2.1 %; Eosinophils # 0.1 10^3/uL (0.0-0.8); Eosinophils % 1.5 %; Hematocrit 43.7 % (37.0-47.0); Hemoglobin 13.5 g/dL (11.5-15.3); Lymphocytes # 2.9 10^3/uL (0.8-4.8); Lymphocytes % 43.8 %; Mean Corpuscular HGB Conc 30.9 g/dL (30.0-36.0); Mean Corpuscular Hemoglobin 25.2 pg (28.0-34.0); Mean Corpuscular Volume 81.5 fl (81-99); Mean Platelet Volume 9.4 fL (7.4-10.4); Monocytes # 0.5 10^3/uL (0.2-0.9); Monocytes % 7.9 %; Neutrophils # 2.92 10^3/uL (1.8-7.7); Neutrophils % 44.5 %; Nucleated Red Blood Cells % 0 %; Platelet Count 297 10^3/cmm (130-400); Red Blood Count 5.36 10^6/uL (4.1-5.3); Red Cell Distribution Width 19.8 % (12.1-15.1); White Blood Count 6.6 10^3/uL (4.0-10.0)
[2021-04-26 18:31] LABS: Alanine Aminotransferase 98 U/L (0-33); Albumin Level 4.8 g/dL (3.5-5.2); Alkaline Phosphatase 328 IU/L (35-105); Anion Gap 22.2 (5-19); Aspartate Amino Transferase 194 U/L (0-32); Blood Urea Nitrogen 3 mg/dL (6-20); Calcium 8.5 mg/dL (8.5-10.5); Carbon Dioxide 24 mmol/L (22-29); Chloride 98 mmol/L (98-107); Globulin 2.4 g/dL (1.3-4.6); Glomerular Filtration Rate 80.3 mL/min (90-130); Glucose 119 mg/dL (65-115); Lipase 38 U/L (13-60); Osmolality Calculated 290 mOsm/kg (285-295); Potassium 3.2 mmol/L (3.5-5.1); Sodium 141 mmol/L (136-145); Total Bilirubin 1.2 mg/dL (0.15-1.2); Total Protein 7.2 g/dL (6.6-8.7)
[2021-04-26 18:41] LABS: Alcohol Level 422 mg/dL (0-10)
[2021-04-26 20:00] LABS: Add Urine Microscopic? NO; Charge for UA Resulting for Rev
[2021-04-26] MEDS: ondansetron 2 mg/ML SDV 2 mL 4 MG IM (20:10)
[2021-04-26 20:11] LABS: Bilirubin Urine 1+ (Negative); Blood Urine Neg (Negative); Glucose Urine UA Norm (Normal); Ketones Urine Negative (Negative); Leukocyte Esterase Urine Negative (Negative); Nitrate Urine Negative (Negative); Protein Urine Neg (Negative); Specific Gravity, Urine 1.015 (1.005-1.030); Urine Appearance Clear (CLEAR); Urine Color Yellow (Yellow); Urobilinogen Urine 4 mg/dL (Negative); pH Urine 6.5 (5-7)
--- NOTE | 2021-04-26 20:21 | PC.NURSE ---
N/V Pt vomiting dark brown liquid - similar to old GI bleed color/consistency. Physician notified.
[2021-04-26] MEDS: haloperidol inj 5 mg/mL INJ 1 mL 3 MG IVP (21:09)
[2021-04-26] MEDS: potassium chloride ER 20 mEq Tablet 40 MEQ PO (23:12)
[2021-04-26] MEDS: metoclopramide 5 mg/mL SDV 2 mL 10 MG IVP (23:12)
[2021-04-26] MEDS: pantoprazole 40 mg SDV IVP (23:12)
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
[2021-04-27] VITALS (135 sets, daily range): BP systolic 86–144; BP diastolic 49–94; PULSE 81–121; RESP 11–29; TEMP 36.6–37.1; O2SAT 84–100
[2021-04-27] MEDS: LORazepam 2 mg/mL INJ 1 mL IVP ×5 (00:18→18:08)
[2021-04-27] MEDS: sodium chloride 0.9% 1,000 ML 125 ML IV ×3 (00:28→15:37)
[2021-04-27 00:56] LABS: Hematocrit 39.1 % (37.0-47.0); Hemoglobin 12.3 g/dL (11.5-15.3)
--- NOTE | 2021-04-27 01:28 | PC.NURSE ---
Transfer Note Patient transferred to ICU from ER via stretcher at 2144. Handoff received from ER nurse. Patient oriented to environment and equipment. Covering service notified. Orders reviewed and will continue to monitor.
--- NOTE | 2021-04-27 04:51 | PC.NURSE ---
Pt was admitted to ICU. Patient states she was sick to her stomach and was vomiting dark coffee ground substance. Dr. De Dios notified. Reglan and Protonix were ordered. Pt slept well throughout the morning. Pt educated on process of alcohol withdrawal. Pt verbalized understanding but requires reinforcement.
[2021-04-27] MEDS: metoclopramide 5 mg/mL SDV 2 mL 10 MG IVP ×3 (05:13→23:45)
--- NOTE | 2021-04-27 05:48 | ECG_ITS ---
[facility] Test Date: 2021-04-27 Pat Name: Pily Choe Department: Room: ICU01 Gender: Female Yard Switcher: : 1985 Requested By: Velma De Dios Order Number: [id number] Reading MD: MYNOR JACOBSEN Measurements Intervals [place] Rate: 102 P: -5 TN: 137 QRS: 56 QRSD: 91 T: 22 QT: 365 QTc: 477 Interpretive Statements SINUS TACHYCARDIA MODERATE T-WAVE ABNORMALITY, CONSIDER ANTERIOR ISCHEMIA [-0.1+ mV T-WAVE IN V3/V4] Compared to ECG 04/18/2021 04:02:26 T-wave abnormality now present Possible ischemia now present Electronically Signed On 04-28-2021 12:54:15 FORENSIC MEDICAL EXAMINER by MYNOR JACOBSEN [email or web address]
[2021-04-27 07:47] LABS: Basophils # 0.1 10^3/uL (0.0-0.1); Basophils % 1.3 %; Eosinophils % 0.5 %; Hematocrit 36.8 % (37.0-47.0); Hemoglobin 11.5 g/dL (11.5-15.3); Lymphocytes # 2.2 10^3/uL (0.8-4.8); Lymphocytes % 29.5 %; Mean Corpuscular HGB Conc 31.3 g/dL (30.0-36.0); Mean Corpuscular Hemoglobin 25.5 pg (28.0-34.0); Mean Corpuscular Volume 81.6 fl (81-99); Monocytes # 1.4 10^3/uL (0.2-0.9); Monocytes % 18.6 %; Neutrophils # 3.76 10^3/uL (1.8-7.7); Nucleated Red Blood Cells % 0 %; Platelet Count 209 10^3/cmm (130-400); Red Blood Count 4.51 10^6/uL (4.1-5.3); Red Cell Distribution Width 19.5 % (12.1-15.1); White Blood Count 7.5 10^3/uL (4.0-10.0)
[2021-04-27 08:13] LABS: Alanine Aminotransferase 77 U/L (0-33); Albumin Level 4.2 g/dL (3.5-5.2); Alkaline Phosphatase 277 IU/L (35-105); Anion Gap 20.4 (5-19); Aspartate Amino Transferase 144 U/L (0-32); Blood Urea Nitrogen 6 mg/dL (6-20); Calcium 8.6 mg/dL (8.5-10.5); Carbon Dioxide 23 mmol/L (22-29); Chloride 102 mmol/L (98-107); Globulin 2.3 g/dL (1.3-4.6); Glomerular Filtration Rate 111.9 mL/min (90-130); Glucose 107 mg/dL (65-115); Osmolality Calculated 292 mOsm/kg (285-295); Potassium 3.4 mmol/L (3.5-5.1); Sodium 142 mmol/L (136-145); Total Bilirubin 1.5 mg/dL (0.15-1.2); Total Protein 6.5 g/dL (6.6-8.7)
[2021-04-27] MEDS: pantoprazole 40 mg SDV IVP ×2 (08:32→20:45)
[2021-04-27] MEDS: thiamine 100 mg Tablet PO (08:32)
[2021-04-27] MEDS: multivitamin therapeutic Tablet 1 TAB PO (08:32)
[2021-04-27] MEDS: folic acid 1 mg Tablet PO (08:32)
[2021-04-27] MEDS: ondansetron 2 mg/ML SDV 2 mL 4 MG IVP (08:41)
--- NOTE | 2021-04-27 09:25 | P.PN_ITS ---
Subjective Subjective: Interval history: Awake, alert, very anxious, states she is going through withdrawal. Reports she had history of severe withdrawal with seizures in the past. Reports yesterday vomited some dark bloody contents. Has history of multiple banded varices. States she has quitting previously. Has sought rehabilitation in the past. Would want to seek it again. Vitals/I&O/Wt Last Vital Signs Temp 98.4 F 04/27/21 07:10 Pulse 104 H 04/27/21 08:20 Resp 18 04/27/21 08:20 BP 124/72 04/27/21 08:20 Pulse Ox 92 04/27/21 04:00 04/26/21 04/27/21 04/27/21 22:59 06:59 14:59 Intake Total 0 / 0 0 / 0 885.417 / 885.417 Balance 0 / 0 0 / 0 885.417 / 885.417 Weight last 48 hrs Weight 68.039 kg Physical Exam Const: COMMON NORMALS: no acute distress and patient oriented x3 GENERAL APPEARANCE: cooperative and anxious HENMT: COMMON NORMALS: oropharynx normal Neck/C-Spine: COMMON NORMALS: no JVD Resp: COMMON NORMALS: normal respiratory effort and clear to auscultation bilaterally AUSCULTATION: clear to auscultation bilaterally Cardio: COMMON NORMALS: no JVD, regular rhythm, S1 normal heart sound present, S2 normal heart sound present and No murmurs present (Cardio) RHYTHM: regular rhythm HEART SOUNDS: S1 normal heart sound present and S2 normal heart sound present GI: COMMON NORMALS: Normal to inspection, nondistended, normoactive bowel sounds present, Soft to palpation and non-tender PALPATION: Yes Soft to palpation Extremity: COMMON NORMALS: no joint enlargement and no pedal edema Neuro: COMMON NORMALS: patient oriented x3 and moves all extremities Skin: COMMON NORMALS: no rashes or lesions noted GENERAL SKIN EXAM: no rashes or lesions noted Data : 04/27/21 07:35 04/27/21 07:35 A&P Assessment and plan (1) Alcohol withdrawal syndrome: Anxious. Reports she is feeling she is in withdrawal. Has history of severe withdrawal including seizures. We will add Librium 50 mg dose x1 currently, monitor, repeat depending on condition and response. Continue CIWA protocol with Ativan. Vitamin supplementation. IVF. Status: Acute Qualifiers: Complication of substance-induced condition: uncomplicated Qualified Code(s): F10.230 - Alcohol dependence with withdrawal, uncomplicated (2) Alcohol intoxication: Status: Acute (3) GI bleed: Reports of coffee-ground emesis. Suspect alcohol induced gastritis. Continue PPI twice daily. Zofran for nausea. If not vomiting consider adding sucralfate. Sips, chips. NPO. Has history of banded varices. Recheck hemoglobin. Status: Acute Additional A&P Information Alcohol use disorder: Has sought rehabilitation in the past. Would be interested in seeking again. Hypokalemia: Replace Alcoholic Liver Cirrhosis Hx of varices, encephalopathy AST - 184 ALT - 90 Trend levels Ammonia level in am DVT ppx SCDs Attestations Medical Necessity Statement*: Continue admission for assessment of management of alcohol withdrawal, GI bleed. Coding Level of Care Code Acute Transmission System Operator for [facility] Diagnoses Alcohol withdrawal syndrome F10.230 Complication of substance-induced condition: uncomplicated Alcohol intoxication F10.929 GI bleed K92.2
[2021-04-27] MEDS: chlordiazePOXIDE 25 mg Capsule 50 MG PO (09:47)
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
[2021-04-27 16:33] LABS: Hemoglobin 9.3 g/dL (11.5-15.3)
[2021-04-27] MEDS: acetaminophen 325 mg Tablet 650 MG PO (16:44)
[2021-04-27 23:32] LABS: Hemoglobin 8.9 g/dL (11.5-15.3)
[2021-04-28] VITALS (150 sets, daily range): BP systolic 57–131; BP diastolic 45–100; PULSE 72–122; RESP 0–24; TEMP 36.6–37.1; O2SAT 79–99
[2021-04-28] MEDS: sodium chloride 0.9% 1,000 ML 125 ML IV ×3 (00:20→20:46)
[2021-04-28] MEDS: acetaminophen 325 mg Tablet 650 MG PO ×2 (03:24→12:13)
[2021-04-28] MEDS: LORazepam 2 mg/mL INJ 1 mL IVP ×4 (03:58→18:36)
--- NOTE | 2021-04-28 06:50 | PC.NURSE ---
Shift Note Frequent safety and comfort rounds continue. Pt slept well throughout the night. Had one episode of anxiety with increased tremors, see CIWA scale and MAR. Orders and nursing care completed as indicated. Patient monitored for response to intervention and treatment. Education provided includes anxiety management. Patient verbalized understanding.
[2021-04-28 08:27] LABS: Ammonia 71 umol/L (11-51)
[2021-04-28 08:28] LABS: Alanine Aminotransferase 47 U/L (0-33); Albumin Level 3.4 g/dL (3.5-5.2); Alkaline Phosphatase 207 IU/L (35-105); Aspartate Amino Transferase 72 U/L (0-32); Blood Urea Nitrogen 5 mg/dL (6-20); Calcium 8.1 mg/dL (8.5-10.5); Carbon Dioxide 22 mmol/L (22-29); Chloride 104 mmol/L (98-107); Globulin 1.5 g/dL (1.3-4.6); Glomerular Filtration Rate 111.9 mL/min (90-130); Glucose 85 mg/dL (65-115); Magnesium 1.4 mg/dL (1.7-2.3); Osmolality Calculated 279 mOsm/kg (285-295); Phosphorus 2.4 mg/dL (2.5-4.5); Sodium 136 mmol/L (136-145); Total Bilirubin 1.8 mg/dL (0.15-1.2); Total Protein 4.9 g/dL (6.6-8.7)
[2021-04-28] MEDS: pantoprazole 40 mg SDV IVP ×2 (08:31→20:27)
[2021-04-28] MEDS: multivitamin therapeutic Tablet 1 TAB PO (08:31)
[2021-04-28] MEDS: thiamine 100 mg Tablet PO (08:31)
[2021-04-28] MEDS: folic acid 1 mg Tablet PO (08:31)
[2021-04-28] MEDS: LORazepam 2 mg/mL INJ 1 mL IM (08:45)
--- NOTE | 2021-04-28 09:41 | PC.CHAP ---
Pastoral Care Encounter/Spiritual Assessment Type of Contact [] Declined utilization review rn visit [] Patient/Family/Request visit [] Outpatient visit [] Follow-up visit [] Physician referral [] Code/Alert [x] Routine visit [] Staff referral [] Actively dying [] Patient sleeping [] Family support [] [] Out of room [] Palliative care [] [] Receiving care in room [] Pre-surgical visit [] Trauma [] Long length of stay [x] ICU visit [] Other: Relational/Emotional Strength [] Patient feels connected with others/family/visitors/staff [] Distress [] Loneliness/isolation [] Abandonment Spirituality of Patient [] Person of Jyotsna [] Attends Hindu of their Jyotsna [] Believes in Prayer [] Reads Bible or Yazdanism materials [] There are Spiritual issues to be addressed Supervisor Telephone Information Interventions [x] Prayer [x] Active listening [x] Non-anxious presence [x] Spiritual/emotional support [] Crisis/trauma care [] Spiritual counseling [] Bereavement support [] Provided bereavement packet [] Provided Bible/devotional materials [] Provided toy/stuffed animal, coloring book to patient or family member [] Provided Communion [] Anointing/[place] [] Salvation [x] Completed spiritual assessment [] Other: Impact on Illness or Injury [] Angry [] Fearful [] Anxious [] Often cries [] Exhaustion [] Unable to work [] Unable to attend yarsani [] Unable to walk/stand [] Unable to read [] Unable to drive [] Unable to eat/drink [] Unable to sleep [] Unable to be with family [] Patient intubated [] Other: Summary patient feeling better, but very tired... Time spent with patient 5 min
[2021-04-28] MEDS: magnesium sulfate premix 2 GM/50 ML PIGGYBACK IV (10:57)
[2021-04-28] MEDS: levothyroxine 50 mcg Tablet PO (10:58)
[2021-04-28] MEDS: lactulose oral liq 20 gm/30 mL UDC 10 GM PO ×2 (10:58→17:47)
[2021-04-28 11:26] LABS: Folate Level 10.1 ng/mL (4.8-37.3); Iron 285 ug/dL (37-145); Thyroid Stimulating Hormone 3.48 uIU/mL (0.27-4.20); Total Bilirubin 1.7 mg/dL (0.15-1.2); Vitamin B12 715 pg/mL (232-1245)
[2021-04-28 11:53] LABS: Unsaturated Iron Binding < 17 ug/dL (112-347)
[2021-04-28] MEDS: ondansetron 2 mg/ML SDV 2 mL 4 MG IVP ×2 (11:56→18:16)
[2021-04-28 12:43] LABS: Eosinophils % 1.5 %; Hematocrit 30.7 % (37.0-47.0); Hemoglobin 9.6 g/dL (11.5-15.3); Lymphocytes # 1.1 10^3/uL (0.8-4.8); Lymphocytes % 53.7 %; Mean Corpuscular HGB Conc 31.3 g/dL (30.0-36.0); Mean Corpuscular Volume 83.2 fl (81-99); Mean Platelet Volume 10.2 fL (7.4-10.4); Monocytes # 0.3 10^3/uL (0.2-0.9); Monocytes % 12.4 %; Neutrophils % 30.9 %; Nucleated Red Blood Cells % 0 %; Platelet Count 102 10^3/cmm (130-400); Red Blood Count 3.69 10^6/uL (4.1-5.3); Red Cell Distribution Width 18.5 % (12.1-15.1)
[2021-04-28 13:13] LABS: Neutrophils # 0.62 10^3/uL (1.8-7.7)
[2021-04-28] MEDS: metoclopramide 5 mg/mL SDV 2 mL 10 MG IVP ×2 (14:56→21:14)
[2021-04-28] MEDS: TRAMadol 50 mg Tablet PO ×2 (15:46→20:45)
[2021-04-28] MEDS: dexmedeTOMIDine 0.9 % NaCL 400 MCG/100 ML PREMIX IV (15:50)
[2021-04-28 16:01] LABS: SARS Covid-2 Antigen Negative (Negative)
--- NOTE | 2021-04-28 17:47 | P.PN_ITS ---
Subjective Subjective: Interval history: Hospital course, labs appreciated. Seen multiple times during the day. During morning on examination patient lying comfortably in bed, tremulous, complaining of headache but denies any visual or auditory hallucinations. Has remained hemodynamically stable and afebrile. Overnight patient has required 2 mg of IV Ativan and then morning 2 mg of IM more Ativan. During the day patient required 4 mg of IV Ativan for worsening tremors, headache, nausea, possible visual hallucinations. In morning patient complaining of abdominal pain. Wanting to eat. Vitals/I&O/Wt Last Vital Signs Temp 98.8 F 04/28/21 13:05 Pulse 88 04/28/21 16:10 Resp 17 04/28/21 16:10 BP 113/84 04/28/21 16:10 Pulse Ox 96 04/28/21 16:10 04/28/21 04/28/21 04/28/21 06:59 14:59 22:59 Intake Total 1480 / 3605.417 1581.25 / 1581.25 110 / 1691.25 Output Total 950 / 980 1200 / 1200 Balance 530 / 2625.417 381.25 / 381.25 110 / 491.25 Physical Exam Narrative: EXAM NARRATIVE: CIWA: 10 Const: COMMON NORMALS: no acute distress and patient oriented x3 GENERAL APPEARANCE: cooperative and anxious HENMT: COMMON NORMALS: oropharynx normal Neck/C-Spine: COMMON NORMALS: no JVD Resp: COMMON NORMALS: normal respiratory effort and clear to auscultation bilaterally AUSCULTATION: clear to auscultation bilaterally Cardio: COMMON NORMALS: no JVD, regular rhythm, S1 normal heart sound present, S2 normal heart sound present and No murmurs present (Cardio) RHYTHM: regular rhythm HEART SOUNDS: S1 normal heart sound present and S2 normal heart sound present GI: COMMON NORMALS: Normal to inspection, nondistended, normoactive bowel sounds present, Soft to palpation and non-tender PALPATION: Yes Soft to palpation Extremity: COMMON NORMALS: no joint enlargement and no pedal edema Neuro: COMMON NORMALS: patient oriented x3 and moves all extremities Skin: COMMON NORMALS: no rashes or lesions noted GENERAL SKIN EXAM: no rashes or lesions noted Data : 04/28/21 11:40 04/28/21 07:50 A&P Assessment and plan (1) Alcohol withdrawal syndrome: Ativan as per [facility] protocol. Start on Precedex drip. Cannot do Librium given transaminitis and hyperbilirubinemia. Seizure precaution. Normal saline at 75 cc/h. Protonix, Zofran as needed. Oral folic acid, thiamine. Status: Acute Qualifiers: Complication of substance-induced condition: uncomplicated Qualified Code(s): F10.230 - Alcohol dependence with withdrawal, uncomplicated (2) Alcohol intoxication: Status: Acute (3) GI bleed: Reports of coffee-ground emesis. Suspect alcohol induced gastritis. Continue PPI twice daily. Zofran for nausea. If not vomiting consider adding sucralfate. Hemoglobin stable. Advance to clear liquid diet. Status: Acute (4) Transaminitis: Most likely alcohol induced. Trending down. Check direct bilirubin. Check LDH, GGT. RPR, HIV from before negative. Check hepatitis panel. Status: Acute (5) Bilirubinemia: Status: Acute (6) Leukopenia: Status: Acute (7) Thrombocytopenia: Status: Acute Additional A&P Information Alcohol use disorder: Has sought rehabilitation in the past. Would be interested in seeking again. Leukopenia/thrombocytopenia/neutropenia: Could be alcohol induced but new. Check COVID-19 antigen PCR. Continue to monitor. If gets febrile will start on broad-spectrum antibiotics. DVT ppx SCDs Attestations Medical Necessity Statement*: Requires further hospitalization for management of alcohol withdrawal requiring Precedex drip Time Spent in Patient Care: Greater than 35 minutes (>than 50% of time spent in counselling and/or direct pt care on unit) . Coding Level of Care Code Acute Publicity Director for Margarita Mireles Diagnoses Alcohol withdrawal syndrome F10.230 Complication of substance-induced condition: uncomplicated Alcohol intoxication F10.929 GI bleed K92.2 Transaminitis R74.01 Bilirubinemia E80.6 Leukopenia D72.819 Thrombocytopenia D69.6
--- NOTE | 2021-04-28 18:45 | PC.NURSE ---
Shift Note Frequent safety and comfort rounds continue. Orders and/or nursing care completed as indicated. Patient monitored for response to intervention and treatment(s). Education provided includes current plan of care, lab values, medication education upon administration, and breathing exercises. Patient verbalized understanding. Patient CIWA scale began this shift at 6 and has increased to 23 last assessment. Patient is receiving Precedex at 0.1 and 2mg Ativan PRN.
[2021-04-28 18:56] LABS: Gamma Glutamyl Transferase 513 U/L (5-36); Lactate Dehydrogenase 151 U/L (135-214)
[2021-04-28 20:36] LABS: Hepatitis A Antibody IgM Non-Reactive (Nonreactive); Hepatitis B Core AB, Total Non-Reactive (Nonreactive); Hepatitis B Surface AB 183.4 (11.5-1000); Hepatitis B Surface Antigen Non-Reactive (Nonreactive); Hepatitis C Virus Antibody Non-Reactive (Nonreactive)
[2021-04-28] MEDS: ketorolac 30 mg/mL INJ 15 MG IVP (22:40)
[2021-04-29] VITALS (138 sets, daily range): BP systolic 75–124; BP diastolic 52–89; PULSE 62–108; RESP 12–25; TEMP 36.4–37.1; O2SAT 93–100
[2021-04-29] MEDS: LORazepam 2 mg/mL INJ 1 mL IVP (00:19)
[2021-04-29] MEDS: lactulose oral liq 20 gm/30 mL UDC 10 GM PO (01:56)
[2021-04-29 05:28] LABS: Hematocrit 29.7 % (37.0-47.0); Lymphocytes # 0.9 10^3/uL (0.8-4.8); Mean Corpuscular HGB Conc 30.3 g/dL (30.0-36.0); Mean Corpuscular Hemoglobin 25.2 pg (28.0-34.0); Mean Corpuscular Volume 83.2 fl (81-99); Mean Platelet Volume 10.6 fL (7.4-10.4); Monocytes # 0.2 10^3/uL (0.2-0.9); Monocytes % 10.5 %; Neutrophils % 43.5 %; Nucleated Red Blood Cells % 0 %; Platelet Count 88 10^3/cmm (130-400); Red Blood Count 3.57 10^6/uL (4.1-5.3); Red Cell Distribution Width 18.1 % (12.1-15.1)
[2021-04-29 05:36] LABS: Neutrophils # 0.87 10^3/uL (1.8-7.7)
[2021-04-29 05:46] LABS: Alanine Aminotransferase 41 U/L (0-33); Albumin Level 3.3 g/dL (3.5-5.2); Alkaline Phosphatase 202 IU/L (35-105); Anion Gap 10.4 (5-19); Aspartate Amino Transferase 61 U/L (0-32); Blood Urea Nitrogen 3 mg/dL (6-20); Carbon Dioxide 22 mmol/L (22-29); Chloride 108 mmol/L (98-107); Globulin 1.5 g/dL (1.3-4.6); Glomerular Filtration Rate 111.9 mL/min (90-130); Glucose 85 mg/dL (65-115); Osmolality Calculated 280 mOsm/kg (285-295); Potassium 3.4 mmol/L (3.5-5.1); Sodium 137 mmol/L (136-145); Total Bilirubin 1.1 mg/dL (0.15-1.2); Total Protein 4.8 g/dL (6.6-8.7)
[2021-04-29] MEDS: ondansetron 2 mg/ML SDV 2 mL 4 MG IVP (07:10)
[2021-04-29] MEDS: multivitamin therapeutic Tablet 1 TAB PO (08:12)
[2021-04-29] MEDS: folic acid 1 mg Tablet PO (08:12)
[2021-04-29] MEDS: thiamine 100 mg Tablet PO (08:12)
[2021-04-29] MEDS: levothyroxine 50 mcg Tablet PO (08:12)
[2021-04-29] MEDS: pantoprazole 40 mg SDV IVP ×2 (08:12→20:22)
[2021-04-29] MEDS: dexmedeTOMIDine 0.9 % NaCL 400 MCG/100 ML PREMIX IV (08:13)
[2021-04-29] MEDS: sodium chloride 0.9% 1,000 ML 125 ML IV (08:13)
[2021-04-29] MEDS: fentaNYL 12 mcg Patch 1 PATCH TRANSDERMA (09:45)
[2021-04-29] MEDS: sucralfate 1 gm/10 mL Oral Liq UDC PO ×3 (11:23→20:22)
--- NOTE | 2021-04-29 14:26 | P.PN_ITS ---
Subjective Subjective: Interval history: No acute events overnight. Patient has remained hemodynamically stable and afebrile. Currently on Precedex of 0.4. Ativan at midnight 2 mg IV. Today morning patient states she is feeling anxious. Asking if her home medications including BuSpar can be restarted. Discussed that medications are not day or on her MAR and we will try to confirm these me dications from her pharmacy and primary care's office before starting. Patient denies any hallucination, dizziness. Complaining of abdominal burning and back pain. Vitals/I&O/Wt Last Vital Signs Temp 97.7 F 04/29/21 12:00 Pulse 69 04/29/21 14:07 Resp 16 04/29/21 12:00 BP 85/62 04/29/21 12:00 Pulse Ox 95 04/29/21 12:00 04/28/21 04/29/21 04/29/21 22:59 06:59 14:59 Intake Total 2220.983 / 3802.233 1600 / 5402.233 658.474 / 658.474 Output Total 900 / 2100 400 / 400 Balance 1320.983 / 3863.559 9777 / 3302.233 258.474 / 258.474 Physical Exam Narrative: EXAM NARRATIVE: CIWA: 10 Const: COMMON NORMALS: no acute distress and patient oriented x3 GENERAL A PPEARANCE: cooperative and anxious HENMT: COMMON NORMALS: oropharynx normal Neck/C-Spine: COMMON NORMALS: no JVD Resp: COMMON NORMALS: normal respiratory effort and clear to auscultation bilaterally AUSCULTATION: clear to auscultation bilaterally Cardio: COMMON NORMALS: no JVD, regular rhythm, S1 normal heart sound present, S2 normal heart sound present and No murmurs present (Cardio) RHYTHM: regular rhythm HEART SOUNDS: S1 normal heart sound present and S2 normal heart sound present GI: COMMON NORMALS: Normal to inspection, nondistended, normoactive bowel sounds present, Soft to palpation and non-tender PALPATION: Yes Soft to palpation Extremity: COMMON NORMALS: no joint enlargement and no pedal edema Neuro: COMMON NORMALS: patient oriented x3 and moves all extremities Skin: COMMON NORMALS: no rashes or lesions noted GENERAL SKIN EXAM: no rashes or lesions noted Data : 04/29/21 04:24 11/30/21 04:24 A&P Assessment and plan (1) Alcohol withdrawal syndrome: Ativan as per [facility] protocol. Stop IV Ativan Continue with Precedex. Try to wean off. Cannot do Librium given transaminitis and hyperbilirubinemia. Seizure precaution. Normal saline at 75 cc/h. Protonix, Zofran as needed. Oral folic acid, thiamine. Status: Acute Qualifiers: Complication of substance-induced condition: uncomplicated Qualified Code(s): F10.230 - Alcohol dependence with withdrawal, uncomplicated (2) Alcohol intoxication: Status: Acute (3) Anxiety: Start on BuSpar 10 mg daily, olanzapine 7.5 mg at bedtime. Wean off Precedex. Status: Acute (4) GI bleed: Reports of coffee-ground emesis. Suspect alcohol induced gastritis. Continue with PPI twice daily, Zofran as needed. Add Carafate AC at bedtime. Hemoglobin stable. Advance to soft mechanical diet. Status: Suspected (5) Thrombocytopenia: Status: Acute (6) Leukopenia: Status: Acute (7) Bilirubinemia: Status: Acute (8) Transaminitis: Most likely alcohol induced. Trending down. Hepatitis panel, HIV, LDH, GGT appreciated. Status: Acute Additional A&P Information Alcohol use disorder: Has sought rehabilitation in the past. Would be interested in seeking again. Leukopenia/thrombocytopenia/neutropenia: Could be alcohol induced but new. COVID-19 antigen negative. Continue to monitor. If gets febrile will start on broad-spectrum antibiotics. DVT ppx SCDs Attestations Medical Necessity Statement*: Requires further hospitalization for alcohol withdrawal syndrome, anxiety while patient is on Precedex drip. Time Spent in Patient Care: Greater than 35 minutes (>than 50% of time spent in counselling and/or direct pt care on unit) . Coding Level of Care Code Acute Technical Supervisor for Margarita Fwd Exam Comprehensive Diagnoses Alcohol withdrawal syndrome F10.230 Complication of substance-induced condition: uncomplicated Alcohol intoxication F10.929 Anxiety F41.9 GI bleed K92.2 Thrombocytopenia D69.6 Leukopenia D72.819 Bilirubinemia E80.6 Transaminitis R74.01
[2021-04-29] MEDS: BuSPIRONE 10 mg Tablet PO (14:59)
[2021-04-29] MEDS: TRAMadol 50 mg Tablet PO (16:13)
[2021-04-29] MEDS: LORazepam 2 mg/mL INJ 1 mL IM (16:24)
[2021-04-29] MEDS: metoclopramide 5 mg/mL SDV 2 mL 10 MG IVP (17:35)
--- NOTE | 2021-04-29 17:49 | PC.NURSE ---
Shift Note Frequent safety and comfort rounds continue. Orders and/or nursing care completed as indicated. Patient monitored for response to intervention and treatment(s). Education provided includes medication education upon administration, labs test results, current plan of care, providers orders throughout shift, and importance of breathing exercises and ambulation. Patient chief complaints this shift were of anxiety, headache, and nausea. All relieved by PRN medications. Ambulates to bedside commode despite education about potential falls/ accidental IV removal risk. Patient verbalizes understanding. Primarily uneventful shift. Patient used Unit cordless phone to contact family and provide updates. Nurse unable to contact family.
[2021-04-29] MEDS: OLANZapine 5 mg TABLET 7.5 MG PO (20:22)
[2021-04-30] VITALS (29 sets, daily range): BP systolic 87–116; BP diastolic 59–82; PULSE 75–123; RESP 12–21; TEMP 36.6–37.1; O2SAT 97–98
[2021-04-30] MEDS: sodium chloride 0.9% 1,000 ML 125 ML IV (00:02)
[2021-04-30] MEDS: LORazepam 2 mg/mL INJ 1 mL IM ×2 (00:03→03:47)
--- NOTE | 2021-04-30 05:27 | PC.NURSE ---
Shift Note Frequent safety and comfort rounds continue. Pt standby assist to the commode. Orders and nursing care completed as indicated. Patient monitored for response to intervention and treatment. Education provided includes fall risk. Pt verbalized understanding but needs reinforcement.
[2021-04-30 05:38] LABS: Basophils % 0.8 %; Eosinophils % 1.2 %; Hematocrit 29.6 % (37.0-47.0); Hemoglobin 8.9 g/dL (11.5-15.3); Lymphocytes # 0.9 10^3/uL (0.8-4.8); Lymphocytes % 35.6 %; Mean Corpuscular HGB Conc 30.1 g/dL (30.0-36.0); Mean Corpuscular Hemoglobin 25.6 pg (28.0-34.0); Mean Corpuscular Volume 85.3 fl (81-99); Mean Platelet Volume 10.5 fL (7.4-10.4); Monocytes # 0.2 10^3/uL (0.2-0.9); Monocytes % 8.8 %; Neutrophils # 1.34 10^3/uL (1.8-7.7); Neutrophils % 53.6 %; Nucleated Red Blood Cells % 0 %; Platelet Count 87 10^3/cmm (130-400); Red Blood Count 3.47 10^6/uL (4.1-5.3); Red Cell Distribution Width 18.5 % (12.1-15.1); White Blood Count 2.5 10^3/uL (4.0-10.0)
[2021-04-30 05:53] LABS: Ammonia 59 umol/L (11-51)
[2021-04-30 05:58] LABS: Alanine Aminotransferase 34 U/L (0-33); Albumin Level 3.3 g/dL (3.5-5.2); Alkaline Phosphatase 190 IU/L (35-105); Anion Gap 14.4 (5-19); Aspartate Amino Transferase 43 U/L (0-32); Calcium 7.8 mg/dL (8.5-10.5); Carbon Dioxide 19 mmol/L (22-29); Chloride 109 mmol/L (98-107); Globulin 1.5 g/dL (1.3-4.6); Glomerular Filtration Rate 93.6 mL/min (90-130); Glucose 199 mg/dL (65-115); Potassium 3.4 mmol/L (3.5-5.1); Sodium 139 mmol/L (136-145); Total Bilirubin 0.8 mg/dL (0.15-1.2); Total Protein 4.8 g/dL (6.6-8.7)
[2021-04-30 05:59] LABS: Blood Urea Nitrogen 1 mg/dL (6-20); Osmolality Calculated 289 mOsm/kg (285-295)
[2021-04-30] MEDS: TRAMadol 50 mg Tablet PO (06:00)
[2021-04-30] MEDS: sucralfate 1 gm/10 mL Oral Liq UDC PO ×4 (06:08→20:32)
[2021-04-30] MEDS: pantoprazole 40 mg SDV IVP ×2 (08:13→20:30)
[2021-04-30] MEDS: ondansetron 2 mg/ML SDV 2 mL 4 MG IVP ×2 (08:13→16:57)
[2021-04-30] MEDS: multivitamin therapeutic Tablet 1 TAB PO (08:13)
[2021-04-30] MEDS: levothyroxine 50 mcg Tablet PO (08:13)
[2021-04-30] MEDS: thiamine 100 mg Tablet PO (08:13)
[2021-04-30] MEDS: BuSPIRONE 10 mg Tablet PO ×2 (08:13→16:51)
[2021-04-30] MEDS: folic acid 1 mg Tablet PO (08:14)
[2021-04-30] MEDS: LORazepam 2 mg Tablet PO ×2 (08:14→12:05)
--- NOTE | 2021-04-30 10:20 | PC.CHAP ---
Pastoral Care Encounter/Spiritual Assessment Type of Contact [] Declined sheet metal production worker visit [] Patient/Family/Request visit [] Outpatient visit [] Follow-up visit [] Physician referral [] Code/Alert [x] Routine visit [] Staff referral [] Actively dying [] Patient sleeping [] Family support [] [] Out of room [] Palliative care [] [] Receiving care in room [] Pre-surgical visit [] Trauma [] Long length of stay [x] ICU visit [] Other: Relational/Emotional Strength [] Patient feels connected with others/family/visitors/staff [] Distress [] Loneliness/isolation [] Abandonment Spirituality of Patient [] Person of Jyotsna [] Attends Anglican of their Jyotsna [] Believes in Prayer [] Reads Bible or Rastafari materials [] There are Spiritual issues to be addressed Soft Mud Molder Interventions [x] Prayer [] Active listening [] Non-anxious presence [] Spiritual/emotional support [] Crisis/trauma care [] Spiritual counseling [] Bereavement support [] Provided bereavement packet [] Provided Bible/devotional materials [] Provided toy/stuffed animal, coloring book to patient or family member [] Provided Communion [] Anointing/[place] [] Salvation [x] Completed spiritual assessment [] Other: Impact on Illness or Injury [] Angry [] Fearful [] Anxious [] Often cries [] Exhaustion [] Unable to work [] Unable to attend mandaen [] Unable to walk/stand [] Unable to read [] Unable to drive [] Unable to eat/drink [] Unable to sleep [] Unable to be with family [] Patient intubated [] Other: Summary Time spent with patient
[2021-04-30] MEDS: metoprolol tartrate 50 mg Tablet PO (11:19)
--- NOTE | 2021-04-30 11:58 | P.PN_ITS ---
Subjective Subjective: Interval history: No acute events overnight. Has remained hemodynamically stable and afebrile but tachycardic today morning. Off Precedex since yesterday afternoon. Last Ativan at 3 AM. Has received 6 mg of Ativan since yesterday afternoon. Today morning patient states she is feeling better but still anxious. States abdominal pain is better. No more diarrhea. Vitals/I&O/Wt Last Vital Signs Temp 98.0 F 04/30/21 04:00 Pulse 109 H 04/30/21 10:00 Resp 19 H 04/30/21 10:00 BP 95/59 04/30/21 10:00 Pulse Ox 98 04/30/21 10:00 04/29/21 04/30/21 04/30/21 22:59 06:59 14:59 Intake Total 1342.085 / 2002.752 1120 / 3122.752 360 / 360 Output Total 1800 / 2200 2200 / 4400 550 / 550 Balance -457.915 / -197.248 -1080 / -1277.248 -190 / -190 Physical Exam Narrative: EXAM NARRATIVE: [facility]: 5 Const: COMMON NORMALS: no acute distress and patient oriented x3 GENERAL APPEARANCE: cooperative and anxious HENMT: COMMON NORMALS: oropharynx normal Neck/C-Spine: COMMON NORMALS: no JVD Resp: COMMON NORMALS: normal respiratory effort and clear to auscultation bilaterally AUSCULTATION: clear to auscultation bilaterally Cardio: COMMON NORMALS: no JVD, regular rhythm, S1 normal heart sound present, S2 normal heart sound present and No murmurs present (Cardio) RHYTHM: regular rhythm HEART SOUNDS: S1 normal heart sound present and S2 normal heart sound present GI: COMMON NORMALS: Normal to inspection, nondistended, normoactive bowel sounds present, Soft to palpation and non-tender PALPATION: Yes Soft to palpation Extremity: COMMON NORMALS: no joint enlargement and no pedal edema Neuro: COMMON NORMALS: patient oriented x3 and moves all extremities Skin: COMMON NORMALS: no rashes or lesions noted GENERAL SKIN EXAM: no rashes or lesions noted Data : 04/30/21 05:05 04/30/21 05:05 A&P Assessment and plan (1) Alcohol withdrawal syndrome: Ativan as per [facility] protocol. Stop IV Ativan Cannot do Librium given transaminitis and hyperbilirubinemia. Seizure precaution. Oral appetite better. Stop IV fluids. Protonix, Zofran as needed. Carafate before meals and at bedtime. Oral folic acid, thiamine. Status: Acute Qualifiers: Complication of substance-induced condition: uncomplicated Qualified Code(s): F10.230 - Alcohol dependence with withdrawal, uncomplicated (2) Alcohol intoxication: Status: Acute (3) Anxiety: Start on BuSpar 10 mg daily, olanzapine 7.5 mg at bedtime. Wean off Precedex. Status: Acute (4) GI bleed: Reports of coffee-ground emesis. Suspect alcohol induced gastritis. Continue with PPI twice daily, Zofran as needed. Add Carafate AC at bedtime. Hemoglobin stable. Continue with soft mechanical diet. Status: Suspected (5) Thrombocytopenia: Status: Acute (6) Leukopenia: Status: Acute (7) Bilirubinemia: Status: Acute (8) Transaminitis: Most likely alcohol induced. Trending down. Hepatitis panel, HIV, LDH, GGT appreciated. Status: Acute Additional A&P Information Alcohol use disorder: Has sought rehabilitation in the past. Would be interested in seeking again. Leukopenia/thrombocytopenia/neutropenia: Stable. Could be alcohol induced but new. COVID-19 antigen negative. Continue to monitor. If gets febrile will start on broad-spectrum antibiotics. Tachycardia: Sinus: Most likely secondary to severe anxiety. No other signs of alcohol withdrawal currently. Start on metoprolol 25 mg twice daily. Continue with anxiolytics. DVT ppx SCDs Plan for today: Start patient on metoprolol 25 mg twice daily for tachycardia. Transfer out of ICU. Continue with anxiolytics. Attestations Medical Necessity Statement*: Requires further hospitalization for management of alcohol withdrawal, severe anxiety Time Spent in Patient Care: Greater than 35 minutes (>than 50% of time spent in counselling and/or direct pt care on unit) . Coding Level of Care Code Acute Aluminum Siding Installer for Margarita Mireles Diagnoses Alcohol withdrawal syndrome F10.230 Complication of substance-induced condition: uncomplicated Alcohol intoxication F10.929 Anxiety F41.9 GI bleed K92.2 Thrombocytopenia D69.6 Leukopenia D72.819 Bilirubinemia E80.6 Transaminitis R74.01
[2021-04-30] MEDS: metoclopramide 5 mg/mL SDV 2 mL 10 MG IVP ×2 (14:00→19:30)
[2021-04-30] MEDS: citalopram 20 mg Tablet PO (16:51)
[2021-04-30] MEDS: metoprolol tartrate 25 mg Tablet PO (20:30)
[2021-04-30] MEDS: OLANZapine 5 mg TABLET 7.5 MG PO (20:30)
[2021-04-30] MEDS: hyDROXYzine 25 mg Capsule PO (20:30)
[2021-05-01] VITALS (11 sets, daily range): BP systolic 97–107; BP diastolic 60–80; PULSE 75–96; RESP 12–22; TEMP 36.6
[2021-05-01] MEDS: ondansetron 2 mg/ML SDV 2 mL 4 MG IVP (02:36)
[2021-05-01] MEDS: ALPRAZolam 0.5 mg Tablet PO ×2 (02:36→07:40)
--- NOTE | 2021-05-01 02:41 | PC.NURSE ---
Patient stated she was slightly nauseous, anxious. Minor trembling noted to hands. PRN zofran, xanax given. CIWA not indicated for scoring, so other PRNs utilized. Patient in agreement with plan
[2021-05-01] MEDS: sucralfate 1 gm/10 mL Oral Liq UDC PO (06:12)
--- NOTE | 2021-05-01 09:29 | PC.CHAP ---
Pastoral Care Encounter/Spiritual Assessment Type of Contact [] Declined machine package sealer visit [] Patient/Family/Request visit [] Outpatient visit [] Follow-up visit [] Physician referral [] Code/Alert [x] Routine visit [] Staff referral [] Actively dying [x] Patient sleeping [] Family support [] [] Out of room [] Palliative care [] [] Receiving care in room [] Pre-surgical visit [] Trauma [] Long length of stay [x] ICU visit [x] Other: resting very peaceful Relational/Emotional Strength [] Patient feels connected with others/family/visitors/staff [] Distress [] Loneliness/isolation [] Abandonment Spirituality of Patient [] Person of Jyotsna [] Attends Denominational of their Jyotsna [] Believes in Prayer [] Reads Bible or Taoism materials [] There are Spiritual issues to be addressed Ballast Inspector Interventions [x] Prayer [] Active listening [] Non-anxious presence [] Spiritual/emotional support [] Crisis/trauma care [] Spiritual counseling [] Bereavement support [] Provided bereavement packet [] Provided Bible/devotional materials [] Provided toy/stuffed animal, coloring book to patient or family member [] Provided Communion [] Anointing/[place] [] Salvation [x] Completed spiritual assessment [] Other: Impact on Illness or Injury [] Angry [] Fearful [] Anxious [] Often cries [] Exhaustion [] Unable to work [] Unable to attend church [] Unable to walk/stand [] Unable to read [] Unable to drive [] Unable to eat/drink [] Unable to sleep [] Unable to be with family [] Patient intubated [] Other: Summary Time spent with patient
[2021-05-01] MEDS: folic acid 1 mg Tablet PO (09:31)
[2021-05-01] MEDS: multivitamin therapeutic Tablet 1 TAB PO (09:31)
[2021-05-01] MEDS: pantoprazole 40 mg SDV IVP (09:31)
[2021-05-01] MEDS: BuSPIRONE 10 mg Tablet PO (09:31)
[2021-05-01] MEDS: levothyroxine 50 mcg Tablet PO (09:31)
[2021-05-01] MEDS: thiamine 100 mg Tablet PO (09:31)
[2021-05-01] MEDS: citalopram 20 mg Tablet PO (09:31)
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
== END 2021-05-01 13:10 | disposition home or self-care (01) | DRG 897 ==
LOC: ER 20:28 → ICU 21:23
PROVIDERS: Family Medicine; Internal Medicine; Admitting Provider Hospitalist; Emergency Provider Emergency Medicine; PCP Family Medicine; Visit Provider Student in an Organized Health Care Education/Training Program
DX: F10.229 Alcohol dependence with intoxication, unspecified (principal); F10.239 Alcohol dependence with withdrawal, unspecified; K70.30 Alcoholic cirrhosis of liver without ascites; K29.20 Alcoholic gastritis without bleeding; Y90.8 Blood alcohol level of 240 mg/100 ml or more; F17.210 Nicotine dependence, cigarettes, uncomplicated; F41.9 Anxiety disorder, unspecified; F32.A Depression, unspecified; E87.6 Hypokalemia; D69.59 Other secondary thrombocytopenia; M54.9 Dorsalgia, unspecified
CPT/HCPCS: 36415; 80053; 80307; 81003; 82140; 82247; 82248; 82607; 82746; 82977; 83540; 83550; 83615; 83690; 83735; 84100; 84443; 85014; 85018; 85025; 86705; 86706; 86709; 86803; 87340; 87426; 93005; 96372; 96374; 99285; C9113; J1630; J1885; J2060; J2405; J2765; J3411; J3475; J7030

== ENCOUNTER 2021-05-06 20:56 | Emergency (ER) | payer MEDICAID, SELFPAY ==
[2021-05-06 20:41] VITALS: BP 129/81; PULSE 112; RESP 18; TEMP 36.7; O2SAT 95; BMI 22.1
--- NOTE | 2021-05-06 21:05 | W.ED.GENADLT ---
HPI - General Adult General: Chief complaint: GI Bleed Stated complaint: gi bleed History of Present Illness: HPI narrative: Patient is a 36-year-old female with history of chronic alcohol abuse w/ documented hx of cirrhosis and esophageal varcies who presents the emergency room with concerns of midepigastric abdominal pain and rectal bleeding of bright red blood.melena since 10 am this morning. She says that she had 6 episodes bright red blood per rectum and occasional dark and tarry stools. Patient denies any recent instrumentation or trauma. Patient also reports occasional dark tarry stool. Onset: 10am today Duration:ongoing Location:home Severity:moderate Review of Systems Narrative: Constitutional: No fever, no chills. HEENT: No vision changes CV: No chest pain, no palpitations PULM: no cough, no dyspnea. GI: +epigastric abdominal pain, no N/V/D. : No dysuria MSKEL: No muscle pain SKIN: No new rashes, no lesions. NEURO: No headache, no focal weakness. HEME: No visible bruises PSYCH: Normal mood PFSH ED PFSH: Medical History Acute on chronic anemia -s/p 2 units PRBCs with stable Hg thereafter Aspiration pneumonia -noted CT with noted airspace disease in the dependent portions of the lower lobes, R > L -afebrile, no leukocytosis -s/p 5 days of Zosyn -wean supplemental oxygen as tolerated -continue to monitor respiratory status -aspiration precautions Benzodiazepine abuse Depression End stage liver disease -noted hepatic cirrhosis on CT -secondary to EtOH abuse -continue to trend ammonia, on lactulose -prior hx of SBP, not enough fluid to drain, off abx -pain control as needed -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 [place] and is on transplant list Esophageal varices -hx of banding -s/p 2 units PRBCs on 04/07 with stability in Hg thereafter; continue to monitor H/H -on PPI History of alcohol abuse Overdose SBP (spontaneous bacterial peritonitis) Social History Smoking and tobacco status: current some day smoker Alcohol intake: current Alcohol intake frequency: 3 or more drinks per day Alcohol type: hard liquor Female Reproductive History: Date of last menstrual period: 04/01/14 Physical Exam Narrative: EXAM NARRATIVE: Head: Atraumatic Eyes: PERRL, conjunctiva without injection ENT: Mucous membrane moist NECK: Supple, ROM intact LUNGS: LCTAB, no crackles/rhonchi CV: Sinus tachycardia ABDOMEN: Soft, No focal TTP. NO guarding rebound, guarding, rigidity. No CVA tenderness to percussion. Neg Prasad/Neg McBurney's point tenderness, no suprabupic tenderness to palpation. EXTREMITY: Normal ROM SKIN: No rash or erythema NEURO: Awake and alert, no focal motor deficits PSYCH: Normal mood and affect Course Vital Signs: Vital signs: Vital Signs Temperature 98.1 F 05/06/21 20:41 Pulse Rate 112 H 05/06/21 20:41 Respiratory Rate 18 05/06/21 20:41 Blood Pressure 129/81 05/06/21 20:41 Pulse Oximetry 95 05/06/21 20:41 MDM - General Adult MDM Narrative: Medical decision making narrative: 36-year-old female with history of cirrhosis with esophageal varices presenting to the emergency room with sudden onset of midepigastric abdominal pain x10 hours now with occasional melena and kalli red blood per stool x 6 episodes. On arrival, tachycardiac to the low 120s. Hemoglobin of 12 today. Case was discussed with Dr. Brown at 9:20 PM. Given concerns for history of varices and cirrhosis, Dr. Brown recommended transfer to outside facility in case esophageal banding is needed for possible variceal bleeding. S/p protonix. Stable for transfer. Case was discussed with Dr. Mcbride who agreed with the transfer to [facility] for EGD. Disposition: Transfer to outside hospital Lab Data: Labs: Lab Results 05/06/21 05/06/21 05/06/21 21:23 21:40 21:40 WBC 10.2 10^3/uL H 10 ^3/uL (4.0-10.0) RBC 4.84 10^6/uL 10^6 /uL (4.1-5.3) Hgb 12.2 g/dL g/dL (11.5-15.3) Hct 40.3 % % (37.0-47.0) MCV 83.3 fl fl (81-99) MCH 25.2 pg L pg (28.0-34.0) MCHC 30.3 g/dL g/dL (30.0-36.0) RDW 20.0 % H % (12.1-15.1) Plt Count 336 10^3/cmm 10^3 /cmm (130-400) MPV 9.2 fL fL (7.4-10.4) Neut % (Auto) 52.6 % % Lymph % (Auto) 37.6 % % [place] % (Auto) 6.4 % % Eos % (Auto) 0.9 % % Baso % (Auto) 2.2 % % Neut # (Auto) 5.35 10^3/uL 10^3 /uL (1.8-7.7) Lymph # (Auto) 3.8 10^3/uL 10^3/ uL (0.8-4.8) [place] # (Auto) 0.7 10^3/uL 10^3/ uL (0.2-0.9) Eos # (Auto) 0.1 10^3/uL 10^3/ uL (0.0-0.8) Baso # (Auto) 0.2 10^3/uL H 10^ 3/uL (0.0-0.1) Nucleated RBC % (a uto) 0 % % Nucleated RBCs # 0.0 /100WBC /100W BC PT 14.50 SECONDS SEC ONDS (12.1-14.9) INR 1.09 (0.8-1.2) APTT 22.0 SECONDS L SE CONDS (23.9-36.7) Specimen Type Arterial Sample Site Radial, left ABG pH 7.41 (7.35-7.45) ABG pCO2 38.5 mmHg mmHg (35-45) ABG pO2 82.9 mmHg mmHg (80.0-100.0) ABG HCO3 24.1 mmol/L mmol/ L (22-26) ABG O2 Saturation 95.7 ABG Base Excess -0.4 mmol/L mmol/ L (-2.0-2.0) Jake Test Pos A-a O2 Gradient 2.4 mmHg L mmHg (5-10) Hematocrit 36.5 % L % (37-47) Hgb O2 Saturation 92.4 % L % (95-100) Carboxyhemoglobin 2.8 %THgb %THgb (0.4-20.1) Methemoglobin 0.7 % % (0.4-1.5) Total Hemoglobin 11.9 g/dL L g/dL (12-16) Sodium 149.0 mmol/L H mm ol/L (131-143) Potassium 3.9 mmol/L mmol/L (3.5-5.0) Glucose 106.0 mg/dL mg/dL (70-115) Ionized Calcium 1.1 mmol/L mmol/L (1.1-1.4) O2 Delivery Device Room air Applications Support Engineer ID [id number] Chloride Carbon Dioxide Anion Gap BUN Creatinine GFR Calculation Calculated Osmolal ity Calcium Total Bilirubin AST ALT Alkaline Phosphata se Total Protein Albumin Globulin Lipase SARS-CoV-2 Ag (Rap id) 05/06/21 05/06/21 21:40 22:07 WBC RBC Hgb Hct MCV MCH MCHC RDW Plt Count MPV Neut % (Auto) Lymph % (Auto) [place] % (Auto) Eos % (Auto) Baso % (Auto) Neut # (Auto) Lymph # (Auto) [place] # (Auto) Eos # (Auto) Baso # (Auto) Nucleated RBC % (a uto) Nucleated RBCs # PT INR APTT Specimen Type Sample Site ABG pH ABG pCO2 ABG pO2 ABG HCO3 ABG O2 Saturation ABG Base Excess Jake Test A-a O2 Gradient Hematocrit Hgb O2 Saturation Carboxyhemoglobin Methemoglobin Total Hemoglobin Sodium 145 mmol/L mmol/L (136-145) Potassium 4.3 mmol/L mmol/L (3.5-5.1) Glucose 100 mg/dL mg/dL (65-115) Ionized Calcium O2 Delivery Device Applications Support Engineer ID Chloride 105 mmol/L mmol/L (98-107) Carbon Dioxide 21 mmol/L L mmol/ L (22-29) Anion Gap 23.3 H (5-19) BUN 4 mg/dL L mg/dL (6-20) Creatinine 0.6 mg/dL mg/dL (0.5-0.9) GFR Calculation 111.9 mL/min mL/m in (90-130) Calculated Osmolal ity 297 mOsm/kg H mOs m/kg (285-295) Calcium 8.6 mg/dL mg/dL (8.5-10.5) Total Bilirubin 0.6 mg/dL mg/dL (0.15-1.2) AST 92 U/L H U/L (0-32) ALT 45 U/L H U/L (0-33) Alkaline Phosphata se 192 IU/L H IU/L (35-105) Total Protein 7.2 g/dL g/dL (6.6-8.7) Albumin 4.6 g/dL g/dL (3.5-5.2) Globulin 2.6 g/dL g/dL (1.3-4.6) Lipase 64 U/L H U/L (13-60) SARS-CoV-2 Ag (Rap id) Negative (Negative) Discharge Plan Discharge Patient Disposition: Transfer to ED Clinical Impression: Cirrhosis, Esophageal varices, GI bleed Condition: Stable Prescriptions: No Action levothyroxine 50 mcg Tablet 50 mcg PO DAILY Qty: 0 RF: 0 cyclobenzaprine 5 mg Tablet 5 mg PO TID PRN (Reason: Muscle Pain) Qty: 0 RF: 0 thiamine mononitrate (vit B1) [Vitamin B-1 (mononitrate)] 100 mg Tablet 100 mg PO DAILY 30 Days Qty: 30 RF: 1 melatonin 3 mg Tablet 3 mg PO BEDTIME RF: 0 olanzapine 5 mg Tablet 5 mg PO BEDTIME RF: 0 citalopram 20 mg Tablet 20 mg PO DAILY 30 Days Qty: 30 RF: 0 buspirone 10 mg Tablet 10 mg PO BID 30 Days Qty: 60 RF: 0 metoprolol tartrate 25 mg Tablet 25 mg PO BID@0900,2100 30 Days Qty: 60 RF: 0 Protonix 40 mg tablet,delayed release (DR/EC) 40 mg PO DAILY Qty: 30 RF: 0 Carafate 100 mg/mL suspension 10 ml PO BID 7 Days Qty: 140 RF: 0 Referrals: Stanton Schumacher [Primary Care Provider] - Coding Level of Care Code ED Ware Server for Margarita Mireles
[2021-05-06 21:40] LABS: ABG PCO2 38.5 mmHg (35-45); ABG PH Result 7.41 (7.35-7.45); Alveolar-Arterial Oxygen Gradi 2.4 mmHg (5-10); Arterial Blood Gas Hematocrit 36.5 % (37-47); Base Excess ABG -0.4 mmol/L (-2.0-2.0); Blood Gas Allen Test Pos; Blood Gas Sample Site Radial, left; Blood Gas Sample Type Arterial; Carboxyhemoglobin 2.8 %THgb (0.4-20.1); HCO3 ABG 24.1 mmol/L (22-26); HGB O2 Sat 92.4 % (95-100); Ionized Calcium Level - ABG 1.1 mmol/L (1.1-1.4); Methemoglobin 0.7 % (0.4-1.5); Oxygen Device ROOM AIR; Oxygen Saturation ABG 95.7; PO2 ABG 82.9 mmHg (80.0-100.0); Potassium Level - ABG 3.9 mmol/L (3.5-5.0); Total Hemoglobin 11.9 g/dL (12-16)
[2021-05-06 21:48] LABS: Basophils # 0.2 10^3/uL (0.0-0.1); Basophils % 2.2 %; Eosinophils # 0.1 10^3/uL (0.0-0.8); Eosinophils % 0.9 %; Hematocrit 40.3 % (37.0-47.0); Hemoglobin 12.2 g/dL (11.5-15.3); Lymphocytes # 3.8 10^3/uL (0.8-4.8); Lymphocytes % 37.6 %; Mean Corpuscular HGB Conc 30.3 g/dL (30.0-36.0); Mean Corpuscular Hemoglobin 25.2 pg (28.0-34.0); Mean Corpuscular Volume 83.3 fl (81-99); Mean Platelet Volume 9.2 fL (7.4-10.4); Monocytes # 0.7 10^3/uL (0.2-0.9); Monocytes % 6.4 %; Neutrophils # 5.35 10^3/uL (1.8-7.7); Neutrophils % 52.6 %; Nucleated Red Blood Cells % 0 %; Platelet Count 336 10^3/cmm (130-400); Red Blood Count 4.84 10^6/uL (4.1-5.3); White Blood Count 10.2 10^3/uL (4.0-10.0)
[2021-05-06 22:02] LABS: INR 1.09 (0.8-1.2)
[2021-05-06 22:10] LABS: Alanine Aminotransferase 45 U/L (0-33); Albumin Level 4.6 g/dL (3.5-5.2); Alkaline Phosphatase 192 IU/L (35-105); Anion Gap 23.3 (5-19); Aspartate Amino Transferase 92 U/L (0-32); Blood Urea Nitrogen 4 mg/dL (6-20); Calcium 8.6 mg/dL (8.5-10.5); Carbon Dioxide 21 mmol/L (22-29); Chloride 105 mmol/L (98-107); Creatinine Clr Calc Pharmacy 134.4564; Globulin 2.6 g/dL (1.3-4.6); Glomerular Filtration Rate 111.9 mL/min (90-130); Glucose 100 mg/dL (65-115); Lipase 64 U/L (13-60); Osmolality Calculated 297 mOsm/kg (285-295); Potassium 4.3 mmol/L (3.5-5.1); Sodium 145 mmol/L (136-145); Total Bilirubin 0.6 mg/dL (0.15-1.2); Total Protein 7.2 g/dL (6.6-8.7)
[2021-05-06] MEDS: LORazepam 2 mg/mL INJ 1 mL IVP (22:27)
[2021-05-06 22:30] LABS: SARS Covid-2 Antigen Negative (Negative)
[2021-05-07 00:14] VITALS: BP 111/77; PULSE 79; RESP 18; O2SAT 97
== END 2021-05-07 00:17 ==
PROVIDERS: Emergency Provider Emergency Medicine; PCP Family Medicine
DX: K92.2 Gastrointestinal hemorrhage, unspecified (principal); K74.60 Unspecified cirrhosis of liver; I85.10 Secondary esophageal varices without bleeding; F17.210 Nicotine dependence, cigarettes, uncomplicated; Z20.822 Contact with and (suspected) exposure to COVID-19
CPT/HCPCS: 36600; 80051; 80053; 82330; 82805; 83690; 85025; 85610; 85730; 87426; 96374; 99285; J2060

== ENCOUNTER 2021-05-15 23:46 | Emergency (ER) | payer MEDICAID, SELFPAY ==
[2021-05-16 00:05] VITALS: BP 112/79; PULSE 120; RESP 18; TEMP 37.1; O2SAT 96; BMI 22.8
--- NOTE | 2021-05-16 00:22 | XRR_ITS ---
PROCEDURE INFORMATION: Exam: XR Right Foot Exam date and time: 05/16/2021 12:22 AM Age: 36 years old Clinical indication: Injury or trauma; Fall; Blunt trauma; Foot; Right TECHNIQUE: Imaging protocol: XR Right foot. Views: 3 or more views. COMPARISON: CR XR foot RT min 3V* [id number] 04/13/2021 11:33 PM FINDINGS: Bones/joints: Displaced fracture involves the medial side of the 2nd digit proximal phalanx proximal base. No change in alignment from prior. No significant healing seen. Soft tissues: Normal. XR/XR foot RT min 3V* [id number] IMPRESSION: No significant changes in the 2nd digit proximal phalanx fracture.
--- NOTE | 2021-05-16 00:22 | XRR_ITS ---
PROCEDURE INFORMATION: Exam: XR Lumbosacral Spine Exam date and time: 05/16/2021 12:22 AM Age: 36 years old Clinical indication: Injury or trauma; Fall; Blunt trauma (contusions or hematomas); Prior surgery; Surgery type: Gb TECHNIQUE: Imaging protocol: XR of the lumbosacral spine. Views: 2 or 3 views. COMPARISON: CR (PELVIS, ) 04/01/2021 5:54 PM FINDINGS: Bones/joints: Redemonstration of T11 and T12 level compression fractures unchanged from 04/01/2021. No retropulsion. No acute fracture. Normal alignment. Soft tissues: Unremarkable. Intraperitoneal space: Right upper quadrant surgical clips. XR/XR lumbar spine 2-3V* [id number] IMPRESSION: 1. No acute lumbar spine injury. 2. Redemonstration of T11 and T12 compression fractures are unchanged in height loss from 04/01/2021.
[2021-05-16] MEDS: HYDROcodone-acetaminophen 5-325 mg Tablet 1 TAB PO (00:48)
[2021-05-16 00:52] VITALS: BP 134/94
--- NOTE | 2021-05-16 00:52 | W.ED.FALL ---
HPI - Fall General: Chief Complaint: Fall Stated Complaint: Injury fell Down Steps\Back Pain Time Seen by Provider: 05/16/21 00:04 Source: patient Mode of arrival: ambulatory Limitations: no limitations History of Present Illness: HPI Narrative: 36-year-old female states she fell down roughly 10 steps earlier today. States that she had right foot and back pain since the injury. She has been ambulatory states pain sharp in nature rates it a 5 out of 10 denies any radiation of the pain denies any head or neck injury. Associated symptoms-after fall: Denies abdominal pain, chest pain or headache(s) Review of Systems Const: Denies: fever(s), chills, body aches or change in appetite Eyes: Denies: blurry vision or eye discomfort ENMT: Denies: throat pain or dental pain Card: Denies: chest pain Resp: Denies: dyspnea GI: Denies: abdominal pain, nausea, vomiting or diarrhea : Denies: dysuria Musc: Reports: back pain and extremity pain Skin/Breast: Denies: rash Neuro: Denies: headache(s) Psych: Denies: depression Noel/Lymph: Denies: easy bruising All/Imm: Denies: urticaria PFSH ED PFSH: Medical History Acute on chronic anemia -s/p 2 units PRBCs with stable Hg thereafter Alcohol use disorder, severe, dependence Anxiety Aspiration pneumonia -noted CT with noted airspace disease in the dependent portions of the lower lobes, R > L -afebrile, no leukocytosis -s/p 5 days of Zosyn -wean supplemental oxygen as tolerated -continue to monitor respiratory status -aspiration precautions Benzodiazepine abuse Depression End stage liver disease -noted hepatic cirrhosis on CT -secondary to EtOH abuse -continue to trend ammonia, on lactulose -prior hx of SBP, not enough fluid to drain, off abx -pain control as needed -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 with 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 in [place] and is on transplant list Esophageal varices -hx of banding -s/p 2 units PRBCs on 04/07 with stability in Hg thereafter; continue to monitor H/H -on PPI GI bleed History of alcohol abuse Overdose SBP (spontaneous bacterial peritonitis) Social History Smoking and tobacco status: current some day smoker Alcohol intake: current Alcohol intake frequency: 3 or more drinks per day Alcohol type: hard liquor Female Reproductive History: Date of last menstrual period: 04/01/14 Physical Exam Const: COMMON NORMALS: no acute distress, patient oriented x3 and healthy appearing HENMT: COMMON NORMALS: normocephalic and atraumatic HEAD & SCALP: normocephalic and atraumatic Eye: COMMON NORMALS: Equal, round and reactive pupils present and EOMs intact bilaterally PUPIL: Yes Equal, round and reactive pupils present Neck/C-Spine: COMMON NORMALS: full ROM and supple Chest: COMMONS NORMALS: normal inspection of the chest and normal palpation of entire chest wall Resp: COMMON NORMALS: normal respiratory effort, No retractions, No use of accessory muscles and clear to auscultation bilaterally AUSCULTATION: clear to auscultation bilaterally Cardio: COMMON NORMALS: regular rate, regular rhythm and No murmurs present (Cardio) RATE: regular rate RHYTHM: regular rhythm GI: COMMON NORMALS: Normal to inspection, nondistended, normoactive bowel sounds present, Soft to palpation, non-tender and no masses PALPATION: Yes Soft to palpation Back/Pelvis: OTHER: Slight paraspinal tenderness no midline tenderness Extremity: COMMON NORMALS: normal to inspection and full ROM OTHER: Some tenderness over the right midfoot no obvious deformities no bruising patient able to bear weight Neuro: COMMON NORMALS: patient oriented x3, moves all extremities and no focal motor deficits Psych: COMMON NORMALS: mental status grossly normal, Normal thought process present and cooperative THOUGHT PROCESS: Normal thought process present Skin: COMMON NORMALS: no rashes or lesions noted and no wounds GENERAL SKIN EXAM: no rashes or lesions noted Course Vital Signs: Vital signs: Vital Signs Temperature 98.8 F 05/16/21 00:05 Pulse Rate 120 H 05/16/21 00:05 Respiratory Rate 18 05/16/21 00:05 Blood Pressure 112/79 05/16/21 00:05 Pulse Oximetry 96 05/16/21 00:05 MDM - Fall MDM Narrative: Medical decision making narrative: Patient presents with back pain and foot pain from a fall she has no signs of any fractures no major injuries from the fall no head or neck injury will place patient on Robaxin she is to take Tylenol at home she is stable for discharge return if worsening. Imaging Data^: X-ray foot: Attestation: I personally reviewed and interpreted this imaging study as follows: Radiologist's impression: No acute normality X-ray lumbar spine: Attestation: I personally reviewed and interpreted this imaging study as follows: My impression: Slight compression of superior endplate of T11 is seen on previous x-ray November likely chronic no signs of acute fracture Discharge Plan Discharge Patient Disposition: Home Clinical Impression: Contusion of back, Foot pain, right Fall Qualifiers: Encounter type: initial encounter Qualified Code(s): W19.XXXA - Unspecified fall, initial encounter Condition: Stable Prescriptions: New methocarbamol 750 mg tablet 750 mg PO Q6H PRN (Reason: spasms) Qty: 20 RF: 0 No Action levothyroxine 50 mcg Tablet 50 mcg PO DAILY Qty: 0 RF: 0 cyclobenzaprine 5 mg Tablet 5 mg PO TID PRN (Reason: Muscle Pain) Qty: 0 RF: 0 thiamine mononitrate (vit B1) [Vitamin B-1 (mononitrate)] 100 mg Tablet 100 mg PO DAILY 30 Days Qty: 30 RF: 1 melatonin 3 mg Tablet 3 mg PO BEDTIME RF: 0 olanzapine 5 mg Tablet 5 mg PO BEDTIME RF: 0 citalopram 20 mg Tablet 20 mg PO DAILY 30 Days Qty: 30 RF: 0 buspirone 10 mg Tablet 10 mg PO BID 30 Days Qty: 60 RF: 0 metoprolol tartrate 25 mg Tablet 25 mg PO BID@0900,2100 30 Days Qty: 60 RF: 0 Protonix 40 mg tablet,delayed release (DR/EC) 40 mg PO DAILY Qty: 30 RF: 0 Discharge Orders: Discharge ED (Routine); Ordered 05/16/21 Ordered By: Milton Piedra Referrals: Stanton Schumacher [Primary Care Provider] - 1-3 days Discharge Diet: Advance as tolerated Discharge Activity: Resume usual activity Patient Instructions: Opioid Safety Coding Level of Care Code ED Rail Filler for Margarita Mireles
== END 2021-05-16 00:53 | disposition home or self-care (01) ==
PROVIDERS: Emergency Provider Emergency Medicine; PCP Family Medicine
DX: S30.0XXA Contusion of lower back and pelvis, initial encounter (principal); W10.9XXA Fall (on) (from) unspecified stairs and steps, initial encounter; M79.671 Pain in right foot; F17.210 Nicotine dependence, cigarettes, uncomplicated
CPT/HCPCS: 72100; 73630; 99283

== ENCOUNTER 2021-05-16 13:02 | Inpatient (IN) | payer MEDICAID, SELFPAY ==
[2021-05-16] VITALS (11 sets, daily range): BP systolic 101–124; BP diastolic 62–81; PULSE 102–128; RESP 16–24; TEMP 36.7; O2SAT 90–97
--- NOTE | 2021-05-16 14:13 | W.ED.GENADLT ---
HPI - General Adult General: Chief complaint: General Medical Stated complaint: ALCOHOL TREMORS Time Seen by Provider: 05/16/21 13:18 History of Present Illness: HPI narrative: CC: Alcohol withdrawal HPI: [36]yo patient w hx of chronic alcohol dependence c/b withdrawal symptoms who has not stopped taking alcohol since yesterday night presenting to the ED with symptoms of nausea/vomiting, diaphoresis, and tremulousness similar to prior presentations of alcohol withdrawal. No hx of cirrhosis. Denies any other medication ingestion since quitting use. No other complaints of chest pain, shortness of breath, fever, focal rash, or complaints today. Onset: 1 days ago Duration: ongoing Location: home Severity: mild Review of Systems Narrative: Constitutional: No fever, +chills. HEENT: No vision changes CV: No chest pain, no palpitations PULM: No cough, no dyspnea. GI: No abdominal pain, +N/+V/-D. : No dysuria MSKEL: No muscle pain SKIN: No new rashes, no lesions. NEURO: No headache, no focal weakness. HEME: No visible bruises PSYCH: Normal mood PFSH ED PFSH: Medical History Acute on chronic anemia -s/p 2 units PRBCs with stable Hg thereafter Alcohol use disorder, severe, dependence Anxiety Aspiration pneumonia -noted CT with noted airspace disease in the dependent portions of the lower lobes, R > L -afebrile, no leukocytosis -s/p 5 days of Zosyn -wean supplemental oxygen as tolerated -continue to monitor respiratory status -aspiration precautions Benzodiazepine abuse Depression End stage liver disease -noted hepatic cirrhosis on CT -secondary to EtOH abuse -continue to trend ammonia, on lactulose -prior hx of SBP, not enough fluid to drain, off abx -pain control as needed -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 [place] and is on transplant list Esophageal varices -hx of banding -s/p 2 units PRBCs on 04/07 with stability in Hg thereafter; continue to monitor H/H -on PPI GI bleed History of alcohol abuse Overdose SBP (spontaneous bacterial peritonitis) Social History Smoking and tobacco status: current some day smoker Alcohol intake: current Alcohol intake frequency: 3 or more drinks per day Alcohol type: hard liquor Female Reproductive History: Date of last menstrual period: 04/01/14 Physical Exam Narrative: EXAM NARRATIVE: Head: Atraumatic Eyes: PERRL, conjunctiva without injection, ENT: Moist membrane moist NECK: Supple without lymphadenopathy LUNGS: LCTAB CV: Sinus tachycardia ABDOMEN: Soft, nontender EXTREMITY: Normal ROM, [place], mild tremulous movements in the UEs SKIN: No rash or erythema, no visible patches, no noticeable cellulitis NEURO: AAOX3, mildly agitated and moving all extremities PSYCH: Cooperative with exam Course Vital Signs: Vital signs: Vital Signs Temperature 98.1 F 05/16/21 16:45 Pulse Rate 111 H 05/16/21 16:45 Respiratory Rate 18 05/16/21 16:45 Blood Pressure 106/66 05/16/21 16:45 Pulse Oximetry 96 05/16/21 16:45 MDM - General Adult MDM Narrative: Medical decision making narrative: [36]yo patient w/ hx of alcohol use disorder presenting w/ alcohol withdrawal + recent reduction in alcohol use from chronic abuse. + anxiety +nausea + tachycardia + tremor -diaphoresis. Last drink was yesterday night. No recent trauma/falls. Denies tactile, auditory, and visual hallucinations. Denies suicidal ideation currently. AAOX3 Denies history of withdrawal seizures, ICU admissions, DTs. Workup: ECG, CBC, BMP, Magnesium Interventions: ativan 10mg IV, IVF, zofran, phenobarb 120mg Given History, Exam, and Workup this patient appears to in moderate withdrawal on presentation. Presentation not consistent with infectious etiology, thyrotoxicosis, Coingestion toxidrome/withdrawal, primary psychological disorder such as anxiety, Severe Metabolic Derangement (hypoglycemia, alcoholic ketoacidosis, or other e-lyte abnormality). No suspicion of intracranial injuries given normal AAOx3, no hx of recent trauma, or any neurological complaints. [3:45pm] On reassessment, patient continues to be mild withdrawal. Tachycardiac to the low 110s w/ +mild tremulousness Disposition: Admission Lab Data: Labs: Lab Results 05/16/21 05/16/21 14:20 14:20 WBC 7.1 10^3/uL 10^3/ uL (4.0-10.0) RBC 4.79 10^6/uL 10^6 /uL (4.1-5.3) Hgb 12.1 g/dL g/dL (11.5-15.3) Hct 37.6 % % (37.0-47.0) MCV 78.5 fl L fl (81-99) MCH 25.3 pg L pg (28.0-34.0) MCHC 32.2 g/dL g/dL (30.0-36.0) RDW 19.3 % H % (12.1-15.1) Plt Count 251 10^3/cmm 10^3 /cmm (130-400) MPV 9.4 fL fL (7.4-10.4) Neut % (Auto) 72.6 % % Lymph % (Auto) 16.2 % % [place] % (Auto) 8.8 % % Eos % (Auto) 0.0 % % Baso % (Auto) 2.0 % % Neut # (Auto) 5.17 10^3/uL 10^3 /uL (1.8-7.7) Lymph # (Auto) 1.2 10^3/uL 10^3/ uL (0.8-4.8) [place] # (Auto) 0.6 10^3/uL 10^3/ uL (0.2-0.9) Eos # (Auto) 0.0 10^3/uL 10^3/ uL (0.0-0.8) Baso # (Auto) 0.1 10^3/uL 10^3/ uL (0.0-0.1) Nucleated RBC % (a uto) 0 % % Nucleated RBCs # 0.0 /100WBC /100W BC Sodium 131 mmol/L L mmol /L (136-145) Potassium 3.9 mmol/L mmol/L (3.5-5.1) Chloride 88 mmol/L L mmol/ L (98-107) Carbon Dioxide 17 mmol/L L mmol/ L (22-29) Anion Gap 29.9 H (5-19) BUN 6 mg/dL mg/dL (6-20) Creatinine 0.8 mg/dL mg/dL (0.5-0.9) GFR Calculation 80.3 mL/min L mL/ min (90-130) Glucose 152 mg/dL H mg/dL (65-115) Calculated Osmolal ity 273 mOsm/kg L mOs m/kg (285-295) Calcium 8.9 mg/dL mg/dL (8.5-10.5) Magnesium 1.6 mg/dL L mg/dL (1.7-2.3) Total Bilirubin 1.4 mg/dL H mg/dL (0.15-1.2) AST 68 U/L H U/L (0-32) ALT 31 U/L U/L (0-33) Alkaline Phosphata se 203 IU/L H IU/L (35-105) Total Protein 6.9 g/dL g/dL (6.6-8.7) Albumin 4.6 g/dL g/dL (3.5-5.2) Globulin 2.3 g/dL g/dL (1.3-4.6) Lipase 44 U/L U/L (13-60) Discharge Plan Discharge Patient Disposition: Admitted As Inpatient Clinical Impression: Alcohol withdrawal Condition: Stable Coding Level of Care Code ED Technical Service Engineer for Margarita Mireles
[2021-05-16] MEDS: LORazepam 2 mg/mL INJ 1 mL 4 MG IVP (14:22)
[2021-05-16] MEDS: sodium chloride 0.9% 1,000 ML 999 ML IV ×3 (14:29→15:53)
[2021-05-16 14:34] LABS: Basophils # 0.1 10^3/uL (0.0-0.1); Hematocrit 37.6 % (37.0-47.0); Hemoglobin 12.1 g/dL (11.5-15.3); Lymphocytes # 1.2 10^3/uL (0.8-4.8); Lymphocytes % 16.2 %; Mean Corpuscular HGB Conc 32.2 g/dL (30.0-36.0); Mean Corpuscular Hemoglobin 25.3 pg (28.0-34.0); Mean Corpuscular Volume 78.5 fl (81-99); Mean Platelet Volume 9.4 fL (7.4-10.4); Monocytes # 0.6 10^3/uL (0.2-0.9); Monocytes % 8.8 %; Neutrophils # 5.17 10^3/uL (1.8-7.7); Neutrophils % 72.6 %; Nucleated Red Blood Cells % 0 %; Platelet Count 251 10^3/cmm (130-400); Red Blood Count 4.79 10^6/uL (4.1-5.3); Red Cell Distribution Width 19.3 % (12.1-15.1); White Blood Count 7.1 10^3/uL (4.0-10.0)
[2021-05-16 14:53] LABS: Alanine Aminotransferase 31 U/L (0-33); Albumin Level 4.6 g/dL (3.5-5.2); Alkaline Phosphatase 203 IU/L (35-105); Anion Gap 29.9 (5-19); Aspartate Amino Transferase 68 U/L (0-32); Blood Urea Nitrogen 6 mg/dL (6-20); Calcium 8.9 mg/dL (8.5-10.5); Carbon Dioxide 17 mmol/L (22-29); Chloride 88 mmol/L (98-107); Globulin 2.3 g/dL (1.3-4.6); Glomerular Filtration Rate 80.3 mL/min (90-130); Glucose 152 mg/dL (65-115); Lipase 44 U/L (13-60); Magnesium 1.6 mg/dL (1.7-2.3); Osmolality Calculated 273 mOsm/kg (285-295); Potassium 3.9 mmol/L (3.5-5.1); Sodium 131 mmol/L (136-145); Total Bilirubin 1.4 mg/dL (0.15-1.2); Total Protein 6.9 g/dL (6.6-8.7)
[2021-05-16] MEDS: ondansetron 2 mg/ML SDV 2 mL 4 MG IVP (15:07)
[2021-05-16] MEDS: LORazepam 2 mg/mL INJ 1 mL IVP (15:07)
[2021-05-16] MEDS: sodium chloride 0.9% 250 ML IV (16:17)
[2021-05-16] MEDS: PHENobarbital 130 mg/mL SDV 1 mL 120 MG IV ×3 (16:17→23:00)
--- NOTE | 2021-05-16 18:25 | PM.HP ---
Providers/Chief Complaint Admitting Physician: Willi Cerna MD Primary Care Provider: Stanton Schumacher Chief Complaint: ALCOHOL TREMORS History of Present Illness Pily Choe is a 36 year old female history of alcohol-related liver cirrhosis, on liver transplant, follows up with behavioral health technician, has had multiple admissions secondary to alcohol withdrawal symptoms in the past, suffering from depression/anxiety has been seen by Dr. Huffman in the past as well presented today for alcohol detox. Patient is stating that at baseline she drinks 8 to 10 cans of beer every day, her last drink was yesterday when she decided to quit after 4 drinks. No recent GI bleed or hematemesis/hemoptysis. She started throwing up today, more than 20 episodes of nausea and vomiting this morning that prompted her visit to the ER. No fever, chest pain or shortness of breath. She is vaccinated for COVID-19. Patient is stating that she is motivated to quit this time. She stated that she lives alone and if she gets worse her ex- should be notified. In the ER she was given benzodiazepine 10 mg, 120 mg of phenobarbital, 3 L of normal saline. She is tachycardic and hypertensive. Having tremors complaining of headache. I requested bed in ICU start phenobarbital, monotherapy If I treat her with 20 mg/kg her maximum dosing a day would be 1400 mg that is why I have chosen 120 mg of phenobarbital every 2 hours which will be around 1400 mg in a day Patient is stating that she was intubated secondary to worsening DTs last year in April Review of Systems Const: Reports: chills, body aches, change in weight, fatigue, night sweats, diaphoresis and change in sleep pattern Eyes: Denies: change in vision ENMT: Denies: throat pain Card: Denies: chest pain Resp: Denies: dyspnea GI: Reports: abdominal pain, nausea, vomiting and diarrhea : Denies: flank pain Musc: Denies: neck pain Skin/Breast: Denies: rash Neuro: Reports: headache(s) and numbness in extremities Psych: Reports: anxiety, depression, mood swings and hopelessness; Denies: sleeping more, loss of interest or suicidal ideation Endo: Denies: polyuria Noel/Lymph: Denies: easy bruising All/Imm: Denies: urticaria Medications/Allergies Home Medications Medication Instructions Recorded Confirmed Last Taken Type cyclobenzaprine 5 mg PO TID PRN #0 04/06/21 05/16/21 Unknown History levothyroxine 50 mcg PO DAILY #0 04/06/21 05/16/21 04/02/21 05:30 History thiamine mononitrate (vit B1) 100 mg PO DAILY 30 Days #30 tab 04/06/21 05/16/21 Unknown Rx [Vitamin B-1 (mononitrate)] melatonin 3 mg PO BEDTIME 04/30/21 05/16/21 Unknown History olanzapine 5 mg PO BEDTIME 04/30/21 05/16/21 Unknown History buspirone 10 mg PO BID 30 Days #60 tab 05/01/21 05/16/21 Unknown Rx citalopram 20 mg PO DAILY 30 Days #30 tab 05/01/21 05/16/21 Unknown Rx metoprolol tartrate 25 mg PO BID@0900,2100 30 Days #60 05/01/21 05/16/21 Unknown Rx tab pantoprazole [Protonix] 40 mg PO DAILY #30 tab 05/01/21 05/16/21 Unknown Rx methocarbamol 750 mg PO Q6H PRN #20 tab 05/16/21 05/16/21 Unknown Rx Allergies Allergy/AdvReac Type Severity Reaction Status Date / Time doxycycline Allergy ADR-Vomitin Verified 05/16/21 13:59 g PFSH Acute PFSH: Medical History Acute on chronic anemia Prior blood transfusion in the past Alcohol use disorder, severe, dependence Anxiety Aspiration pneumonia = Benzodiazepine abuse Depression End stage liver disease -noted hepatic cirrhosis on CT -secondary to EtOH abuse -continue to trend ammonia, on lactulose -prior hx of SBP, not enough fluid to drain, off abx -pain control as needed -f/u with behavioral health technician in [place] and is on transplant list Esophageal varices -hx of banding -s/p 2 units PRBCs on 04/07 GI bleed History of alcohol abuse Overdose SBP (spontaneous bacterial peritonitis) Surgical History H/O LEEP History of cholecystectomy Social History Smoking and tobacco status: current some day smoker Alcohol intake: current Alcohol intake frequency: 3 or more drinks per day Alcohol type: hard liquor Female Reproductive History: Date of last menstrual period: 04/01/14 Vitals/I&O/Wt Last Vital Signs Temp 98.1 F 05/16/21 16:45 Pulse 111 H 05/16/21 16:45 Resp 18 05/16/21 16:45 BP 106/66 05/16/21 16:45 Pulse Ox 96 05/16/21 16:45 05/16/21 05/16/21 05/16/21 06:59 14:59 22:59 Intake Total 1999 Balance 1999 Weight last 48 hrs Weight 70.307 kg Physical Exam Narrative: EXAM NARRATIVE: Patient laying supine Alcohol withdrawal symptoms She is yawning Dilated pupil Complaining of headache Coarse tremors of upper extremities only Looks dehydrated Sinus tachycardia Hypertensive Abdomen tender midepigastric and right lower quadrant area S1, S2 sinus tachycardia Saturating well on room air Appears to be in distress with anxiety Data : 05/16/21 14:20 05/16/21 14:20 A&P Assessment and plan (1) Depression: Status: Acute (2) Transaminitis: Status: Acute (3) Alcohol withdrawal: Status: Acute (4) Alcohol withdrawal syndrome: Status: Acute Qualifiers: Complication of substance-induced condition: uncomplicated Qualified Code(s): F10.230 - Alcohol dependence with withdrawal, uncomplicated Additional A&P Information Alcohol withdrawal Previous history of alcohol liver cirrhosis with GI bleed Would use phenobarbital monotherapy Planning to use 20mg/kg/day approach to control her withdrawal symptoms 120 mg of phenobarbital every 2 hours, avoid loading dose because she received 10 mg of benzodiazepine in the ER Continue thiamine and folic acid Keep her on IV fluids as well Clinically dehydrated We'll give her clonidine for withdrawal symptoms tachycardia and hypertension, continue metoprolol DTs, carry 25 to 30% mortality, she has had multiple withdrawal symptoms in the past History of intubation secondary to DTs in April 2020 No active GI bleed, hemoglobin stable, no sign of thrombocytopenia No active signs of decompensated liver cirrhosis She is awake and alert She does carry history of SBP in the past Continue Protonix Cardiac diet Full code Check magnesium, phosphorus level I tried to call her ex-, it went to voicemail, Admit to ICU Attestations Medical Necessity Statement*: Admit to ICU Time Spent in Patient Care: Greater than 35 minutes Coding Level of Care Code Acute Photovoltaic Testing Technician for g Fwd Diagnoses Depression F32.A Transaminitis R74.01 Alcohol withdrawal F10.239 Alcohol withdrawal syndrome F10.230 Complication of substance-induced condition: uncomplicated
[2021-05-16 18:34] LABS: Alcohol Level < 10 mg/dL (0-10)
--- NOTE | 2021-05-16 20:12 | PC.NURSE ---
Called report to Rula in ICU.
--- NOTE | 2021-05-16 20:45 | PC.NURSE ---
Patient brought to ICU 10 via stretcher by FACILITY SERVICE MANAGER. Patient is anxious, trembling, and requesting medication for her anxiety. Patient placed on the monitor and is tachycardic. All other vital signs are WNL. Other than medication for anxiety, patient denies any needs or requests.
[2021-05-16 20:59] LABS: Amphetamines Screen Urine Negative (Negative); Barbiturates Screen Urine Positive (Negative); Benzodiazepines Screen Urine Positive (Negative); Cocaine Screen Urine Negative (Negative); Opiate Screen Urine Positive (Negative); PCP Screen Urine Negative (Negative); THC Screen Urine Negative (Negative)
[2021-05-16] MEDS: metoprolol tartrate 25 mg Tablet PO (21:00)
[2021-05-16] MEDS: potassium chloride ER 20 mEq Tablet 40 MEQ PO (21:00)
[2021-05-16] MEDS: sodium chloride 0.9% 1,000 ML 75 ML IV (21:03)
[2021-05-16 22:25] LABS: Lipase 62 U/L (13-60); Magnesium 1.5 mg/dL (1.7-2.3); Phosphorus 2.6 mg/dL (2.5-4.5)
[2021-05-16] MEDS: magnesium sulfate premix 2 GM/50 ML PIGGYBACK IV (22:50)
[2021-05-16] MEDS: enoxaparin 40 mg/0.4 mL Syringe SUBCUT (22:51)
[2021-05-17] VITALS (17 sets, daily range): BP systolic 90–115; BP diastolic 56–79; PULSE 73–88; RESP 10–19; TEMP 36.7–36.8; O2SAT 96–100
[2021-05-17] MEDS: folic acid 1 mg Tablet PO (08:15)
[2021-05-17] MEDS: levothyroxine 50 mcg Tablet PO (08:15)
[2021-05-17] MEDS: pantoprazole 40 mg SDV IVP (08:15)
[2021-05-17] MEDS: thiamine 100 mg Tablet PO (08:15)
[2021-05-17] MEDS: metoprolol tartrate 25 mg Tablet PO ×2 (08:17→21:16)
[2021-05-17] MEDS: sodium chloride 0.9% 1,000 ML 75 ML IV (10:33)
[2021-05-17] MEDS: PHENobarbital 130 mg/mL SDV 1 mL 120 MG IV ×6 (13:29→23:56)
--- NOTE | 2021-05-17 15:59 | P.PN_ITS ---
Subjective Subjective: Interval history: Extremely required 2 dose of phenobarbital overnight, this morning patient is endorsing feeling better, still endorsing nausea and tremors She was resting comfortably when I entered the room Tachycardia and blood pressure improved Vitals/I&O/Wt Last Vital Signs Temp 98.0 F 05/17/21 07:00 Pulse 74 05/17/21 11:00 Resp 14 05/17/21 11:00 BP 92/61 05/17/21 11:00 Pulse Ox 98 05/17/21 11:00 05/17/21 05/17/21 05/17/21 06:59 14:59 22:59 Intake Total 1780 / 4260 1100 / 1100 Balance 1780 / 4260 1100 / 1100 Weight last 48 hrs Weight 70.307 kg Physical Exam Narrative: EXAM NARRATIVE: Patient was resting comfortably in her bed Saturating well on room air Nonfocal neuro exam Coarse tremors noted Hydration improved EOMI, PERRLA Nonfocal neuro exam Saturating well on room air no active respiratory distress Data : 05/16/21 14:20 05/16/21 14:20 A&P Assessment and plan (1) Alcohol withdrawal: Status: Acute (2) Foot pain, right: Status: Acute (3) Depression: Status: Acute (4) Transaminitis: Status: Acute Additional A&P Information Alcohol withdrawal symptoms Currently on phenobarbital monotherapy, received 10 mg of benzodiazepines in the ER Currently doing well on phenobarbital, only received 2 doses overnight Plan to monitor her in ICU for next 24 hours No active signs of sepsis Tachycardia and blood pressure improved, she received 1 dose of clonidine yesterday which improved her withdrawal symptoms Patient is still nauseous I would keep her on full liquid diet for now Anticoagulation continue Protonix for history of GI bleed Alcohol-related liver cirrhosis without acute decompensation Full code For DVT prophylaxis on board Attestations Medical Necessity Statement*: Monitor in ICU for today, Time Spent in Patient Care: less than 15 minutes Coding Level of Care Code Acute Earth Auger Operator for Margarita Mireles Diagnoses Alcohol withdrawal F10.239 Foot pain, right M79.671 Depression F32.A Transaminitis R74.01
[2021-05-17] MEDS: lactated ringers 1,000 ML 999 ML IV (17:01)
[2021-05-17] MEDS: lactated ringers 1,000 ML 75 ML IV (17:02)
--- NOTE | 2021-05-17 19:16 | PC.NURSE ---
[address] Cerna to report patient's increase anxiety, crying, and stated that my heart feels like its beating out of my chest and that I saw my son running in my room . Vital signs reported and medications ordered.
[2021-05-17] MEDS: enoxaparin 40 mg/0.4 mL Syringe SUBCUT (21:17)
[2021-05-18] VITALS (59 sets, daily range): BP systolic 93–122; BP diastolic 62–92; PULSE 66–97; RESP 8–23; TEMP 36.6–37.3; O2SAT 95–100
[2021-05-18] MEDS: PHENobarbital 130 mg/mL SDV 1 mL 120 MG IV ×4 (03:52→17:02)
[2021-05-18 05:52] LABS: Basophils % 0.9 %; Eosinophils # 0.1 10^3/uL (0.0-0.8); Eosinophils % 3.6 %; Hematocrit 33.3 % (37.0-47.0); Hemoglobin 10.4 g/dL (11.5-15.3); Lymphocytes # 1.5 10^3/uL (0.8-4.8); Lymphocytes % 45.5 %; Mean Corpuscular HGB Conc 31.2 g/dL (30.0-36.0); Mean Corpuscular Hemoglobin 25.6 pg (28.0-34.0); Mean Platelet Volume 9.4 fL (7.4-10.4); Monocytes # 0.3 10^3/uL (0.2-0.9); Monocytes % 9.5 %; Neutrophils # 1.36 10^3/uL (1.8-7.7); Neutrophils % 40.5 %; Nucleated Red Blood Cells % 0 %; Platelet Count 103 10^3/cmm (130-400); Red Blood Count 4.06 10^6/uL (4.1-5.3); Red Cell Distribution Width 18.7 % (12.1-15.1); White Blood Count 3.4 10^3/uL (4.0-10.0)
[2021-05-18 06:25] LABS: Alanine Aminotransferase 20 U/L (0-33); Albumin Level 3.6 g/dL (3.5-5.2); Alkaline Phosphatase 154 IU/L (35-105); Anion Gap 17.3 (5-19); Aspartate Amino Transferase 44 U/L (0-32); Blood Urea Nitrogen 3 mg/dL (6-20); Calcium 8.2 mg/dL (8.5-10.5); Carbon Dioxide 21 mmol/L (22-29); Chloride 103 mmol/L (98-107); Globulin 2.1 g/dL (1.3-4.6); Glomerular Filtration Rate 138.1 mL/min (90-130); Glucose 70 mg/dL (65-115); Lipase 76 U/L (13-60); Osmolality Calculated 281 mOsm/kg (285-295); Potassium 3.3 mmol/L (3.5-5.1); Sodium 138 mmol/L (136-145); Total Bilirubin 0.8 mg/dL (0.15-1.2); Total Protein 5.7 g/dL (6.6-8.7)
[2021-05-18 06:26] LABS: Magnesium 1.6 mg/dL (1.7-2.3)
[2021-05-18] MEDS: folic acid 1 mg Tablet PO (09:56)
[2021-05-18] MEDS: thiamine 100 mg Tablet PO (09:56)
[2021-05-18] MEDS: pantoprazole 40 mg SDV IVP (09:56)
[2021-05-18] MEDS: levothyroxine 50 mcg Tablet PO (09:56)
[2021-05-18] MEDS: metoprolol tartrate 25 mg Tablet PO ×2 (09:59→21:43)
--- NOTE | 2021-05-18 12:53 | PM.PN ---
Subjective Subjective: Interval history: Seen in ICU this AM. She has required 7 doses of phenobarbitol. AM and 4 overnight This morning still having some tremors Endorsing nausea Decreased p.o. intake No tachycardia or hypotension Hallucination improved Not slept in last 12 hours, will give 1 dose of Ambien, phenobarbital given 1 dose this morning Vitals/I&O/Wt Last Vital Signs Temp 98.3 F 05/18/21 03:55 Pulse 79 05/18/21 06:05 Resp 19 H 05/18/21 06:05 BP 109/73 05/18/21 06:05 Pulse Ox 99 05/18/21 04:10 05/17/21 05/18/21 05/18/21 22:59 06:59 14:59 Intake Total 3032 / 4232 1000 / 5232 1000 / 1000 Balance 3032 / 4232 1000 / 5232 1000 / 1000 Weight last 48 hrs Weight 70.307 kg Physical Exam Narrative: EXAM NARRATIVE: Patient was resting comfortably in her bed Saturating well on room air Nonfocal neuro exam Coarse tremors noted Hydration improved EOMI, PERRLA Nonfocal neuro exam Saturating well on room air no active respiratory distress Data : 05/18/21 04:56 05/18/21 04:56 A&P Assessment and plan (1) Alcohol withdrawal: Status: Acute (2) Foot pain, right: Status: Acute (3) Depression: Status: Acute (4) Transaminitis: Status: Acute Additional A&P Information #Alcohol abuse #Alcohol withdrawal with hx of DT in part #Alcoholic liver disease without acute decompensation #Thrombocytopenia 2/2 alcohol use and liver disease #Hx of GI bleed #Hypokalemia Currently on phenobarbital monotherapy, received 10 mg of benzodiazepines in the ER Currently doing well on phenobarbital, only received 2 doses on 05/16 05/17 Now she has required upto 7 doses of phenobarbitol. Will continue to keep her in ICU for another day. No active signs of sepsis Thrombocytopenia secondary to alcohol use most likely. Tachycardia and blood pressure improved, she received 1 dose of clonidine 05/17 which improved her withdrawal symptoms Escalate to soft mechanical diet. Continue protonix. Full code DVT prophylaxis on board We'll check ammonia level, continue thiamine and folic acid, no active signs of liver decompensation with underlying history of liver cirrhosis, no active bleed She is complaining of nausea, afebrile Attestations Medical Necessity Statement*: Requires ICU level care. Possible transfer to floor in AM pending clinical course. Time Spent in Patient Care: 16 - 35 minutes Coding Level of Care Code Acute Laboratory Associate for Chg Fwd Diagnoses Alcohol withdrawal F10.239 Foot pain, right M79.671 Depression F32.A Transaminitis R74.01
--- NOTE | 2021-05-18 18:54 | PC.NURSE ---
Shift Note: Rested in bed with eyes closed most of day. No seizure activity this shift. VSS. Pt does have a tremor and c/o of moderate to severe headache most of the day. She did say she has nausea but that is constant as it goes with my liver failure. CIWA scores around 12 most of shift, she has received 3 doses of phenobarbital this shift. Iv fluids discontinued today. She is drinking plenty of fluids and eating adequately. She gets [place] [facility] [place] difficulty. Frequent safety and comfort rounds continue. Orders and/or nursing care completed as indicated. Patient monitored for response to intervention and treatment(s). Education provided includes continuing plan of care, CIWA, phenobarbital, thiamine. Patient verbalized understanding of continuing plan of care and associated mediations. . Will continue to monitor.
[2021-05-18] MEDS: enoxaparin 40 mg/0.4 mL Syringe SUBCUT (21:43)
[2021-05-18] MEDS: zolpidem 5 mg Tablet 10 MG PO (21:46)
[2021-05-19] VITALS (12 sets, daily range): BP systolic 96–114; BP diastolic 62–86; PULSE 71–99; RESP 6–19; TEMP 36.1–37.1; O2SAT 96–100
[2021-05-19] MEDS: PHENobarbital 130 mg/mL SDV 1 mL 120 MG IV ×3 (00:59→12:09)
[2021-05-19 05:29] LABS: Basophils % 1.3 %; Eosinophils # 0.1 10^3/uL (0.0-0.8); Eosinophils % 2.9 %; Hematocrit 30.2 % (37.0-47.0); Hemoglobin 9.6 g/dL (11.5-15.3); Lymphocytes # 1.3 10^3/uL (0.8-4.8); Lymphocytes % 42.1 %; Mean Corpuscular HGB Conc 31.8 g/dL (30.0-36.0); Mean Corpuscular Hemoglobin 25.9 pg (28.0-34.0); Mean Corpuscular Volume 81.6 fl (81-99); Mean Platelet Volume 10.5 fL (7.4-10.4); Monocytes # 0.3 10^3/uL (0.2-0.9); Monocytes % 8.4 %; Neutrophils % 45.3 %; Nucleated Red Blood Cells % 0 %; Platelet Count 98 10^3/cmm (130-400); Red Cell Distribution Width 18.8 % (12.1-15.1); White Blood Count 3.1 10^3/uL (4.0-10.0)
[2021-05-19 05:40] LABS: Blood Urea Nitrogen 2 mg/dL (6-20); Carbon Dioxide 21 mmol/L (22-29); Chloride 101 mmol/L (98-107); Creatinine Clr Calc Pharmacy 136.1567; Glomerular Filtration Rate 111.9 mL/min (90-130); Glucose 165 mg/dL (65-115); Magnesium 1.3 mg/dL (1.7-2.3); Osmolality Calculated 282 mOsm/kg (285-295); Sodium 136 mmol/L (136-145)
--- NOTE | 2021-05-19 07:17 | PC.NURSE ---
Shift Summary Patient had an uneventful night, she remains mildly anxious and nauseous overnight. PRN Phenobarbital administered for CIWA scale. Patient is alert and oriented x4, on room air, and uses bedside commode. No wounds or skin issues noted at this time.
--- NOTE | 2021-05-19 09:19 | PC.CHAP ---
Pastoral Care Encounter/Spiritual Assessment Type of Contact [] Declined cyber forensic specialist visit [] Patient/Family/Request visit [] Outpatient visit [] Follow-up visit [] Physician referral [] Code/Alert [x] Routine visit [] Staff referral [] Actively dying [x] Patient sleeping [] Family support [] [] Out of room [] Palliative care [] [x] Receiving care in room [] Pre-surgical visit [] Trauma [] Long length of stay [x] ICU visit [] Other: Relational/Emotional Strength [] Patient feels connected with others/family/visitors/staff [] Distress [] Loneliness/isolation [] Abandonment Spirituality of Patient [] Person of Jyotsna [] Attends Scientologist of their Jyotsna [] Believes in Prayer [] Reads Bible or Hindu materials [] There are Spiritual issues to be addressed Icu Rn Interventions [x] Prayer [] Active listening [] Non-anxious presence [] Spiritual/emotional support [] Crisis/trauma care [] Spiritual counseling [] Bereavement support [] Provided bereavement packet [] Provided Bible/devotional materials [] Provided toy/stuffed animal, coloring book to patient or family member [] Provided Communion [] Anointing/[place] [] Salvation [x] Completed spiritual assessment [] Other: Impact on Illness or Injury [] Angry [] Fearful [] Anxious [] Often cries [] Exhaustion [] Unable to work [] Unable to attend church [] Unable to walk/stand [] Unable to read [] Unable to drive [] Unable to eat/drink [] Unable to sleep [] Unable to be with family [] Patient intubated [] Other: Summary Time spent with patient
[2021-05-19] MEDS: thiamine 100 mg Tablet PO (10:09)
[2021-05-19] MEDS: folic acid 1 mg Tablet PO (10:09)
[2021-05-19] MEDS: levothyroxine 50 mcg Tablet PO (10:09)
[2021-05-19] MEDS: lidocaine 1% 5 ML in potassium chloride premix 100 ML 25 ML IV (10:10)
[2021-05-19] MEDS: pantoprazole 40 mg SDV IVP (10:10)
[2021-05-19] MEDS: magnesium sulfate premix 2 GM/50 ML PIGGYBACK IV (10:11)
[2021-05-19] MEDS: sodium chloride 0.9% 1,000 ML 75 ML IV (10:12)
[2021-05-19] MEDS: metoprolol tartrate 25 mg Tablet PO ×2 (10:13→20:30)
--- NOTE | 2021-05-19 15:19 | P.PN_ITS ---
Subjective Subjective: Interval history: Nursing feeling better today only required 2 doses of phenobarbital in last 24 hours, hallucination improved, blood pressure and heart rate within normal range, she wants to eat today however still feeling nauseous Tremors present was able to rest last night Vitals/I&O/Wt Last Vital Signs Temp 98.3 F 05/19/21 12:00 Pulse 72 05/19/21 14:00 Resp 18 05/19/21 14:00 BP 102/69 05/19/21 14:00 Pulse Ox 98 05/19/21 12:00 05/19/21 05/19/21 05/19/21 06:59 14:59 22:59 Intake Total 2500 / 6150 900 / 900 Output Total 1425 / 3025 2300 / 2300 Balance 1075 / 3125 -1400 / -1400 Physical Exam Narrative: EXAM NARRATIVE: Patient still has tremors EOMI, PERRLA Nonfocal neuro exam S1, S2 No audible stridor or wheezing Mild tenderness in right lower quadrant and right upper quadrant Clinically looks euvolemic No active suicidal ideation Data : 05/19/21 04:50 05/19/21 04:50 A&P Assessment and plan (1) Alcohol withdrawal: Status: Acute (2) Alcohol withdrawal syndrome: Status: Acute Qualifiers: Complication of substance-induced condition: uncomplicated Qualified Code(s): F10.230 - Alcohol dependence with withdrawal, uncomplicated (3) Hypokalemia: Status: Acute (4) Hypomagnesemia: Status: Acute Additional A&P Information Alcohol withdrawal: Patient did well with phenobarbital, no active delirium She still has mild coarse tremors, plan to transfer out of ICU and use p.o. phenobarbital, continue thiamine and folic acid Hypokalemia: Hypomagnesemia: Repleted Regular diet DVT prophylaxis Lovenox: No acute worsening of thrombocytopenia and anemia which is secondary to hypersplenism Continue Protonix for history of liver cirrhosis and gastritis No active vomiting Attestations Medical Necessity Statement*: Transfer out of ICU Time Spent in Patient Care: less than 15 minutes Coding Level of Care Code Acute Engineering Inspector for Chg Fwd Diagnoses Alcohol withdrawal F10.239 Alcohol withdrawal syndrome F10.230 Complication of substance-induced condition: uncomplicated Hypokalemia E87.6 Hypomagnesemia E83.42
[2021-05-19] MEDS: PHENobarbital 32.4 mg Tablet 97.2 MG PO ×2 (16:36→20:33)
--- NOTE | 2021-05-19 19:07 | PC.NURSE ---
Shift Note: Pt has rested in bed with trips to the [facility] today. She says she is feeling better. She said her headache and sensitivity to the light is better this evening. CIWA 10-13 this shift, she had received 2 doses of Phenobarbital, one IV and one PO. see MAR for details. SHe also received Potassium and Magnesium replacement per IV and IV fluids today. NO seizures this shift. Frequent safety and comfort rounds continue. Orders and/or nursing care completed as indicated. Patient monitored for response to intervention and treatment(s). Education provided includes alcohol withdrawal , phenobarbital, potassium and magnesium . Patient verbalized understanding and compliance with continued plan of care. Will continue to monitor.
[2021-05-19] MEDS: zolpidem 5 mg Tablet 10 MG PO (20:32)
--- NOTE | 2021-05-19 21:57 | PC.NURSE ---
Patient stable and oriented. Report given to Marilee REYES at [phone].
[2021-05-20 04:00] VITALS: BP 104/71; PULSE 64; RESP 16; TEMP 36.6; O2SAT 100
[2021-05-20 05:58] LABS: Basophils % 0.8 %; Eosinophils # 0.1 10^3/uL (0.0-0.8); Eosinophils % 2.2 %; Hematocrit 32.3 % (37.0-47.0); Hemoglobin 10.2 g/dL (11.5-15.3); Lymphocytes # 1.4 10^3/uL (0.8-4.8); Lymphocytes % 37.8 %; Mean Corpuscular HGB Conc 31.6 g/dL (30.0-36.0); Mean Corpuscular Hemoglobin 25.8 pg (28.0-34.0); Mean Corpuscular Volume 81.8 fl (81-99); Mean Platelet Volume 10.6 fL (7.4-10.4); Monocytes # 0.3 10^3/uL (0.2-0.9); Monocytes % 9.2 %; Nucleated Red Blood Cells % 0 %; Platelet Count 98 10^3/cmm (130-400); Red Blood Count 3.95 10^6/uL (4.1-5.3); White Blood Count 3.6 10^3/uL (4.0-10.0)
[2021-05-20 06:08] LABS: Anion Gap 17.6 (5-19); Blood Urea Nitrogen 4 mg/dL (6-20); Calcium 8.7 mg/dL (8.5-10.5); Carbon Dioxide 20 mmol/L (22-29); Chloride 100 mmol/L (98-107); Glomerular Filtration Rate 138.1 mL/min (90-130); Glucose 77 mg/dL (65-115); Magnesium 1.5 mg/dL (1.7-2.3); Osmolality Calculated 274 mOsm/kg (285-295); Phosphorus 2.6 mg/dL (2.5-4.5); Potassium 3.6 mmol/L (3.5-5.1); Sodium 134 mmol/L (136-145)
[2021-05-20 06:14] LABS: Lipase 108 U/L (13-60)
--- NOTE | 2021-05-20 07:18 | CT_ITS ---
WS: [id number] CT ABDOMEN CONTRAST TECHNIQUE: Contrast enhanced CT of the abdomen with coronal and sagittal reformatted images. CLINICAL INFORMATION: pancreatitis COMPARISON: CT April 07, 2020 DLP: 1015.[address] scans at [facility] use at least one of these dose optimization techniques: automated e xposure control; mA and/or kV adjustment per patient size (includes targeted exams where dose is matc hed to clinical indication); or iterative reconstruction. FINDINGS: Diffuse fatty infiltration of the liver. Hepatomegaly. Cholecystectomy. Cirrhotic configuration to th e liver with diffuse heterogeneous enhancement worse in the left hepatic lobe. Recommend correlation with liver function studies. Normal portal vein and splenic vein. Marked splenomegaly. Evidence of po rtal hypertension with upper abdominal and paraesophageal varices. Gastrosplenic varices. Inflammator y stranding and edema more prominent about the head of the pancreas extending to the charlene hepatis co mpatible with pancreatitis. No drainable fluid collections. Celiac and SMA appear patent. Normal renal parenchymal enhancement. No hydronephrosis in either kidne y. Adrenal glands are normal. Chronic appearing anterior wedging at T11-T12. CT/CT abdomen w con* [id number] IMPRESSION: 1. Hepatomegaly with diffuse heterogeneous enhancement worse in the left hepat ic lobe with cirrhotic configuration to the liver. This is similar in appearanc e to the CTA April 07, 2020. 2. Edema about the pancreatic head compatible with pancreatitis. No drainable fluid collections. 3. Marked splenomegaly with evidence of portal venous hypertension and upper a bdominal varices. 4. Portal vein and splenic vein appear patent. 5. No hydronephrosis in either kidney.
--- NOTE | 2021-05-20 07:19 | PC.NURSE ---
patient refuses IV. Dr Cerna notified.
[2021-05-20 07:58] VITALS: BP 112/79; PULSE 99; RESP 16; TEMP 36.8; O2SAT 97
--- NOTE | 2021-05-20 09:10 | P.DS_ITS ---
Discharge Providers Date of Admission: 05/16/21 16:55 Date of Discharge: May 20, 2021 Attending Provider at Admission: Willi Cerna MD Attending Provider at Discharge: Willi Cerna MD Primary Care Provider: Stanton Schumacher Diagnoses at Discharge Discharge Diagnosis (1) Alcohol withdrawal: Status: Acute (2) Alcohol withdrawal syndrome: Status: Acute Qualifiers: Complication of substance-induced condition: uncomplicated Qualified Code(s): F10.230 - Alcohol dependence with withdrawal, uncomplicated (3) Hypokalemia: Status: Acute (4) Hypomagnesemia: Status: Acute Reason for Visit Reason for Visit: ALCOHOL TREMORS Hospital Course Hospital Course Young female who has had multiple admissions secondary to anxiety, depression and alcohol detox presented on 05/16 for similar complaints. Patient is stating that she drinks 8 to 10 cans of beer every day and decided to quit for good this time. She came for detox. She was admitted to ICU for history of DTs and requiring intubation in April 2020. She was kept on phenobarbital monotherapy as needed 120 mg every 2 hours regimen, she required 7 doses after her admission, next day she only required 2-4 dosages, her hallucination, tremors improved. She was able to tolerate her diet, no episodes of nausea, vomiting, fever or worsening of leukocytosis. She was diagnosed with pancreatitis, she was tolerating her diet on the day of discharge, on 05/20 she wanted to go home, she was refusing her medications, she ripped her IV line as well. At the time of discharge she was given thiamine, folic acid, she has multiple antidepressant and antipsychotics, I also gave her naltrexone for alcohol cravings. She already attends sessions at [facility]/AA program. We will give her a prescription to trend lipase level. Physical Exam Narrative: EXAM NARRATIVE: Patient tremor improved however still present EOMI, PERRLA Nonfocal neuro exam S1, S2 No audible stridor or wheezing Mild tenderness in right lower quadrant and right upper quadrant Clinically looks euvolemic No active suicidal ideation Discharge Data Data Completed and Pending: Pending at discharge Category Date Time Status CT abdomen w con* [id number] Routine Cat Scan 05/20/21 07:18 Ordered Labs from last 24 hours 05/20/21 05/20/21 05/20/21 05:20 05:20 05:20 WBC 3.6 L RBC 3.95 L Hgb 10.2 L Hct 32.3 L MCV 81.8 MCH 25.8 L MCHC 31.6 RDW 19.0 H Plt Count 98 L MPV 10.6 H Neut % (Auto) 50.0 Lymph % (Auto) 37.8 [place] % (Auto) 9.2 Eos % (Auto) 2.2 Baso % (Auto) 0.8 Neut # (Auto) 1.80 Lymph # (Auto) 1.4 [place] # (Auto) 0.3 Eos # (Auto) 0.1 Baso # (Auto) 0.0 Nucleated RBC % (a uto) 0 Nucleated RBCs # 0.0 Sodium 134 L Potassium 3.6 Chloride 100 Carbon Dioxide 20 L Anion Gap 17.6 BUN 4 L Creatinine 0.5 GFR Calculation 138.1 H Glucose 77 Calculated Osmolal ity 274 L Calcium 8.7 Phosphorus 2.6 Magnesium 1.5 L Lipase 108 H Vitals: Last Vital Signs Temp 98.2 F 05/20/21 07:58 Pulse 99 05/20/21 07:58 Resp 16 05/20/21 07:58 BP 112/79 05/20/21 07:58 Pulse Ox 97 05/20/21 07:58 Discharge Plan Discharge Patient Disposition: Home Condition: Stable Prescriptions: New folic acid 1 mg Tablet 1 mg PO DAILY Qty: 60 RF: 0 magnesium oxide 500 mg tablet 500 mg PO BID Qty: 20 RF: 0 potassium chloride 10 mEq capsule, extended release 10 meq PO DAILY Qty: 4 RF: 0 naltrexone 50 mg tablet 50 mg PO DAILY Qty: 10 RF: 0 Zofran 4 mg tablet 4 mg PO DAILY 10 Days Qty: 14 RF: 0 Continued levothyroxine 50 mcg Tablet 50 mcg PO DAILY Qty: 0 RF: 0 cyclobenzaprine 5 mg Tablet 5 mg PO TID PRN (Reason: Muscle Pain) Qty: 0 RF: 0 melatonin 3 mg Tablet 3 mg PO BEDTIME RF: 0 olanzapine 5 mg Tablet 5 mg PO BEDTIME RF: 0 citalopram 20 mg Tablet 20 mg PO DAILY 30 Days Qty: 30 RF: 0 buspirone 10 mg Tablet 10 mg PO BID 30 Days Qty: 60 RF: 0 metoprolol tartrate 25 mg Tablet 25 mg PO BID@0900,2100 30 Days Qty: 60 RF: 0 pantoprazole [Protonix] 40 mg tablet,delayed release (/EC) 40 mg PO DAILY Qty: 30 RF: 0 methocarbamol 750 mg tablet 750 mg PO Q6H PRN (Reason: spasms) Qty: 20 RF: 0 Vitamin B-1 (mononitrate) 100 mg Tablet 100 mg PO DAILY 30 Days Qty: 30 RF: 3 Discharge Orders: Discharge Order (Routine); Ordered 05/20/21 Ordered By: Willi Cerna Other Ambulatory Orders: Lipase (Routine) Timeframe: 2 Days Facility: [facility] - Location: Lab - Main Lab Ordered By: Willi Cerna Referrals: [facility], [Staff Physician] - 05/26/21 12:30 pm Stanton Schumacher [Primary Care Provider] - 05/22/21 1:00 pm Discharge Diet: Cardiac Discharge Activity: Resume usual activity Patient Instructions: Alcohol Abuse, Potassium Chloride (By mouth), Naltrexone (By mouth), Magnesium Oxide (By mouth), Opioid Safety Activity Restrictions/Additional Instructions: no driving for atleast 2 weeks AA program at [facility] Discharge Attestations Time Spent in Discharge Care*: less than 30 min Status at Discharge: Cognitive status at discharge: cognitively intact , Behavioral status at discharge: cooperative , Quality Metrics Clinical Quality Measures During this hospital stay, did patient experience: None Coding Level of Care Code Acute g DC note Diagnoses Alcohol withdrawal F10.239 Alcohol withdrawal syndrome F10.230 Complication of substance-induced condition: uncomplicated Hypokalemia E87.6 Hypomagnesemia E83.42
[2021-05-20] MEDS: iohexol 300 mg/mL 100 mL Btl IV (09:47)
[2021-05-20] MEDS: metoprolol tartrate 25 mg Tablet PO (10:13)
[2021-05-20] MEDS: magnesium sulfate premix 2 GM/50 ML PIGGYBACK IV (10:13)
[2021-05-20] MEDS: thiamine 100 mg Tablet PO (10:13)
[2021-05-20] MEDS: levothyroxine 50 mcg Tablet PO (10:13)
[2021-05-20] MEDS: folic acid 1 mg Tablet PO (10:14)
--- NOTE | 2021-05-20 11:10 | PC.CHAP ---
Pastoral Care Encounter/Spiritual Assessment Type of Contact [] Declined health care consultant visit [] Patient/Family/Request visit [] Outpatient visit [] Follow-up visit [] Physician referral [] Code/Alert [x] Routine visit [] Staff referral [] Actively dying [] Patient sleeping [] Family support [] [] Out of room [] Palliative care [] [] Receiving care in room [] Pre-surgical visit [] Trauma [] Long length of stay [] ICU visit [] Other: Relational/Emotional Strength [x] Patient feels connected with others/family/visitors/staff [] Distress [] Loneliness/isolation [] Abandonment Spirituality of Patient [x] Person of Jyotsna [x] Attends Congregational of their Jyotsna [x] Believes in Prayer [x] Reads Bible or Baptist materials [] There are Spiritual issues to be addressed Figure Clerk Interventions [x] Prayer [x] Active listening [x] Non-anxious presence [x] Spiritual/emotional support [] Crisis/trauma care [] Spiritual counseling [] Bereavement support [] Provided bereavement packet [] Provided Bible/devotional materials [] Provided toy/stuffed animal, coloring book to patient or family member [] Provided Communion [] Anointing/[place] [] Salvation [x] Completed spiritual assessment [] Other: Impact on Illness or Injury [] Angry [] Fearful [] Anxious [] Often cries [] Exhaustion [] Unable to work [] Unable to attend scientology [] Unable to walk/stand [] Unable to read [] Unable to drive [] Unable to eat/drink [] Unable to sleep [] Unable to be with family [] Patient intubated [] Other: Summary Pt has two children and a . She lost both due her consumption of alcohol. However, Pt will be able to spend time with them this [place]. Pt has been involved in 12 step program before but believes this will be different since she has a changed attitude. Pt plans to go home with her parents for a couple of days before going to her own home. Pt stated her father is a clinical informatics physician and travels to various [place] [facility]. Encouraged Pt to find a druze she could attend on a regular basis and become a member of for the purpose of support. Time spent with patient 25 m
[2021-05-20 11:19] VITALS: BP 113/74; PULSE 92; RESP 17; TEMP 36.6; O2SAT 97
--- NOTE | 2021-05-20 11:23 | PC.NURSE ---
discharge instructions given to patient and patient verbalized understanding. patient's meds delivered to bed. patient waiting on ride. per medicaid ride is set up for patient.
--- NOTE | 2021-05-20 13:00 | PC.NURSE ---
patient taken to private vehicle via wheelchair by staff.
[2021-05-20 13:02] VITALS: BP 113/74; PULSE 92; RESP 17; TEMP 36.6; O2SAT 97
== END 2021-05-20 13:02 | disposition home or self-care (01) | DRG 896 ==
LOC: ER 17:27 → ICU 05-17 14:41 → MEDSURG 05-19 22:27
PROVIDERS: Admitting Provider Internal Medicine; Emergency Provider Emergency Medicine; PCP Family Medicine; Visit Provider Internal Medicine
DX: F10.230 Alcohol dependence with withdrawal, uncomplicated (principal); K85.90 Acute pancreatitis without necrosis or infection, unspecified; F32.A Depression, unspecified; F41.9 Anxiety disorder, unspecified; E87.6 Hypokalemia; E83.42 Hypomagnesemia; K70.30 Alcoholic cirrhosis of liver without ascites; F17.200 Nicotine dependence, unspecified, uncomplicated; Z76.82 Awaiting organ transplant status; D69.59 Other secondary thrombocytopenia; D64.9 Anemia, unspecified; I10 Essential (primary) hypertension; E86.0 Dehydration
CPT/HCPCS: 36415; 74160; 80048; 80053; 80306; 80307; 83690; 83735; 84100; 85025; 96361; 96365; 96372; 96375; 96376; 99291; C9113; J1650; J2060; J2405; J3411; J3475; J3480; J7030; J7050; Q9967

== ENCOUNTER 2021-05-24 00:20 | Emergency (ER) | payer MEDICAID, SELFPAY ==
--- NOTE | 2021-05-24 00:36 | ED_ITS ---
HPI - Alcohol General: Chief Complaint: Alcohol Stated Complaint: ETOH, FALL Time Seen by Provider: 05/24/21 00:25 Source: patient and EMS Mode of arrival: EMS Limitations: no limitations History of Present Illness: HPI narrative: Patient is a 36-year-old male who presents to ED today via EMS for complaints of a fall and alcohol intoxication. Patient states she has been admitted here several times for alcohol withdrawal and detox but states she starts drinking immediately after discharge. Patient tells me she fell today secondary to her alcohol intoxication and is complaining of back pain. Patient is not suicidal or homicidal. Patient has not taken any steps as an outpatient to obtain sobriety. Associated symptoms: Deny abdominal pain, hematemesis, nausea, seizure-like activity or vomiting Review of Systems Const: Denies: fever(s), chills, body aches, fatigue or malaise Card: Denies: chest pain Resp: Denies: dyspnea GI: Denies: abdominal pain, nausea, vomiting, hematemesis, diarrhea, change in bowel habits or hematochezia Musc: Reports: back pain; Denies: neck pain, extremity pain or joint pain Skin/Breast: Denies: rash Neuro: Denies: headache(s), numbness in extremities, weakness in extremities, sensory changes, difficulty walking, dizziness, confusion or seizure-like activity PFS ED PFSH: Medical History Acute on chronic anemia Prior blood transfusion in the past Alcohol use disorder, severe, dependence Anxiety Aspiration pneumonia = Benzodiazepine abuse Depression End stage liver disease -noted hepatic cirrhosis on CT -secondary to EtOH abuse -continue to trend ammonia, on lactulose -prior hx of SBP, not enough fluid to drain, off abx -pain control as needed -f/u with internet marketing director in [place] and is on transplant list Esophageal varices -hx of banding -s/p 2 units PRBCs on 04/07 GI bleed History of alcohol abuse Overdose SBP (spontaneous bacterial peritonitis) Surgical History H/O LEEP History of cholecystectomy Social History Smoking and tobacco status: current some day smoker Alcohol intake: current Alcohol intake frequency: 3 or more drinks per day Alcohol type: hard liquor Female Reproductive History: Date of last menstrual period: 04/01/14 Physical Exam Const: COMMON NORMALS: average body habitus, patient oriented x3, alert and well nourished GENERAL APPEARANCE: cooperative ORIENTATION/CONSCIOUSNESS: Yes awake, Yes oriented to person, Yes oriented to place and Yes oriented to time OTHER: slightly intoxicated but answers all questions appropriately; gait steady HENMT: COMMON NORMALS: normocephalic and atraumatic HEAD & SCALP: normocephalic and atraumatic Resp: COMMON NORMALS: normal respiratory effort and clear to auscultation bilaterally AUSCULTATION: clear to auscultation bilaterally Cardio: COMMON NORMALS: regular rhythm RATE: tachycardic RHYTHM: regular rhythm Back/Pelvis: THORACIC SPINE/UPPER BACK: Yes thoracic spinal tenderness (lower t spine) Extremity: COMMON NORMALS: normal to inspection Neuro: DAISY COMA SCALE: document GCS findings Daisy coma scale eye opening: Spontaneous [place] coma scale verbal response: Orientated [place] coma scale motor response: Obey commands [place] coma scale total score: 15 COMMON NORMALS: patient oriented x3, CN's II-XII intact bilaterally, moves all extremities, no focal motor deficits, no sensory deficits noted and gait normal SENSORIUM/ORIENTATION: Yes alert, Yes oriented to person, Yes oriented to place and Yes oriented to time Skin: COMMON NORMALS: no rashes or lesions noted GENERAL SKIN EXAM: no rashes or lesions noted Course Vital Signs: Vital signs: Vital Signs Pulse Rate 120 H 05/24/21 00:37 Respiratory Rate 18 05/24/21 00:37 Blood Pressure 128/79 05/24/21 00:37 Pulse Oximetry 95 05/24/21 00:37 MDM - Alcohol MDM Narrative: Medical decision making narrative: Shortly after my history and examination patient states she wants to leave AMA. She states she will call an Uber. Patient states her parents are trying to get her into a rehabilitation facility. Patient appears to be of sound mind and can ensure a safe ride home. I do not have any reason at this point to keep patient here against her will. Discharge Plan Discharge Patient Disposition: Left Against Medical Advice Clinical Impression: Alcohol intoxication Qualifiers: Complication of substance-induced condition: uncomplicated Qualified Code(s): F10.920 - Alcohol use, unspecified with intoxication, uncomplicated Fall Qualifiers: Encounter type: initial encounter Qualified Code(s): W19.XXXA - Unspecified fall, initial encounter Back pain Qualifiers: Back pain location: thoracic back pain Chronicity: acute Back pain laterality: midline Qualified Code(s): M54.6 - Pain in thoracic spine Condition: Stable Prescriptions: No Action levothyroxine 50 mcg Tablet 50 mcg PO DAILY Qty: 0 RF: 0 cyclobenzaprine 5 mg Tablet 5 mg PO TID PRN (Reason: Muscle Pain) Qty: 0 RF: 0 melatonin 3 mg Tablet 3 mg PO BEDTIME RF: 0 olanzapine 5 mg Tablet 5 mg PO BEDTIME RF: 0 citalopram 20 mg Tablet 20 mg PO DAILY 30 Days Qty: 30 RF: 0 buspirone 10 mg Tablet 10 mg PO BID 30 Days Qty: 60 RF: 0 metoprolol tartrate 25 mg Tablet 25 mg PO BID@0900,2100 30 Days Qty: 60 RF: 0 pantoprazole [Protonix] 40 mg tablet,delayed release (DR/EC) 40 mg PO DAILY Qty: 30 RF: 0 methocarbamol 750 mg tablet 750 mg PO Q6H PRN (Reason: spasms) Qty: 20 RF: 0 folic acid 1 mg Tablet 1 mg PO DAILY Qty: 60 RF: 0 magnesium oxide 500 mg tablet 500 mg PO BID Qty: 20 RF: 0 potassium chloride 10 mEq capsule, extended release 10 meq PO DAILY Qty: 4 RF: 0 naltrexone 50 mg tablet 50 mg PO DAILY Qty: 10 RF: 0 Vitamin B-1 (mononitrate) 100 mg Tablet 100 mg PO DAILY 30 Days Qty: 30 RF: 3 Zofran 4 mg tablet 4 mg PO DAILY 10 Days Qty: 14 RF: 0 Referrals: Stanton Schumacher [Primary Care Provider] - Coding Level of Care Code ED Receiver Stocker for Margarita Mireles
[2021-05-24 00:37] VITALS: BP 128/79; PULSE 120; RESP 18; O2SAT 95; BMI 22.8
--- NOTE | 2021-05-24 00:51 | PC.NURSE ---
Pt asked to leave AMA. She was educated that she was leaving against medical advise. Pt was walked out to her uber in the parking lot.
== END 2021-05-24 01:00 | disposition left against medical advice (07) ==
LOC: ER 00:38
PROVIDERS: Emergency Provider Physician Assistant; PCP Family Medicine
DX: F10.920 Alcohol use, unspecified with intoxication, uncomplicated (principal); M54.6 Pain in thoracic spine; Z53.21 Procedure and treatment not carried out due to patient leaving prior to being seen by health care provider; F17.210 Nicotine dependence, cigarettes, uncomplicated
CPT/HCPCS: 99281

== ENCOUNTER 2021-06-14 10:31 | Emergency (ER) | payer MEDICAID, SELFPAY ==
[2021-06-14] VITALS (9 sets, daily range): BP systolic 105–132; BP diastolic 72–89; PULSE 82–126; RESP 14–20; TEMP 36.8; O2SAT 97–100; BMI 22.8
--- NOTE | 2021-06-14 11:13 | W.ED.NAVMDI ---
HPI - Nausea/Vomiting/Diarrhea General: Chief complaint: Nausea/Vomiting/Diarrhea Stated complaint: N/V; ETOH Time Seen by Provider: 06/14/21 10:37 Source: patient Mode of arrival: EMS Limitations: no limitations History of Present Illness: HPI Narrative: n/v etoh withdrawal MD elicited complaint: nausea and vomiting Onset (ago): hour(s) (24) Description of vomiting: watery Associated nausea: Yes Associated abdominal pain: Yes Location of pain: Epigastric Pain consistency: colicky Severity: mild Quality: cramping Exacerbating factors: eating Relieving factors: none Context: alcohol abuse Associated symtoms: Reports anxiety, malaise and nausea; Denies altered mental status, bloating, change in vision, chest pain, cough, diaphoresis, decreased urine output, dizziness, dysuria, epistaxis, fatigue, fevers/chills, headache(s), myalgias, numbness, palpitations, rash, short of breath or syncope Treatment prior to arrival: none Review of Systems Const: Reports: malaise; Denies: fever(s), chills, fatigue or diaphoresis Eyes: Denies: change in vision ENMT: Denies: epistaxis Card: Denies: chest pain, palpitations or syncope Resp: Denies: dyspnea or wheezing GI: Reports: abdominal pain, nausea and vomiting; Denies: bloating : Denies: dysuria Musc: Denies: neck pain or back pain Skin/Breast: Denies: rash or pruritus Neuro: Denies: headache(s) or dizziness Psych: Reports: anxiety Noel/Lymph: Denies: enlarged lymph nodes All/Imm: Denies: urticaria PFSH ED PFSH: Medical History Acute on chronic anemia Prior blood transfusion in the past Alcohol use disorder, severe, dependence Alcohol withdrawal syndrome Anxiety Aspiration pneumonia = Benzodiazepine abuse Depression Depression End stage liver disease -noted hepatic cirrhosis on CT -secondary to EtOH abuse -continue to trend ammonia, on lactulose -prior hx of SBP, not enough fluid to drain, off abx -pain control as needed -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 Esophageal varices -hx of banding -s/p 2 units PRBCs on 04/07 GI bleed History of alcohol abuse Overdose SBP (spontaneous bacterial peritonitis) Transaminitis Surgical History H/O LEEP History of cholecystectomy Social History Smoking and tobacco status: current some day smoker Alcohol intake: current Alcohol intake frequency: 3 or more drinks per day Alcohol type: hard liquor Female Reproductive History: Date of last menstrual period: 04/01/14 Physical Exam Const: COMMON NORMALS: no acute distress, patient oriented x3, no limitations and well nourished EXAM LIMITATIONS: no altered mental status GENERAL APPEARANCE: cooperative and anxious ORIENTATION/CONSCIOUSNESS: Yes awake HENMT: COMMON NORMALS: normocephalic, atraumatic and Normal external nose present HEAD & SCALP: normocephalic and atraumatic FACE & SINUS: normal facial exam and other (Old ecchymosis to the left maxilla. No step-off or crepitus.) NOSE: Normal external nose present MOUTH: Normal oral and palatal mucosa present THROAT: posterior oropharynx normal Eye: COMMON NORMALS: Equal, round and reactive pupils present and EOMs intact bilaterally PUPIL: Yes Equal, round and reactive pupils present Neck/C-Spine: COMMON NORMALS: full ROM, no lymphadenopathy, supple and no meningeal signs GENERAL: Yes normal visual inspection and Yes trachea midline Lymph: LYMPHATIC: no lymphadenopathy noted Chest: COMMONS NORMALS: normal inspection of the chest and normal palpation of entire chest wall CHEST: No Ecchymosis present and No rash Resp: COMMON NORMALS: normal respiratory effort, No retractions and clear to auscultation bilaterally EFFORT & INSPECTION: No respiratory distress AUSCULTATION: clear to auscultation bilaterally Cardio: COMMON NORMALS: regular rhythm and Peripheral pulses 2+ throughout JUGULAR VENOUS DISTENTION: no JVD RATE: tachycardic RHYTHM: regular rhythm PERIPHERAL PULSES: Peripheral pulses 2+ throughout GI: COMMON NORMALS: Normal to inspection, nondistended, normoactive bowel sounds present, Soft to palpation and No hepatosplenomegaly present PALPATION: Yes Soft to palpation, Yes Tenderness to palpation present (GI) (Mild epigastric abdominal pain), Yes No hepatosplenomegaly present, No Splenomegaly present and No Ascites present : COMMON NORMALS: Yes no CVA tenderness BLADDER/KIDNEY EXAM: Yes no CVA tenderness Back/Pelvis: COMMON NORMALS: no CVA tenderness Extremity: COMMON NORMALS: normal to inspection, full ROM and capillary refill normal Neuro: COMMON NORMALS: patient oriented x3, CN's II-XII intact bilaterally, no focal motor deficits and no sensory deficits noted MENINGEAL SIGNS: Yes no meningeal signs Psych: COMMON NORMALS: mental status grossly normal and Normal thought process present THOUGHT PROCESS: Normal thought process present Skin: COMMON NORMALS: no rashes or lesions noted and no wounds GENERAL SKIN EXAM: no rashes or lesions noted Course Vital Signs: Vital signs: Vital Signs Temperature 98.2 F 06/14/21 10:35 Pulse Rate 82 06/14/21 17:43 Respiratory Rate 16 06/14/21 17:43 Blood Pressure 116/72 06/14/21 17:43 Pulse Oximetry 99 06/14/21 17:43 MDM - Nausea/Vomiting/Diarrhea MDM Narrative: Medical decision making narrative: 1754: Patient doing well heart rate 86, blood pressure 116/72. No anxiety now. No nausea. See previous ER visits. I discussed with the patient that she needs to stick with a liquid diet for the next day or 2. She agreed to return if worse. Differential Diagnosis: N/V/D differential diagnosis: Likely gastroenteritis and dehydration Medical Records: Attestation: I reviewed the patient's medical records. Medical records narrative: I reviewed last ER record. Lab Data: Labs: Lab Results 06/14/21 06/14/21 11:52 11:52 WBC 6.8 10^3/uL 10^3/ uL (4.0-10.0) RBC 4.58 10^6/uL 10^6 /uL (4.1-5.3) Hgb 11.9 g/dL g/dL (11.5-15.3) Hct 36.1 % L % (37.0-47.0) MCV 78.8 fl L fl (81-99) MCH 26.0 pg L pg (28.0-34.0) MCHC 33.0 g/dL g/dL (30.0-36.0) RDW 19.4 % H % (12.1-15.1) Plt Count 99 10^3/cmm L 10^ 3/cmm (130-400) MPV 10.3 fL fL (7.4-10.4) Neut % (Auto) 74.7 % % Lymph % (Auto) 11.3 % % [place] % (Auto) 12.8 % % Eos % (Auto) 0.4 % % Baso % (Auto) 0.4 % % Neut # (Auto) 5.08 10^3/uL 10^3 /uL (1.8-7.7) Lymph # (Auto) 0.8 10^3/uL 10^3/ uL (0.8-4.8) [place] # (Auto) 0.9 10^3/uL 10^3/ uL (0.2-0.9) Eos # (Auto) 0.0 10^3/uL 10^3/ uL (0.0-0.8) Baso # (Auto) 0.0 10^3/uL 10^3/ uL (0.0-0.1) Nucleated RBC % (a uto) 0 % % Nucleated RBCs # 0.0 /100WBC /100W BC Sodium 134 mmol/L L mmol /L (136-145) Potassium 3.1 mmol/L L mmol /L (3.5-5.1) Chloride 82 mmol/L L mmol/ L (98-107) Carbon Dioxide 22 mmol/L mmol/L (22-29) Anion Gap 33.1 H (5-19) BUN 10 mg/dL mg/dL (6-20) Creatinine 0.9 mg/dL mg/dL (0.5-0.9) GFR Calculation 70.1 mL/min L mL/ min (90-130) Glucose 135 mg/dL H mg/dL (65-115) Calculated Osmolal ity 279 mOsm/kg L mOs m/kg (285-295) Calcium 9.6 mg/dL mg/dL (8.5-10.5) Total Bilirubin 3.5 mg/dL H mg/dL (0.15-1.2) AST 273 U/L H U/L (0-32) ALT 117 U/L H U/L (0-33) Alkaline Phosphata se 487 IU/L H IU/L (35-105) Total Protein 6.9 g/dL g/dL (6.6-8.7) Albumin 4.6 g/dL g/dL (3.5-5.2) Globulin 2.3 g/dL g/dL (1.3-4.6) Lipase 388 U/L H U/L (13-60) Ethyl Alcohol < 10 mg/dL mg/dL (0-10) Discharge Plan Discharge Clinical Impression: Hyperbilirubinemia, Acute hypokalemia, Transaminitis Alcohol withdrawal Qualifiers: Complication of substance-induced condition: uncomplicated Qualified Code(s): F10.230 - Alcohol dependence with withdrawal, uncomplicated Pancreatitis Qualifiers: Chronicity: acute Pancreatitis type: alcohol induced Acute pancreatitis complication: unspecified Qualified Code(s): K85.20 - Alcohol induced acute pancreatitis without necrosis or infection Nausea & vomiting Qualifiers: Vomiting type: unspecified Qualified Code(s): R11.2 - Nausea with vomiting, unspecified Condition: Stable Prescriptions: New chlordiazepoxide HCl 25 mg capsule 25 mg PO Q6H PRN (Reason: prn anxiety) Qty: 14 RF: 0 promethazine 50 mg suppository 50 mg AL Q6H PRN (Reason: nausea and vomiting) Qty: 6 RF: 1 potassium chloride 20 mEq tablet,ER particles/crystals 20 meq PO DAILY Qty: 5 RF: 0 ondansetron HCl [Zofran] 4 mg tablet 4 mg PO Q6H PRN (Reason: nausea and vomiting) Qty: 10 RF: 2 No Action levothyroxine 50 mcg Tablet 50 mcg PO DAILY Qty: 0 RF: 0 cyclobenzaprine 5 mg Tablet 5 mg PO TID PRN (Reason: Muscle Pain) Qty: 0 RF: 0 melatonin 3 mg Tablet 3 mg PO BEDTIME RF: 0 olanzapine 5 mg Tablet 5 mg PO BEDTIME RF: 0 pantoprazole [Protonix] 40 mg tablet,delayed release (DR/EC) 40 mg PO DAILY Qty: 30 RF: 0 methocarbamol 750 mg tablet 750 mg PO Q6H PRN (Reason: spasms) Qty: 20 RF: 0 folic acid 1 mg Tablet 1 mg PO DAILY Qty: 60 RF: 0 magnesium oxide 500 mg tablet 500 mg PO BID Qty: 20 RF: 0 potassium chloride 10 mEq capsule, extended release 10 meq PO DAILY Qty: 4 RF: 0 naltrexone 50 mg tablet 50 mg PO DAILY Qty: 10 RF: 0 Vitamin B-1 (mononitrate) 100 mg Tablet 100 mg PO DAILY 30 Days Qty: 30 RF: 3 Referrals: Stanton Schumacher [Primary Care Provider] - Patient Instructions: Pancreatitis (ED), Hypokalemia (ED), Acute Nausea and Vomiting (ED), Alcohol Withdrawal (ED) Coding Level of Care Code ED Prep Room Supervisor for Chg Fwd Exam Comprehensive
[2021-06-14] MEDS: ondansetron 2 mg/ML SDV 2 mL 4 MG IVP ×3 (11:55→16:36)
[2021-06-14] MEDS: LORazepam 2 mg/mL INJ 1 mL 1 MG IVP ×3 (11:55→16:37)
[2021-06-14] MEDS: pantoprazole 40 mg SDV IVP (11:55)
[2021-06-14] MEDS: folic acid 1 MG, multivitamin inj 10 ML, thiamine 100 MG in sodium chloride 0.9% 1,000 ML 1000 MG IV (11:56)
[2021-06-14 12:01] LABS: Basophils % 0.4 %; Eosinophils % 0.4 %; Hematocrit 36.1 % (37.0-47.0); Hemoglobin 11.9 g/dL (11.5-15.3); Lymphocytes # 0.8 10^3/uL (0.8-4.8); Lymphocytes % 11.3 %; Mean Corpuscular Volume 78.8 fl (81-99); Mean Platelet Volume 10.3 fL (7.4-10.4); Monocytes # 0.9 10^3/uL (0.2-0.9); Monocytes % 12.8 %; Neutrophils # 5.08 10^3/uL (1.8-7.7); Neutrophils % 74.7 %; Nucleated Red Blood Cells % 0 %; Platelet Count 99 10^3/cmm (130-400); Red Blood Count 4.58 10^6/uL (4.1-5.3); Red Cell Distribution Width 19.4 % (12.1-15.1); White Blood Count 6.8 10^3/uL (4.0-10.0)
[2021-06-14 12:17] LABS: Alanine Aminotransferase 117 U/L (0-33); Albumin Level 4.6 g/dL (3.5-5.2); Alkaline Phosphatase 487 IU/L (35-105); Anion Gap 33.1 (5-19); Aspartate Amino Transferase 273 U/L (0-32); Blood Urea Nitrogen 10 mg/dL (6-20); Calcium 9.6 mg/dL (8.5-10.5); Carbon Dioxide 22 mmol/L (22-29); Chloride 82 mmol/L (98-107); Globulin 2.3 g/dL (1.3-4.6); Glomerular Filtration Rate 70.1 mL/min (90-130); Glucose 135 mg/dL (65-115); Osmolality Calculated 279 mOsm/kg (285-295); Potassium 3.1 mmol/L (3.5-5.1); Sodium 134 mmol/L (136-145); Total Bilirubin 3.5 mg/dL (0.15-1.2); Total Protein 6.9 g/dL (6.6-8.7)
[2021-06-14 12:45] LABS: Alcohol Level < 10 mg/dL (0-10); Lipase 388 U/L (13-60)
[2021-06-14] MEDS: potassium chloride premix 100 ML 50 MEQ IV (13:49)
[2021-06-14] MEDS: sodium chloride 0.9% 1,000 ML 999 ML IV ×2 (16:43→16:44)
== END 2021-06-14 18:17 | disposition home or self-care (01) ==
PROVIDERS: Emergency Provider Family Medicine; PCP Family Medicine
DX: F10.230 Alcohol dependence with withdrawal, uncomplicated (principal); E80.6 Other disorders of bilirubin metabolism; E87.6 Hypokalemia; R74.01 Elevation of levels of liver transaminase levels; K85.20 Alcohol induced acute pancreatitis without necrosis or infection; R11.2 Nausea with vomiting, unspecified; F17.210 Nicotine dependence, cigarettes, uncomplicated
CPT/HCPCS: 80053; 80307; 83690; 85025; 96365; 96366; 96375; 96376; 99284; C9113; J2060; J2405; J3411; J3480; J3490; J7030

== ENCOUNTER 2021-06-20 06:05 | Emergency (ER) | payer MEDICAID, SELFPAY ==
[2021-06-20 06:07] VITALS: BP 132/87; PULSE 120; RESP 18; TEMP 36.2; O2SAT 100; BMI 22.8
--- NOTE | 2021-06-20 06:08 | ED_ITS ---
HPI - Nausea/Vomiting/Diarrhea General: Chief complaint: Anxiety Stated complaint: trimmers Time Seen by Provider: 06/20/21 06:08 History of Present Illness: HPI Narrative: Ms Choe is a 36-year-old lady with longstanding history of alcohol abuse who presents to the emergency department due to nausea and vomiting. She reports last drink approximately 1 week ago, typically before that she went through about a half a gallon of hard alcohol every other day or so. Since that time she has progressive onset worsening shaking, nausea, vomiting. Symptoms started as mild however is progressively worsened and are now severe in intensity. She reports associated generalized malaise, decreased urine output, and pain from falls. She woke up last night with bloody nose and approximately 4 days ago fell on stairs hurting her back. She has had similar episodes in the past. Reports previous hospitalizations associated with alcohol abuse. No other specific changes in health, exacerbating, relieving factors identified MD elicited complaint: nausea and vomiting Pertinent past history: alcohol abuse Onset (ago): day(s) Description of vomiting: food contents Associated nausea: Yes Associated abdominal pain: Yes Location of pain: RUQ Radiation: does not radiate Pain consistency: constant Severity: similar to previous episodes Quality: cramping Exacerbating factors: eating and vomiting Relieving factors: none Context: other Associated symtoms: Reports nausea and other Review of Systems General: Reports: 10 or more systems reviewed and unremarkable except in HPI and below GI: Reports: nausea PFSH ED PFSH: Medical History Acute on chronic anemia Prior blood transfusion in the past Alcohol use disorder, severe, dependence Alcohol withdrawal syndrome Anxiety Aspiration pneumonia = Benzodiazepine abuse Depression Depression End stage liver disease -noted hepatic cirrhosis on CT -secondary to EtOH abuse -continue to trend ammonia, on lactulose -prior hx of SBP, not enough fluid to drain, off abx -pain control as needed -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 Esophageal varices -hx of banding -s/p 2 units PRBCs on 04/07 GI bleed History of alcohol abuse Overdose SBP (spontaneous bacterial peritonitis) Transaminitis Surgical History H/O LEEP History of cholecystectomy Social History Smoking and tobacco status: current some day smoker Alcohol intake: current Alcohol intake frequency: 3 or more drinks per day Alcohol type: hard liquor Female Reproductive History: Date of last menstrual period: 04/01/14 Physical Exam Const: COMMON NORMALS: alert GENERAL APPEARANCE: cooperative, well developed, anxious and ill appearing (Mildly) HENMT: COMMON NORMALS: normocephalic HEAD & SCALP: normocephalic FACE & SINUS: other (Contusions/bilateral minor periorbital ecchymosis.) NOSE: Other nasal findings present (No current epistaxis, no evidence of septal hematoma.) TYMPANIC MEMBRANE: other (No clancy signs.) OTHER: Normal jaw alignment Eye: COMMON NORMALS: conjunctivae normal CONJUNCTIVA: Yes conjunctivae normal SCLERA: sclerae normal Neck/C-Spine: COMMON NORMALS: supple GENERAL: Yes trachea midline Resp: COMMON NORMALS: normal respiratory effort EFFORT & INSPECTION: Yes able to speak in complete sentences Cardio: COMMON NORMALS: regular rhythm RATE: tachycardic RHYTHM: regular rhythm OTHER: normal peripheral perfusion GI: COMMON NORMALS: Soft to palpation PALPATION: Yes Soft to palpation, Yes Tenderness to palpation present (GI) Details: RUQ, No Guarding due to palpation present (GI) and No Rigid due to palpation Back/Pelvis: LUMBAR SPINE/LOWER BACK: Yes lumbar spinal tenderness Extremity: GENERAL: Yes normal exam except as noted and No edema Neuro: COMMON NORMALS: moves all extremities SENSORIUM/ORIENTATION: Yes alert and No Orientation impaired Psych: COMMON NORMALS: mental status grossly normal and Normal thought process present THOUGHT PROCESS: Normal thought process present Course ED course: - Patient was seen and evaluated by me at bedside - Patient placed on cardiac monitors, IV access obtained - Initial evaluation notable for tremulous appearance, exam as above, tachycardia -Symptom treatment ordered - Labs notable for no leukocytosis. Transaminitis with elevated bilirubin mildly improved since prior. Hypokalemia and hypomagnesemia. Replenishment ordered. - Imaging notable for no acute traumatic injury secondary to fall with closed head injury. Negative bony abnormality for low back pain. - Upon serial reexamination after treatment the patient was improved with symptom treatment. Mildly still tachycardic though overall improved. No tremulousness. Patient tolerated p.o. intake. Patient had been given IV fluids, Ativan, Zofran, Reglan, phenobarbital. - Based on patient history, evaluation, labs, and imaging as interpreted the most likely cause of the patient's condition is multifactorial likely secondary to alcohol withdrawal which given improvement can be managed in the outpatient setting - The results of ED evaluation were discussed with the patient including prescriptions and/or symptomatic cares (if applicable) including appropriate and responsible use, followup plan, and return precautions. The patient verbalized understanding and felt safe for discharge. - Patient discharged in satisfactory condition. Note: Click bubbles or prepopulated willett in note writing are used for assistance with data collection and billing and are inherently more limited than narrative and other text portions of this note. Please use narrative for additional clinical history and defer to narrative/free test for any case of contradictory information. If information appears in only free text or click bubble it should be considered present or absent as reported. Please contact note jingle writer for clarifications of clinical information or contradictory information. MDM is a brief summary, contradictory or erroneous seeming information should be clarified and full note should be reviewed. Vital Signs: Vital signs: Vital Signs Temperature 97.2 F L 06/20/21 06:07 Pulse Rate 116 H 06/20/21 12:15 Respiratory Rate 15 06/20/21 12:15 Blood Pressure 130/81 06/20/21 12:15 Pulse Oximetry 93 06/20/21 12:15 MDM - Nausea/Vomiting/Diarrhea MDM Narrative Medical decision making narrative: 36-year-old lady with history of alcohol abuse presenting 1 week history of alcohol abstinence however inability to tolerate oral intake as well as shakiness and palpitations. Found to have fairly marked hypokalemia. Patient received Ativan, IV fluids, electrolyte replenishment, 130 mg of phenobarbital with improvement in symptoms. Tolerating p.o. intake well. Satisfactory for outpatient management, will start on Librium taper. Medical Records Attestation: I reviewed the patient's medical records. Lab Data Attestation: I reviewed the patient's lab results. Result diagrams: 06/20/21 06:32 06/20/21 06:32 Labs: Lab Results 06/20/21 06/20/21 06:32 06:32 WBC 5.8 10^3/uL 10^3/uL (4.0-10.0) RBC 4.88 10^6/uL 10^6/uL (4.1-5.3) Hgb 12.7 g/dL g/dL (11.5-15.3) Hct 39.9 % % (37.0-47.0) MCV 81.8 fl fl (81-99) MCH 26.0 pg L pg (28.0-34.0) MCHC 31.8 g/dL g/dL (30.0-36.0) RDW 22.4 % H % (12.1-15.1) Plt Count 209 10^3/cmm 10^3/cmm (130-400) MPV 9.2 fL fL (7.4-10.4) Neut % (Auto) 46.4 % % Lymph % (Auto) 38.8 % % [place] % (Auto) 12.3 % % Eos % (Auto) 0.7 % % Baso % (Auto) 1.6 % % Neut # (Auto) 2.68 10^3/uL 10^3/uL (1.8-7.7) Lymph # (Auto) 2.2 10^3/uL 10^3/uL (0.8-4.8) [place] # (Auto) 0.7 10^3/uL 10^3/uL (0.2-0.9) Eos # (Auto) 0.0 10^3/uL 10^3/uL (0.0-0.8) Baso # (Auto) 0.1 10^3/uL 10^3/uL (0.0-0.1) Nucleated RBC % (auto) 0 % % Nucleated RBCs # 0.0 /100WBC /100WBC Sodium 141 mmol/L mmol/L (136-145) Potassium 2.7 mmol/L L* mmol/L (3.5-5.1) Chloride 98 mmol/L mmol/L (98-107) Carbon Dioxide 25 mmol/L mmol/L (22-29) Anion Gap 20.7 H (5-19) BUN 4 mg/dL L mg/dL (6-20) Creatinine 0.7 mg/dL mg/dL (0.5-0.9) GFR Calculation 93.6 mL/min mL/min (90-130) Glucose 211 mg/dL H mg/dL (65-115) Calculated Osmolality 295 mOsm/kg mOsm/kg (285-295) Calcium 8.0 mg/dL L mg/dL (8.5-10.5) Magnesium 1.5 mg/dL L mg/dL (1.7-2.3) Total Bilirubin 1.5 mg/dL H mg/dL (0.15-1.2) AST 197 U/L H U/L (0-32) ALT 94 U/L H U/L (0-33) Alkaline Phosphatase 552 IU/L H IU/L (35-105) Total Protein 7.2 g/dL g/dL (6.6-8.7) Albumin 4.8 g/dL g/dL (3.5-5.2) Globulin 2.4 g/dL g/dL (1.3-4.6) Lipase 181 U/L H U/L (13-60) TSH 1.67 uIU/mL uIU/mL (0.27-4.20) Discharge Plan Discharge Patient Disposition: Home Clinical Impression: Alcohol abuse, Hypomagnesemia, Acute hypokalemia, Transaminitis, Closed head injury, Multiple contusions, Acute dehydration, Elevated bilirubin, Tachycardia Nausea & vomiting Qualifiers: Vomiting type: unspecified Qualified Code(s): R11.2 - Nausea with vomiting, unspecified Condition: Stable Prescriptions: New chlordiazepoxide HCl 25 mg capsule See Rx Instructions .ROUTE .COMPLEX Qty: 15 0RF Rx Instructions: Day 1: 50mg q6h Day 2: 25mg q6h Day 3: 25mg q12h Day 4: 25mg at night No Action levothyroxine 50 mcg Tablet 50 mcg PO DAILY Qty: 0 0RF cyclobenzaprine 5 mg Tablet 5 mg PO TID PRN (Reason: Muscle Pain) Qty: 0 0RF melatonin 3 mg Tablet 3 mg PO BEDTIME 0RF olanzapine 5 mg Tablet 5 mg PO BEDTIME 0RF pantoprazole [Protonix] 40 mg tablet,delayed release (DR/EC) 40 mg PO DAILY Qty: 30 0RF methocarbamol 750 mg tablet 750 mg PO Q6H PRN (Reason: spasms) Qty: 20 0RF Rx Instructions: pt didnt fill this medication-rx written on 05/16/21 folic acid 1 mg Tablet 1 mg PO DAILY Qty: 60 0RF magnesium oxide 500 mg tablet 500 mg PO BID Qty: 20 0RF potassium chloride 10 mEq capsule, extended release 10 meq PO DAILY Qty: 4 0RF naltrexone 50 mg tablet 50 mg PO DAILY Qty: 10 0RF Vitamin B-1 (mononitrate) 100 mg Tablet 100 mg PO DAILY 30 Days Qty: 30 3RF chlordiazepoxide HCl 25 mg capsule 25 mg PO Q6H PRN (Reason: prn anxiety) Qty: 14 0RF Zofran 4 mg tablet 4 mg PO Q6H PRN (Reason: nausea and vomiting) Qty: 10 2RF promethazine 50 mg suppository 50 mg ID Q6H PRN (Reason: nausea and vomiting) Qty: 6 1RF Rx Instructions: take half to one suppository per rectum every 6 hours as needed potassium chloride 20 mEq tablet,ER particles/crystals 20 meq PO DAILY Qty: 5 0RF ondansetron 4 mg tablet,disintegrating 4 mg PO Q8H PRN (Reason: nausea and vomiting) Qty: 15 0RF Discharge Orders: Discharge ED (Routine); Ordered 06/20/21 Ordered By: Edgar Mendoza Referrals: Stanton Schumacher [Primary Care Provider] - Discharge Diet: Usual diet Discharge Activity: Resume usual activity Patient Instructions: Dehydration (ED), Hypokalemia (ED), Head Injury (ED), Alcohol Withdrawal (ED), Alcohol Use Disorder (ED) Activity Restrictions/Additional Instructions: Thank you for visiting the emergency department. You were seen and evaluated for injuries related to a fall as well as nausea, vomiting, and palpitations. The exact cause of your symptoms is unclear, likely related to alcohol misuse. 1 week of sobriety is somewhat atypical for continued withdrawals however your symptoms are fairly consistent with withdrawal. We are pleased that you are improvement after treatment. Please continue to ensure normal p.o. intake with potassium rich foods. I rec ommend repeat laboratory evaluation by your primary care provider in 1 week. Please follow-up with your primary care provider. Return to the emergency department for worsening symptoms, inability to tolerate p.o. intake, or anything else that you are concerned about and feel needs emergency department evaluation. I recommend continued sobriety. Continue abuse of alcohol will likely lead to or worse. Coding Level of Care Code ED Isotope Technologist for Davideg Fwd Exam Comprehensive
[2021-06-20] MEDS: ondansetron 2 mg/ML SDV 2 mL 4 MG IVP (06:42)
[2021-06-20] MEDS: LORazepam 2 mg/mL INJ 1 mL 1 MG IVP (06:42)
[2021-06-20] MEDS: sodium chloride 0.9% 1,000 ML 999 ML IV ×2 (06:43→09:56)
--- NOTE | 2021-06-20 06:47 | XRR_ITS ---
PROCEDURE INFORMATION: Exam: XR Lumbosacral Spine Exam date and time: 06/20/2021 6:47 AM Age: 36 years old Clinical indication: Injury or trauma; Fall; Blunt trauma (contusions or hematomas); Injury details: Fell 4 days ago pain to lower back ever since; Additional info: Fall, low back pain mid lumbar region TECHNIQUE: Imaging protocol: XR of the lumbosacral spine. Views: 2 or 3 views. COMPARISON: CR (PELVIS, ) 05/16/2021 12:28 AM FINDINGS: Bones/joints: Mild degenerative changes at L5-S1. Stable mild to moderate compression deformities of the superior endplates of T11 and T12 similar to prior examination. Soft tissues: Unremarkable. Intraperitoneal space: Status post cholecystectomy. XR/XR lumbar spine 2-3V* [id number] IMPRESSION: No acute lumbar fracture.
--- NOTE | 2021-06-20 06:47 | CTR_ITS ---
PROCEDURE INFORMATION: Exam: CT Head Without Contrast Exam date and time: 06/20/2021 6:47 AM Age: 36 years old Clinical indication: Injury or trauma; Blunt trauma (contusions or hematomas); Patient HX: Fall one week ago unknown loc; Additional info: Fall, ? loc, head strike TECHNIQUE: Imaging protocol: Computed tomography of the head without contrast. Radiation optimization: All CT scans at this facility use at least one of these dose optimization techniques: automated exposure control; mA and/or kV adjustment per patient size (includes targeted exams where dose is matched to clinical indication); or iterative reconstruction. COMPARISON: CT head wo con* [id number] 04/01/2021 5:44 PM RADIATION DOSE METRICS: Total DLP (mGy-cm): 745.76 FINDINGS: Brain: Stable hypodensity in the right basal ganglia. Rousseau-white matter differentiation is preserved. No edema, mass effect or midline shift. No acute intracranial hemorrhage. Cerebral ventricles: No ventriculomegaly. Paranasal sinuses: Visualized sinuses are unremarkable. No fluid levels. Mastoid air cells: No mastoid effusion. Bones/joints: No acute fracture. Soft tissues: Unremarkable. CT/CT head wo con* [id number] IMPRESSION: No acute intracranial abnormality.
--- NOTE | 2021-06-20 06:47 | CTR_ITS ---
PROCEDURE INFORMATION: Exam: CT Maxillofacial Without Contrast Exam date and time: 06/20/2021 6:47 AM Age: 36 years old Clinical indication: Injury or trauma; Blunt trauma (contusions or hematomas); Orbit/periorbital; Patient HX: Fall hitting head and face one week ago. Bilateral periorbital injuries; Additional info: Fall, bilateral periorbital echymosis and epistaxis TECHNIQUE: Imaging protocol: Computed tomography images of the face without contrast. Radiation optimization: All CT scans at this facility use at least one of these dose optimization techniques: automated exposure control; mA and/or kV adjustment per patient size (includes targeted exams where dose is matched to clinical indication); or iterative reconstruction. COMPARISON: CT head wo con* [id number] 06/20/2021 7:13 AM RADIATION DOSE METRICS: Total DLP (mGy-cm): 774.67 FINDINGS: Orbital cavity: Orbits are normal. Globes are unremarkable. Bones/joints: No acute fracture. Paranasal sinuses: Normal. No air-fluid levels. Soft tissues: Unremarkable. CT/CT facial bones wo con* [id number] IMPRESSION: No acute findings.
[2021-06-20 06:53] LABS: Basophils # 0.1 10^3/uL (0.0-0.1); Basophils % 1.6 %; Eosinophils % 0.7 %; Hematocrit 39.9 % (37.0-47.0); Hemoglobin 12.7 g/dL (11.5-15.3); Lymphocytes # 2.2 10^3/uL (0.8-4.8); Lymphocytes % 38.8 %; Mean Corpuscular HGB Conc 31.8 g/dL (30.0-36.0); Mean Corpuscular Volume 81.8 fl (81-99); Mean Platelet Volume 9.2 fL (7.4-10.4); Monocytes # 0.7 10^3/uL (0.2-0.9); Monocytes % 12.3 %; Neutrophils # 2.68 10^3/uL (1.8-7.7); Neutrophils % 46.4 %; Nucleated Red Blood Cells % 0 %; Platelet Count 209 10^3/cmm (130-400); Red Blood Count 4.88 10^6/uL (4.1-5.3); Red Cell Distribution Width 22.4 % (12.1-15.1); White Blood Count 5.8 10^3/uL (4.0-10.0)
[2021-06-20 07:15] LABS: Alanine Aminotransferase 94 U/L (0-33); Albumin Level 4.8 g/dL (3.5-5.2); Alkaline Phosphatase 552 IU/L (35-105); Anion Gap 20.7 (5-19); Aspartate Amino Transferase 197 U/L (0-32); Blood Urea Nitrogen 4 mg/dL (6-20); Carbon Dioxide 25 mmol/L (22-29); Chloride 98 mmol/L (98-107); Creatinine Clr Calc Pharmacy 116.7058; Globulin 2.4 g/dL (1.3-4.6); Glomerular Filtration Rate 93.6 mL/min (90-130); Glucose 211 mg/dL (65-115); Lipase 181 U/L (13-60); Magnesium 1.5 mg/dL (1.7-2.3); Osmolality Calculated 295 mOsm/kg (285-295); Sodium 141 mmol/L (136-145); Thyroid Stimulating Hormone 1.67 uIU/mL (0.27-4.20); Total Bilirubin 1.5 mg/dL (0.15-1.2); Total Protein 7.2 g/dL (6.6-8.7)
[2021-06-20 07:18] LABS: Potassium 2.7 mmol/L (3.5-5.1)
--- NOTE | 2021-06-20 07:23 | PC.NURSE ---
NOTFIED DR. MENA OF PT K OF 2.7 HE VERBALIZED UNDERSTANDING NO FURTHER ORDERS.
--- NOTE | 2021-06-20 07:47 | US_ITS ---
WS: [id number] RIGHT UPPER QUADRANT ULTRASOUND HISTORY: RIGHT upper quadrant pain. COMPARISON: 05/10/2019 and 05/23/2019 Liver: 16.5 cm in length. Normal size liver. There is marked coarse echotexture throughout the liver with variable echogenicity. No definite mass is identified. No bile duct dilatation. Portal Vein: Normal hepatopetal flow with monophasic waveform. Gallbladder: Prior cholecystectomy. CBD: 0.3 cm Pancreas: Not visualized. Right kidney: 10.0 cm in length. Kidney is poorly visualized. No hydronephrosis identified. Aorta and IVC: Not well visualized. No ascites. US/US abdomen limited [id number] IMPRESSION: 1. Technically difficult evaluation of the RIGHT upper quadrant due to patient 's uncontrollable shaking and body habitus. 2. Prior cholecystectomy. 3. Abnormal liver. Most likely due to advanced cirrhosis. Ultrasound changes o f cirrhosis and chronic hepatocellular disease have progressed since 05/23/2019 and the liver. 4. No ascites.
[2021-06-20] MEDS: metoclopramide 5 mg/mL SDV 2 mL 10 MG IVP (07:58)
[2021-06-20] MEDS: magnesium sulfate premix 2 GM/50 ML PIGGYBACK IV (08:05)
[2021-06-20] MEDS: lidocaine 1% 5 ML in potassium chloride premix 100 ML 50 ML IV (08:09)
[2021-06-20] MEDS: potassium chloride ER 20 mEq Tablet 60 MEQ PO (08:34)
[2021-06-20] MEDS: PHENobarbital 130 mg/mL SDV 1 mL IV (08:35)
[2021-06-20 08:37] VITALS: BP 113/72; PULSE 116; RESP 16; O2SAT 100
[2021-06-20 10:00] VITALS: BP 106/68; PULSE 99; RESP 14; O2SAT 98
[2021-06-20 12:15] VITALS: BP 130/81; PULSE 116; RESP 15; O2SAT 93
== END 2021-06-20 12:17 | disposition home or self-care (01) ==
PROVIDERS: Emergency Provider Emergency Medicine; PCP Family Medicine
DX: R11.2 Nausea with vomiting, unspecified (principal); F10.10 Alcohol abuse, uncomplicated; E83.42 Hypomagnesemia; E87.6 Hypokalemia; R74.01 Elevation of levels of liver transaminase levels; S09.8XXA Other specified injuries of head, initial encounter; E86.0 Dehydration; R17 Unspecified jaundice; R00.0 Tachycardia, unspecified; S00.83XA Contusion of other part of head, initial encounter; F17.210 Nicotine dependence, cigarettes, uncomplicated; W10.8XXA Fall (on) (from) other stairs and steps, initial encounter
CPT/HCPCS: 70450; 70486; 72100; 76705; 80053; 83690; 83735; 84443; 85025; 96365; 96367; 96375; 99284; J2060; J2405; J2765; J3475; J3480; J7030

== ENCOUNTER 2021-06-20 18:11 | Emergency (ER) | payer MEDICAID, SELFPAY ==
[2021-06-20 18:20] VITALS: BP 117/75; PULSE 123; RESP 20; TEMP 36.6; O2SAT 99; BMI 22.8
[2021-06-20 22:17] LABS: Basophils # 0.1 10^3/uL (0.0-0.1); Basophils % 1.2 %; Eosinophils % 0.3 %; Hematocrit 37.3 % (37.0-47.0); Hemoglobin 11.4 g/dL (11.5-15.3); Lymphocytes # 1.9 10^3/uL (0.8-4.8); Lymphocytes % 33.7 %; Mean Corpuscular HGB Conc 30.6 g/dL (30.0-36.0); Mean Corpuscular Hemoglobin 26.2 pg (28.0-34.0); Mean Corpuscular Volume 85.7 fl (81-99); Mean Platelet Volume 10.1 fL (7.4-10.4); Monocytes # 1.3 10^3/uL (0.2-0.9); Monocytes % 21.9 %; Neutrophils # 2.44 10^3/uL (1.8-7.7); Neutrophils % 42.6 %; Nucleated Red Blood Cells % 0 %; Platelet Count 121 10^3/cmm (130-400); Red Blood Count 4.35 10^6/uL (4.1-5.3); Red Cell Distribution Width 22.4 % (12.1-15.1); White Blood Count 5.8 10^3/uL (4.0-10.0)
[2021-06-20 22:36] LABS: Alanine Aminotransferase 82 U/L (0-33); Alkaline Phosphatase 443 IU/L (35-105); Blood Urea Nitrogen 5 mg/dL (6-20); Calcium 8.2 mg/dL (8.5-10.5); Carbon Dioxide 19 mmol/L (22-29); Chloride 98 mmol/L (98-107); Globulin 2.3 g/dL (1.3-4.6); Glomerular Filtration Rate 138.1 mL/min (90-130); Glucose 113 mg/dL (65-115); Osmolality Calculated 280 mOsm/kg (285-295); Sodium 136 mmol/L (136-145); Total Bilirubin 1.6 mg/dL (0.15-1.2); Total Protein 6.3 g/dL (6.6-8.7)
[2021-06-20 22:38] LABS: Alcohol Level < 10 mg/dL (0-10)
[2021-06-20 22:39] LABS: Anion Gap 22.2 (5-19); Aspartate Amino Transferase 191 U/L (0-32); Potassium 3.2 mmol/L (3.5-5.1)
[2021-06-20 22:51] VITALS: PULSE 68; RESP 22; TEMP 36.9; O2SAT 99
== END 2021-06-20 22:55 | disposition left against medical advice (07) ==
PROVIDERS: Nurse Practitioner Family; Emergency Provider Family Medicine; PCP Family Medicine
DX: Z53.21 Procedure and treatment not carried out due to patient leaving prior to being seen by health care provider (principal)
CPT/HCPCS: 36415; 80053; 80307; 85025

== ENCOUNTER 2021-06-21 12:37 | Emergency (ER) | payer MEDICAID, SELFPAY ==
[2021-06-21 13:44] VITALS: BP 108/74; PULSE 109; RESP 16; TEMP 36.6; O2SAT 100; BMI 22.8
--- NOTE | 2021-06-21 14:29 | W.ED.NAVMDI ---
Documented by User: JAYCEE Chang 06/21/21 14:30 HPI - Nausea/Vomiting/Diarrhea General: Chief complaint: Nausea/Vomiting/Diarrhea Stated complaint: N/V Time Seen by Provider: 06/21/21 14:05 History of Present Illness: HPI Narrative: Patient arrived via ambulance with complaint of nausea. Did have a couple episodes of vomiting. Was seen in ER here yesterday x2 or 3 times. Did have a low sodium and was given medication. Patient discharged in stable status. Patient appearing acute distress presently MD elicited complaint: nausea and vomiting Pertinent past history: alcohol abuse Onset (ago): day(s) Associated nausea: Yes Associated symtoms: Reports no associated symptoms and nausea; Denies anxiety, change in vision, chest pain or headache(s) Review of Systems Const: Denies: fever(s), chills or body aches Eyes: Denies: change in vision or blurry vision ENMT: Denies: throat pain or nasal congestion Card: Denies: chest pain or dyspnea on exertion Resp: Denies: dyspnea, productive cough or non-productive cough GI: Reports: nausea and vomiting; Denies: abdominal pain Musc: Denies: extremity pain Skin/Breast: Denies: rash Neuro: Denies: headache(s) Psych: Denies: anxiety or depression Noel/Lymph: Denies: easy bruising PFSH ED PFSH: Medical History Acute on chronic anemia Prior blood transfusion in the past Alcohol use disorder, severe, dependence Alcohol withdrawal syndrome Anxiety Aspiration pneumonia = Benzodiazepine abuse Depression Depression End stage liver disease -noted hepatic cirrhosis on CT -secondary to EtOH abuse -continue to trend ammonia, on lactulose -prior hx of SBP, not enough fluid to drain, off abx -pain control as needed -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 Const: COMMON NORMALS: no acute distress, average body habitus and patient oriented x3 HENMT: COMMON NORMALS: normocephalic HEAD & SCALP: normal to inspection and normocephalic FACE & SINUS: normal facial exam Eye: COMMON NORMALS: conjunctivae normal GENERAL EYE: appearance normal, both eyes and all related structures CONJUNCTIVA: Yes conjunctivae normal Neck/C-Spine: COMMON NORMALS: no JVD Chest: COMMONS NORMALS: normal inspection of the chest Resp: COMMON NORMALS: normal respiratory effort and clear to auscultation bilaterally AUSCULTATION: clear to auscultation bilaterally Cardio: COMMON NORMALS: no JVD and regular rhythm RATE: tachycardic RHYTHM: regular rhythm GI: COMMON NORMALS: Normal to inspection, nondistended, normoactive bowel sounds present Extremity: COMMON NORMALS: normal to inspection and full ROM Neuro: COMMON NORMALS: patient oriented x3 Skin: OTHER: Old bruising under the eyes. Course Vital Signs: Vital signs: Vital Signs Temperature 97.8 F 06/21/21 15:26 Pulse Rate 108 H 06/21/21 19:05 Respiratory Rate 18 06/21/21 19:05 Blood Pressure 123/82 06/21/21 15:26 Pulse Oximetry 100 06/21/21 19:05 MDM - Nausea/Vomiting/Diarrhea Lab Data: Labs: Lab Results 06/21/21 16:56 Sodium 136 mmol/L mmol/L (136-145) Potassium 3.6 mmol/L mmol/L (3.5-5.1) Chloride 99 mmol/L mmol/L (98-107) Carbon Dioxide 19 mmol/L L mmol/ L (22-29) Anion Gap 21.6 H (5-19) BUN 6 mg/dL mg/dL (6-20) Creatinine 0.6 mg/dL mg/dL (0.5-0.9) GFR Calculation 111.9 mL/min mL/m in (90-130) Glucose 105 mg/dL mg/dL (65-115) Calculated Osmolal ity 280 mOsm/kg L mOs m/kg (285-295) Calcium 8.0 mg/dL L mg/dL (8.5-10.5) Total Bilirubin 2.5 mg/dL H mg/dL (0.15-1.2) AST 173 U/L H U/L (0-32) ALT 75 U/L H U/L (0-33) Alkaline Phosphata se 489 IU/L H IU/L (35-105) Total Protein 6.3 g/dL L g/dL (6.6-8.7) Albumin 4.1 g/dL g/dL (3.5-5.2) Globulin 2.2 g/dL g/dL (1.3-4.6) Discharge Plan Discharge Patient Disposition: Home Clinical Impression: Alcohol withdrawal Nausea & vomiting Qualifiers: Vomiting type: unspecified Qualified Code(s): R11.2 - Nausea with vomiting, unspecified Condition: Stable Prescriptions: New ondansetron 4 mg tablet,disintegrating 4 mg PO Q8H PRN (Reason: nausea and vomiting) Qty: 15 RF: 0 No Action levothyroxine 50 mcg Tablet 50 mcg PO DAILY Qty: 0 RF: 0 cyclobenzaprine 5 mg Tablet 5 mg PO TID PRN (Reason: Muscle Pain) Qty: 0 RF: 0 melatonin 3 mg Tablet 3 mg PO BEDTIME RF: 0 olanzapine 5 mg Tablet 5 mg PO BEDTIME RF: 0 pantoprazole [Protonix] 40 mg tablet,delayed release (DR/EC) 40 mg PO DAILY Qty: 30 RF: 0 methocarbamol 750 mg tablet 750 mg PO Q6H PRN (Reason: spasms) Qty: 20 RF: 0 folic acid 1 mg Tablet 1 mg PO DAILY Qty: 60 RF: 0 magnesium oxide 500 mg tablet 500 mg PO BID Qty: 20 RF: 0 potassium chloride 10 mEq capsule, extended release 10 meq PO DAILY Qty: 4 RF: 0 naltrexone 50 mg tablet 50 mg PO DAILY Qty: 10 RF: 0 Vitamin B-1 (mononitrate) 100 mg Tablet 100 mg PO DAILY 30 Days Qty: 30 RF: 3 chlordiazepoxide HCl 25 mg capsule 25 mg PO Q6H PRN (Reason: prn anxiety) Qty: 14 RF: 0 Zofran 4 mg tablet 4 mg PO Q6H PRN (Reason: nausea and vomiting) Qty: 10 RF: 2 promethazine 50 mg suppository 50 mg [place] Q6H PRN (Reason: nausea and vomiting) Qty: 6 RF: 1 potassium chloride 20 mEq tablet,ER particles/crystals 20 meq PO DAILY Qty: 5 RF: 0 ondansetron 4 mg tablet,disintegrating 4 mg PO Q8H PRN (Reason: nausea and vomiting) 5 Days Qty: 15 RF: 0 chlordiazepoxide HCl 25 mg capsule See Rx Instructions .ROUTE .COMPLEX Qty: 15 RF: 0 Discharge Orders: Discharge ED (Routine); Ordered 06/21/21 Ordered By: Sameer Lam Referrals: Stanton Schumacher [Primary Care Provider] - Discharge Diet: Regular Discharge Activity: Increase activity as tolerated Patient Instructions: Alcohol Withdrawal (DC) Activity Restrictions/Additional Instructions: Follow-up with medical provider as directed in the next 5 to 7 days for reevaluation. Continue taking your previously prescribed Librium to help with alcohol withdrawal symptoms. Take medications as prescribed. Return to the ER or your medical provider if condition worsens. Please read and understand discharge instructions. Thank you for choosing [facility] for your healthcare needs today. Please realize this is an emergency room and that we are providing you with a medical screening exam and this may not be complete and all inclusive of all the testing and or work up that you may need to determine your ailment or severity of your illness. It is very important that you follow up as instructed or that you return to the Emergency Department should you have concerns or if your condition changes or worsens in any way. Sign Out Sign Out Data: Patient Sign Out occurred on 06/21/21 at 17:10. Patient's care was discussed, and care was transferred from to ABBI Perez. Coding Level of Care Code ED Environmental Engineering Technician for Chg Fwd Exam Comprehensive Documented by User: ABBI Perez 06/22/21 02:38 HPI - Nausea/Vomiting/Diarrhea General: Chief complaint: Nausea/Vomiting/Diarrhea Stated complaint: N/V Time Seen by Provider: 06/21/21 14:05 PFSH ED PFSH: Medical History Acute on chronic anemia Prior blood transfusion in the past Alcohol use disorder, severe, dependence Alcohol withdrawal syndrome Anxiety Aspiration pneumonia = Benzodiazepine abuse Depression Depression End stage liver disease -noted hepatic cirrhosis on CT -secondary to EtOH abuse -continue to trend ammonia, on lactulose -prior hx of SBP, not enough fluid to drain, off abx -pain control as needed -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 Patient is ready to go home. She will continue outpatient management and taking her Librium for alcohol withdrawal symptoms. Vital Signs: Vital signs: Vital Signs Temperature 97.8 F 06/21/21 15:26 Pulse Rate 108 H 06/21/21 19:05 Respiratory Rate 18 06/21/21 19:05 Blood Pressure 123/82 06/21/21 15:26 Pulse Oximetry 100 06/21/21 19:05 MDM - Nausea/Vomiting/Diarrhea MDM Narrative: Medical decision making narrative: Patient is a 36-year-old female who comes to the ED with nausea. She is currently going through alcohol withdrawal and was seen here in the ED for similar complaints on June 19 and June 20. She is currently taking Librium to help with her withdrawal symptoms. Vitals stable. Exam benign. CMP lab was unremarkable and the sodium level is normal. Patient was given a dose of Zofran while here in the ED and her nausea improved. Patient diagnosed with alcohol withdrawal and nausea and vomiting and discharged home with a prescription for Zofran. Patient was told to continue taking her previously prescribed Librium for alcohol withdrawal symptoms. Return to ED precautions given. Follow-up with PCP in 5 to 7 days reevaluation. Patient understood agree with plan. Lab Data: Attestation: I reviewed the patient's lab results. Labs: Lab Results 06/21/21 16:56 Sodium 136 mmol/L mmol/L (136-145) Potassium 3.6 mmol/L mmol/L (3.5-5.1) Chloride 99 mmol/L mmol/L (98-107) Carbon Dioxide 19 mmol/L L mmol/ L (22-29) Anion Gap 21.6 H (5-19) BUN 6 mg/dL mg/dL (6-20) Creatinine 0.6 mg/dL mg/dL (0.5-0.9) GFR Calculation 111.9 mL/min mL/m in (90-130) Glucose 105 mg/dL mg/dL (65-115) Calculated Osmolal ity 280 mOsm/kg L mOs m/kg (285-295) Calcium 8.0 mg/dL L mg/dL (8.5-10.5) Total Bilirubin 2.5 mg/dL H mg/dL (0.15-1.2) AST 173 U/L H U/L (0-32) ALT 75 U/L H U/L (0-33) Alkaline Phosphata se 489 IU/L H IU/L (35-105) Total Protein 6.3 g/dL L g/dL (6.6-8.7) Albumin 4.1 g/dL g/dL (3.5-5.2) Globulin 2.2 g/dL g/dL (1.3-4.6) Discharge Plan Discharge Patient Disposition: Home Clinical Impression: Alcohol withdrawal Nausea & vomiting Qualifiers: Vomiting type: unspecified Qualified Code(s): R11.2 - Nausea with vomiting, unspecified Condition: Stable Prescriptions: New ondansetron 4 mg tablet,disintegrating 4 mg PO Q8H PRN (Reason: nausea and vomiting) Qty: 15 RF: 0 No Action levothyroxine 50 mcg Tablet 50 mcg PO DAILY Qty: 0 RF: 0 cyclobenzaprine 5 mg Tablet 5 mg PO TID PRN (Reason: Muscle Pain) Qty: 0 RF: 0 melatonin 3 mg Tablet 3 mg PO BEDTIME RF: 0 olanzapine 5 mg Tablet 5 mg PO BEDTIME RF: 0 pantoprazole [Protonix] 40 mg tablet,delayed release (DR/EC) 40 mg PO DAILY Qty: 30 RF: 0 methocarbamol 750 mg tablet 750 mg PO Q6H PRN (Reason: spasms) Qty: 20 RF: 0 folic acid 1 mg Tablet 1 mg PO DAILY Qty: 60 RF: 0 magnesium oxide 500 mg tablet 500 mg PO BID Qty: 20 RF: 0 potassium chloride 10 mEq capsule, extended release 10 meq PO DAILY Qty: 4 RF: 0 naltrexone 50 mg tablet 50 mg PO DAILY Qty: 10 RF: 0 Vitamin B-1 (mononitrate) 100 mg Tablet 100 mg PO DAILY 30 Days Qty: 30 RF: 3 chlordiazepoxide HCl 25 mg capsule 25 mg PO Q6H PRN (Reason: prn anxiety) Qty: 14 RF: 0 Zofran 4 mg tablet 4 mg PO Q6H PRN (Reason: nausea and vomiting) Qty: 10 RF: 2 promethazine 50 mg suppository 50 mg [place] Q6H PRN (Reason: nausea and vomiting) Qty: 6 RF: 1 potassium chloride 20 mEq tablet,ER particles/crystals 20 meq PO DAILY Qty: 5 RF: 0 ondansetron 4 mg tablet,disintegrating 4 mg PO Q8H PRN (Reason: nausea and vomiting) 5 Days Qty: 15 RF: 0 chlordiazepoxide HCl 25 mg capsule See Rx Instructions .ROUTE .COMPLEX Qty: 15 RF: 0 Discharge Orders: Discharge ED (Routine); Ordered 06/21/21 Ordered By: Sameer Lam Referrals: Stanton Schumacher [Primary Care Provider] - Discharge Diet: Regular Discharge Activity: Increase activity as tolerated Patient Instructions: Alcohol Withdrawal (DC) Activity Restrictions/Additional Instructions: Follow-up with medical provider as directed in the next 5 to 7 days for reevaluation. Continue taking your previously prescribed Librium to help with alcohol withdrawal symptoms. Take medications as prescribed. Return to the ER or your medical provider if condition worsens. Please read and understand discharge instructions. Thank you for choosing [facility] for your healthcare needs today. Please realize this is an emergency room and that we are providing you with a medical screening exam and this may not be complete and all inclusive of all the testing and or work up that you may need to determine your ailment or severity of your illness. It is very important that you follow up as instructed or that you return to the Emergency Department should you have concerns or if your condition changes or worsens in any way. Sign Out Sign Out Data: Patient Sign Out occurred on 06/21/21 at 17:10. Patient's care was discussed, and care was transferred from to ABBI Perez. Coding Level of Care Code ED Environmental Engineering Technician for Margarita Fwd Exam Comprehensive
[2021-06-21 15:26] VITALS: BP 123/82; PULSE 112; RESP 17; TEMP 36.6; O2SAT 100
[2021-06-21] MEDS: ondansetron 2 mg/ML SDV 2 mL 4 MG IM (15:27)
[2021-06-21 17:28] LABS: Alanine Aminotransferase 75 U/L (0-33); Albumin Level 4.1 g/dL (3.5-5.2); Alkaline Phosphatase 489 IU/L (35-105); Blood Urea Nitrogen 6 mg/dL (6-20); Carbon Dioxide 19 mmol/L (22-29); Chloride 99 mmol/L (98-107); Creatinine Clr Calc Pharmacy 136.1567; Globulin 2.2 g/dL (1.3-4.6); Glomerular Filtration Rate 111.9 mL/min (90-130); Glucose 105 mg/dL (65-115); Osmolality Calculated 280 mOsm/kg (285-295); Sodium 136 mmol/L (136-145); Total Bilirubin 2.5 mg/dL (0.15-1.2); Total Protein 6.3 g/dL (6.6-8.7)
[2021-06-21 17:39] LABS: Anion Gap 21.6 (5-19); Potassium 3.6 mmol/L (3.5-5.1)
[2021-06-21 17:40] LABS: Aspartate Amino Transferase 173 U/L (0-32)
[2021-06-21 19:05] VITALS: PULSE 108; RESP 18; O2SAT 100
== END 2021-06-21 18:55 | disposition home or self-care (01) ==
PROVIDERS: Emergency Medicine; Emergency Provider Physician Assistant; PCP Family Medicine
DX: R11.2 Nausea with vomiting, unspecified (principal); F10.239 Alcohol dependence with withdrawal, unspecified; F17.210 Nicotine dependence, cigarettes, uncomplicated
CPT/HCPCS: 80053; 96372; 99283; J2405

== ENCOUNTER 2021-07-10 07:25 | Emergency (ER) | payer MEDICAID, SELFPAY ==
[2021-07-10 07:27] VITALS: BP 103/76; PULSE 104; RESP 16; TEMP 36.7; O2SAT 98; BMI 22.8
--- NOTE | 2021-07-10 07:41 | W.ED.NAVMDI ---
Documented by User: ABBI Perez 07/11/21 09:02 HPI - Nausea/Vomiting/Diarrhea General: Chief complaint: Nausea/Vomiting/Diarrhea Stated complaint: N/V Time Seen by Provider: 07/10/21 07:30 History of Present Illness: Patient is a 36-year-old female comes to the ED with nausea and vomiting. Patient says symptoms started approximately 3 days ago. She has a history of alcohol abuse and says she has been sober now for 14 days and detoxed at home. She states that the symptoms are not related to alcohol withdrawal. She also reports having chills and body aches as well. Symptoms started when she woke up in the morning 3 days ago. She has not been able to keep any food or fluids down and has had multiple episodes of vomiting daily. She endorses having some right lower quadrant abdominal pain that she currently rates an 8 out of 10. Denies any upper respiratory symptoms, chest pain, shortness of breath, bladder or bowel symptoms. Associated nausea: Yes Associated symtoms: Reports nausea; Denies change in vision, chest pain, dysuria, fatigue, headache(s) or palpitations Review of Systems Const: Reports: chills and body aches; Denies: fever(s) or fatigue Eyes: Denies: change in vision or eye discomfort ENMT: Denies: throat pain, odynophagia, nasal discharge or nasal congestion Card: Denies: chest pain, palpitations, edema, swelling of feet/ankles, dyspnea on exertion or orthopnea Resp: Denies: dyspnea, productive cough or non-productive cough GI: Reports: abdominal pain, nausea and vomiting; Denies: diarrhea, constipation or hematochezia : Denies: flank pain, dysuria or hematuria Musc: Denies: neck pain, back pain or extremity swelling Skin/Breast: Denies: rash or new lesions Neuro: Denies: headache(s), numbness in extremities or weakness in extremities PFS ED PFSH: Medical History Acute on chronic anemia Prior blood transfusion in the past Alcohol use disorder, severe, dependence Alcohol withdrawal syndrome Anxiety Aspiration pneumonia = Benzodiazepine abuse Depression Depression End stage liver disease -noted hepatic cirrhosis on CT -secondary to EtOH abuse -continue to trend ammonia, on lactulose -prior hx of SBP, not enough fluid to drain, off abx -pain control as needed -f/u with strainer tender in [place] and is on transplant list Esophageal varices -hx of banding -s/p 2 units PRBCs on 04/07 GI bleed History of alcohol abuse Overdose SBP (spontaneous bacterial peritonitis) Transaminitis Surgical History H/O LEEP History of cholecystectomy Social History Smoking and tobacco status: current some day smoker Alcohol intake: current Alcohol intake frequency: 3 or more drinks per day Alcohol type: hard liquor Female Reproductive History: Date of last menstrual period: 04/01/14 Physical Exam Const: COMMON NORMALS: patient oriented x3 and alert GENERAL APPEARANCE: cooperative and other (Patient is crying during history.) HENMT: COMMON NORMALS: normocephalic HEAD & SCALP: normocephalic MOUTH: moist mucous membranes abnormal (Moderate to severe) Details: cracked THROAT: posterior oropharynx normal and uvula midline Neck/C-Spine: COMMON NORMALS: supple GENERAL: Yes normal visual inspection Resp: COMMON NORMALS: normal respiratory effort, No retractions, No use of accessory muscles and clear to auscultation bilaterally AUSCULTATION: clear to auscultation bilaterally Cardio: COMMON NORMALS: regular rate, regular rhythm, S1 normal heart sound present, S2 normal heart sound present, No gallops present (Cardio), No clicks present (Cardio), No murmurs present (Cardio) and Peripheral pulses 2+ throughout RATE: regular rate RHYTHM: regular rhythm HEART SOUNDS: S1 normal heart sound present and S2 normal heart sound present PERIPHERAL PULSES: Peripheral pulses 2+ throughout GI: COMMON NORMALS: Normal to inspection, nondistended, normoactive bowel sounds present, Soft to palpation, non-tender and no masses PALPATION: Yes Soft to palpation and Yes Tenderness to palpation present (GI) Details: RLQ : COMMON NORMALS: Yes no CVA tenderness BLADDER/KIDNEY EXAM: Yes no CVA tenderness Back/Pelvis: COMMON NORMALS: no CVA tenderness Extremity: COMMON NORMALS: normal to inspection Neuro: COMMON NORMALS: patient oriented x3 and moves all extremities SENSORIUM/ORIENTATION: Yes alert Skin: GENERAL SKIN EXAM: dry skin Course Vital Signs: Vital signs: Vital Signs Temperature 98.0 F 07/10/21 07:27 Pulse Rate 112 H 07/10/21 13:31 Respiratory Rate 18 07/10/21 13:31 Blood Pressure 126/85 07/10/21 13:31 Pulse Oximetry 99 07/10/21 13:31 MDM - Nausea/Vomiting/Diarrhea Medical Decision Making Patient is a 36-year-old female comes to the ED with nausea vomiting abdominal pain is on the right side. Patient has a history of alcohol intoxication and has been here multiple times over the past 3 months due to similar symptoms and/or alcohol intoxication. Patient says she has been sober now for 2 weeks. vitals are stable. Patient has some right lower quadrant abdominal tenderness and moderate to severe dry oral mucous membranes. AST and ALT elevation with 185 and 77 respectively patient has a history of AST and ALT elevation. T bili normal. The rest of CBC CMP were unremarkable lipase 61. Blood alcohol level of 195. CT abdomen pelvis showed a lot of stool in the ascending colon. Patient was given 2 L of IV fluids, Reglan and Zofran to help with nausea and a little morphine for abdominal pain. Patient symptoms improved. Patient diagnosed with alcohol intoxication, constipation, transaminitis and dehydration. She was told to follow-up with her PCP in 7 to 10 days reevaluation. Return to ED precautions given. Patient discharged home with a prescription for Reglan. Patient understood and agree with plan. Patient had IV unable to obtain blood from peripheral IV previous attempt at antecubital fossa's bilaterally was able to get flash on a brachial vein on the right but was not able to draw this was abandoned a right IJ applied with the 2-1/2 inch 18-gauge catheter was able to draw off and flush freely without difficulty blood samples taken and labeled and given to the lab. Lab Data I reviewed the patient's lab results. : 07/10/21 08:05 07/10/21 12:30 Radiology Impressions Abdomen/Pelvis CT 07/10/21 10:50 IMPRESSION: 1. Marked increased fecal retention and constipation with colonic dilatation involving the cecum and ascending colon. No transition point is identified. Beyond the ascending colon there is increased air throughout the colon. 2. Normal appendix. 3. Cirrhotic appearance of the liver. 4. Prior cholecystectomy. 5. Splenic or renal varices in the LEFT upper abdomen. 6. No ascites. Laboratory Results WBC 7.4 10^3/uL (4.0-10.0) 07/10/21 08:05 RBC 5.29 10^6/uL (4.1-5.3) 07/10/21 08:05 Hgb 13.6 g/dL (11.5-15.3) 07/10/21 08:05 Hct 43.5 % (37.0-47.0) 07/10/21 08:05 MCV 82.2 fl (81-99) 07/10/21 08:05 MCH 25.7 pg (28.0-34.0) L 07/10/21 08:05 MCHC 31.3 g/dL (30.0-36.0) 07/10/21 08:05 RDW 21.7 % (12.1-15.1) H 07/10/21 08:05 Plt Count 251 10^3/cmm (130-400) 07/10/21 08:05 MPV 10.2 fL (7.4-10.4) 07/10/21 08:05 Neut % (Auto) 54.5 % 07/10/21 08:05 Lymph % (Auto) 38.5 % 07/10/21 08:05 [place] % (Auto) 4.3 % 07/10/21 08:05 Eos % (Auto) 1.9 % 07/10/21 08:05 Baso % (Auto) 0.5 % 07/10/21 08:05 Neut # (Auto) 4.04 10^3/uL (1.8-7.7) 07/10/21 08:05 Lymph # (Auto) 2.9 10^3/uL (0.8-4.8) 07/10/21 08:05 [place] # (Auto) 0.3 10^3/uL (0.2-0.9) 07/10/21 08:05 Eos # (Auto) 0.1 10^3/uL (0.0-0.8) 07/10/21 08:05 Baso # (Auto) 0.0 10^3/uL (0.0-0.1) 07/10/21 08:05 Nucleated RBC % (auto) 0 % 07/10/21 08:05 Nucleated RBCs # 0.0 /100WBC 07/10/21 08:05 Sodium 144 mmol/L (136-145) 07/10/21 12:30 Potassium 3.5 mmol/L (3.5-5.1) 07/10/21 12:30 Chloride 105 mmol/L (98-107) 07/10/21 12:30 Carbon Dioxide 21 mmol/L (22-29) L 07/10/21 12:30 Anion Gap 21.5 (5-19) H 07/10/21 12:30 BUN 4 mg/dL (6-20) L 07/10/21 12:30 Creatinine 0.6 mg/dL (0.5-0.9) 07/10/21 12:30 GFR Calculation 111.9 mL/min (90-130) 07/10/21 12:30 Glucose 92 mg/dL (65-115) 07/10/21 12:30 Calculated Osmolality 295 mOsm/kg (285-295) 07/10/21 12:30 Calcium 7.3 mg/dL (8.5-10.5) L 07/10/21 12:30 Total Bilirubin 1.2 mg/dL (0.15-1.2) 07/10/21 12:30 AST 247 U/L (0-32) H 07/10/21 12:30 ALT 76 U/L (0-33) H 07/10/21 12:30 Alkaline Phosphatase 512 IU/L (35-105) H 07/10/21 12:30 Total Protein 5.7 g/dL (6.6-8.7) L 07/10/21 12:30 Albumin 3.7 g/dL (3.5-5.2) 07/10/21 12:30 Globulin 2.0 g/dL (1.3-4.6) 07/10/21 12:30 Lipase 61 U/L (13-60) H 07/10/21 12:30 HCG, Qual Negative (Negative) 07/10/21 08:05 Ethyl Alcohol 195 mg/dL (0-10) H 07/10/21 12:30 Influenza Type A Ag Negative (Negative) 07/10/21 07:58 Influenza Type B Ag Negative (Negative) 07/10/21 07:58 SARS-CoV-2 Ag (Rapid) Negative (Negative) 07/10/21 07:58 Discharge Plan Discharge Patient Disposition: Home Clinical Impression: Dehydration determined by examination, Transaminitis Constipation Qualifiers: Constipation type: unspecified constipation type Qualified Code(s): K59.00 - Constipation, unspecified Alcohol intoxication Qualifiers: Complication of substance-induced condition: uncomplicated Qualified Code(s): F10.920 - Alcohol use, unspecified with intoxication, uncomplicated Condition: Stable Prescriptions: New Reglan 10 mg tablet 10 mg PO Q6H PRN (Reason: nausea and vomiting) Qty: 30 0RF No Action levothyroxine 50 mcg Tablet 50 mcg PO DAILY Qty: 0 0RF melatonin 3 mg Tablet 3 mg PO BEDTIME 0RF olanzapine 5 mg Tablet 5 mg PO BEDTIME 0RF pantoprazole [Protonix] 40 mg tablet,delayed release (DR/EC) 40 mg PO DAILY Qty: 30 0RF methocarbamol 750 mg tablet 750 mg PO Q6H PRN (Reason: spasms) Qty: 20 0RF folic acid 1 mg Tablet 1 mg PO DAILY Qty: 60 0RF magnesium oxide 500 mg tablet 500 mg PO BID Qty: 20 0RF naltrexone 50 mg tablet 50 mg PO DAILY Qty: 10 0RF thiamine mononitrate (vit B1) [Vitamin B-1 (mononitrate)] 100 mg Tablet 100 mg PO DAILY 30 Days Qty: 30 3RF ondansetron HCl [Zofran] 4 mg tablet 4 mg PO Q6H PRN (Reason: nausea and vomiting) Qty: 10 2RF promethazine 50 mg suppository 50 mg MA Q6H PRN (Reason: nausea and vomiting) Qty: 6 1RF Rx Instructions: take half to one suppository per rectum every 6 hours as needed potassium chloride 20 mEq tablet,ER particles/crystals 20 meq PO DAILY Qty: 5 0RF chlordiazepoxide HCl 25 mg capsule See Rx Instructions .ROUTE .COMPLEX Qty: 15 0RF Rx Instructions: Day 1: 50mg q6h Day 2: 25mg q6h Day 3: 25mg q12h Day 4: 25mg at night cetirizine 10 mg Tablet 10 mg PO DAILY 0RF pentoxifylline 400 mg Tablet Extended Release 400 mg PO DAILY 0RF Rx Instructions: must administer with a meal/food citalopram 20 mg Tablet 20 mg PO DAILY 0RF buspirone 10 mg Tablet 10 mg PO BID 0RF furosemide 20 mg Tablet 20 - 40 mg PO BID 0RF midodrine 10 mg Tablet 10 mg PO TID 0RF Rx Instructions: do not give last dose of day after 6PM or within 4 hrs of bedtime metoprolol tartrate 25 mg Tablet 25 mg PO BID 0RF lactulose 10 gram/15 mL Solution 30 - 45 ml PO TID 0RF Discharge Orders: Discharge ED (Routine); Ordered 07/10/21 Ordered By: Sameer Lam Referrals: Stanton Schumacher [Primary Care Provider] - Discharge Diet: Advance as tolerated and Clear Liquid Discharge Activity: Increase activity as tolerated Patient Instructions: Dehydration (ED), Alcohol Intoxication (ED) Activity Restrictions/Additional Instructions: Follow-up with primary care physician in 3 to 5 days for reevaluation. Take medications as prescribed. Take [id number] MiraLAX daily for the next couple days to help with constipation. Make sure you drink plenty of fluids and stay hydrated. Start with a clear liquid diet then advance diet slowly as tolerated. Have your liver labs rechecked at next appointment. Return to the ER or your medical provider if condition worsens. Please read and understand discharge instructions. Thank you for choosing [facility] for your healthcare needs today. Please realize this is an emergency room and that we are providing you with a medical screening exam and this may not be complete and all inclusive of all the testing and or work up that you may need to determine your ailment or severity of your illness. It is very important that you follow up as instructed or that you return to the Emergency Department should you have concerns or if your condition changes or worsens in any way. Coding Level of Care Code ED Curing Room Worker for Chg Fwd Exam Comprehensive Documented by User: Juancarlos Meng DO 07/10/21 12:37 HPI - Nausea/Vomiting/Diarrhea General: Chief complaint: Nausea/Vomiting/Diarrhea Stated complaint: N/V Time Seen by Provider: 07/10/21 07:30 PFS ED PFSH: Medical History Acute on chronic anemia Prior blood transfusion in the past Alcohol use disorder, severe, dependence Alcohol withdrawal syndrome Anxiety Aspiration pneumonia = Benzodiazepine abuse Depression Depression End stage liver disease -noted hepatic cirrhosis on CT -secondary to EtOH abuse -continue to trend ammonia, on lactulose -prior hx of SBP, not enough fluid to drain, off abx -pain control as needed -f/u with strainer tender in [place] and is on transplant list Esophageal varices -hx of banding -s/p 2 units PRBCs on 04/07 GI bleed History of alcohol abuse Overdose SBP (spontaneous bacterial peritonitis) Transaminitis Surgical History H/O LEEP History of cholecystectomy Social History Smoking and tobacco status: current some day smoker Alcohol intake: current Alcohol intake frequency: 3 or more drinks per day Alcohol type: hard liquor Procedures EJ/Peripheral Line Neck R: Time Out Performed: Yes Skin Cleansed in Sterile Fashion: Yes Size (gauge): 18 IV Secured and Dressing Applied: Yes Patient Tolerated Procedure: no complications Additional Comments: Ultrasound-guided IV placement Course Vital Signs: Vital signs: Vital Signs Temperature 98.0 F 07/10/21 07:27 Pulse Rate 112 H 07/10/21 13:31 Respiratory Rate 18 07/10/21 13:31 Blood Pressure 126/85 07/10/21 13:31 Pulse Oximetry 99 07/10/21 13:31 MDM - Nausea/Vomiting/Diarrhea Medical Decision Making Patient had IV unable to obtain blood from peripheral IV previous attempt at antecubital fossa's bilaterally was able to get flash on a brachial vein on the right but was not able to draw this was abandoned a right IJ applied with the 2-1/2 inch 18-gauge catheter was able to draw off and flush freely without difficulty blood samples taken and labeled and given to the lab. Lab Data : 07/10/21 08:05 07/10/21 12:30 Radiology Impressions Abdomen/Pelvis CT 07/10/21 10:50 IMPRESSION: 1. Marked increased fecal retention and constipation with colonic dilatation involving the cecum and ascending colon. No transition point is identified. Beyond the ascending colon there is increased air throughout the colon. 2. Normal appendix. 3. Cirrhotic appearance of the liver. 4. Prior cholecystectomy. 5. Splenic or renal varices in the LEFT upper abdomen. 6. No ascites. Laboratory Results WBC 7.4 10^3/uL (4.0-10.0) 07/10/21 08:05 RBC 5.29 10^6/uL (4.1-5.3) 07/10/21 08:05 Hgb 13.6 g/dL (11.5-15.3) 07/10/21 08:05 Hct 43.5 % (37.0-47.0) 07/10/21 08:05 MCV 82.2 fl (81-99) 07/10/21 08:05 MCH 25.7 pg (28.0-34.0) L 07/10/21 08:05 MCHC 31.3 g/dL (30.0-36.0) 07/10/21 08:05 RDW 21.7 % (12.1-15.1) H 07/10/21 08:05 Plt Count 251 10^3/cmm (130-400) 07/10/21 08:05 MPV 10.2 fL (7.4-10.4) 07/10/21 08:05 Neut % (Auto) 54.5 % 07/10/21 08:05 Lymph % (Auto) 38.5 % 07/10/21 08:05 [place] % (Auto) 4.3 % 07/10/21 08:05 Eos % (Auto) 1.9 % 07/10/21 08:05 Baso % (Auto) 0.5 % 07/10/21 08:05 Neut # (Auto) 4.04 10^3/uL (1.8-7.7) 07/10/21 08:05 Lymph # (Auto) 2.9 10^3/uL (0.8-4.8) 07/10/21 08:05 [place] # (Auto) 0.3 10^3/uL (0.2-0.9) 07/10/21 08:05 Eos # (Auto) 0.1 10^3/uL (0.0-0.8) 07/10/21 08:05 Baso # (Auto) 0.0 10^3/uL (0.0-0.1) 07/10/21 08:05 Nucleated RBC % (auto) 0 % 07/10/21 08:05 Nucleated RBCs # 0.0 /100WBC 07/10/21 08:05 Sodium 144 mmol/L (136-145) 07/10/21 12:30 Potassium 3.5 mmol/L (3.5-5.1) 07/10/21 12:30 Chloride 105 mmol/L (98-107) 07/10/21 12:30 Carbon Dioxide 21 mmol/L (22-29) L 07/10/21 12:30 Anion Gap 21.5 (5-19) H 07/10/21 12:30 BUN 4 mg/dL (6-20) L 07/10/21 12:30 Creatinine 0.6 mg/dL (0.5-0.9) 07/10/21 12:30 GFR Calculation 111.9 mL/min (90-130) 07/10/21 12:30 Glucose 92 mg/dL (65-115) 07/10/21 12:30 Calculated Osmolality 295 mOsm/kg (285-295) 07/10/21 12:30 Calcium 7.3 mg/dL (8.5-10.5) L 07/10/21 12:30 Total Bilirubin 1.2 mg/dL (0.15-1.2) 07/10/21 12:30 AST 247 U/L (0-32) H 07/10/21 12:30 ALT 76 U/L (0-33) H 07/10/21 12:30 Alkaline Phosphatase 512 IU/L (35-105) H 07/10/21 12:30 Total Protein 5.7 g/dL (6.6-8.7) L 07/10/21 12:30 Albumin 3.7 g/dL (3.5-5.2) 07/10/21 12:30 Globulin 2.0 g/dL (1.3-4.6) 07/10/21 12:30 Lipase 61 U/L (13-60) H 07/10/21 12:30 HCG, Qual Negative (Negative) 07/10/21 08:05 Ethyl Alcohol 195 mg/dL (0-10) H 07/10/21 12:30 Influenza Type A Ag Negative (Negative) 07/10/21 07:58 Influenza Type B Ag Negative (Negative) 07/10/21 07:58 SARS-CoV-2 Ag (Rapid) Negative (Negative) 07/10/21 07:58 Discharge Plan Discharge Patient Disposition: Home Clinical Impression: Dehydration determined by examination, Transaminitis Constipation Qualifiers: Constipation type: unspecified constipation type Qualified Code(s): K59.00 - Constipation, unspecified Alcohol intoxication Qualifiers: Complication of substance-induced condition: uncomplicated Qualified Code(s): F10.920 - Alcohol use, unspecified with intoxication, uncomplicated Condition: Stable Prescriptions: New Reglan 10 mg tablet 10 mg PO Q6H PRN (Reason: nausea and vomiting) Qty: 30 0RF No Action levothyroxine 50 mcg Tablet 50 mcg PO DAILY Qty: 0 0RF melatonin 3 mg Tablet 3 mg PO BEDTIME 0RF olanzapine 5 mg Tablet 5 mg PO BEDTIME 0RF pantoprazole [Protonix] 40 mg tablet,delayed release (DR/EC) 40 mg PO DAILY Qty: 30 0RF methocarbamol 750 mg tablet 750 mg PO Q6H PRN (Reason: spasms) Qty: 20 0RF folic acid 1 mg Tablet 1 mg PO DAILY Qty: 60 0RF magnesium oxide 500 mg tablet 500 mg PO BID Qty: 20 0RF naltrexone 50 mg tablet 50 mg PO DAILY Qty: 10 0RF thiamine mononitrate (vit B1) [Vitamin B-1 (mononitrate)] 100 mg Tablet 100 mg PO DAILY 30 Days Qty: 30 3RF ondansetron HCl [Zofran] 4 mg tablet 4 mg PO Q6H PRN (Reason: nausea and vomiting) Qty: 10 2RF promethazine 50 mg suppository 50 mg MA Q6H PRN (Reason: nausea and vomiting) Qty: 6 1RF Rx Instructions: take half to one suppository per rectum every 6 hours as needed potassium chloride 20 mEq tablet,ER particles/crystals 20 meq PO DAILY Qty: 5 0RF chlordiazepoxide HCl 25 mg capsule See Rx Instructions .ROUTE .COMPLEX Qty: 15 0RF Rx Instructions: Day 1: 50mg q6h Day 2: 25mg q6h Day 3: 25mg q12h Day 4: 25mg at night cetirizine 10 mg Tablet 10 mg PO DAILY 0RF pentoxifylline 400 mg Tablet Extended Release 400 mg PO DAILY 0RF Rx Instructions: must administer with a meal/food citalopram 20 mg Tablet 20 mg PO DAILY 0RF buspirone 10 mg Tablet 10 mg PO BID 0RF furosemide 20 mg Tablet 20 - 40 mg PO BID 0RF midodrine 10 mg Tablet 10 mg PO TID 0RF Rx Instructions: do not give last dose of day after 6PM or within 4 hrs of bedtime metoprolol tartrate 25 mg Tablet 25 mg PO BID 0RF lactulose 10 gram/15 mL Solution 30 - 45 ml PO TID 0RF Discharge Orders: Discharge ED (Routine); Ordered 07/10/21 Ordered By: Sameer Lam Referrals: Stanton Schumacher [Primary Care Provider] - Discharge Diet: Advance as tolerated and Clear Liquid Discharge Activity: Increase activity as tolerated Patient Instructions: Dehydration (ED), Alcohol Intoxication (ED) Activity Restrictions/Additional Instructions: Follow-up with primary care physician in 3 to 5 days for reevaluation. Take medications as prescribed. Take [id number] MiraLAX daily for the next couple days to help with constipation. Make sure you drink plenty of fluids and stay hydrated. Start with a clear liquid diet then advance diet slowly as tolerated. Have your liver labs rechecked at next appointment. Return to the ER or your medical provider if condition worsens. Please read and understand discharge instructions. Thank you for choosing [facility] for your healthcare needs today. Please realize this is an emergency room and that we are providing you with a medical screening exam and this may not be complete and all inclusive of all the testing and or work up that you may need to determine your ailment or severity of your illness. It is very important that you follow up as instructed or that you return to the Emergency Department should you have concerns or if your condition changes or worsens in any way. Coding Level of Care Code ED Curing Room Worker for Margarita Fwd Exam Comprehensive
[2021-07-10] MEDS: sodium chloride 0.9% 1,000 ML 999 ML IV ×2 (08:16→11:02)
[2021-07-10 08:17] VITALS: RESP 16; O2SAT 98
[2021-07-10 08:17] LABS: Basophils % 0.5 %; Eosinophils # 0.1 10^3/uL (0.0-0.8); Eosinophils % 1.9 %; Hematocrit 43.5 % (37.0-47.0); Hemoglobin 13.6 g/dL (11.5-15.3); Lymphocytes # 2.9 10^3/uL (0.8-4.8); Lymphocytes % 38.5 %; Mean Corpuscular HGB Conc 31.3 g/dL (30.0-36.0); Mean Corpuscular Hemoglobin 25.7 pg (28.0-34.0); Mean Corpuscular Volume 82.2 fl (81-99); Mean Platelet Volume 10.2 fL (7.4-10.4); Monocytes # 0.3 10^3/uL (0.2-0.9); Monocytes % 4.3 %; Neutrophils # 4.04 10^3/uL (1.8-7.7); Neutrophils % 54.5 %; Nucleated Red Blood Cells % 0 %; Platelet Count 251 10^3/cmm (130-400); Red Blood Count 5.29 10^6/uL (4.1-5.3); Red Cell Distribution Width 21.7 % (12.1-15.1); White Blood Count 7.4 10^3/uL (4.0-10.0)
[2021-07-10] MEDS: morphine 4 mg/mL SDV 1 mL 2 MG IVP ×2 (08:17→12:49)
[2021-07-10] MEDS: metoclopramide 5 mg/mL SDV 2 mL 10 MG IVP (08:18)
[2021-07-10 08:27] LABS: HCG, Serum Qual Negative (Negative)
[2021-07-10 08:47] LABS: Influenza A by IFA Negative (Negative); Influenza B by IFA Negative (Negative); SARS Covid-2 Antigen Negative (Negative)
--- NOTE | 2021-07-10 10:50 | CT_ITS ---
WS: [id number] CT ABDOMEN AND PELVIS NONCONTRAST HISTORY: Right side abdominal pain with nausea and vomiting. TECHNIQUE: Imaging performed through the abdomen and pelvis. Coronal and sagittal reformats are submi tted. All CT scans at [place] use at least one of these dose optimization techniques: auto mated exposure control; mA and/or kV adjustment per patient size (includes targeted exams where dose is matched to clinical indication); or iterative reconstruction. DLP: 998.34 mGy.cm COMPARISON: 05/20/2021 and 04/07/2020 Lower thorax: New lobulated area of groundglass attenuation at the medial LEFT lung base. Heart is no rmal size. Small hiatal hernia. Liver: Abnormal configuration of the liver and abnormal attenuation throughout the liver. Cirrhotic a ppearance of the liver with lobulated margins. There is retraction of the capsule. Underlying hepatoc ellular carcinoma cannot be excluded on this examination. No bile duct dilatation. Gallbladder: Prior cholecystectomy. Pancreas: Normal size and attenuation. Normal pancreatic duct. No pancreatitis or mass. Spleen: Normal size spleen. There are numerous collateral vessels and varices noted in the LEFT upper abdomen. Splenorenal varices and collaterals are noted. Adrenal glands: Normal. No mass. Right kidney: Normal size kidney with no mass or hydronephrosis. Left kidney: Normal size kidney with no mass or hydronephrosis. Aorta: Normal abdominal aorta, no aneurysm or atherosclerosis. No adenopathy identified. No free fluid. There is mild mesenteric edema. GI tract: No GI tract obstruction. Stomach is not distended. No small bowel obstruction. Increased fe deshawn material in the RIGHT colon. There is significant fecal material with distention involving the ce cum which extends into the RIGHT lower quadrant and the ascending colon. No obstructing lesion is octaviano ntified. No diverticulitis. The appendix is normal. Abdominal wall: Negative. No hernia. Pelvis: Uterus and ovaries are identified and normal. No free fluid or adenopathy in the pelvis. Osseous structures: Mild anterior wedging of T11 and T12. CT/CT abdomen pelvis wo con [id number] IMPRESSION: 1. Marked increased fecal retention and constipation with colonic dilatation i nvolving the cecum and ascending colon. No transition point is identified. Beyo nd the ascending colon there is increased air throughout the colon. 2. Normal appendix. 3. Cirrhotic appearance of the liver. 4. Prior cholecystectomy. 5. Splenic or renal varices in the LEFT upper abdomen. 6. No ascites.
[2021-07-10 12:40] VITALS: BP 105/76; PULSE 118; RESP 20; O2SAT 98
[2021-07-10 12:49] VITALS: RESP 20
[2021-07-10] MEDS: ondansetron 2 mg/ML SDV 2 mL 4 MG IVP (12:49)
[2021-07-10 13:06] LABS: Alanine Aminotransferase 76 U/L (0-33); Albumin Level 3.7 g/dL (3.5-5.2); Alcohol Level 195 mg/dL (0-10); Alkaline Phosphatase 512 IU/L (35-105); Anion Gap 21.5 (5-19); Aspartate Amino Transferase 247 U/L (0-32); Blood Urea Nitrogen 4 mg/dL (6-20); Calcium 7.3 mg/dL (8.5-10.5); Carbon Dioxide 21 mmol/L (22-29); Chloride 105 mmol/L (98-107); Creatinine Clr Calc Pharmacy 136.1567; Glomerular Filtration Rate 111.9 mL/min (90-130); Glucose 92 mg/dL (65-115); Lipase 61 U/L (13-60); Osmolality Calculated 295 mOsm/kg (285-295); Potassium 3.5 mmol/L (3.5-5.1); Sodium 144 mmol/L (136-145); Total Bilirubin 1.2 mg/dL (0.15-1.2); Total Protein 5.7 g/dL (6.6-8.7)
[2021-07-10 13:31] VITALS: BP 126/85; PULSE 112; RESP 18; O2SAT 99
== END 2021-07-10 13:32 | disposition home or self-care (01) ==
PROVIDERS: Emergency Provider Physician Assistant; PCP Family Medicine
DX: K59.00 Constipation, unspecified (principal); E86.0 Dehydration; R74.01 Elevation of levels of liver transaminase levels; F10.920 Alcohol use, unspecified with intoxication, uncomplicated; F17.210 Nicotine dependence, cigarettes, uncomplicated; Z20.822 Contact with and (suspected) exposure to COVID-19
CPT/HCPCS: 36415; 74176; 80053; 80307; 83690; 84703; 85025; 87426; 87804; 96361; 96374; 96375; 96376; 99284; J2270; J2405; J2765; J7030

== ENCOUNTER 2021-07-11 02:59 | Inpatient (IN) | payer MEDICAID, SELFPAY ==
[2021-07-11] VITALS (38 sets, daily range): BP systolic 85–134; BP diastolic 55–98; PULSE 61–125; RESP 6–39; TEMP 37–37.7; O2SAT 90–100; BMI 22.8
--- NOTE | 2021-07-11 03:02 | ED_ITS ---
HPI - Nausea/Vomiting/Diarrhea General: Chief complaint: Nausea/Vomiting/Diarrhea Stated complaint: adb pain Time Seen by Provider: 07/11/21 03:01 Source: patient Mode of arrival: ambulatory Limitations: no limitations History of Present Illness: 36-year-old female who is well-known to the ER has a long history of alcoholism states that she been having nausea and vomiting over the last 2 days she was seen here yesterday given Reglan states it has not helped she has continued to vomit and feels like she is dehydrated she has had some abdominal cramping she denies any fevers she denies any worsening improving factors states her cramping pain is a 1 out of 10 currently. Associated nausea: Yes Associated symtoms: Reports nausea; Denies chest pain, dysuria or headache(s) Review of Systems 2 Const: Denies: fever(s), chills, body aches or change in appetite Eyes: Denies: blurry vision or eye discomfort ENMT: Denies: throat pain or dental pain Card: Denies: chest pain Resp: Denies: dyspnea GI: Reports: nausea and vomiting : Denies: dysuria Musc: Denies: neck pain or back pain Skin/Breast: Denies: rash Neuro: Denies: headache(s) Psych: Denies: depression Noel/Lymph: Denies: easy bruising All/Imm: Denies: urticaria PFSH ED PFSH: Medical History Acute on chronic anemia Prior blood transfusion in the past Alcohol use disorder, severe, dependence Alcohol withdrawal syndrome Anxiety Aspiration pneumonia = Benzodiazepine abuse Depression Depression End stage liver disease -noted hepatic cirrhosis on CT -secondary to EtOH abuse -continue to trend ammonia, on lactulose -prior hx of SBP, not enough fluid to drain, off abx -pain control as needed -f/u with prosthodontist/educator in [place] and is on transplant list Esophageal varices -hx of banding -s/p 2 units PRBCs on 04/07 GI bleed History of alcohol abuse Overdose SBP (spontaneous bacterial peritonitis) Transaminitis Surgical History H/O LEEP History of cholecystectomy Social History Smoking and tobacco status: current some day smoker Alcohol intake: current Alcohol intake frequency: 3 or more drinks per day Alcohol type: hard liquor Female Reproductive History: Date of last menstrual period: 04/01/14 Physical Exam Const: COMMON NORMALS: no acute distress, patient oriented x3 and healthy appearing HENMT: COMMON NORMALS: normocephalic and atraumatic HEAD & SCALP: normocephalic and atraumatic Eye: COMMON NORMALS: Equal, round and reactive pupils present and EOMs intact bilaterally PUPIL: Yes Equal, round and reactive pupils present Neck/C-Spine: COMMON NORMALS: full ROM and supple Chest: COMMONS NORMALS: normal inspection of the chest and normal palpation of entire chest wall Resp: COMMON NORMALS: normal respiratory effort, No retractions, No use of accessory muscles and clear to auscultation bilaterally AUSCULTATION: clear to auscultation bilaterally Cardio: COMMON NORMALS: regular rate, regular rhythm and No murmurs present (Cardio) RATE: regular rate RHYTHM: regular rhythm GI: COMMON NORMALS: Normal to inspection, nondistended, normoactive bowel sounds present, Soft to palpation, non-tender and no masses PALPATION: Yes Soft to palpation Extremity: COMMON NORMALS: normal to inspection and full ROM Neuro: COMMON NORMALS: patient oriented x3, moves all extremities and no focal motor deficits Psych: COMMON NORMALS: mental status grossly normal, Normal thought process present and cooperative THOUGHT PROCESS: Normal thought process present Skin: COMMON NORMALS: no rashes or lesions noted and no wounds GENERAL SKIN EXAM: no rashes or lesions noted Course Vital Signs: Vital signs: Vital Signs Temperature 98 F 07/12/21 16:01 Pulse Rate 64 07/13/21 04:00 Respiratory Rate 11 L 07/13/21 04:00 Blood Pressure 131/90 07/13/21 04:00 Pulse Oximetry 96 07/13/21 04:00 MDM - Nausea/Vomiting/Diarrhea Medical Decision Making Patient presents here with acute dehydration likely from vomiting chronic alcoholism does have an elevated lactate as well no signs of infection at this time spoke to hospitalist will admit. Lab Data : 07/13/21 03:53 07/13/21 03:53 Radiology Impressions Chest X-Ray 07/11/21 04:18 IMPRESSION: No acute finding. Abdomen/Pelvis CT 07/11/21 04:50 IMPRESSION: 1. Cirrhosis. Portal hypertension. 2. No bowel obstruction. 3. No mesenteric arterial or venous stenosis/occlusion. Laboratory Results WBC 14.6 10^3/uL (4.0-10.0) H 07/11/21 03:29 RBC 4.62 10^6/uL (4.1-5.3) 07/11/21 03:29 Hgb 12.1 g/dL (11.5-15.3) 07/11/21 03:29 Hct 38.0 % (37.0-47.0) 07/11/21 03:29 MCV 82.3 fl (81-99) 07/11/21 03:29 MCH 26.2 pg (28.0-34.0) L 07/11/21 03:29 MCHC 31.8 g/dL (30.0-36.0) 07/11/21 03:29 RDW 21.7 % (12.1-15.1) H 07/11/21 03:29 Plt Count 283 10^3/cmm (130-400) 07/11/21 03:29 MPV 9.9 fL (7.4-10.4) 07/11/21 03:29 Neut % (Auto) 89.9 % 07/11/21 03:29 Lymph % (Auto) 4.7 % 07/11/21 03:29 Fleming % (Auto) 4.6 % 07/11/21 03:29 Eos % (Auto) 0.0 % 07/11/21 03:29 Baso % (Auto) 0.3 % 07/11/21 03:29 Neut # (Auto) 13.14 10^3/uL (1.8-7.7) H 07/11/21 03:29 Lymph # (Auto) 0.7 10^3/uL (0.8-4.8) L 07/11/21 03:29 Fleming # (Auto) 0.7 10^3/uL (0.2-0.9) 07/11/21 03:29 Eos # (Auto) 0.0 10^3/uL (0.0-0.8) 07/11/21 03:29 Baso # (Auto) 0.0 10^3/uL (0.0-0.1) 07/11/21 03:29 Nucleated RBC % (auto) 0 % 07/11/21 03:29 Nucleated RBCs # 0.0 /100WBC 07/11/21 03:29 Specimen Type Arterial 07/11/21 03:58 Sample Site Radial, right 07/11/21 03:58 ABG pH 7.46 (7.35-7.45) H 07/11/21 03:58 ABG pCO2 23.8 mmHg (35-45) L 07/11/21 03:58 ABG pO2 52.6 mmHg (80.0-100.0) L 07/11/21 03:58 ABG HCO3 16.8 mmol/L (22-26) L 07/11/21 03:58 ABG Base Excess -5.5 mmol/L (-2.0-2.0) L 07/11/21 03:58 Jake Test Pos 07/11/21 03:58 Hematocrit 34.7 % (37-47) L 07/11/21 03:58 O2 Delivery Device None 07/11/21 03:58 Spice Fumigator ID Hensa 07/11/21 03:58 Sodium 146 mmol/L (136-145) H 07/11/21 03:29 Potassium 3.8 mmol/L (3.5-5.1) 07/11/21 03:29 Chloride 100 mmol/L (98-107) 07/11/21 03:29 Carbon Dioxide 14 mmol/L (22-29) L 07/11/21 03:29 Anion Gap 35.8 (5-19) H 07/11/21 03:29 BUN 4 mg/dL (6-20) L 07/11/21 03:29 Creatinine 1.0 mg/dL (0.5-0.9) H 07/11/21 03:29 GFR Calculation 62.1 mL/min (90-130) L 07/11/21 03:29 Glucose 185 mg/dL (65-115) H 07/11/21 03:29 Calculated Osmolality 304 mOsm/kg (285-295) H 07/11/21 03:29 Lactic Acid 10.4 mmol/L (0.5-2.2) H* 07/11/21 04:13 Calcium 8.1 mg/dL (8.5-10.5) L 07/11/21 03:29 Total Bilirubin 2.1 mg/dL (0.15-1.2) H 07/11/21 03:29 AST 185 U/L (0-32) H 07/11/21 03:29 ALT 77 U/L (0-33) H 07/11/21 03:29 Alkaline Phosphatase 542 IU/L (35-105) H 07/11/21 03:29 Total Protein 6.9 g/dL (6.6-8.7) D 07/11/21 03:29 Albumin 4.5 g/dL (3.5-5.2) 07/11/21 03:29 Globulin 2.4 g/dL (1.3-4.6) 07/11/21 03:29 Lipase 45 U/L (13-60) 07/11/21 03:29 Ethyl Alcohol < 10 mg/dL (0-10) 07/11/21 03:29 Serum Ketones Negative (Negative) 07/11/21 03:29 Discharge Plan Discharge Patient Disposition: Admitted As Inpatient Admit Provider: Kirit Lowe Clinical Impression: Vomiting, Acute dehydration, Acidosis, lactic, Alcoholism Condition: Stable Coding Level of Care Code ED Community Nurse for Chg Fwd Exam Comprehensive
--- NOTE | 2021-07-11 03:04 | PC.NURSE ---
patient received with c/o vomiting, states the Reglan was not working. reports started drinking water when the vomiting started again. states was seen in this ER yesterday. noted with shaking states because of dehydration.
[2021-07-11 03:33] LABS: Basophils % 0.3 %; Hemoglobin 12.1 g/dL (11.5-15.3); Lymphocytes # 0.7 10^3/uL (0.8-4.8); Lymphocytes % 4.7 %; Mean Corpuscular HGB Conc 31.8 g/dL (30.0-36.0); Mean Corpuscular Hemoglobin 26.2 pg (28.0-34.0); Mean Corpuscular Volume 82.3 fl (81-99); Mean Platelet Volume 9.9 fL (7.4-10.4); Monocytes # 0.7 10^3/uL (0.2-0.9); Monocytes % 4.6 %; Neutrophils # 13.14 10^3/uL (1.8-7.7); Neutrophils % 89.9 %; Nucleated Red Blood Cells % 0 %; Platelet Count 283 10^3/cmm (130-400); Red Blood Count 4.62 10^6/uL (4.1-5.3); Red Cell Distribution Width 21.7 % (12.1-15.1); White Blood Count 14.6 10^3/uL (4.0-10.0)
[2021-07-11] MEDS: sodium chloride 0.9% 1,000 ML 999 ML IV ×3 (03:35→05:21)
[2021-07-11] MEDS: ondansetron 2 mg/ML SDV 2 mL 4 MG IVP ×4 (03:35→20:10)
[2021-07-11] MEDS: LORazepam 2 mg/mL INJ 1 mL IVP ×2 (03:35→05:27)
[2021-07-11 03:55] LABS: Alanine Aminotransferase 77 U/L (0-33); Albumin Level 4.5 g/dL (3.5-5.2); Alkaline Phosphatase 542 IU/L (35-105); Aspartate Amino Transferase 185 U/L (0-32); Blood Urea Nitrogen 4 mg/dL (6-20); Calcium 8.1 mg/dL (8.5-10.5); Carbon Dioxide 14 mmol/L (22-29); Chloride 100 mmol/L (98-107); Globulin 2.4 g/dL (1.3-4.6); Glomerular Filtration Rate 62.1 mL/min (90-130); Glucose 185 mg/dL (65-115); Lipase 45 U/L (13-60); Osmolality Calculated 304 mOsm/kg (285-295); Sodium 146 mmol/L (136-145); Total Bilirubin 2.1 mg/dL (0.15-1.2); Total Protein 6.9 g/dL (6.6-8.7)
[2021-07-11 03:57] LABS: Anion Gap 35.8 (5-19); Potassium 3.8 mmol/L (3.5-5.1)
[2021-07-11 04:10] LABS: Alcohol Level < 10 mg/dL (0-10)
[2021-07-11 04:16] LABS: Ketone (Acetest) Serum Negative (Negative)
--- NOTE | 2021-07-11 04:18 | ECG_ITS ---
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
--- NOTE | 2021-07-11 04:18 | XRR_ITS ---
PROCEDURE INFORMATION: Exam: XR Chest Exam date and time: 07/11/2021 4:18 AM Age: 36 years old Clinical indication: Cough and shortness of breath; Prior surgery; Surgery type: Gb; Patient HX: Cough with SOB. TECHNIQUE: Imaging protocol: XR of the chest. Views: 1 view. COMPARISON: CR XR chest 1V portable [id number] 04/01/2021 10:26 AM FINDINGS: Lungs: No pulmonary vascular congestion or pulmonary edema. No focal peripheral lung consolidation, air bronchogram formation, or silhouette sign. Pleural spaces: No pleural effusion or pneumothorax. Heart/Mediastinum: The cardiac silhouette is not enlarged. The mediastinal contours are normal. Bones/joints: No acute osseous abnormality. XR/XR chest 1V portable [id number] IMPRESSION: No acute finding.
[2021-07-11 04:48] LABS: Lactic Sepsis W/Reflex 10.4 mmol/L (0.5-2.2)
--- NOTE | 2021-07-11 04:50 | CTR_ITS ---
PROCEDURE INFORMATION: Exam: CT Abdomen And Pelvis With Contrast Exam date and time: 07/11/2021 4:50 AM Age: 36 years old Clinical indication: Pain and abnormal findings; Abnormal lab test; Nausea and vomiting; Abdominal pain; Generalized; Prior surgery; Surgery type: Gb; Patient HX: C/O abd pain with n/v. Elevated wbc with lactic acid over 10. History of chronic alcohol abuse. TECHNIQUE: Imaging protocol: Computed tomography of the abdomen and pelvis with contrast. Radiation optimization: All CT scans at this facility use at least one of these dose optimization techniques: automated exposure control; mA and/or kV adjustment per patient size (includes targeted exams where dose is matched to clinical indication); or iterative reconstruction. Contrast material: OMNI 300; Contrast volume: 95 ml; Contrast route: INTRAVENOUS (IV); COMPARISON: CT abdomen pelvis wo con [id number] 07/10/2021 11:18 AM RADIATION DOSE METRICS: Total DLP (mGy-cm): 934.33 FINDINGS: Lungs: Nonspecific ill-defined foci of ground-glass opacification in the posteromedial left lower lobe. Mediastinal space: There is concentric thickening of the distal thoracic esophageal wall which can be due to esophagitis. Diaphragm: Small sliding hiatal hernia. Liver: There is fatty change involving the liver parenchyma. Lobulated margin consistent with cirrhosis. No definite mass is appreciated. Gallbladder and bile ducts: Prior cholecystectomy. No biliary ductal dilatation allowing for that. Pancreas: No pancreatic mass. No peripancreatic inflammation. No pancreatic ductal dilation. Spleen: The spleen is homogeneous and is not enlarged. Adrenal glands: No adrenal mass. Kidneys and ureters: No hydronephrosis, nephrolithiasis, or renal mass. Stomach and bowel: No bowel obstruction, colitis or diverticulitis. Appendix: No evidence of appendicitis. Intraperitoneal space: No ascites or pneumoperitoneum. Vasculature: There are large serpiginous collateral veins between the splenic vein and the left adrenal/renal vein acting as portosystemic collaterals. Increased flow has distended the left renal vein. No abdominal or iliofemoral aneurysm. The mesenteric arteries are patent. There is enlargement of the hepatic artery which can be seen in the setting of portal hypertension ( hepatic artery escape ). The mesenteric, portal and hepatic veins are patent. This study cannot degenerate the direction of flow in the portal venous system. Lymph nodes: No pathologically enlarged lymph nodes. Urinary bladder: No urinary bladder calculus or wall thickening. Reproductive: Unremarkable as visualized. Bones/joints: Chronic T11 vertebral body compression injury. Soft tissues: Tiny umbilical hernia containing fat and an enhancing collateral vessel. CT/CT abdomen pelvis w con* [id number] IMPRESSION: 1. Cirrhosis. Portal hypertension. 2. No bowel obstruction. 3. No mesenteric arterial or venous stenosis/occlusion.
[2021-07-11 05:10] LABS: ABG PCO2 23.8 mmHg (35-45); ABG PH Result 7.46 (7.35-7.45); Arterial Blood Gas Hematocrit 34.7 % (37-47); Base Excess ABG -5.5 mmol/L (-2.0-2.0); Blood Gas Allen Test Pos; Blood Gas Sample Site Radial, right; Blood Gas Sample Type Arterial; HCO3 ABG 16.8 mmol/L (22-26); PO2 ABG 52.6 mmHg (80.0-100.0)
[2021-07-11] MEDS: iohexol 300 mg/mL 100 mL Btl IV (05:13)
[2021-07-11] MEDS: haloperidol inj 5 mg/mL INJ 1 mL IVP (05:27)
--- NOTE | 2021-07-11 05:37 | PC.NURSE ---
patient medicated per order, noted with hyperventilation, shaking and appears anxious. educated patient to slow breathing and provided ways to assist with slowing.
[2021-07-11 06:03] LABS: Reflex Lactate Order REFLEX LACTIC ORDERD
--- NOTE | 2021-07-11 06:08 | P.HP_ITS ---
Providers/Chief Complaint Admitting Physician: Kirit Lowe MD Primary Care Provider: Stanton Schumacher Chief Complaint: adb pain History of Present Illness Pily Choe is a 36 year old female with a past medical history of [place], alcohol-related liver cirrhosis, on liver transplant list, history of multiple admissions for alcohol withdrawal, has been vaccinated for COVID, history of severe DTs second alcohol withdrawal requiring intubation April last year, who presents to [facility] due to nausea, vomiting, tremors. Patient tells her that her last alcohol drink was a couple days ago, since then she has had severe nausea, vomiting, no hemoptysis, no bloody or black stools, no fevers, chills, also has nonspecific abdominal pain. Denies any other drug use. Denies any smoking history. She tells me that for the last 2 3 days she not been able to keep anything down, not been able to drink anything. Review of Systems Const: Reports: body aches; Denies: fever(s) or chills Eyes: Denies: change in vision or blurry vision ENMT: Denies: nasal congestion Card: Denies: chest pain or palpitations Resp: Denies: dyspnea, productive cough, non-productive cough or wheezing GI: Reports: abdominal pain, nausea and vomiting; Denies: hematemesis, diarrhea, constipation, hematochezia or melena : Denies: flank pain, dysuria or urinary frequency Musc: Denies: neck pain or back pain Skin/Breast: Denies: rash Neuro: Denies: headache(s), dizziness or vertigo Psych: Reports: anxiety; Denies: visual hallucinations, auditory hallucinations or tactile hallucinations Endo: Denies: polyuria or polydipsia Medications/Allergies Home Medications Medication Instructions Recorded Confirmed Last Taken Type levothyroxine 50 mcg tablet 50 mcg PO DAILY #0 04/06/21 07/10/21 04/02/21 05:30 History melatonin 3 mg tablet 3 mg PO BEDTIME 04/30/21 07/10/21 Unknown History olanzapine 5 mg tablet 5 mg PO BEDTIME 04/30/21 07/10/21 Unknown History pantoprazole 40 mg tablet,delayed 40 mg PO DAILY #30 tab 05/01/21 07/10/21 Unknown Rx release (Protonix) methocarbamol 750 mg tablet 750 mg PO Q6H PRN #20 tab 05/16/21 07/10/21 Unknown Rx folic acid 1 mg tablet 1 mg PO DAILY #60 tab 05/20/21 07/10/21 Unknown Rx magnesium oxide 500 mg tablet 500 mg PO BID #20 tab 05/20/21 07/10/21 Unknown Rx naltrexone 50 mg tablet 50 mg PO DAILY #10 tab 05/20/21 07/10/21 Unknown Rx thiamine mononitrate (vit B1) 100 100 mg PO DAILY 30 Days #30 tab 05/20/21 07/10/21 Unknown Rx mg tablet (Vitamin B-1 (mononitrate)) ondansetron HCl 4 mg tablet 4 mg PO Q6H PRN #10 tab 06/14/21 07/10/21 Unknown Rx (Zofran) potassium chloride 20 mEq 20 meq PO DAILY #5 tab 06/14/21 07/10/21 Unknown Rx tablet,extended release(part/cryst) promethazine 50 mg rectal 50 mg TN Q6H PRN #6 ea 06/14/21 07/10/21 Unknown Rx suppository chlordiazepoxide HCl 25 mg capsule See Rx Instructions .ROUTE 06/20/21 07/10/21 Unknown Rx .COMPLEX #15 cap buspirone 10 mg tablet 10 mg PO BID 07/10/21 07/10/21 Unknown History cetirizine 10 mg tablet 10 mg PO DAILY 07/10/21 07/10/21 Unknown History citalopram 20 mg tablet 20 mg PO DAILY 07/10/21 07/10/21 Unknown History furosemide 20 mg tablet 20 - 40 mg PO BID 07/10/21 07/10/21 Unknown History lactulose 10 gram/15 mL oral 30 - 45 ml PO TID 07/10/21 07/10/21 Unknown History solution metoclopramide HCl 10 mg tablet 10 mg PO Q6H PRN #30 tab 07/10/21 Unknown Rx (Reglan) metoprolol tartrate 25 mg tablet 25 mg PO BID 07/10/21 07/10/21 Unknown History midodrine 10 mg tablet 10 mg PO TID 07/10/21 07/10/21 Unknown History pentoxifylline 400 mg 400 mg PO DAILY 07/10/21 07/10/21 Unknown History tablet,extended release Allergies Allergy/AdvReac Type Severity Reaction Status Date / Time doxycycline Allergy ADR-Vomitin Verified 07/10/21 09:35 g PFSH Acute PFSH: Medical History Acute on chronic anemia Prior blood transfusion in the past Alcohol use disorder, severe, dependence Alcohol withdrawal syndrome Anxiety Aspiration pneumonia = Benzodiazepine abuse Depression Depression End stage liver disease -noted hepatic cirrhosis on CT -secondary to EtOH abuse -continue to trend ammonia, on lactulose -prior hx of SBP, not enough fluid to drain, off abx -pain control as needed -f/u with intelligence consultant in [place] and is on transplant list Esophageal varices -hx of banding -s/p 2 units PRBCs on 04/07 GI bleed History of alcohol abuse Overdose SBP (spontaneous bacterial peritonitis) Transaminitis Surgical History H/O LEEP History of cholecystectomy Social History Smoking and tobacco status: current some day smoker Alcohol intake: current Alcohol intake frequency: 3 or more drinks per day Alcohol type: hard liquor Female Reproductive History: Date of last menstrual period: 04/01/14 Vitals/I&O/Wt Last Vital Signs Temp 98.6 F 07/11/21 03:01 Pulse 120 H 07/11/21 03:01 Resp 22 H 07/11/21 03:01 BP 133/92 07/11/21 03:01 Pulse Ox 98 07/11/21 03:01 07/10/21 07/10/21 07/11/21 14:59 22:59 06:59 Intake Total 1000 / 1000 Balance 1000 / 1000 Weight last 48 hrs Weight 70.307 kg Physical Exam Narrative: Tremors of upper extremity Const: COMMON NORMALS: no acute distress and patient oriented x3 HENMT: COMMON NORMALS: normocephalic HEAD & SCALP: normocephalic Eye: COMMON NORMALS: Equal, round and reactive pupils present and EOMs intact bilaterally Neck/C-Spine: COMMON NORMALS: no JVD Lymph: LYMPHATIC: no lymphadenopathy noted Resp: COMMON NORMALS: normal respiratory effort, No retractions, No use of accessory muscles and clear to auscultation bilaterally AUSCULTATION: clear to auscultation bilaterally Cardio: COMMON NORMALS: no JVD, regular rate, regular rhythm, S1 normal heart sound present and S2 normal heart sound present RATE: regular rate RHYTHM: regular rhythm HEART SOUNDS: S1 normal heart sound present and S2 normal heart sound present GI: COMMON NORMALS: Soft to palpation, No hepatosplenomegaly present, no masses and no bruits INSPECTION: Yes abdominal distension AUSCULTATION: Yes Hypoactive bowel sounds present PALPATION: Yes Soft to palpation and Yes No hepatosplenomegaly present Extremity: COMMON NORMALS: capillary refill normal, no clubbing, cyanosis or edema, no calf tenderness and no pedal edema Neuro: COMMON NORMALS: patient oriented x3 Psych: COMMON NORMALS: denies hallucinations Data : 07/11/21 03:29 07/11/21 03:29 A&P Assessment and plan (1) Alcohol withdrawal: Status: Acute (2) Acute kidney injury: Status: Acute (3) Vomiting: Status: Acute (4) Acute dehydration: Status: Acute Plan Alcohol withdrawal -[facility] protocol -Scheduled Librium 50 every 6 -If she continues to have severe withdrawal symptoms can consider phenobarbital Elevated alk phos, liver functions, alk phos -Status post cholecystectomy -We will do CT scan of the abdomen pelvis to evaluate for biliary obstruction Lactic acidosis, secondary dehydration -Continue IV fluids Leukocytosis -Likely secondary to alcohol withdrawal, dehydration -Given elevated liver functions will start Zosyn -Follow blood cultures, UA KEIRA, secondary hydration, IV fluids Increased anion gap, ketones negative, less likely sec to dehydration Full code Lovenox for DVT prophylaxis Attestations Medical Necessity Statement*: Patient requires hospitalization for lactic acidosis, alcohol withdrawal Coding Level of Care Code Acute Exerciser Horse for [facility] Diagnoses Alcohol withdrawal F10.239 Acute kidney injury N17.9 Vomiting R11.10 Acute dehydration E86.0
[2021-07-11] MEDS: dextrose 5%-sod chloride 0.9% 1,000 ML 125 ML IV ×3 (06:51→22:18)
--- NOTE | 2021-07-11 07:06 | PC.NURSE ---
Patient arrived from ED around 624. Patient belongings of a sweatshirt and bra placed in bedside closet. Patient is alert and oriented x4. One IVF bolus finishing up from ED. Patient still complaining of continued nausea and that the zofran and reglan do not help her. Patient is on room air. Report passed along to day shift RN.
[2021-07-11] MEDS: pantoprazole 40 mg SDV IVP ×2 (07:49→19:46)
[2021-07-11] MEDS: enoxaparin 40 mg/0.4 mL Syringe SUBCUT (07:49)
[2021-07-11] MEDS: docusate sodium 100 mg Capsule PO (08:12)
[2021-07-11] MEDS: metoprolol tartrate 25 mg Tablet PO ×2 (08:12→17:10)
[2021-07-11] MEDS: PHENobarbital 32.4 mg Tablet 129.6 MG PO ×2 (08:13→17:10)
[2021-07-11] MEDS: folic acid 1 mg Tablet PO (08:13)
[2021-07-11] MEDS: multivitamin therapeutic Tablet 1 TAB PO ×2 (08:13→08:14)
[2021-07-11] MEDS: citalopram 20 mg Tablet PO (08:13)
[2021-07-11] MEDS: levothyroxine 50 mcg Tablet PO (08:14)
--- NOTE | 2021-07-11 14:08 | PM.PN ---
Subjective Subjective: Pily reports she hurts all over, and is nauseous. Concerned about going through withdrawal. Medications: Reviewed: Yes Vitals/I&O/Wt Last Vital Signs Temp 99.9 F H 07/11/21 06:54 Pulse 80 07/11/21 13:01 Resp 17 07/11/21 13:01 BP 102/59 07/11/21 13:01 Pulse Ox 94 07/11/21 13:01 07/10/21 07/11/21 07/11/21 22:59 06:59 14:59 Intake Total 1000 / 1000 2049 Balance 1000 / 1000 2049 Weight last 48 hrs Weight 70.307 kg Physical Exam Narrative: General exam no distress Neck is supple Cardiovascular tachycardia when I initially evaluated her, now heart rate improved after phenobarbital Lungs clear Abdomen is soft, positive bowel sounds Extremities no cyanosis clubbing or edema Data : 07/11/21 03:29 07/11/21 03:29 A&P Assessment and plan (1) Alcohol withdrawal: Significant alcohol withdrawal. It appears the phenobarbital worked well last visit for her. We will try to exchange architect to diet, avoid Ativan if possible Thiamine, folate Seizure precautions Hydration Transaminitis consistent with alcoholic hepatitis Status: Acute (2) Acute kidney injury: Continue hydration, resolving Status: Acute (3) Acute dehydration: Resolved with fluids Status: Acute Plan I do not see a compelling reason for Zosyn currently, and it is not on her admission orders. We will await her urinalysis to decide if this should be initiated. Attestations Medical Necessity Statement*: Needs continued hospital stay in the ICU secondary to alcohol withdrawal. Coding Level of Care Code Acute Last Putter Away for [facility] Diagnoses Alcohol withdrawal F10.239 Acute kidney injury N17.9 Acute dehydration E86.0
[2021-07-11 15:18] LABS: Lactic Acid level (Lactate) 1.6 mmol/L (0.5-2.2)
[2021-07-11 15:24] LABS: Creatine Phosphokinase 174 U/L (26-192); Thyroid Stimulating Hormone 1.23 uIU/mL (0.27-4.20)
[2021-07-11] MEDS: magnesium sulfate premix 4 GM/100 ML PREMIX IV (16:31)
--- NOTE | 2021-07-11 17:05 | NUR.SHIFT ---
Shift Note Frequent safety and comfort rounds continue. Orders and/or nursing care completed as indicated. Patient monitored for response to intervention and treatment for nausea and tremors . Education provided includes[phenobarb ]. Patient understands . Will continue to monitor.
[2021-07-11] MEDS: OLANZapine 5 mg TABLET PO (20:03)
[2021-07-12] VITALS (26 sets, daily range): BP systolic 91–132; BP diastolic 51–92; PULSE 60–90; RESP 13–19; TEMP 36.6; O2SAT 91–100
[2021-07-12 05:16] LABS: Basophils % 0.3 %; Eosinophils # 0.1 10^3/uL (0.0-0.8); Eosinophils % 1.3 %; Hematocrit 33.9 % (37.0-47.0); Hemoglobin 10.1 g/dL (11.5-15.3); Lymphocytes # 1.3 10^3/uL (0.8-4.8); Lymphocytes % 33.1 %; Mean Corpuscular HGB Conc 29.8 g/dL (30.0-36.0); Mean Corpuscular Hemoglobin 25.6 pg (28.0-34.0); Mean Corpuscular Volume 85.8 fl (81-99); Mean Platelet Volume 10.6 fL (7.4-10.4); Monocytes # 0.4 10^3/uL (0.2-0.9); Monocytes % 9.4 %; Neutrophils # 2.19 10^3/uL (1.8-7.7); Neutrophils % 55.6 %; Nucleated Red Blood Cells % 0 %; Platelet Count 86 10^3/cmm (130-400); Red Blood Count 3.95 10^6/uL (4.1-5.3); Red Cell Distribution Width 21.6 % (12.1-15.1); White Blood Count 3.9 10^3/uL (4.0-10.0)
[2021-07-12] MEDS: dextrose 5%-sod chloride 0.9% 1,000 ML 125 ML IV ×3 (05:19→23:32)
[2021-07-12 05:51] LABS: Alanine Aminotransferase 42 U/L (0-33); Albumin Level 3.2 g/dL (3.5-5.2); Alkaline Phosphatase 348 IU/L (35-105); Anion Gap 11.9 (5-19); Aspartate Amino Transferase 78 U/L (0-32); Blood Urea Nitrogen 3 mg/dL (6-20); Calcium 6.4 mg/dL (8.5-10.5); Carbon Dioxide 24 mmol/L (22-29); Chloride 112 mmol/L (98-107); Creatinine Clr Calc Pharmacy 116.7058; Globulin 1.8 g/dL (1.3-4.6); Glomerular Filtration Rate 93.6 mL/min (90-130); Glucose 125 mg/dL (65-115); Magnesium 1.8 mg/dL (1.7-2.3); Osmolality Calculated 298 mOsm/kg (285-295); Phosphorus 1.7 mg/dL (2.5-4.5); Sodium 145 mmol/L (136-145); Total Bilirubin 1.5 mg/dL (0.15-1.2)
[2021-07-12] MEDS: enoxaparin 40 mg/0.4 mL Syringe SUBCUT (06:00)
[2021-07-12] MEDS: ondansetron 2 mg/ML SDV 2 mL 4 MG IVP (06:00)
[2021-07-12 06:07] LABS: Potassium 2.9 mmol/L (3.5-5.1)
--- NOTE | 2021-07-12 06:22 | PC.NURSE ---
Lab reported Critical potassium 2.9, reported to Dr. Lowe tevy given for 40 meq K IV x1
[2021-07-12] MEDS: pantoprazole 40 mg SDV IVP ×2 (07:28→20:08)
[2021-07-12] MEDS: lidocaine 1% 5 ML in potassium chloride premix 100 ML 25 ML IV (07:29)
[2021-07-12] MEDS: metoprolol tartrate 25 mg Tablet PO ×2 (08:39→17:29)
[2021-07-12] MEDS: multivitamin therapeutic Tablet 1 TAB PO (08:39)
[2021-07-12] MEDS: citalopram 20 mg Tablet PO (08:39)
[2021-07-12] MEDS: thiamine 100 mg Tablet PO (08:39)
[2021-07-12] MEDS: levothyroxine 50 mcg Tablet PO (08:39)
[2021-07-12] MEDS: folic acid 1 mg Tablet PO (08:40)
[2021-07-12] MEDS: PHENobarbital 32.4 mg Tablet 129.6 MG PO (08:41)
--- NOTE | 2021-07-12 10:31 | P.PN_ITS ---
Subjective Subjective: She claims that she feels a lot better. The phenobarb is working, but it has only been 2 days since she is had alcohol. She actually wants to go home today, but we are just now getting her electrolytes corrected. Her potassium was noted to be 2.9 this morning. She is not nauseous anymore, and is keen to try some food. Medications: Reviewed: Yes Vitals/I&O/Wt Last Vital Signs Temp 99.9 F H 07/11/21 06:54 Pulse 90 07/12/21 08:01 Resp 16 07/12/21 08:01 BP 120/77 07/12/21 08:01 Pulse Ox 96 07/12/21 08:01 07/11/21 07/12/21 07/12/21 22:59 06:59 14:59 Intake Total 1200 / 4166.667 1200 / 5366.667 100 / 100 Output Total 150 / 150 Balance 1050 / 4016.667 1200 / 5216.667 100 / 100 Weight last 48 hrs Weight 155 lb Physical Exam Neck/C-Spine: COMMON NORMALS: no JVD Resp: COMMON NORMALS: normal respiratory effort, No retractions, No use of accessory muscles, clear to auscultation bilaterally and percussion normal AUSCULTATION: clear to auscultation bilaterally PERCUSSION: percussion normal Cardio: COMMON NORMALS: no JVD, regular rate, regular rhythm, S1 normal heart sound present, S2 normal heart sound present, No gallops present (Cardio), No clicks present (Cardio), No murmurs present (Cardio), No rub (Cardio) and Peripheral pulses 2+ throughout RATE: regular rate RHYTHM: regular rhythm HEART SOUNDS: S1 normal heart sound present and S2 normal heart sound present PERIPHERAL PULSES: Peripheral pulses 2+ throughout GI: COMMON NORMALS: Normal to inspection, nondistended, normoactive bowel andrei nds present, Soft to palpation, non-tender, No hepatosplenomegaly present, no masses and no bruits PALPATION: Yes Soft to palpation and Yes No hepatosplenomegaly present Data : 07/12/21 04:33 07/12/21 04:33 Micro: Microbiology 07/11/21 14:40 Blood Culture - Preliminary Blood SPECIMEN COLLECTED 07/11/21 14:45 Blood Culture - Preliminary Blood SPECIMEN COLLECTED A&P Assessment and plan (1) Alcohol withdrawal: Status: Acute (2) Dehydration determined by examination: Improving Status: Acute (3) Alcohol intoxication: Resolved Status: Acute Qualifiers: Complication of substance-induced condition: uncomplicated Qualified Code(s): F10.920 - Alcohol use, unspecified with intoxication, uncomplicated (4) Transaminitis: Improving Status: Acute Attestations Medical Necessity Statement*: If her are aligned out, and she is still stable I will let her go in the morning. Coding Level of Care Code Acute [facility] Diagnoses Alcohol withdrawal F10.239 Dehydration determined by examination E86.0 Alcohol intoxication F10.920 Complication of substance-induced condition: uncomplicated Transaminitis R74.01
[2021-07-12 12:17] LABS: Basophils % 0.3 %; Eosinophils # 0.1 10^3/uL (0.0-0.8); Eosinophils % 1.3 %; Hematocrit 31.9 % (37.0-47.0); Hemoglobin 9.6 g/dL (11.5-15.3); Lymphocytes # 1.1 10^3/uL (0.8-4.8); Lymphocytes % 28.9 %; Mean Corpuscular HGB Conc 30.1 g/dL (30.0-36.0); Mean Corpuscular Hemoglobin 25.9 pg (28.0-34.0); Mean Corpuscular Volume 86.2 fl (81-99); Monocytes # 0.3 10^3/uL (0.2-0.9); Monocytes % 8.2 %; Nucleated Red Blood Cells % 0 %; Platelet Count 75 10^3/cmm (130-400); Red Cell Distribution Width 21.3 % (12.1-15.1); White Blood Count 3.8 10^3/uL (4.0-10.0)
[2021-07-12 14:12] LABS: Alanine Aminotransferase 38 U/L (0-33); Alkaline Phosphatase 318 IU/L (35-105); Anion Gap 12.1 (5-19); Aspartate Amino Transferase 78 U/L (0-32); Blood Urea Nitrogen 2 mg/dL (6-20); Calcium 6.4 mg/dL (8.5-10.5); Carbon Dioxide 21 mmol/L (22-29); Chloride 112 mmol/L (98-107); Creatinine Clr Calc Pharmacy 136.1567; Globulin 1.7 g/dL (1.3-4.6); Glomerular Filtration Rate 111.9 mL/min (90-130); Glucose 129 mg/dL (65-115); Osmolality Calculated 292 mOsm/kg (285-295); Potassium 3.1 mmol/L (3.5-5.1); Sodium 142 mmol/L (136-145); Total Bilirubin 1.3 mg/dL (0.15-1.2); Total Protein 4.7 g/dL (6.6-8.7)
--- NOTE | 2021-07-12 16:22 | NUR.SHIFT ---
Shift Note Frequent safety and comfort rounds continue. Orders noted Patient monitored for response to intervention less nausea noted dtoday. Education provided includes[etoh use ]. Patient and/or front desk representative understands Will continue to monitor.
[2021-07-12] MEDS: OLANZapine 5 mg TABLET PO (20:08)
[2021-07-13] VITALS (8 sets, daily range): BP systolic 113–139; BP diastolic 74–96; PULSE 57–68; RESP 11–17; TEMP 36.6–36.7; O2SAT 95–97
[2021-07-13 04:45] LABS: Basophils % 0.6 %; Eosinophils # 0.1 10^3/uL (0.0-0.8); Eosinophils % 1.9 %; Hematocrit 30.7 % (37.0-47.0); Hemoglobin 9.5 g/dL (11.5-15.3); Lymphocytes % 33.1 %; Mean Corpuscular HGB Conc 30.9 g/dL (30.0-36.0); Mean Corpuscular Hemoglobin 26.2 pg (28.0-34.0); Mean Corpuscular Volume 84.8 fl (81-99); Mean Platelet Volume 10.9 fL (7.4-10.4); Monocytes # 0.3 10^3/uL (0.2-0.9); Neutrophils # 1.71 10^3/uL (1.8-7.7); Neutrophils % 55.1 %; Nucleated Red Blood Cells % 0 %; Platelet Count 73 10^3/cmm (130-400); Red Blood Count 3.62 10^6/uL (4.1-5.3); Red Cell Distribution Width 20.8 % (12.1-15.1); White Blood Count 3.1 10^3/uL (4.0-10.0)
[2021-07-13 04:58] LABS: Alanine Aminotransferase 36 U/L (0-33); Albumin Level 2.8 g/dL (3.5-5.2); Alkaline Phosphatase 291 IU/L (35-105); Aspartate Amino Transferase 73 U/L (0-32); Calcium 7.2 mg/dL (8.5-10.5); Carbon Dioxide 19 mmol/L (22-29); Chloride 112 mmol/L (98-107); Creatinine Clr Calc Pharmacy 136.1567; Globulin 2.1 g/dL (1.3-4.6); Glomerular Filtration Rate 111.9 mL/min (90-130); Glucose 108 mg/dL (65-115); Magnesium 1.3 mg/dL (1.7-2.3); Phosphorus 1.8 mg/dL (2.5-4.5); Sodium 139 mmol/L (136-145); Total Bilirubin 1.3 mg/dL (0.15-1.2); Total Protein 4.9 g/dL (6.6-8.7)
[2021-07-13 04:59] LABS: Anion Gap 10.9 (5-19); Blood Urea Nitrogen 1 mg/dL (6-20); Osmolality Calculated 284 mOsm/kg (285-295)
[2021-07-13 05:00] LABS: Potassium 2.9 mmol/L (3.5-5.1)
--- NOTE | 2021-07-13 05:35 | PC.NURSE ---
Critical potassium 2.9 and patient stating she taked potassium supplements at home reported to Dr. Lowe
[2021-07-13] MEDS: enoxaparin 40 mg/0.4 mL Syringe SUBCUT (06:10)
[2021-07-13] MEDS: dextrose 5%-sod chloride 0.9% 1,000 ML 125 ML IV (06:39)
[2021-07-13] MEDS: levothyroxine 50 mcg Tablet PO (08:12)
[2021-07-13] MEDS: thiamine 100 mg Tablet PO (08:12)
[2021-07-13] MEDS: metoprolol tartrate 25 mg Tablet PO (08:12)
[2021-07-13] MEDS: pantoprazole 40 mg SDV IVP (08:12)
[2021-07-13] MEDS: citalopram 20 mg Tablet PO (08:12)
[2021-07-13] MEDS: multivitamin therapeutic Tablet 1 TAB PO (08:12)
[2021-07-13] MEDS: folic acid 1 mg Tablet PO (08:12)
[2021-07-13] MEDS: docusate sodium 100 mg Capsule PO (08:12)
--- NOTE | 2021-07-13 10:32 | P.DS_ITS ---
Discharge Providers Date of Admission: 07/11/21 05:46 Date of Discharge: July 13, 2021 Attending Provider at Admission: Kirit Lowe MD Attending Provider at Discharge: Amadou Padilla MD Primary Care Provider: Stanton Schumacher Diagnoses at Discharge Discharge Diagnosis (1) Alcohol withdrawal: Details from hospital stay: We treated her with phenobarbital on this stay, as she has had luck with that in the past. She is going to rehab with her parents according to her on Wednesday. Status: Acute (2) Dehydration determined by examination: Details from hospital stay: She is not vomiting anymore, but is still slightly hypokalemic. I will give her some oral potassium before she leaves. Status: Acute (3) Alcohol intoxication: Status: Acute Qualifiers: Complication of substance-induced condition: uncomplicated Qualified Code(s): F10.920 - Alcohol use, unspecified with intoxication, uncomplicated (4) Transaminitis: Details from hospital stay: This is improved this is improving off of alcohol Status: Acute Reason for Visit Reason for Visit: adb pain Hospital Course Hospital Course Pily was admitted and started on phenobarbital for alcohol withdrawal as well as hydration and electrolyte replacement. Her condition improved fairly quickly, and she was allowed home today with plans for alcohol rehab on Wednesday that she has arranged of her own accord. Discharge Data Studies Completed and Pending Completed Studies During Hospitalization Category Date Time Status CT abdomen pelvis w con* [id number] Urgent Cat Scan 07/11/21 04:50 Completed CXRP [XR chest 1V portable [id number]] Stat Exams 07/11/21 04:18 Completed Pending at discharge Category Date Time Status Blood Culture Stat Lab 07/11/21 14:40 Results Complete Blood Count w/Auto AM LABS Lab 07/14/21 04:00 Ordered Comprehensive Metabolic Panel AM LABS Lab 07/14/21 04:00 Ordered Magnesium AM LABS Lab 07/14/21 04:00 Ordered Phosphorus AM LABS Lab 07/14/21 04:00 Ordered Urinalysis Stat Lab 07/11/21 03:58 Uncollected Radiology Impressions Chest X-Ray 07/11/21 04:18 IMPRESSION: No acute finding. Abdomen/Pelvis CT 07/11/21 04:50 IMPRESSION: 1. Cirrhosis. Portal hypertension. 2. No bowel obstruction. 3. No mesenteric arterial or venous stenosis/occlusion. Laboratory Results WBC 3.1 10^3/uL (4.0-10.0) L 07/13/21 03:53 RBC 3.62 10^6/uL (4.1-5.3) L 07/13/21 03:53 Hgb 9.5 g/dL (11.5-15.3) L 07/13/21 03:53 Hct 30.7 % (37.0-47.0) L 07/13/21 03:53 MCV 84.8 fl (81-99) 07/13/21 03:53 MCH 26.2 pg (28.0-34.0) L 07/13/21 03:53 MCHC 30.9 g/dL (30.0-36.0) 07/13/21 03:53 RDW 20.8 % (12.1-15.1) H 07/13/21 03:53 Plt Count 73 10^3/cmm (130-400) L 07/13/21 03:53 MPV 10.9 fL (7.4-10.4) H 07/13/21 03:53 Neut % (Auto) 55.1 % 07/13/21 03:53 Lymph % (Auto) 33.1 % 07/13/21 03:53 [place] % (Auto) 9.0 % 07/13/21 03:53 Eos % (Auto) 1.9 % 07/13/21 03:53 Baso % (Auto) 0.6 % 07/13/21 03:53 Neut # (Auto) 1.71 10^3/uL (1.8-7.7) L 07/13/21 03:53 Lymph # (Auto) 1.0 10^3/uL (0.8-4.8) 07/13/21 03:53 [place] # (Auto) 0.3 10^3/uL (0.2-0.9) 07/13/21 03:53 Eos # (Auto) 0.1 10^3/uL (0.0-0.8) 07/13/21 03:53 Baso # (Auto) 0.0 10^3/uL (0.0-0.1) 07/13/21 03:53 Nucleated RBC % (auto) 0 % 07/13/21 03:53 Nucleated RBCs # 0.0 /100WBC 07/13/21 03:53 PT 19.40 SECONDS (12.1-14.9) H 07/12/21 04:33 INR 1.60 (0.8-1.2) H 07/12/21 04:33 Specimen Type Arterial 07/11/21 03:58 Sample Site Radial, right 07/11/21 03:58 ABG pH 7.46 (7.35-7.45) H 07/11/21 03:58 ABG pCO2 23.8 mmHg (35-45) L 07/11/21 03:58 ABG pO2 52.6 mmHg (80.0-100.0) L 07/11/21 03:58 ABG HCO3 16.8 mmol/L (22-26) L 07/11/21 03:58 ABG Base Excess -5.5 mmol/L (-2.0-2.0) L 07/11/21 03:58 Jake Test Pos 07/11/21 03:58 Hematocrit 34.7 % (37-47) L 07/11/21 03:58 O2 Delivery Device None 07/11/21 03:58 Section Crews Activities Clerk ID Hensa 07/11/21 03:58 Sodium 139 mmol/L (136-145) 07/13/21 03:53 Potassium 2.9 mmol/L (3.5-5.1) L 07/13/21 03:53 Chloride 112 mmol/L (98-107) H 07/13/21 03:53 Carbon Dioxide 19 mmol/L (22-29) L 07/13/21 03:53 Anion Gap 10.9 (5-19) 07/13/21 03:53 BUN 1 mg/dL (6-20) L 07/13/21 03:53 Creatinine 0.6 mg/dL (0.5-0.9) 07/13/21 03:53 GFR Calculation 111.9 mL/min (90-130) 07/13/21 03:53 Glucose 108 mg/dL (65-115) 07/13/21 03:53 Calculated Osmolality 284 mOsm/kg (285-295) L 07/13/21 03:53 Lactic Acid 10.4 mmol/L (0.5-2.2) H* 07/11/21 04:13 Lactic Acid (Sepsis) 1.6 mmol/L (0.5-2.2) 07/11/21 14:45 Calcium 7.2 mg/dL (8.5-10.5) L 07/13/21 03:53 Phosphorus 1.8 mg/dL (2.5-4.5) L 07/13/21 03:53 Magnesium 1.3 mg/dL (1.7-2.3) L 07/13/21 03:53 Total Bilirubin 1.3 mg/dL (0.15-1.2) H 07/13/21 03:53 AST 73 U/L (0-32) H 07/13/21 03:53 ALT 36 U/L (0-33) H 07/13/21 03:53 Alkaline Phosphatase 291 IU/L (35-105) H 07/13/21 03:53 Creatine Kinase 174 U/L (26-192) 07/11/21 14:45 Total Protein 4.9 g/dL (6.6-8.7) L 07/13/21 03:53 Albumin 2.8 g/dL (3.5-5.2) L 07/13/21 03:53 Globulin 2.1 g/dL (1.3-4.6) 07/13/21 03:53 Lipase 45 U/L (13-60) 07/11/21 03:29 TSH 1.23 uIU/mL (0.27-4.20) 07/11/21 14:45 Ethyl Alcohol < 10 mg/dL (0-10) 07/11/21 03:29 Serum Ketones Negative (Negative) 07/11/21 03:29 Vitals Last Vital Signs Temp 98 F 07/13/21 07:30 Pulse 58 L 07/13/21 07:30 Resp 11 L 07/13/21 04:00 BP 131/90 07/13/21 07:30 Pulse Ox 96 07/13/21 07:30 Discharge Plan Discharge Patient Disposition: Home Condition: Stable Prescriptions: New phenobarbital 32.4 mg Tablet 129.6 mg PO Q2H PRN (Reason: Alcohol Withdrawal) Qty: 30 0RF Continued rizatriptan 10 mg Tablet 10 mg PO Q2H PRN (Reason: Migraine Headache) 0RF Rx Instructions: do not exceed 3 doses per 24 hrs levothyroxine 50 mcg Tablet 50 mcg PO DAILY Qty: 0 0RF melatonin 3 mg Tablet 3 mg PO BEDTIME 0RF olanzapine 5 mg Tablet 5 mg PO BEDTIME 0RF pantoprazole [Protonix] 40 mg tablet,delayed release (DR/EC) 40 mg PO DAILY Qty: 30 0RF methocarbamol 750 mg tablet 750 mg PO Q6H PRN (Reason: spasms) Qty: 20 0RF folic acid 1 mg Tablet 1 mg PO DAILY Qty: 60 0RF magnesium oxide 500 mg tablet 500 mg PO BID Qty: 20 0RF thiamine mononitrate (vit B1) [Vitamin B-1 (mononitrate)] 100 mg Tablet 100 mg PO DAILY 30 Days Qty: 30 3RF ondansetron HCl [Zofran] 4 mg tablet 4 mg PO Q6H PRN (Reason: nausea and vomiting) Qty: 10 2RF promethazine 50 mg suppository 50 mg GA Q6H PRN (Reason: nausea and vomiting) Qty: 6 1RF Rx Instructions: take half to one suppository per rectum every 6 hours as needed potassium chloride 20 mEq tablet,ER particles/crystals 20 meq PO DAILY Qty: 5 0RF cetirizine 10 mg Tablet 10 mg PO DAILY 0RF pentoxifylline 400 mg Tablet Extended Release 400 mg PO DAILY 0RF Rx Instructions: must administer with a meal/food citalopram 20 mg Tablet 20 mg PO DAILY 0RF buspirone 10 mg Tablet 10 mg PO BID 0RF midodrine 10 mg Tablet 10 mg PO TID 0RF Rx Instructions: do not give last dose of day after 6PM or within 4 hrs of bedtime metoprolol tartrate 25 mg Tablet 25 mg PO BID 0RF metoclopramide HCl [Reglan] 10 mg tablet 10 mg PO Q6H PRN (Reason: nausea and vomiting) Qty: 30 0RF Discontinued naltrexone 50 mg tablet 50 mg PO DAILY Qty: 10 0RF Rx Instructions: x 10 days chlordiazepoxide HCl 25 mg capsule See Rx Instructions .ROUTE .COMPLEX Qty: 15 0RF Rx Instructions: Day 1: 50mg q6h Day 2: 25mg q6h Day 3: 25mg q12h Day 4: 25mg at night furosemide 20 mg Tablet 20 - 40 mg PO BID 0RF lactulose 10 gram/15 mL Solution 30 - 45 ml PO TID 0RF Discharge Orders: Discharge Order (Routine); Ordered 07/13/21 Ordered By: Amadou Padilla Referrals: [facility] [Provider Group] (7 days a week/ 24 hours a day. Crisis line: [phone].) [facility] [Provider Group] (Please call to clarify best time to complete walk in assessment. [phone]. You can complete assessment then be set up with appriopriate services that may include Medication management, Therapy and/ or case management services.) [facility] [Outside] Stanton Schumacher [Primary Care Provider] - Patient Instructions: Opioid Safety Discharge Attestations Time Spent in Discharge Care*: greater than 30 min Status at Discharge: Cognitive status at discharge: cognitively intact , Behavioral status at discharge: cooperative , Quality Metrics Clinical Quality Measures [ No reported AMI, CVA or VTE this stay] Coding Level of Care Code Acute [facility] note Diagnoses Alcohol withdrawal F10.239 Dehydration determined by examination E86.0 Alcohol intoxication F10.920 Complication of substance-induced condition: uncomplicated Transaminitis R74.01
[2021-07-13] MEDS: potassium chloride ER 20 mEq Tablet 40 MEQ PO (11:10)
== END 2021-07-13 11:30 | disposition home or self-care (01) | DRG 897 ==
LOC: ER 05:57 → ICU 05:59
PROVIDERS: Internal Medicine; Admitting Provider Family Medicine; Emergency Provider Emergency Medicine; PCP Family Medicine; Visit Provider Internal Medicine
DX: F10.239 Alcohol dependence with withdrawal, unspecified (principal); N17.9 Acute kidney failure, unspecified; E87.2 Acidosis; E86.0 Dehydration; E87.6 Hypokalemia; R11.2 Nausea with vomiting, unspecified; K70.30 Alcoholic cirrhosis of liver without ascites; K70.10 Alcoholic hepatitis without ascites; K75.81 Nonalcoholic steatohepatitis (NASH); F41.9 Anxiety disorder, unspecified; F32.A Depression, unspecified; D72.829 Elevated white blood cell count, unspecified
CPT/HCPCS: 36415; 71045; 74177; 80053; 80307; 82009; 82550; 82803; 83605; 83690; 83735; 84100; 84443; 85025; 85610; 87040; 90935; 93005; 96361; 96372; 96374; 96375; 96376; 99285; C9113; J1630; J1650; J2060; J2405; J3411; J3475; J3480; J7030; Q9967

== ENCOUNTER 2021-07-29 10:55 | Emergency (ER) | payer MEDICAID, SELFPAY ==
[2021-07-29 10:56] VITALS: BP 134/92; PULSE 127; RESP 16; TEMP 36.6; O2SAT 99; BMI 22.8
--- NOTE | 2021-07-29 11:17 | XRR_ITS ---
PROCEDURE INFORMATION: Exam: XR Left Ankle Exam date and time: 07/29/2021 11:17 AM Age: 36 years old Clinical indication: Injury or trauma; Fall; Blunt trauma; Ankle; Left TECHNIQUE: Imaging protocol: XR Left ankle. Views: 3 or more views. COMPARISON: No relevant prior studies available. FINDINGS: Bones/joints: There is a mildly displaced comminuted fracture of the distal tibia, extending to the articular surface. No dislocation. Swelling of the surrounding soft tissues is present. Soft tissues: See Bones/joints finding. XR/XR ankle LT min 3V* [id number] IMPRESSION: Mildly displaced comminuted fracture of the distal tibia.
--- NOTE | 2021-07-29 11:17 | CT_ITS ---
WS: [id number] CT CERVICAL TRAUMA TECHNIQUE: Noncontrast CT of the cervical spine with coronal and sagittal reformatted images. CLINICAL INFORMATION: fall COMPARISON: None. DLP: 496.[address] scans at [facility] use at least one of these dose optimization techniques: automated e xposure control; mA and/or kV adjustment per patient size (includes targeted exams where dose is matc hed to clinical indication); or iterative reconstruction. FINDINGS: Straightening of the normal cervical lordosis. Mild spondylitic changes. Normal craniocervical juncti on. Normal C1-C2 articulation. Dens is normal in appearance. Normal occipital condyles. No high-grade spinal canal narrowing. Normal C1 ring. No evidence of acute fracture or dislocation. Normal prevertebral soft tissues. Mastoids air cells are well aerated. CT/CT cervical spin wo con* [id number] IMPRESSION: No evidence of acute fracture or dislocation.
--- NOTE | 2021-07-29 11:17 | CT_ITS ---
WS: [id number] CT HEAD TECHNIQUE: Noncontrast CT of the head obtained from the skullbase to the vertex. CLINICAL INFORMATION: fall COMPARISON: June 20, 2021 DLP: 782.[address] scans at [facility] use at least one of these dose optimization techniques: automated e xposure control; mA and/or kV adjustment per patient size (includes targeted exams where dose is matc hed to clinical indication); or iterative reconstruction. FINDINGS: No evidence of intracranial hemorrhage or mass effect. Ventricular system and basal cisterns are ayala nt. No extra-axial fluid collections. No evidence of mass or mass effect. Normal christianson-white different iation. Paranasal sinuses and mastoid air cells are well aerated. .Normal visualized soft tissues. CT/CT head wo con* [id number] IMPRESSION: 1. No evidence of intracranial hemorrhage or mass effect. 2. Normal christianson-white differentiation. 3. No acute intracranial findings.
--- NOTE | 2021-07-29 11:18 | ED_ITS ---
HPI - Extremity Problem General: Chief complaint: Extremity Injury, Lower Stated complaint: possible ankle fx, deformity Time Seen by Provider: 07/29/21 11:08 History of Present Illness: 36-year-old presents due to left ankle pain headache after mechanical fall. States she was yelling and arguing with her ex- on the phone she tripped and fell. Denies loss of consciousness. Denies any focal weakness numbness or tingling. Denies any other focal point tenderness except as above. Denies blood thinner use. Review of Systems Narrative: - CONSTITUTIONAL: Denies weight loss, fever and chills. - HEENT: Denies changes in vision and hearing. - RESPIRATORY: Denies SOB and cough. - CV: Denies palpitations and CP. - GI: Denies abdominal pain, nausea, vomiting and diarrhea. - : Denies dysuria and urinary frequency. - MSK: As above - SKIN: Denies rash and pruritus. 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 No acute distress. Well-nourished. - EYES: EOMI. Anicteric. - HENT: Atraumatic, no C-spine tenderness. Moist mucous membranes. No scleral icterus. No cervical lymphadenopathy. - LUNGS: Clear to auscultation bilaterally. No accessory muscle use. Equal lung sounds bilaterally. No respiratory distress. - CARDIOVASCULAR: Regular rate and rhythm. No murmur. No JVD. - ABDOMEN: Soft, non-tender and non-distended. Negative CVA tenderness bilaterally, no rebound or guarding, negative Prasad sign. No palpable masses. - EXTREMITIES: Tenderness to left ankle, extremities otherwise neurovascularly intact, compartments are soft, no other focal bony tenderness except as above. - SKIN: No rashes or lesions. Warm. - NEUROLOGIC: No meningismus or focal neurological deficits. CN II-XII grossly intact. - PSYCHIATRIC: Cooperative. Appropriate mood and affect. Course Vital Signs: Vital signs: Vital Signs Temperature 97.9 F 07/29/21 10:56 Pulse Rate 168 H 07/29/21 12:34 Respiratory Rate 18 07/29/21 12:34 Blood Pressure 137/80 07/29/21 12:34 Pulse Oximetry 95 07/29/21 12:34 MDM - Extremity (Nontraumatic) Medical Decision Making 36-year-old presents due to headache and ankle pain after mechanical fall. CT of the head and C-spine unremarkable. Nonfocal neurologic exam. X-ray of the ankle does reveal a distal tibial fracture with very minor displacement. She is neurovascularly intact. Placed in splint and referral to orthopedic surgery provided. Prescription for [place] also provided. No sign of compartment syndrome. At this time I believe patient would be safe for discharge and outpatient follow-up. Return precautions provided. Plan was reviewed with the patient who expressed understanding. Questions answered. Patient will follow up with orthopedic surgery and PCP. Patient discharged in stable condition. Lab Data Radiology Impressions Ankle X-Ray 07/29/21 11:17 IMPRESSION: Mildly displaced comminuted fracture of the distal tibia. Cervical Spine CT 07/29/21 11:17 IMPRESSION: No evidence of acute fracture or dislocation. Head CT 07/29/21 11:17 IMPRESSION: 1. No evidence of intracranial hemorrhage or mass effect. 2. Normal christianson-white differentiation. 3. No acute intracranial findings. Discharge Plan Discharge Patient Disposition: Home Clinical Impression: Closed tibia fracture Condition: Stable Prescriptions: New hydrocodone-acetaminophen 5-325 mg tablet 1 tab PO Q8H PRN (Reason: pain) 3 Days Qty: 9 0RF No Action rizatriptan 10 mg Tablet 10 mg PO Q2H PRN (Reason: Migraine Headache) 0RF Rx Instructions: do not exceed 3 doses per 24 hrs phenobarbital 32.4 mg Tablet 129.6 mg PO Q2H PRN (Reason: Alcohol Withdrawal) Qty: 30 0RF levothyroxine 50 mcg Tablet 50 mcg PO DAILY Qty: 0 0RF melatonin 3 mg Tablet 3 mg PO BEDTIME 0RF olanzapine 5 mg Tablet 5 mg PO BEDTIME 0RF pantoprazole [Protonix] 40 mg tablet,delayed release (DR/EC) 40 mg PO DAILY Qty: 30 0RF methocarbamol 750 mg tablet 750 mg PO Q6H PRN (Reason: spasms) Qty: 20 0RF folic acid 1 mg Tablet 1 mg PO DAILY Qty: 60 0RF magnesium oxide 500 mg tablet 500 mg PO BID Qty: 20 0RF thiamine mononitrate (vit B1) [Vitamin B-1 (mononitrate)] 100 mg Tablet 100 mg PO DAILY 30 Days Qty: 30 3RF ondansetron HCl [Zofran] 4 mg tablet 4 mg PO Q6H PRN (Reason: nausea and vomiting) Qty: 10 2RF promethazine 50 mg suppository 50 mg IN Q6H PRN (Reason: nausea and vomiting) Qty: 6 1RF Rx Instructions: take half to one suppository per rectum every 6 hours as needed potassium chloride 20 mEq tablet,ER particles/crystals 20 meq PO DAILY Qty: 5 0RF cetirizine 10 mg Tablet 10 mg PO DAILY 0RF pentoxifylline 400 mg Tablet Extended Release 400 mg PO DAILY 0RF Rx Instructions: must administer with a meal/food citalopram 20 mg Tablet 20 mg PO DAILY 0RF buspirone 10 mg Tablet 10 mg PO BID 0RF midodrine 10 mg Tablet 10 mg PO TID 0RF Rx Instructions: do not give last dose of day after 6PM or within 4 hrs of bedtime metoprolol tartrate 25 mg Tablet 25 mg PO BID 0RF metoclopramide HCl [Reglan] 10 mg tablet 10 mg PO Q6H PRN (Reason: nausea and vomiting) Qty: 30 0RF Discharge Orders: Discharge ED (Routine); Ordered 07/29/21 Ordered By: Grayson Rolle Referrals: Stanton Schumacher [Primary Care Provider] - 1-3 days Isaiah Damon MD [Physician] - 1-3 days Patient Instructions: Leg Fracture (ED), Opioid Safety Coding Level of Care Code ED [employer] for Margar[facility] Mireles
[2021-07-29 11:38] VITALS: BP 128/86; PULSE 129; RESP 20; O2SAT 100
[2021-07-29] MEDS: HYDROcodone-acetaminophen 10-325 mg Tablet 1 TAB PO (11:57)
[2021-07-29 12:34] VITALS: BP 137/80; PULSE 168; RESP 18; O2SAT 95
[2021-07-29] MEDS: ondansetron 4 MG Tablet PO (13:00)
[2021-07-29 13:39] VITALS: BP 118/89; PULSE 128; RESP 16; O2SAT 96
== END 2021-07-29 13:41 | disposition home or self-care (01) ==
PROVIDERS: Emergency Provider Emergency Medicine; PCP Family Medicine
DX: S82.252A Displaced comminuted fracture of shaft of left tibia, initial encounter for closed fracture (principal); F17.210 Nicotine dependence, cigarettes, uncomplicated; W01.0XXA Fall on same level from slipping, tripping and stumbling without subsequent striking against object, initial encounter
CPT/HCPCS: 29515; 70450; 72125; 73610; 99283; Q0162

== ENCOUNTER 2021-07-29 21:44 | Emergency (ER) | payer MEDICAID, SELFPAY ==
[2021-07-29 21:47] VITALS: BP 90/65; PULSE 135; RESP 20; TEMP 36.4; O2SAT 100; BMI 24.3
--- NOTE | 2021-07-29 22:08 | XRR_ITS ---
PROCEDURE INFORMATION: Exam: XR Chest Exam date and time: 07/29/2021 10:08 PM Age: 36 years old Clinical indication: Chest wall pain; Additional info: Cp TECHNIQUE: Imaging protocol: XR of the chest. Views: 1 view. COMPARISON: CR (CHEST, ) 07/11/2021 5:21 AM FINDINGS: Lungs: No CHF/pulmonary edema. Visible lungs appear essentially clear. Pleural spaces: No visible pneumothorax. No definite pleural fluid. Heart/Mediastinum: Heart size is within normal limits. Bones/joints: No significant acute finding. XR/XR chest 1V portable [id number] IMPRESSION: 1. Essentially unremarkable single view chest. 2. Other findings discussed above.
--- NOTE | 2021-07-29 22:08 | ECG_ITS ---
[facility] Test Date: 2021-07-29 Pat Name: Pily Choe Department: Room: Gender: Female Rn Plastic Surgery: : 1985 Requested By: Grayson Rolle Order Number: [id number] Kalee MD: Amado House M.D. Measurements Intervals [place] Rate: 134 P: 156 CO: 175 QRS: 56 QRSD: 85 T: 22 QT: 337 QTc: 505 Interpretive Statements SINUS TACHYCARDIA Compared to ECG 07/11/2021 05:58:25 T-wave abnormality no longer present Electronically Signed On 07-30-2021 16:02:08 GARNISHER by Amado House M.D. [id number]
--- NOTE | 2021-07-29 22:09 | W.ED.CHESTPA ---
Documented by User: Grayson Rolle MD 07/29/21 22:58 HPI - Chest Pain General: Chief Complaint: Chest Pain Stated Complaint: CP Time Seen by Provider: 07/29/21 22:04 History of Present Illness: 36-year-old female history of alcoholism presents with chest pain nausea and vomiting. States this started this afternoon. Was seen earlier today due to tibial fracture. States vomiting is nonbloody nonbilious. Of note upon arrival patient is borderline hypotensive at 90/65 however states this is baseline for her. States chest pain is achy and sharp. It does not radiate into the back. Denies any fevers or chills. Denies any new lower extremity pain or swelling since the injury. Review of Systems Narrative: - CONSTITUTIONAL: Denies weight loss, fever and chills. - HEENT: Denies changes in vision and hearing. - RESPIRATORY: Denies SOB and cough. - CV: As above - GI: As above - : Denies dysuria and urinary frequency. - MSK: As above - SKIN: Denies rash and pruritus. - NEUROLOGICAL: Denies headache, weakness, numbness and syncope. 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 No acute distress. Well-nourished. - EYES: EOMI. Anicteric. - HENT: Atraumatic, no C-spine tenderness. Moist mucous membranes. No scleral icterus. No cervical lymphadenopathy. - LUNGS: Clear to auscultation bilaterally. No accessory muscle use. Equal lung sounds bilaterally. No respiratory distress. - CARDIOVASCULAR: Regular tachycardia. No murmur. No JVD. - ABDOMEN: Soft, non-tender and non-distended. Negative CVA tenderness bilaterally, no rebound or guarding, negative Prasad sign. No palpable masses. - EXTREMITIES: No edema. Splint over right ankle. - SKIN: No rashes or lesions. Warm. - NEUROLOGIC: No meningismus or focal neurological deficits. CN II-XII grossly intact. - PSYCHIATRIC: Cooperative. Appropriate mood and affect. Course Vital Signs: Vital signs: Vital Signs Temperature 97.6 F 07/29/21 21:47 Pulse Rate 128 H 07/30/21 03:03 Respiratory Rate 16 07/30/21 03:03 Blood Pressure 95/55 07/30/21 03:03 Pulse Oximetry 100 07/30/21 03:03 MDM - Chest Pain Medical Decision Making 36-year-old presents with chest pain nausea and vomiting. Does have a history of alcoholism. Blood pressure is borderline but states she has history of low blood pressure. Improved with fluids. Lab work currently pending. EKG does not reveal any sign of acute ischemia or other acute abnormality. X-ray does not reveal pneumothorax or consolidation. Patient signed out to Dr. Peidra. Lab Data : 07/29/21 22:10 07/29/21 22:10 Radiology Impressions Chest X-Ray 07/29/21 22:08 IMPRESSION: 1. Essentially unremarkable single view chest. 2. Other findings discussed above. Gallbladder Ultrasound 07/29/21 23:06 IMPRESSION: 1. Reported prior cholecystectomy. 2. No definite biliary tree dilation, see above. 3. Other details/findings discussed above. Chest/Abdomen/Pelvis CT 07/30/21 00:07 IMPRESSION: No acute findings. IMPRESSION: 1. Markedly severe fatty liver infiltration measuring -5 Hounsfield units. 2. Probable cirrhosis with heterogeneous slightly nodular liver. 3. Varices in the region of the spleen and left renal vein consistent with portal hypertension and splenorenal shunt. Laboratory Results WBC 12.1 10^3/uL (4.0-10.0) H 07/29/21 22:10 RBC 5.07 10^6/uL (4.1-5.3) 07/29/21 22:10 Hgb 14.0 g/dL (11.5-15.3) 07/29/21 22:10 Hct 45.1 % (37.0-47.0) 07/29/21 22:10 MCV 89.0 fl (81-99) 07/29/21 22:10 MCH 27.6 pg (28.0-34.0) L 07/29/21 22:10 MCHC 31.0 g/dL (30.0-36.0) 07/29/21 22:10 RDW 23.8 % (12.1-15.1) H 07/29/21 22:10 Plt Count 288 10^3/cmm (130-400) 07/29/21 22:10 MPV 10.6 fL (7.4-10.4) H 07/29/21 22:10 Neut % (Auto) 79.2 % 07/29/21 22:10 Lymph % (Auto) 5.6 % 07/29/21 22:10 [place] % (Auto) 14.0 % 07/29/21 22:10 Eos % (Auto) 0.0 % 07/29/21 22:10 Baso % (Auto) 0.7 % 07/29/21 22:10 Neut # (Auto) 9.59 10^3/uL (1.8-7.7) H 07/29/21 22:10 Lymph # (Auto) 0.7 10^3/uL (0.8-4.8) L 07/29/21 22:10 [place] # (Auto) 1.7 10^3/uL (0.2-0.9) H 07/29/21 22:10 Eos # (Auto) 0.0 10^3/uL (0.0-0.8) 07/29/21 22:10 Baso # (Auto) 0.1 10^3/uL (0.0-0.1) 07/29/21 22:10 Nucleated RBC % (auto) 0 % 07/29/21 22:10 Nucleated RBCs # 0.0 /100WBC 07/29/21 22:10 PT 20.00 SECONDS (12.1-14.9) H 07/29/21 23:20 INR 1.66 (0.8-1.2) H 07/29/21 23:20 D-Dimer 4.53 ug/mIFEU (0-0.59) H 07/29/21 23:20 Specimen Type Mixedvenous 07/30/21 00:15 Sample Site Brachial, right 07/30/21 00:15 ABG pH 7.23 (7.35-7.45) L 07/30/21 00:15 ABG pCO2 31.5 mmHg (35-45) L 07/30/21 00:15 ABG pO2 58.3 mmHg (80.0-100.0) L 07/30/21 00:15 ABG HCO3 13.2 mmol/L (22-26) L 07/30/21 00:15 ABG Base Excess -13.1 mmol/L (-2.0-2.0) L 07/30/21 00:15 Jake Test Pos 07/30/21 00:15 Hematocrit 38.0 % (37-47) 07/30/21 00:15 O2 Delivery Device Room air 07/30/21 00:15 FiO2 21.0 % 07/30/21 00:15 Indexer ID Salo 07/30/21 00:15 Sodium 143 mmol/L (136-145) 07/29/21 22:10 Potassium 3.2 mmol/L (3.5-5.1) L 07/29/21 22:10 Chloride 86 mmol/L (98-107) L 07/29/21 22:10 Carbon Dioxide 18 mmol/L (22-29) L 07/29/21 22:10 Anion Gap 42.2 (5-19) H 07/29/21 22:10 BUN 10 mg/dL (6-20) 07/29/21 22:10 Creatinine 1.4 mg/dL (0.5-0.9) H 07/29/21 22:10 GFR Calculation 42.1 mL/min (90-130) L 07/29/21 22:10 Glucose 149 mg/dL (65-115) H 07/29/21 22:10 Calculated Osmolality 298 mOsm/kg (285-295) H 07/29/21 22:10 Lactate 22.6 mmol/L (0.5-2.2) H* 07/29/21 23:20 Calcium 8.8 mg/dL (8.5-10.5) 07/29/21 22:10 Total Bilirubin 4.1 mg/dL (0.15-1.2) H 07/29/21 22:10 AST 1582 U/L (0-32) H 07/29/21 22:10 ALT 359 U/L (0-33) H 07/29/21 22:10 Alkaline Phosphatase 482 IU/L (35-105) H 07/29/21 22:10 Troponin T Baseline 9 ng/L (0-10) 07/29/21 22:10 Troponin T 120 Minute 11.42 ng/L (0-10) H 07/30/21 00:52 Delta Troponin T 2.42 ABS# (0-10) 07/30/21 00:52 Total Protein 7.0 g/dL (6.6-8.7) 07/29/21 22:10 Albumin 4.4 g/dL (3.5-5.2) 07/29/21 22:10 Globulin 2.6 g/dL (1.3-4.6) 07/29/21 22:10 Lipase 34 U/L (13-60) 07/29/21 22:10 HCG, Qual Negative (Negative) 07/29/21 22:10 Urine Color Yellow (Yellow) 07/30/21 01:31 Urine Appearance Clear (CLEAR) 07/30/21 01:31 Urine pH 6.5 (5-7) 07/30/21 01:31 Ur Specific [place] 1.010 (1.005-1.030) 07/30/21 01:31 Urine Protein Neg (Negative) 07/30/21 01:31 Urine Glucose (UA) Norm (Normal) 07/30/21 01:31 Urine Ketones Negative (Negative) 07/30/21 01:31 Urine Blood Neg (Negative) 07/30/21 01:31 Urine Nitrate Negative (Negative) 07/30/21 01:31 Urine Bilirubin Neg (Negative) 07/30/21 01:31 Urine Urobilinogen Norm mg/dL (Negative) 07/30/21 01:31 Ur Leukocyte Esterase Negative (Negative) 07/30/21 01:31 Ethyl Alcohol 197 mg/dL (0-10) H 07/29/21 22:10 Serum Ketones Negative (Negative) 07/29/21 22:10 Hepatitis A IgM Ab Non-reactive (Nonreactive) 07/29/21 22:10 Hep Bs Antigen Non-reactive (Nonreactive) 07/29/21 22:10 Hep Bs Antibody 250.5 (11.5-1000) 07/29/21 22:10 Hep B Core Total Ab Non-reactive (Nonreactive) 07/29/21 22:10 Hepatitis C Antibody Non-reactive (Nonreactive) 07/29/21 22:10 EKG Data EKG 1: Other EKG comments: Sinus tachycardia, rate 134, no sign of acute ischemia or other acute abnormality. Discharge Plan Discharge Patient Disposition: Xfer Short-Term Hosp Clinical Impression: Acidosis, lactic, Acute alcoholic intoxication, Hepatitis, Hypotension Condition: Stable Referrals: Stanton Schumacher [Primary Care Provider] - Coding Level of Care Code ED [employer] Supervisor for Chg Fwd Exam Comprehensive Documented by User: Milton Piedra MD 07/30/21 03:59 HPI - Chest Pain General: Chief Complaint: Chest Pain Stated Complaint: CP Time Seen by Provider: 07/29/21 22:04 History of Present Illness: Associated symptoms: Reports abdominal pain, nausea and vomiting; Deny dyspnea or fever(s) Review of Systems Const: Reports: body aches; Denies: fever(s), chills or change in appetite Eyes: Denies: blurry vision or eye discomfort ENMT: Denies: throat pain or dental pain Card: Denies: chest pain Resp: Denies: dyspnea GI: Reports: abdominal pain, nausea and vomiting; Denies: diarrhea : Denies: dysuria Musc: Denies: neck pain or back pain Skin/Breast: Denies: rash Neuro: Denies: headache(s) Psych: Denies: depression Noel/Lymph: Denies: easy bruising All/Imm: Denies: urticaria PFSH ED PFSH: Medical History Acute on chronic anemia Prior blood transfusion in the past Alcohol use disorder, severe, dependence Alcohol withdrawal syndrome Anxiety Aspiration pneumonia = Benzodiazepine abuse Depression Depression End stage liver disease -noted hepatic cirrhosis on CT -secondary to EtOH abuse -continue to trend ammonia, on lactulose -prior hx of SBP, not enough fluid to drain, off abx -pain control as needed -f/u with local delivery driver in [place] and is on transplant list Esophageal varices -hx of banding -s/p 2 units PRBCs on 04/07 GI bleed History of alcohol abuse Overdose SBP (spontaneous bacterial peritonitis) Transaminitis Surgical History H/O LEEP History of cholecystectomy Social History Smoking and tobacco status: current some day smoker Alcohol intake: current Alcohol intake frequency: 3 or more drinks per day Alcohol type: hard liquor Physical Exam Const: COMMON NORMALS: patient oriented x3 and healthy appearing GENERAL APPEARANCE: in distress and ill appearing HENMT: COMMON NORMALS: normocephalic and atraumatic HEAD & SCALP: normocephalic and atraumatic Eye: COMMON NORMALS: Equal, round and reactive pupils present and EOMs intact bilaterally PUPIL: Yes Equal, round and reactive pupils present Neck/C-Spine: COMMON NORMALS: full ROM and supple Chest: COMMONS NORMALS: normal inspection of the chest and normal palpation of entire chest wall Resp: COMMON NORMALS: normal respiratory effort, No retractions, No use of accessory muscles and clear to auscultation bilaterally AUSCULTATION: clear to auscultation bilaterally Cardio: COMMON NORMALS: No murmurs present (Cardio) RATE: tachycardic GI: COMMON NORMALS: Normal to inspection, nondistended, normoactive bowel sounds present, Soft to palpation, non-tender and no masses PALPATION: Yes Soft to palpation Extremity: COMMON NORMALS: normal to inspection and full ROM Neuro: COMMON NORMALS: patient oriented x3, moves all extremities and no focal motor deficits Psych: COMMON NORMALS: mental status grossly normal, Normal thought process present and cooperative THOUGHT PROCESS: Normal thought process present Skin: COMMON NORMALS: no rashes or lesions noted and no wounds GENERAL SKIN EXAM: no rashes or lesions noted Course Vital Signs: Vital signs: Vital Signs Temperature 97.6 F 07/29/21 21:47 Pulse Rate 128 H 07/30/21 03:03 Respiratory Rate 16 07/30/21 03:03 Blood Pressure 95/55 07/30/21 03:03 Pulse Oximetry 100 07/30/21 03:03 MDM - Chest Pain Medical Decision Making 36-year-old presents with chest pain nausea and vomiting. Does have a history of alcoholism. Blood pressure is borderline but states she has history of low blood pressure. Improved with fluids. Lab work currently pending. EKG does not reveal any sign of acute ischemia or other acute abnormality. X-ray does not reveal pneumothorax or consolidation. Patient signed out to Dr. Piedra. Patient presents here with extremely elevated lactate and anion gap history of alcoholism and vomiting also has elevated liver enzymes and bilirubin will transfer to [facility] for higher level of care for GI Lab Data : 07/29/21 22:10 07/29/21 22:10 Radiology Impressions Chest X-Ray 07/29/21 22:08 IMPRESSION: 1. Essentially unremarkable single view chest. 2. Other findings discussed above. Gallbladder Ultrasound 07/29/21 23:06 IMPRESSION: 1. Reported prior cholecystectomy. 2. No definite biliary tree dilation, see above. 3. Other details/findings discussed above. Chest/Abdomen/Pelvis CT 07/30/21 00:07 IMPRESSION: No acute findings. IMPRESSION: 1. Markedly severe fatty liver infiltration measuring -5 Hounsfield units. 2. Probable cirrhosis with heterogeneous slightly nodular liver. 3. Varices in the region of the spleen and left renal vein consistent with portal hypertension and splenorenal shunt. Laboratory Results WBC 12.1 10^3/uL (4.0-10.0) H 07/29/21 22:10 RBC 5.07 10^6/uL (4.1-5.3) 07/29/21 22:10 Hgb 14.0 g/dL (11.5-15.3) 07/29/21 22:10 Hct 45.1 % (37.0-47.0) 07/29/21 22:10 MCV 89.0 fl (81-99) 07/29/21 22:10 MCH 27.6 pg (28.0-34.0) L 07/29/21 22:10 MCHC 31.0 g/dL (30.0-36.0) 07/29/21 22:10 RDW 23.8 % (12.1-15.1) H 07/29/21 22:10 Plt Count 288 10^3/cmm (130-400) 07/29/21 22:10 MPV 10.6 fL (7.4-10.4) H 07/29/21 22:10 Neut % (Auto) 79.2 % 07/29/21 22:10 Lymph % (Auto) 5.6 % 07/29/21 22:10 [place] % (Auto) 14.0 % 07/29/21 22:10 Eos % (Auto) 0.0 % 07/29/21 22:10 Baso % (Auto) 0.7 % 07/29/21 22:10 Neut # (Auto) 9.59 10^3/uL (1.8-7.7) H 07/29/21 22:10 Lymph # (Auto) 0.7 10^3/uL (0.8-4.8) L 07/29/21 22:10 [place] # (Auto) 1.7 10^3/uL (0.2-0.9) H 07/29/21 22:10 Eos # (Auto) 0.0 10^3/uL (0.0-0.8) 07/29/21 22:10 Baso # (Auto) 0.1 10^3/uL (0.0-0.1) 07/29/21 22:10 Nucleated RBC % (auto) 0 % 07/29/21 22:10 Nucleated RBCs # 0.0 /100WBC 07/29/21 22:10 PT 20.00 SECONDS (12.1-14.9) H 07/29/21 23:20 INR 1.66 (0.8-1.2) H 07/29/21 23:20 D-Dimer 4.53 ug/mIFEU (0-0.59) H 07/29/21 23:20 Specimen Type Mixedvenous 07/30/21 00:15 Sample Site Brachial, right 07/30/21 00:15 ABG pH 7.23 (7.35-7.45) L 07/30/21 00:15 ABG pCO2 31.5 mmHg (35-45) L 07/30/21 00:15 ABG pO2 58.3 mmHg (80.0-100.0) L 07/30/21 00:15 ABG HCO3 13.2 mmol/L (22-26) L 07/30/21 00:15 ABG Base Excess -13.1 mmol/L (-2.0-2.0) L 07/30/21 00:15 Jake Test Pos 07/30/21 00:15 Hematocrit 38.0 % (37-47) 07/30/21 00:15 O2 Delivery Device Room air 07/30/21 00:15 FiO2 21.0 % 07/30/21 00:15 Indexer ID Salo 07/30/21 00:15 Sodium 143 mmol/L (136-145) 07/29/21 22:10 Potassium 3.2 mmol/L (3.5-5.1) L 07/29/21 22:10 Chloride 86 mmol/L (98-107) L 07/29/21 22:10 Carbon Dioxide 18 mmol/L (22-29) L 07/29/21 22:10 Anion Gap 42.2 (5-19) H 07/29/21 22:10 BUN 10 mg/dL (6-20) 07/29/21 22:10 Creatinine 1.4 mg/dL (0.5-0.9) H 07/29/21 22:10 GFR Calculation 42.1 mL/min (90-130) L 07/29/21 22:10 Glucose 149 mg/dL (65-115) H 07/29/21 22:10 Calculated Osmolality 298 mOsm/kg (285-295) H 07/29/21 22:10 Lactate 22.6 mmol/L (0.5-2.2) H* 07/29/21 23:20 Calcium 8.8 mg/dL (8.5-10.5) 07/29/21 22:10 Total Bilirubin 4.1 mg/dL (0.15-1.2) H 07/29/21 22:10 AST 1582 U/L (0-32) H 07/29/21 22:10 ALT 359 U/L (0-33) H 07/29/21 22:10 Alkaline Phosphatase 482 IU/L (35-105) H 07/29/21 22:10 Troponin T Baseline 9 ng/L (0-10) 07/29/21 22:10 Troponin T 120 Minute 11.42 ng/L (0-10) H 07/30/21 00:52 Delta Troponin T 2.42 ABS# (0-10) 07/30/21 00:52 Total Protein 7.0 g/dL (6.6-8.7) 07/29/21 22:10 Albumin 4.4 g/dL (3.5-5.2) 07/29/21 22:10 Globulin 2.6 g/dL (1.3-4.6) 07/29/21 22:10 Lipase 34 U/L (13-60) 07/29/21 22:10 HCG, Qual Negative (Negative) 07/29/21 22:10 Urine Color Yellow (Yellow) 07/30/21 01:31 Urine Appearance Clear (CLEAR) 07/30/21 01:31 Urine pH 6.5 (5-7) 07/30/21 01:31 Ur Specific [place] 1.010 (1.005-1.030) 07/30/21 01:31 Urine Protein Neg (Negative) 07/30/21 01:31 Urine Glucose (UA) Norm (Normal) 07/30/21 01:31 Urine Ketones Negative (Negative) 07/30/21 01:31 Urine Blood Neg (Negative) 07/30/21 01:31 Urine Nitrate Negative (Negative) 07/30/21 01:31 Urine Bilirubin Neg (Negative) 07/30/21 01:31 Urine Urobilinogen Norm mg/dL (Negative) 07/30/21 01:31 Ur Leukocyte Esterase Negative (Negative) 07/30/21 01:31 Ethyl Alcohol 197 mg/dL (0-10) H 07/29/21 22:10 Serum Ketones Negative (Negative) 07/29/21 22:10 Hepatitis A IgM Ab Non-reactive (Nonreactive) 07/29/21 22:10 Hep Bs Antigen Non-reactive (Nonreactive) 03/01/22 22:10 Hep Bs Antibody 250.5 (11.5-1000) 07/29/21 22:10 Hep B Core Total Ab Non-reactive (Nonreactive) 07/29/21 22:10 Hepatitis C Antibody Non-reactive (Nonreactive) 07/29/21 22:10 Critical Care Time Critical Care Time: Critical Care Time: Yes Total Critical Care Time: 50 Attestation: The high probability of a clinically significant, sudden or life threatening deterioration of the patient's cv system(s) required my full and direct attention, intervention and personal management. The critical care time is as shown. This time is in addition to time spent performing any reported procedures but includes the following: [x] Data and vital sign review and interpretation [x] Patient assessment, examination and intervention [x] Documentation [x] Medication orders and management Discharge Plan Discharge Patient Disposition: Xfer Short-Term Hosp Clinical Impression: Acidosis, lactic, Acute alcoholic intoxication, Hepatitis, Hypotension Condition: Stable Referrals: Stanton Schumacher [Primary Care Provider] - Coding Level of Care Code ED [employer] Supervisor for Chg Fwd Exam Comprehensive
[2021-07-29 22:19] LABS: Basophils # 0.1 10^3/uL (0.0-0.1); Basophils % 0.7 %; Hematocrit 45.1 % (37.0-47.0); Lymphocytes # 0.7 10^3/uL (0.8-4.8); Lymphocytes % 5.6 %; Mean Corpuscular Hemoglobin 27.6 pg (28.0-34.0); Mean Platelet Volume 10.6 fL (7.4-10.4); Monocytes # 1.7 10^3/uL (0.2-0.9); Neutrophils # 9.59 10^3/uL (1.8-7.7); Neutrophils % 79.2 %; Nucleated Red Blood Cells % 0 %; Platelet Count 288 10^3/cmm (130-400); Red Blood Count 5.07 10^6/uL (4.1-5.3); Red Cell Distribution Width 23.8 % (12.1-15.1); White Blood Count 12.1 10^3/uL (4.0-10.0)
[2021-07-29 22:44] LABS: Alanine Aminotransferase 359 U/L (0-33); Albumin Level 4.4 g/dL (3.5-5.2); Alcohol Level 197 mg/dL (0-10); Alkaline Phosphatase 482 IU/L (35-105); Anion Gap 42.2 (5-19); Blood Urea Nitrogen 10 mg/dL (6-20); Calcium 8.8 mg/dL (8.5-10.5); Carbon Dioxide 18 mmol/L (22-29); Chloride 86 mmol/L (98-107); Globulin 2.6 g/dL (1.3-4.6); Glomerular Filtration Rate 42.1 mL/min (90-130); Glucose 149 mg/dL (65-115); Lipase 34 U/L (13-60); Osmolality Calculated 298 mOsm/kg (285-295); Potassium 3.2 mmol/L (3.5-5.1); Sodium 143 mmol/L (136-145); Total Bilirubin 4.1 mg/dL (0.15-1.2); Troponin(5th) Baseline 9 ng/L (0-10)
[2021-07-29 22:52] LABS: Aspartate Amino Transferase 1582 U/L (0-32)
--- NOTE | 2021-07-29 23:06 | USR_ITS ---
PROCEDURE INFORMATION: Exam: US Abdomen, Limited; Right Upper Quadrant Exam date and time: 07/29/2021 11:06 PM Age: 36 years old Clinical indication: Nausea and vomiting; Abdominal pain; Acute; Prior surgery; Surgery date: 6+ months; Surgery type: Gallbladder removed; Patient HX: Alcoholism and cirrhosis of liver x5 years; Additional info: Abd pain TECHNIQUE: Imaging protocol: US abdomen. Real time ultrasound with image documentation. Limited exam focused on the right upper quadrant. COMPARISON: US abdomen limited [id number] 06/20/2021 8:01 AM FINDINGS: Liver: The liver is not well visualized at this time. No definite sonographically visible focal abnormality. The right lobe of the liver measures 18-19 cm in length. Gallbladder: Patient reportedly states prior cholecystectomy. Common bile duct: Technologist notes that the common bile duct was not visualized at this time. No obvious evidence for significant biliary tree dilation on the provided images. Pancreas: Visible pancreas unremarkable. Some of the pancreas is obscured by bowel gas. Right kidney: Images of the right kidney show no hydronephrosis. US/US gall bladder [id number] IMPRESSION: 1. Reported prior cholecystectomy. 2. No definite biliary tree dilation, see above. 3. Other details/findings discussed above.
[2021-07-29] MEDS: ondansetron 2 mg/ML SDV 2 mL 4 MG IVP (23:24)
[2021-07-29] MEDS: sodium chloride 0.9% 1,000 ML 999 ML IV (23:24)
[2021-07-29] MEDS: aspirin 81 mg Chew Tablet 324 MG PO (23:24)
[2021-07-29 23:25] LABS: HCG, Serum Qual Negative (Negative); Ketone (Acetest) Serum Negative (Negative)
[2021-07-29] MEDS: LORazepam 2 mg/mL INJ 1 mL 1 MG IVP (23:32)
[2021-07-29] MEDS: multivitamin therapeutic Tablet 1 TAB PO (23:32)
[2021-07-29 23:46] LABS: Hepatitis A Antibody IgM Non-Reactive (Nonreactive); Hepatitis B Core AB, Total Non-Reactive (Nonreactive); Hepatitis B Surface AB 250.5 (11.5-1000); Hepatitis B Surface Antigen Non-Reactive (Nonreactive); Hepatitis C Virus Antibody Non-Reactive (Nonreactive)
[2021-07-29 23:46] LABS: INR 1.66 (0.8-1.2)
[2021-07-29 23:55] LABS: D Dimer 4.53 ug/mIFEU (0-0.59)
[2021-07-29 23:57] LABS: Lactate (Lactic Acid level) 22.6 mmol/L (0.5-2.2)
[2021-07-30] VITALS: BP 96/56; PULSE 127; RESP 16; O2SAT 100
[2021-07-30] MEDS: sodium chloride 0.9% 1,000 ML 999 ML IV ×2 (00:07→01:09)
--- NOTE | 2021-07-30 00:07 | CTR_ITS ---
PROCEDURE INFORMATION: Exam: CTA Chest With Contrast Exam date and time: 07/30/2021 12:07 AM Age: 36 years old Clinical indication: Nausea and vomiting; Abdominal pain; Generalized; Shortness of breath; Chest pressure; Prior surgery; Surgery type: Gb; Patient HX: Patient C/O chest pain with diffuse abd pain with n//v. D dimer of 4.4. Sustained left tib/fib fracture yesterday morning. ; Additional info: SOB TECHNIQUE: Imaging protocol: Computed tomographic angiography of the chest with contrast. 3D rendering (Not supervised by radiologist): MIP and/or 3D reconstructed images were created by the technologist. Radiation optimization: All CT scans at this facility use at least one of these dose optimization techniques: automated exposure control; mA and/or kV adjustment per patient size (includes targeted exams where dose is matched to clinical indication); or iterative reconstruction. Contrast material: VISI 320; Contrast volume: 95 ml; Contrast route: INTRAVENOUS (IV); COMPARISON: CT angio chest w abd pel w con 04/07/2020 3:19 PM RADIATION DOSE METRICS: Total DLP (mGy-cm): 1208.45 FINDINGS: Pulmonary arteries: Normal. No pulmonary emboli. Aorta: Unremarkable. No aortic aneurysm. No aortic dissection. Lungs: Unremarkable. No consolidation. No masses. Pleural spaces: Unremarkable. No pneumothorax. No pleural effusion. Heart: Unremarkable. No cardiomegaly. No pericardial effusion. Lymph nodes: Unremarkable. No enlarged lymph nodes. Diaphragm: Small intrathoracic hiatal hernia. Bones/joints: Chronic appearing 20% T11 anterior compression fracture and 5% T12 anterior compression fracture. Soft tissues: Unremarkable. PROCEDURE INFORMATION: Exam: CT Abdomen And Pelvis With Contrast Exam date and time: 07/30/2021 12:07 AM Age: 36 years old Clinical indication: Nausea and vomiting; Abdominal pain; Generalized; Shortness of breath; Chest pressure; Prior surgery; Surgery type: Gb; Patient HX: Patient C/O chest pain with diffuse abd pain with n//v. D dimer of 4.4. Sustained left tib/fib fracture yesterday morning. ; Additional info: SOB TECHNIQUE: Imaging protocol: Computed tomography of the abdomen and pelvis with contrast. Radiation optimization: All CT scans at this facility use at least one of these dose optimization techniques: automated exposure control; mA and/or kV adjustment per patient size (includes targeted exams where dose is matched to clinical indication); or iterative reconstruction. Contrast material: VISI 320; Contrast volume: 95 ml; Contrast route: INTRAVENOUS (IV); COMPARISON: CT angio chest w abd pel w con 04/07/2020 3:19 PM RADIATION DOSE METRICS: Total DLP (mGy-cm): 1208.45 FINDINGS: Liver: Markedly severe fatty liver infiltration measuring -5 Hounsfield units. Probable cirrhosis with heterogeneous slightly nodular liver. Gallbladder and bile ducts: Stable cholecystectomy. Pancreas: Normal. No ductal dilation. Spleen: Normal. No splenomegaly. Adrenal glands: Normal. No mass. Kidneys and ureters: Normal. No hydronephrosis. Stomach and bowel: Unremarkable. No obstruction. No mucosal thickening. Appendix: No evidence of appendicitis. Intraperitoneal space: Unremarkable. No free air. No significant fluid collection. Vasculature: Varices in the region of the spleen and left renal vein consistent with portal hypertension and splenorenal shunt. Lymph nodes: Unremarkable. No enlarged lymph nodes. Urinary bladder: Unremarkable as visualized. Reproductive: Unremarkable as visualized. Bones/joints: Unremarkable. No acute fracture. Soft tissues: 3 cm midline anterior abdominal wall hernia containing fat, 12 cm superior to the umbilicus. CT/CT angio chest w abd pel w con IMPRESSION: No acute findings. IMPRESSION: 1. Markedly severe fatty liver infiltration measuring -5 Hounsfield units. 2. Probable cirrhosis with heterogeneous slightly nodular liver. 3. Varices in the region of the spleen and left renal vein consistent with portal hypertension and splenorenal shunt.
[2021-07-30] MEDS: vancomycin 1,000 MG in sodium chloride 0.9% 250 ML 250 MG IV (00:25)
[2021-07-30] MEDS: piperacillin-tazobactam 3.375 GM in sodium chloride 0.9% (plus) 50 ML IV (00:25)
[2021-07-30 00:27] LABS: ABG PCO2 31.5 mmHg (35-45); ABG PH Result 7.23 (7.35-7.45); Base Excess ABG -13.1 mmol/L (-2.0-2.0); Blood Gas Allen Test Pos; Blood Gas Operator Identificat JB; Blood Gas Sample Site Brachial, right; Blood Gas Sample Type MixedVenous; HCO3 ABG 13.2 mmol/L (22-26); Oxygen Device ROOM AIR; PO2 ABG 58.3 mmHg (80.0-100.0)
[2021-07-30] MEDS: iodixanol 320 mg/mL 100mL Btl IV (00:29)
[2021-07-30 01:05] VITALS: BP 98/57; PULSE 124; RESP 16; O2SAT 98
[2021-07-30 01:22] LABS: Troponin 5 2HR 11.42 ng/L (0-10)
[2021-07-30 01:23] LABS: Troponin 5 2HR Delta 2.42 ABS# (0-10)
[2021-07-30 01:38] LABS: Add Urine Microscopic? NO; Charge for UA Resulting for Rev
[2021-07-30 01:49] LABS: Bilirubin Urine Neg (Negative); Blood Urine Neg (Negative); Glucose Urine UA Norm (Normal); Ketones Urine Negative (Negative); Leukocyte Esterase Urine Negative (Negative); Nitrate Urine Negative (Negative); Protein Urine Neg (Negative); Urine Appearance Clear (CLEAR); Urine Color Yellow (Yellow); Urobilinogen Urine Norm (Negative); pH Urine 6.5 (5-7)
[2021-07-30 01:52] VITALS: BP 106/57; PULSE 127; RESP 16; O2SAT 100
[2021-07-30] MEDS: sodium chloride 0.9% 1,000 ML 200 ML IV (01:52)
[2021-07-30 03:03] VITALS: BP 95/55; PULSE 128; RESP 16; O2SAT 100
[2021-07-30 04:33] LABS: Lactate (Lactic Acid level) 23.6 mmol/L (0.5-2.2)
[2021-07-30] MEDS: lactated ringers 1,000 ML 999 ML IV (04:40)
[2021-07-30 04:54] VITALS: BP 92/55; PULSE 122; RESP 16; O2SAT 96
[2021-07-30] MEDS: ondansetron 2 mg/ML SDV 2 mL 4 MG IVP (04:54)
== END 2021-07-30 04:56 | disposition short-term general hospital (02) ==
PROVIDERS: Emergency Medicine; Emergency Provider Emergency Medicine; PCP Family Medicine
DX: E87.2 Acidosis (principal); F10.129 Alcohol abuse with intoxication, unspecified; K75.9 Inflammatory liver disease, unspecified; I95.9 Hypotension, unspecified; F17.210 Nicotine dependence, cigarettes, uncomplicated; Y90.6 Blood alcohol level of 120-199 mg/100 ml
CPT/HCPCS: 71045; 71275; 74177; 76705; 80053; 80307; 81003; 82009; 82803; 83605; 83690; 84484; 84703; 85025; 85378; 85610; 86705; 86706; 86709; 86803; 87040; 87340; 93005; 96365; 96367; 96375; 96376; 99285; J2060; J2405; J2543; J3370; J3411; J7030; J7050; Q9967